=== PATIENT | male | born 1940 | race Caucasian/White ===

== ENCOUNTER 2023-10-13 12:25 | Emergency (ER) | payer MEDICARE, SELFPAY ==
[2023-10-13 12:32] VITALS: BP 128/66; PULSE 80; RESP 14; TEMP 36.6; O2SAT 97
[2023-10-13 12:39] VITALS: BP 128/66; PULSE 80; RESP 14; TEMP 36.6; O2SAT 97
--- OUTSIDE RECORDS SUMMARY | 2023-10-13 13:41 | XMS_ITS | Encounter Summary ---
[place] [address] Care Team Providers Care Manager Audio Name Role Phone Frankie Friedman DPChar Primary Care Provider [phone] Encounter Details Date Type Department Care Team (Latest Contact Info) Description 09/30/2016 12:30 PM EDT - 09/30/2016 2:23 PM EDT Hospital [place] [id number] Constanza Rondon, SHARATH Foot ulcer, left, with unspecified severity Discharge Disposition: Home Social History Tobacco Use Types Packs/Day Years Used Date Smoking Tobacco: Never Assessed Sex and Gender Information Value Date Recorded Sex Assigned at Not on file Gender Identity Not on file Sexual Orientation Not on file documented as of this encounter Medications at Time of Discharge Medication Sig Dispensed Refills Start Date End Date allopurinol (ZYLOPRIM) 100 mg Tablet Take 100 mg by mouth daily. lisinopril (PRINIVIL;ZESTRIL) 20 mg Tablet Take 20 mg by mouth daily. cephalexin (KEFLEX) 500 mg Capsule Take 500 mg by mouth 2 times daily. 09/24/2016 10/03/2016 documented as of this encounter Plan of Treatment Not on file documented as of this encounter Procedures Procedure Name Priority Date/Time Associated Diagnosis Comments MARLEE, LEGS, MULTIPLE LEVELS Routine 09/30/2016 1:04 PM EDT Foot ulcer, left, with unspecified severity documented in this encounter Results * MARLEE, legs, multiple levels (09/30/2016 1:04 PM EDT) VB Text Report Department: Vascular Surgery Lab Patient: [id number] (TIMMY JULES) CPT: 87178 ICD10: L97.529 Referring Physician: EDDIE HOPPER ?? Indications: ??Non-healing ulcer L foot, ? PAD Diabetes mellitus: No ICD10 Diagnosis Code: L97.529 Findings: Right ?Pressure (mm Hg) ?? MARLEE ??Waveform ?TBI ?? Brachial Artery ?137 ? Common Femoral Artery ?Triphasic ? Pop Fossa ?Triphasic ? Dorsalis Pedis (Ankle) Artery ?158 ? 1.15 ??Triphasic ? Posterior Tibial (Ankle) Artery ??149 ? 1.09 ??Triphasic ? Great Toe ?106 ?0.77 ?? Left ? Pressure (mm Hg) ?? MARLEE ??Waveform ?TBI ?? Brachial Artery ?134 ? Common Femoral Artery ?Triphasic ? Pop Fossa ?Triphasic ? Dorsalis Pedis (Ankle) Artery ?150 ? 1.09 ??Triphasic ? Posterior Tibial (Ankle) Artery ??156 ? 1.14 ??Triphasic ? Great Toe ?102 ?0.74 ?? Interpretation: RIGHT: No significant lower extremity arterial occlusive disease identified at rest. LEFT: No significant lower extremity arterial occlusive disease identified at rest. Comparison: ??No previous study in our vascular lab database for comparison. Electronically Signed by: JANE HALEY on 2016-10-01 03:04:55 PM [facility]ASCU[facility] VB Text Report End of Report [facility] 09/30/2016 1:04 PM EDT Eddie Hopper MD VASCULAR ORDERABLES [facility] documented in this encounter Visit Diagnoses Diagnosis Foot ulcer, left, with unspecified severity documented in this encounter Care Teams Manager Audio Relationship Specialty Start Date End Date Frankie Friedman DPM [address] [place] [id number] PCP - General Podiatry 09/30/16 documented as of this encounter
--- OUTSIDE RECORDS SUMMARY | 2023-10-13 13:41 | XMS_ITS | Encounter Summary ---
Author Organization [facility] Address [address] [place] [address] Phone Care Team Providers Care Sharepoint Manager Name Role Phone Unavailable Primary Care Provider Unavailabl e Encounter Details Date Type Department Care Team (Late st Contact Info) Description 06/12/2020 Orders Only [facility] [employer] [address], [place] [id number] Rolf Oleary MD [address] [place] [phone] Encounter for immunization Social History Tobacco Use Types Packs/Day Years Used Date Smoking Tobacco: Never Assessed Sex and Gender Information Value Date Recorded Sex Assigned at Not on file Gender Identity Not on file Sexual Orientation Not on file documented as of this encounter Plan of Treatment Not on file documented as of this encounter Visit Diagnoses Diagnosis Encounter for immunization documented in this encounter
--- OUTSIDE RECORDS SUMMARY | 2023-10-13 13:41 | XMS_ITS | Encounter Summary ---
[place] [address] Care Team Providers Care School Psychology Professor Name Role Phone Frankie Friedman DPChar Primary Care Provider [phone] Reason for Visit * Reason Comments Toe Pain right 4th toe Encounter Details Date Type Department Care Team (Late st Contact Info) Description 09/30/2016 2:24 PM EDT - 09/30/2016 5:38 PM EDT Emergency [place] [address] Cellulitis, unspecified cellulitis site (Primary Dx); Cellulitis of right toe Discharge Disposition: Home Social History Tobacco Use Types Packs/Day Years Used Date Smoking Tobacco: Never Assessed Sex and Gender Information Value Date Recorded Sex Assigned at Not on file Gender Identity Not on file Sexual Orientation Not on file documented as of this encounter Last Filed Vital Signs Vital Sign Reading Time Taken Comments Blood Pressure 154/67 09/30/2016 5:37 PM EDT Pulse 61 09/30/2016 5:37 PM EDT Temperature 36.9 ??C (98.4 ??F) 09/30/2016 5:37 PM ED T Respiratory Rate 16 09/30/2016 5:37 PM EDT Oxygen Saturation 95% 09/30/2016 5:37 PM EDT Inhaled Oxygen Concentration - - Weight - - Height - - Body Mass Index - - documented in this encounter Discharge Instructions * Discharge Instructions* Sol Doherty APRN - 09/30/2016 5:19 PM EDT Images from the original note were not included. [facility] Cellulitis: Care Instructions Your Care Instructions Cellulitis is a skin infection. It often occurs after a break in the skin from a scrape, cut, bite,or puncture, or after a rash. The doctor has checked you carefully, but problems can develop later. If you notice any problems ornew symptoms, get medical treatment right away. Follow-up care is a ching part of your treatment and safety. Be sure to make and go to all appointments, and call your doctor if you are having problems. It's also a good idea to know your test resultsand keep a list of the medicines you take. How can you care for yourself at home? ?? Take your antibiotics as directed. Do not stop taking them just because you feel better. You need to take the full course of antibiotics. ?? Prop up the infected area on pillows to reduce pain and swelling. Try to keep the area above thelevel of your heart as often as you can. ?? If your doctor told you how to care for your wound, follow your doctor's instructions. If you did not get instructions, follow this general advice: ?? Wash the wound with clean water 2 times a day. Don't use hydrogen peroxide or alcohol, which canslow healing. ?? You may cover the wound with a thin layer of petroleum jelly, such as Vaseline, and a nonstick bandage. ?? Apply more petroleum jelly and replace the bandage as needed. ?? Be safe with medicines. Take pain medicines exactly as directed. ?? If the doctor gave you a prescription medicine for pain, take it as prescribed. ?? If you are not taking a prescription pain medicine, ask your doctor if you can take an tnyl-ylb-jwafhjt medicine. To prevent cellulitis in the future ?? Try to prevent cuts, scrapes, or other injuries to your skin. Cellulitis most often occurs wherethere is a break in the skin. ?? If you get a scrape, cut, mild burn, or bite, wash the wound with clean water as soon as you josé help avoid infection. Don't use hydrogen peroxide or alcohol, which can slow healing. ?? If you have swelling in your legs (edema), support stockings and good skin care may help preventleg sores and cellulitis. ?? Take care of your feet, especially if you have diabetes or other conditions that increase the risk of infection. Wear shoes and socks. Do not go barefoot. If you have athlete's foot or other skin problems on your feet, talk to your doctor about how to treat them. When should you call for help? Call your doctor now or seek immediate medical care if: ?? You have signs that your infection is getting worse, such as: ?? Increased pain, swelling, warmth, or redness. ?? Red streaks leading from the area. ?? Pus draining from the area. ?? A fever. ?? You get a rash. Watch closely for changes in your health, and be sure to contact your doctor if: ?? You are not getting better after 1 day (24 hours). ?? You do not get better as expected. Where can you learn more? Visit our [employer] information library at [email or web address]. You can also view health information on [employer], your personal patient account. Log in or sign uptoday. Enter X309 in the search box to learn more about Cellulitis: Care Instructions. Current as of: December 12, 2015 Content Version: 11.3 ?? [id number] [employer]. Care instructions adapted under license by [facility]. If you have questions about a medical condition or this instruction, always ask your healthcare professional. [employer] disclaims any warranty or liability for your use of this information. documented in this encounter Medications at Time of Discharge Medication Sig Dispensed Refills Start Date End Date allopurinol (ZYLOPRIM) 100 mg Tablet Take 100 mg by mouth daily. lisinopril (PRINIVIL;ZESTRIL) 20 mg Tablet Take 20 mg by mouth daily. cephalexin (KEFLEX) 500 mg Capsule Take 500 mg by mouth 2 times daily. 09/24/2016 10/03/2016 documented as of this encounter ED Notes * Sol Doherty APRN - 09/30/2016 5:38 PM EDT Images from the original note were not included. Chief Complaint Patient presents with ??? Toe Pain right 4th toe HPI 76-year-old male presents the emergency department today with redness and ulceration the right fourth toe. Patient states that the redness has increased the last 48 hours and the ulceration has opened. 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 Patient denies any numbness or tingling, or fevers or chills. No Known Allergies Review of Systems Constitutional: Negative for chills, fatigue and fever. Musculoskeletal: Negative for arthralgias, gait problem and joint swelling. Skin: Positive for wound. Ulceration to the base of the fourth right toe Neurological: Negative for weakness and numbness. Hematological: Negative for adenopathy. Physical Exam Constitutional: He is oriented to person, place, and time. He appears well- developed and well-nourished. HENT: Head: Normocephalic and atraumatic. Neck: Normal range of motion. Neck supple. Cardiovascular: Normal rate, regular rhythm, normal heart sounds and intact distal pulses. Pulmonary/Chest: Effort normal and breath sounds normal. Musculoskeletal: Right foot: There is tenderness and swelling. There is normal range of motion. Feet: Neurological: He is alert and oriented to person, place, and time. no sensory changes to the right foot Skin: c MSK Psychiatric: He has a normal mood and affect. Vitals reviewed. Procedures Results for DHARA TIMMY Rivas ( ) as of 10/03/2016 13:20 Ref. Range 09/30/2016 16:03 WBC Latest Ref Range: 4.0 - 9.5 x10(3)/mcL 5.0 RBC Latest Ref Range: 4.58 - 5.54 x10(6)/mcL 5.26 Hemoglobin Latest Ref Range: 13.7 - 16.5 gm/dL 18.4 (H) Hematocrit Latest Ref Range: 40.5 - 48.5 % 51.5 (H) MCV Latest Ref Range: 82.9 - 93.1 fL 97.9 (H) MCH Latest Ref Range: 27.5 - 32.1 pg 35.0 (H) MCHC Latest Ref Range: 32.0 - 35.7 gm/dL 35.7 RDWSD Latest Ref Range: 36.0 - 45.0 fL 44.3 RDWCV Latest Ref Range: 11.4 - 13.8 % 12.3 Platelets Latest Ref Range: 145 - 357 x10(3)/mcL 182 MPV Latest Ref Range: 7.6 - 12.9 fL 8.7 nRBC % Auto Latest Units: % 0.0 nRBC Abs Auto Latest Ref Range: 0.000 - 0.000 x10(3)/mcL 0.000 Neutr Abs (ANC) Latest Ref Range: 1.70 - 6.10 x10(3)/mcL 3.41 Neutrophils % Latest Units: % 68.6 Immature Gran % Latest Units: % 0.20 Lymphocytes % Latest Units: % 13.7 Monocytes % Latest Units: % 16.3 Eosinophils % Latest Units: % 0.4 Basophils % Latest Units: % 0.8 Latosha Gran Abs Latest Ref Range: 0.00 - 0.04 x10(3)/mcL 0.01 Lymphocytes Abs Latest Ref Range: 0.9 - 3.2 x10(3)/mcL 0.7 (L) Monocyte Abs Latest Ref Range: 0.3 - 0.9 x10(3)/mcL 0.8 Eosinophils Abs Latest Ref Range: 0.0 - 0.4 x10(3)/mcL 0.0 Basophils Abs Latest Ref Range: 0.0 - 0.1 x10(3)/mcL 0.0 Sed Rate Latest Ref Range: 0 - 15 mm/hr 9 Sodium Latest Ref Range: 135 - 145 mmol/L 140 Potassium Latest Ref Range: 3.5 - 5.0 mmol/L 4.4 Chloride Latest Ref Range: 98 - 107 mmol/L 98 CO2 Latest Ref Range: 22 - 31 mmol/L 26 Anion Gap Latest Ref Range: 5 - 15 mmol/L 16 (H) BUN Latest Ref Range: 10 - 20 mg/dL 16 Creatinine Latest Ref Range: 0.80 - 1.50 mg/dL 1.07 Estimated GFR Latest Ref Range: >=60 >60 Glucose Lvl Latest Ref Range: 65 - 199 mg/dL 97 Calcium Latest Ref Range: 8.5 - 10.5 mg/dL 9.9 CRP Latest Ref Range: <=4.9 mg/L 29.3 (H) Toe xray IMPRESSION 1. 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 2. No fracture of the fourth digit or radiographic evidence of osteomyelitis MDM 76-year-old male presents the emergency department today with cellulitis of the fourth digit on theright foot. X-rays were obtained in the emergency department which showed no acute bony injury or signs of osteomyelitis. Osteomyelitis is considered secondary to patient's history and open ulceration to the toe on the right foot. Is felt unlikely as inflammatory markers are reassuring and other lab work is reassuring for systemic infection. Patient will be treated with oral antibiotics as Keflexwill be increased to 4 times a day for an additional 7 days. Patient will have follow-up with his flooring mechanic early next week. Patient will return to the emergency department if his condition worsens in any way patient is agreeable with the plan and discharged. ED Course: H & PE Lab work Xray Sol Doherty APRN 10/03/16 1325 * Vivek Medina NRP - 09/30/2016 5:37 PM EDT Pandaging provided tp Pts. Zeroform, gauze and coban applied. documented in this encounter Plan of Treatment Not on file documented as of this encounter Procedures Procedure Name Priority Date/Time Associated Diagnosis Comments CRP, ACUTE INFLAMMATION STAT 09/30/2016 4:03 PM EDT HEMOGRAM STAT 09/30/2016 4:03 PM EDT DIFFERENTIAL, AUTOMATED STAT 09/30/2016 4:03 PM EDT SEDIMENTATION RATE STAT 09/30/2016 4: 03 PM EDT CBC (WITH DIFF) STAT 09/30/2016 4:03 PM EDT BASIC METABOLIC PANEL STAT 09/30/2016 4:03 PM EDT XR TOE(S) MIN 2 VIEW RIGHT STAT 09/30/2016 3:57 PM EDT documented in this encounter Results * (ABNORMAL) Differential, Automated (09/30/2016 4:03 PM EDT) [facility] Neutrophil % 68.6 % [facility] Neutrophil Absolute 3.41 1.70 - 6.10 x10(3)/[facility] Lymph % 13.7 % [facility] Lymphocytes Abs 0.7(L) 0.9 - 3.2 x10(3)/[facility] Monocyte % 16.3 % [facility] Monocyte Abs 0.8 0.3 - 0.9 x10(3)/[facility] Eos % 0.4 % [facility] Eosinophils Abs 0.0 0.0 - 0.4 x10(3)/[facility] Basophil % 0.8 % [facility] Baso Absolute 0.0 0.0 - 0.1 x10(3)/[facility] Immature Gran % 0.20 % [facility] Comment: Immature granulocytes(IG's)percentage and absolute count will include metamyelocytes, myelocytes, and promyelocytes. Blood smears from CBCs yielding IG's will be scanned manually for concordance. If this scan disagrees with the automated IG or if promyelocytes are noted, a manual differential will be performed. Immature Gran Absolute 0.01 0.00 - 0.04 x10(3)/[facility] Blood specimen (specimen) 09/30/2016 4:03 PM EDT 09/30/2016 4:11 PM EDT Narrative Resulting Agency Comment Spec In Lab Sol Doherty IRRIGATION TEACHER HEMATOLOGY ORDERABLE S [facility] [place] [address] [place] [address] * (ABNORMAL) Hemogram (09/30/2016 4:03 PM EDT) [facility] White Blood Cell 5.0 4.0 - 9.5 x10(3)/[facility] Red Blood Cell 5.26 4.58 - 5.54 x10(6)/ L [facility] Hemoglobin 18.4(H) 13.7 - 16.5 gm/dL [facility] Hematocrit 51.5(H) 40.5 - 48.5 % [facility] Mean Cell Volume 97.9(H) 82.9 - 93.1 fL [facility] Mean Cell Hemoglobin 35.0(H) 27.5 - 32.1 pg [facility] Mean Cell Hemoglobin Concentration 35.7 32.0 - 35.7 gm/dL [facility] Platelet 182 145 - 357 x10(3)/mc L [facility] RDW Standard Deviation 44.3 36.0 - 45.0 [facility] RDW coefficient of variation 12.3 11.4 - 13.8 % [facility] Mean Platelet Volume 8.7 7.6 - 12.9 [facility] NRBC% auto 0.0 % [facility] NRBC Absolute 0.000 0.000 - 0.000 x10(3)/mc L [facility] Blood specimen (specimen) 09/30/2016 4:03 PM EDT 09/30/2016 4:11 PM EDT Narrative Resulting Agency Comment Spec In Lab Sol Doherty APRN HEMATOLOGY ORDERABLE S Performing Organization Address City/[facility]/ZIP Co de Phone Number [facility] [place] [address] * (ABNORMAL) CRP, acute inflammation (09/30/2016 4:03 PM EDT) C-Reactive Protein 29.3(H) <=4.9 mg/L [facility] Blood specimen (specimen) 09/30/2016 4:03 PM EDT 09/30/2016 4:11 PM EDT Narrative Resulting Agency Comment Spec In Lab Sol Doherty APRN CHEMISTRY ORDERABLES [facility] [place] [address] * Sedimentation rate (09/30/2016 4:03 PM EDT) [facility] Sedimentation Rate Automated 9 0 - 15 mm/hr [facility] Blood specimen (specimen) 09/30/2016 4:03 PM EDT 09/30/2016 4:11 PM EDT Narrative Resulting Agency Comment Spec In Lab Sol Doherty APRN HEMATOLOGY ORDERABLE S Performing Organization Address City/[facility]/ZIP Co de Phone Number [facility] [place] [address] * (ABNORMAL) Basic Metabolic Panel (non-fasting) (09/30/2016 4:03 PM EDT) [facility] Glucose 97 65 - 199 mg/dL [facility] Comment:Diabetes: >=200 mg/d L plus symptoms Blood Urea Nitrogen 16 10 - 20 mg/dL [facility] Creatinine 1.07 0.80 - 1.50 mg/dL [facility] Comment: Please note that the pediatric reference intervals supplied above were not validated at [facility]. Results from pediatric patients should be interpreted in conjunction to the patient's age, height and muscle mass. Sodium 140 135 - 145 mmol/L [facility] Potassium 4.4 3.5 - 5.0 mmol/L [facility] Comment: Please note: ??Patients with WBC >100,000 may have falsely elevated Potassium levels. ??For accurate Potassium quantification in these patients send serum separator tube (gold top) for subsequent determinations. ??Contact the Clinical Chemistry Laboratory if there are any questions. Chloride 98 98 - 107 mmol/L [facility] Carbon Dioxide 26 22 - 31 mmol/L [facility] Anion Gap 16(H) 5 - 15 mmol/L [facility] Calcium 9.9 8.5 - 10.5 mg/dL [facility] Est Glomerular Filtration Rate >60 >=60 [facility] Comment: This estimated GFR (eGFR) value was calculated using the MDRD equation which has been validated on patients between the ages of 18 and 70. The MDRD should not be used to assess kidney function in patients < 18 years of age or in patients with extremes of body mass, or in patients with acute kidney failure. This value should be multiplied by 1.2 for patients. For further information please copy and paste the following links into your internet browser. [email or web address]/DHnkdep [email or web address] Blood specimen (specimen) 09/30/2016 4:03 PM EDT 09/30/2016 4:11 PM EDT Narrative Resulting Agency Comment Spec In Lab Sol Doherty APRN CHEMISTRY ORDERABLES [facility] [place] [id number] * XR Toe(s) Min 2 view Right (Generic) (09/30/2016 3:57 PM EDT) Anatomical Region Laterality Modality Right Digital Radiogra phy Impressions 09/30/2016 4:25 PM EDT 1. ??Changes of right second PIP fusion and amputation of the third ray distal to the PIP joint. 2. ??No fracture of the fourth digit or radiographic evidence of osteomyelitis. Narrative 09/30/2016 4:25 PM EDT EXAMINATION: XR TOE(S) MIN 2 VIEW RIGHT (GENERIC) CLINICAL HISTORY: 4th digit ulcer, redness, question underlying fracture or deep space infection TECHNIQUE: AP of the right foot and 2 views of the right digits COMPARISON: None FINDINGS: There are changes of ORIF with fusion of the right second PIP joint. There is amputation of the right third digit distal to the PIP joint. Mild degenerative changes of the IP joints of the third and fourth rays are noted. No acute fracture, lucency or sclerosis. There is normal alignment of the digits of the right foot. A small osseous fragment at the base of the fifth metatarsal likely represents a subacute or chronic avulsion fracture. Procedure Note Lisset Simeon MD - 09/30/2016 EXAMINATION: XR TOE(S) MIN 2 VIEW RIGHT (GENERIC) CLINICAL HISTORY: 4th digit ulcer, redness, question underlying fractureor deep space infection TECHNIQUE: AP of the right foot and 2 views of the right digits COMPARISON: None FINDINGS: There are changes of ORIF with fusion of the right second PIP joint. Thereis amputation of the right third digit distal to the PIP joint. Milddegenerative changes of the IP joints of the third and fourth rays are noted. Noacute fracture, lucency or sclerosis. There is normal alignment of the digits ofthe right foot. A small osseous fragment at the base of the fifth metatarsallikely represents a subacute or chronic avulsion fracture. IMPRESSION 1. Changes of right second PIP fusion and amputation of the third raydistal to the PIP joint. 2. No fracture of the fourth digit or radiographic evidence ofosteomyelitis. Sol Doherty APRN IMG DX ORDERABLES documented in this encounter Visit Diagnoses Diagnosis Cellulitis, unspecified cellulitis site- Primary Cellulitis of right toe documented in this encounter Administered Medications Inactive Administered Medications - up to 3 most recent administrations Medication Order MAR Action Action Date Dose Rate Site cephalexin (KEFLEX) capsule 1,000 mg 1,000 mg, Oral, ONCE, 1 dose, On Wed09/30/16 at 1720, STAT, Indication for (Active or Suspected): Skin/Skin Structure Given 09/30/2016 5:20 PM EDT 1,000 mg documented in this encounter Active and Recently Administered Medications Times are shown in EDT. Scheduled Medication Order 09/28/2016 09/29/2016 09/30/2016 cephalexin (KEFLEX) capsule 1,000 mg (COMPLETED) 1,000 mg, Oral, ONCE, 1 dose, On Wed09/30/16 at 1720, STAT, Indication for (Active or Suspected): Skin/Skin Structure 1720 (Given - Provid er: Vivek Medina NRP) documented in this encounter Care Teams School Psychology Professor Relationship Specialty Start Date End Date Frankie Friedman DPM [address] [place] [id number] PCP - General Podiatry 09/30/16 documented as of this encounter
--- OUTSIDE RECORDS SUMMARY | 2023-10-13 13:41 | XMS_ITS ---
Author Organization [facility] Address [address] [place] [address] Care Team Providers Care Beach Attendant Name Role Phone Allyson Grijalva Primary Care Provider ALLERGIES No Known Allergies REASON FOR VISIT MCW MEDICATIONS Medication SIG (Take, Route, Frequency, Duration) Notes Start Date End Date Status Vitamin D 25 MCG (1000 UT) 1 tablet Oral ly Once a day for 30 day(s) Active Multivitamins as directed Orally Active Allopurinol 100 MG TAKE 1 TABLET DAILY for 90 Active Biotin 10 MG 1 tablet Orally Once a day for 30 day(s) Active Cranberry 405 MG as directed Orally Active Glucosamine 500 MG 1 capsule with a ambrocio l Orally Once a day for 30 day(s) Active D-Mannose 500 MG as directed Orally Active Carvedilol 25 MG as directed Orally t wice a day (bid) Active tumeric tablet Active Eliquis 5 MG 1 tablet Orally twic e a day Active SOCIAL HISTORY Tobacco Use: Social History Observation Description Date Details (start date - stop date) Never Smoker NA - NA Sex Assigned At : Social History Observation Description Sex Assigned At Unknown Alcohol history Question Answer Notes How many drinks do you have per month? 11-30 4 drinks a week Smoking history Question Answer Notes Are you a: nonsmoker Falls Risk Screening Question Answer Notes Fall Risk Assessment: No falls in the past year TB VITAL SIGNS BMI 28.98 kg/m2 03/22/2023 Blood pressure systolic 110 mm Hg 03/22/19 24 Blood pressure diastolic 60 mm Hg 024 Height 71.2 in 03/22/2023 Weight 209.0 lbs 03/22/2023 Encounters Encounter Location Date Provider Diagnosis [facility] [address] [place] [address] 03/22/2023 Allyson Grijalva Encounter for genera l adult medical examination with abnormal findings Z00.01 ; Other congestive heart failure I50.9 ; Chronic atrial fibrillation I48.20 ; Gout M10.9 ; Macular retinal puckering, left eye H35.372 ; Benign essential hypertension I10 ; History of prostate cancer Z85.46 ; Skin texture changes R23.4 ; Monocytosis (symptomatic) D72.821 ; Overweight E66.3 and Body mass index [BMI] 28.0-28.9, adult Z68.28 ASSESSMENTS Encounter Date Diagnosis Assessment Notes Treatment Notes Treatment Clinical Notes 03/22/2023 Encounter for general adult medical examination with abnormal findings (ICD-10 - Z00.01) Counseled on safety issues. Immunization record reviewed. living will and POA discussed and reviewed. 03/22/2023 Other congestive heart failure (ICD-10 - I50.9) status post pacemaker and defribillator and seeing the logistics and planning manager. 03/22/2023 Chronic atrial fibrillation (ICD-10 - I48.20) remain on Eliquis. 03/22/2023 Gout (ICD-10 - M10.9) check uric acid. continue allopurinol. 03/22/2023 Macular retinal puckering, left eye (ICD-10 - H35.372) continue to see the floor and wall applier liquid. 03/22/2023 Benign essential hypertension (ICD-10 - I10) Blood pressure remains well controlled on current medication. 03/22/2023 History of prostate cancer (ICD-10 - Z85.46) you're up to date with the urologist. psa creeping up. watch for any urinary symptoms. 03/22/2023 Skin texture changes (ICD-10 - R23.4) left foot chronic issue. status post workup with account supervisor. 03/22/2023 Monocytosis (symptomatic) (ICD-10 - D72.821) unchanged. 03/22/2023 Overweight (ICD-10 - E66.3) Counseled on weight. 03/22/2023 Body mass index [BMI] 28.0-28.9, adult (ICD-10 - Z68.28) Reviewed current BMI. PLAN OF TREATMENT Treatment Notes Assessment Notes Encounter for general adult medical examination with abnormal findings Counseled on safety issues. Immunization record reviewed. living will and POA discussed and reviewed. Other congestive heart failure status po st pacemaker and defribillator and seeing the logistics and planning manager. Chronic atrial fibrillation remain on El iquis. Gout check uric acid. con tinue allopurinol. Macular retinal puckering, left eye cont inue to see the floor and wall applier liquid. Benign essential hypertension Blood pres sure remains well controlled on current medication. History of prostate cancer you're up to date with the urologist. psa creeping up. watch for any urinary symptoms. Skin texture changes chronic issue. stat us post workup with account supervisor. Monocytosis (symptomatic) unchanged. Overweight Counseled on weight. Body mass index [BMI] 28.0-28.9, adult R eviewed current BMI. Future Test Test Name Order Date Uric Acid, Serum 03/22/2023 Next Appt Details Follow Up: 1 Year, Reason: M ed Wellness Visit Progress Notes * Examination Category Sub-Category Detail Notes General Examination HEENT: PERRL. EOMI. Sclerae white. Conjuctivae pink. NECK/THYROID: no lymphadenopathy, no mass, no thyromegaly, supple CARDIOVASCULAR: no murmurs, click or rubs, regular rate and rhythm, normal S1S2 RESPIRATORY: clear to auscultatio n bilaterally, no wheezes, rhonchi, rales GASTROINTESTINAL: normal, soft, non-te nder, no organomegaly, bowel sounds are normal. No CVAT EXTREMITIES: no clubbing, cyanosi s or edema GENERAL APPEARANCE: alert and pleasant. Not in acute distress SKIN: no rashes NEUROLOGIC EXAM: No motor/sensory def icit. PERIPHERAL PULSES: 2+ in the lower extr emities PSYCH appropriate mood and affect JOINTS: No erythema, swellin g or tenderness Wellness Exam Additional Cognitive Screening Orientati on to Place?: Yes Recall of 3 item in 5 mins: 1 Orientation to Person?: Yes Orientation to Time?: Yes Functiional Ability/ Safety Screening Wa s the Up and Go test time unsteady or more than 30 secs?: No Get Up and Get Go test time: 1 Cognition Assessment ASSESSMENT:: Assess ment and interpretation of higher cerebral function, cognitive testing 10 animals in 1minute History and Physical Notes * HPI (History of Present Illness) Category Sub-Category Detail Notes Depression Screening PHQ-2 (2015 Edition) Little interest or pleasure in doing things?: Not at all Feeling down, depressed, or hopeless?: N ot at all Total Score: 0 Medicare Wellness Exam Type of Visit :: Subsequest Yamilet ual Wellness Visit Language or Communication barrier addressed ?: N o Health Risk Assessment :: Complete Allergy Hx verified ?: Yes Medications including supplements verified ?: Ye s Problem List/Medical Hx verified ?: Yes Hospital/Surgical Hx verified ?: Yes Social Hx verified ?: Yes Family Hx verified ?: Yes Immunization list vefiried ?: Yes Other Care Providers :: Verified Depression Screen: Over the past 2 weeks Have you felt little interest or pleasure in doing things?: No Have you felt down, depressed or hopeles s?: No Vision/Hearing Screening (Optional) :: Not Indic ated Written Care Plan provided to Pt ?: Done Patient Care Team Cardiology Dr. Diego yi Dermatology [facility] of dermatology ENT Dr. Wells Gastroenterology Dr. Cunningham Ophthalmology Dr. Casper [facility]rology [facility] Podiatry Dr. Abrams Pre-Visit Planning Pre-Visit Planning Completed: 03/19 Depression Screening, fall risk screening
--- OUTSIDE RECORDS SUMMARY | 2023-10-13 13:41 | XMS_ITS | Clinical Summary ---
Author Organization [facility] [place] [address] Care Team Providers Care Wastewater Operator Name Role Phone Frankie Friedman DPChar Primary Care Provider [phone] Allergies No known active allergies Medications Medication Sig Dispensed Refills Start Date End Date Status allopurinol (ZYLOPRIM) 100 mg Tablet Take 100 mg by mouth daily. Active lisinopril (PRINIVIL;ZESTRIL) 20 mg Tablet Take 20 mg by mouth daily. Active Social History Tobacco Use Types Packs/Day Years Used Date Smoking Tobacco: Never Assessed Sex and Gender Information Value Date Recorded Sex Assigned at Not on file Gender Identity Not on file Sexual Orientation Not on file Last Filed Vital Signs Vital Sign Reading Time Taken Comments Blood Pressure 154/67 09/30/2016 5:37 PM EDT Pulse 61 09/30/2016 5:37 PM EDT Temperature 36.9 ??C (98.4 ??F) 09/30/2016 5:37 PM ED T Respiratory Rate 16 09/30/2016 5:37 PM EDT Oxygen Saturation 95% 09/30/2016 5:37 PM EDT Inhaled Oxygen Concentration - - Weight - - Height - - Body Mass Index - - Plan of Treatment Health Maintenance Due Date Last Done Comments Tdap adult 1960 Tetanus vaccine 1960 Zoster vaccine (1 of 2) 1991 Advance Directive 1996 Pneumoccocal Vaccine: 65+ (1 of 1 - PCV) 2006 Covid-19 Vaccine ( - 2022-24 season) 2022 Influenza (Flu) vaccine (1 o f 1 - Influenza standard series) 10/31/2023 Care Teams Wastewater Operator Relationship Specialty Start Date End Date Frankie Friedman DPM [address] [place] [id number] PCP - General Podiatry 09/30/16
--- OUTSIDE RECORDS SUMMARY | 2023-10-13 13:41 | XMS_ITS | Clinical Summary ---
Author Organization [facility] Address [address] [place] [address] Phone Care Team Providers Care Job Setter Honing Name Role Phone Unavailable Primary Care Provider Unavailabl e Social History Tobacco Use Types Packs/Day Years Used Date Smoking Tobacco: Never Assessed Sex and Gender Information Value Date Recorded Sex Assigned at Not on file Gender Identity Not on file Sexual Orientation Not on file Plan of Treatment Not on file
--- OUTSIDE RECORDS SUMMARY | 2023-10-13 13:42 | XMS_ITS ---
Author Organization [facility] Address [address] [place] [address] Care Team Providers Care Territory Sales Manager Medical Name Role Phone Allyson Grijalva Primary Care Provider [phone] REASON FOR VISIT 07 Prescription/Refill MEDICATIONS Medication SIG (Take, Route, Fr equency, Duration) Notes Start Date End Date Status Allopurinol 100 MG TAKE 1 TABLET DAILY for 90 Active Encounters Encounter Location Date Provider Diagnosis [facility] [address] [place] [address] 12/01/2022 Allyson Grijalva PLAN OF TREATMENT Medication Medication Name Sig Start Date Stop Date Notes Allopurinol 100 MG TAKE 1 TABLET DAILY for 90
--- OUTSIDE RECORDS SUMMARY | 2023-10-13 13:42 | XMS_ITS | Patient Health Record ---
Author Organization [facility] Address [address] [place] [address] Care Team Providers Care Intervention Analyst Name Role Phone Allyson Grijalva Primary Care Provider ALLERGIES No Known Allergies RESULTS Component Value Reference Range Notes CBC With Differential/Platel et Reviewed date:03/22/2023 02:23:44 AM Interpretation:rbc 4.00 low, mcv 104, mch 37.8 , mchc 36.5 - HIGH Performing Lab:[facility] [place], [address] [place] [address], Phone - [phone], Director - Josh Notes/Report: WBC 4.5 3.4-10.8 x10E3/uL RBC 4.00 4.14-5.80 x10E6/uL Macrocytes present. Anisocytosis present. Hemoglobin 15.1 13.0-17.7 g/dL Hematocrit 41.4 37.5-51.0 % MCV 104 79-97 fL MCH 37.8 26.6-33.0 pg MCHC 36.5 31.5-35.7 g/dL RDW 12.4 11.6-15.4 % Platelets 176 150-450 x10E3/uL Neutrophils 51 Not Estab. % Lymphs 30 Not Estab. % Monocytes 15 Not Estab. % Eos 3 Not Estab. % Basos 1 Not Estab. % Immature Cells Neutrophils (Absolute) 2.2 1.4-7.0 x10E3/uL Lymphs (Absolute) 1.3 0.7-3.1 x10E3/uL Monocytes(Absolute) 0.7 0.1-0.9 x10E3/uL Eos (Absolute) 0.2 0.0-0.4 x10E3/uL Baso (Absolute) 0.0 0.0-0.2 x10E3/uL Immature Granulocytes 0 Not Estab. % Immature Grans (Abs) 0.0 0.0-0.1 x10E3/uL NRBC Hematology Comments: Note: Verifie d by microscopic examination. Comp. Metabolic Panel (14) Reviewed date:03/22/2023 02:23:44 AM Interpretation:normal Performing Lab:[facility] [place], [address] [facility], Phone - [phone], Director - MDJodry Notes/Report: Glucose 81 70-99 mg/dL BUN 10 8-27 mg/dL Creatinine 1.01 0.76-1.27 mg/dL eGFR 75 >59 mL/min/1.73 BUN/Creatinine Ratio 10 10-24 Sodium 142 134-144 mmol/L Potassium 3.9 3.5-5.2 mmol/L Chloride 103 96-106 mmol/L Carbon Dioxide, Total 26 20-29 mmol/L Calcium 9.3 8.6-10.2 mg/dL Protein, Total 6.8 6.0-8.5 g/dL Albumin 4.1 3.7-4.7 g/dL Globulin, Total 2.7 1.5-4.5 g/dL A/G Ratio 1.5 1.2-2.2 Bilirubin, Total 0.7 0.0-1.2 mg/dL Alkaline Phosphatase 78 44-121 IU/L AST (SGOT) 35 0-40 IU/L ALT (SGPT) 17 0-44 IU/L Lipid Panel w/ Chol/HDL Rati o Reviewed date:03/22/2023 02:23:44 AM Interpretation:LDL 143 TG 171 HDL 45 Performing Lab:[facility] [place], [address] [facility], [place], Phone - [phone], Director - MDJodry Notes/Report: Cholesterol, Total 219 100-199 mg/dL Triglycerides 171 0-149 mg/dL HDL Cholesterol 45 >39 mg/dL VLDL Cholesterol Javier 31 5-40 mg/dL LDL Chol Calc (NIH) 143 0-99 mg/dL Comment: T. Chol/HDL Ratio 4.9 0.0-5.0 ratio T. Chol/HDL Ratio Men Women 1/2 Avg.Risk 3.4 3.3 Avg.Risk 5.0 4.4 2X Avg.Risk 9.6 7.1 3X Avg.Risk 23.4 11.0 Urinalysis, Complete Reviewed date:03/22/2023 02:23:44 AM Interpretation:many bacteria, rbc 11-30 , wbc >30 , turbid, wbc est 3+ , occult blood 2+ , + Nitrite, protein 1+ Performing Lab:[address], Phone - [phone], Director - Josh Notes/Report: Specific [place] 1.016 1.005-1.030 pH 5.5 5.0-7.5 Urine-Color Yellow Yellow Appearance Turbid Clear WBC Esterase 3+ Negative Protein 1+ Negative/Trace Glucose Negative Negative Ketones Negative Negative Occult Blood 2+ Negative Bilirubin Negative Negative Urobilinogen,Semi-Qn 0.2 0.2-1.0 mg/dL Nitrite, Urine Positive Negative Microscopic Examination See below: Micr oscopic was indicated and was performed. Microscopic Examination WBC >30 0 - 5 /hpf RBC 11-30 0 - 2 /hpf Epithelial Cells (non renal) 0-10 0 - 10 /hpf Epithelial Cells (renal) Casts None seen None seen /lpf Cast Type Crystals Crystal Type Mucus Threads Bacteria Many None seen/Few Yeast Trichomonas Comment Hemoglobin A1c Reviewed date:03/22/2023 02:23:45 AM Interpretation:5.6 normal Performing Lab:[address], Phone - [phone], Director - Josh Notes/Report: Hemoglobin A1c 5.6 4.8-5.6 % . Prediabetes: 5.7 - 6.4 Diabetes: >6.4 Glycemic control for adults with diabetes: <7.0 Cardiovascular Report Reviewed date:03/22/2023 02:23:45 AM Interpretation:na Performing Lab:[address], [place], Phone - [phone], Director - Josh Notes/Report: Interpretation Note Supplemental report is available. PDF . REASON FOR REFERRAL No Information MEDICATIONS Medication SIG (Take, Route, Frequency, Duration) Notes Start Date End Date Status Glucosamine 500 MG 1 capsule with a ambrocio l Orally Once a day for 30 day(s) Active D-Mannose 500 MG as directed Orally Active Vitamin D 25 MCG (1000 UT) 1 tablet Oral ly Once a day for 30 day(s) Active Multivitamins as directed Orally Active Allopurinol 100 MG TAKE 1 TABLET DAILY for 90 Active Biotin 10 MG 1 tablet Orally Once a day for 30 day(s) Active Cranberry 405 MG as directed Orally Active Carvedilol 25 MG as directed Orally t wice a day (bid) Active tumeric tablet Active Eliquis 5 MG 1 tablet Orally twic e a day Active IMMUNIZATIONS Vaccine Route Administration Date Status Comme nts I- Influenza Vaccine Declined Unknown 02/11/2010 Administered [id number] Unknown 03/19/2009 Administer ed PNEUMOCOCCAL-(PREVNAR-13) IM Intramuscular 04/30/2014 Admi nistered Shingrix Unknown 11/28/2018 Administered Shingrix Unknown 01/30/2019 Administered Influenza (not given in office) Unknown 12/11/2019 Administered Covid-19 Pfizer Dose#1 (Not Given in Office) Unknown 04/20/2020 Administered Covid-19 Pfizer Dose#2 (Not Given in Office) Unknown 05/12/2020 Administered Influenza (not given in office) Unknown 12/04/2020 Administered Covid-19 Pfizer booster (Not Given in Office) Unknown 11/28/2020 Administered Influenza (not given in office) IM Intramuscular 12/30/2022 Administered I - (REFUSED) Influenza Vaccine (DO NOT USE) Unknown 12/31/2016 Refused Influenza Vaccine (refused) Unknown 03/25/2018 Refused Influenza Vaccine (refused) Unknown 11/21/2018 Refused Influenza Vaccine (refused) Unknown 03/13/2019 Refused SOCIAL HISTORY Tobacco Use: Social History Observation [...] No falls in the past year TB PROBLEMS Problem Type ICD Code Onset Dates Problem Status W/U Status Risk SNOMED Code Notes Problem Hyperlipidemia (E78.5) Active confirmed 91479616 Problem Benign essential hypertension (I10) Active confirmed 2737116 Problem Gout (M10.9) Active confirmed 35132543 Problem BPH (benign prostatic hyperplasia) (N40.0) Active confirmed 281609644 Problem Epididymitis (N45.1) Active confirmed 56543024 Problem Actinic keratosis (L57.0) Active confirmed 766050547 Problem Monocytosis (symptomatic) (D72.821) Active confirmed 95376170 Problem Persistent atrial fibrillation (I48.1) Active confirmed 059201833 Problem History of prostate cancer (Z85.46) Active confirmed 947304670 Problem Peripheral polyneuropathy (G62.9) Active confirmed 29415156 Problem Hammertoe (M20.40) Active confirmed 122 703329 Problem Macular retinal puckering, 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) Active confirmed 277019369 Problem Diverticulosis of colon (K57.30) Active confirmed 492575874 Problem Other age-related cataract of right eye (H25.89) Active confirmed 59782744 Problem Other congestive heart failure (I50.9) Active confirmed 11095390 Problem Chronic atrial fibrillation (I48.20) Active confirmed Chronic atrial fibrillation (027049505) VITAL SIGNS Blood pressure diastolic 60 mm Hg 03/22/2023 Height 71.2 in 03/22/2023 Blood pressure systolic 110 mm Hg 03/22/2023 Weight 209.0 lbs 03/22/2023 BMI 28.98 kg/m2 03/22/2023 Encounters Encounter Location Date Provider Diagnosis [address] [address] 03/22/2023 Allyson Grijalva Encounter for genera l [...] Body mass index [BMI] 28.0-28.9, adult Z68.[address] [address] 11/17/2022 Allyson Grijalva Hyperlipidemia E78.5 ; BPH (benign prostatic hyperplasia) N40.0 ; Benign essential hypertension I10 and Hyperglycemia R73.9 [facility] [address] [address] 12/01/2022 Allyson Grijalva ASSESSMENTS Encounter Date Diagnosis Assessment Notes Treatment Notes Treatment Clinical Notes 03/22/2023 Encounter for general adult medical examination with abnormal findings (ICD-10 - Z00.01) Counseled on safety issues. Immunization record reviewed. living will and POA discussed and reviewed. 03/22/2023 Other congestive heart failure (ICD-10 - I50.9) status post pacemaker and defribillator and seeing the dental office manager. 03/22/2023 Chronic atrial fibrillation (ICD-10 - I48.20) remain on Eliquis. 11/17/2022 Hyperlipidemia (ICD-10 - E78.5) 03/22/2023 Gout (ICD-10 - M10.9) check uric acid. continue allopurinol. 11/17/2022 BPH (benign prostatic hyperplasia) (ICD-10 - N40.0) 03/22/2023 Macular retinal puckering, left eye (ICD-10 - H35.372) continue to see the nurses assistant. 11/17/2022 Benign essential hypertension (ICD-10 - I10) 03/22/2023 Benign essential hypertension (ICD-10 - I10) Blood pressure remains well controlled on current medication. 11/17/2022 Hyperglycemia (ICD-10 - R73.9) 03/22/2023 History of prostate cancer (ICD-10 - Z85.46) you're up to date with the urologist. psa creeping up. watch for any urinary symptoms. 03/22/2023 Skin texture changes (ICD-10 - R23.4) left foot chronic issue. status post workup with ballet company member. 03/22/2023 Monocytosis (symptomatic) (ICD-10 - D72.821) unchanged. 03/22/2023 Overweight (ICD-10 - E66.3) Counseled on weight. 03/22/2023 Body mass index [BMI] 28.0-28.9, adult (ICD-10 - Z68.28) Reviewed current BMI. PLAN OF TREATMENT Pending Test Test Name Order Date VENIPUNTURE ROUTINE 08/01/2013 AUTO BLD COUNT + DIFFERENTIAL 04/18/2011 COMP METABOLIC PANEL - FASTING 2 LIPID PROFILE 04/18/2011 PSA TOTAL 04/18/2011 TSH (SENSITIVE) 04/18/2011 URIC ACID 03/18/2018 URIC ACID 04/18/2011 URINALYSIS 04/18/2011 1 EKG WITH INTERP AND RPT 09/08/2016 CULTURE, STOOL, ZEESHAN/SHIG/CAMPY AND SHIGA TOXINS EIA W/RFL E.COLI O157 CULT 06/19/2011 COMPREHENSIVE METABOLIC PANEL W/eGFR 12/2012 CLOSTRIDIUM DIFFICILE TOXIN A AND B, EIA 06/19/2011 CBC (INCLUDES DIFF/PLT) 06/09/2012 LIPID PANEL 06/09/2012 URINALYSIS REFLEX 06/09/2012 URIC ACID 06/09/2012 PSA TOTAL (MONITORING) 03/18/2018 CBC WITH DIFF/PLATELETS 03/18/2018 COMP METABOLIC PANEL - FASTING 9 LIPID PROFILE WITH REFLEX TO DIRECT LDL 03/18/2018 Future Test Test Name Order Date US Scrotum & Contents 12/31/2016 COMP METABOLIC PANEL 05/01/2019 GLYCOSOLATED HEMOGLOBIN A1C 05/01/2019 LIPID PROFILE 05/01/2019 PROSTATE-SPECIFIC ANTIGEN (PSA) SCREENIN G 11/21/2020 COMPREHENSIVE METABOLIC PANEL (CMP) 10/31 COMPREHENSIVE METABOLIC PANEL (CMP) 11/29 Uric Acid, Serum 03/22/2023 Insurance Providers Payer Name Payer Address Payer Phone Subscriber Number Group Number Insured Name Patient Relationship to Insured Coverage Start Date Coverage End Date Medicare [address] [place] [phone] [id number] Timmy Whitman Self - patient is the insured MEDICAL (GENERAL) HISTORY Medical History History ICD Code htn,erectile dysfx s/p brachiotx prostat e ca 2002,gout, mixed hyperlipidemia Dr Antoine hackett, was infected 2016 actinic keraotis, up to date with derm, Effludex annually, Dr Regan a-fib- on elaquis cardiomyopathy Benign essential hypertension I10 Mixed hyperlipidemia E78.2 Gout M10.9 Peripheral polyneuropathy G62.9 Macular retinal puckering, left eye H35. 372 Diverticulosis of colon K57.30 Surgical History Surgery Date(Month/Year) AV node ablation, pacemaker/defribillato r 06/2019 right cataract removal 08/2018 Left cataract removal 11/2016 left hip replacement [address] Schultz 2016 brachiotherapy prostate [id number] josé luis o ca 2002 colonoscopy Jaylene, due 2012 2002 Hospitalization History Reason Date(Month/Year) a fib 03/2018 cataract surgery 12/2016 surgery
--- OUTSIDE RECORDS SUMMARY | 2023-10-13 13:42 | XMS_ITS ---
Author Organization [facility] Address [address] [place] [address] Care Team Providers Care Automotive Paint Technician Name Role Phone Allyson Grijalva Primary Care Provider [phone] REASON FOR VISIT labs for 03/22/2023 Encounters Encounter Location Date Provider Diagnosis [facility] [address] [place] [address] 11/17/2022 Allyson Grijalva Hyperlipidemia E78.5 ; BPH (benign prostatic hyperplasia) N40.0 ; Benign essential hypertension I10 and Hyperglycemia R73.9 ASSESSMENTS Encounter Date Diagnosis Assessment Notes Treatment Notes Treatment Clinical Notes 11/17/2022 Hyperlipidemia (ICD-10 - E78.5) 11/17/2022 BPH (benign prostati c hyperplasia) (ICD-10 - N40.0) 11/17/2022 Benign essential hypertension (ICD-10 - I10) 11/17/2022 Hyperglycemia (ICD-1 0 - R73.9) PLAN OF TREATMENT No Information
--- OUTSIDE RECORDS SUMMARY | 2023-10-13 13:43 | XMS_ITS ---
Author Organization [facility] Address [address] [place] [address] Care Team Providers Care Cable Maker Name Role Phone Rudi FERRARO, Allyson Primary Care Provider Unavaila Saw Moffett [phone] REASON FOR VISIT annual Problems No Known Problems Encounters Encounter Location Date Provider Diagnosis [facility] [place] [address] [place] [id number] 11/17/2022 Saw Gunn Plan Of Treatment Next Appt Details Provider Name:Saw Gunn, 11/15/2023 10:15:00 AM, [address], [address], [place], [place], [phone], Progress Notes * WAQAR JULES EDOB:1940 (83 yo M)Acc No.[id number]:11/17/2022 UNLOCKED PROGRESS NOTE Patient:?WAQAR JULES Provider:?Saw Gunn MD :1940???Age:82 Y???Sex:Male Rocky e:11/17/2022 Address:[address] [facility] Pcp:Allyson Grijalva MD Subjective: * Chief Complaints: * ???1. Annual. * Medical History:? Objective: * Vitals:? Assessment: Plan: * Treatment: * * Electronic signature of Davian Gunn MD on 10/13/2023 at 01:42 PM EDT Sign off status: Pending * Provider:?Saw Gunn MD Date:? 023 Generated for Walker caro/Brittany/Naboritting on:?10/13/2023 01:42 PM EDT
--- OUTSIDE RECORDS SUMMARY | 2023-10-13 13:43 | XMS_ITS ---
Author Organization [facility] Ambulatory Address [address] [facility] [address] [place] [address] Care Team Providers Care Learning Design Specialist Name Role Phone Allyson Grijalva MD Primary Care Provider Saw Mahajan Unavailable [phone] Allergies No Known Allergies REASON FOR VISIT annual Medications Medication SIG (Take, Route, Frequency, Duration) Notes Start Date End Date Status Eliquis 5 MG as directed Orally Active HYDROcodone-Acetaminophen 5-325 MG 1 tablet as needed Orally every 6 hrs for 5 days 03/25/2021 Not-Taking Allopurinol 100 MG as directed Orally O nce a day Active Coreg 25 MG 1 tablet with food Orally once a day Active Social History Tobacco Use: Social History Observation Description Date Details (start date - stop date) Never Smoker NA - NA Tobacco Use/Smoking Question Answer Notes Are you a nonsmoker Problems No Known Problems Vital Signs Height 71 in 11/16/2022 Weight 203 lbs 11/16/2022 BMI 28.31 kg/m2 11/16/2022 Encounters Encounter Location Date Provider Diagnosis [facility] [place] [address] [place] [phone] 11/16/2022 Saw Gunn Malignant neoplasm of prostate C61 and Other retention of urine R33.8 Assessments Encounter Date Diagnosis (ICD Code) Assessment Notes Treatment Notes Treatment Clinical Notes 11/16/2022 Malignant neoplasm of prostate (ICD-10 - C61) reviewed that psa elevation likley represents biochemical recurrence discussed options at this time- studies/early vs delayed hormonal therapy will observe for now- recheck 1 year 11/16/2022 Other retention of urine (ICD-10 - R33.8) no voiding complaints at this time will monitor 11/16/2022 Other given likely ca ncer recurrence/hx of seeds and eliquis- did ask pt to discuss wathcman procedure with his otr owner operator Plan Of Treatment Treatment Notes Assessment Notes Malignant neoplasm of prostate reviewed that psa elevation likgiovanni represents biochemical recurrence discussed options at this time- studies/early vs delayed hormonal therapy will observe for now- recheck 1 year Other retention of urine no voiding complaints at this time will monitor Other given likely cancer recurrence/hx of seeds and eliquis- did ask pt to discuss wathcman procedure with his otr owner operator Future Test Test Name Order Date PSA, Serum (Serial Monitor) - [id number] 04/2023 Next Appt Details Follow Up: 1 Year, Reason: Provider Name:Saw Gunn, 11/15/2023 10:15:00 AM, [address], [address], [place], [id number], Progress Notes * WAQAR JULES EDOB:1940 (82 yo M)Acc No.[id number]:11/16/2022 Patient:?WAQAR JULES Provider:?Saw Gunn MD :1940???Age:82 Y???Sex:Male Rocky e:11/16/2022 Address:[address] [place] [address] [id number] Pcp:Allyson Grijalva MD Subjective: * Chief Complaints: * ???Annual * HPI: ???Urology:? pt underwent brachytherapy with dr mcmillan in 2003 ?on eliquis ?hx of uti and retention at one point- did cic for a time ?no recent voiding trouble or hematuria ?slow psa climb last several checks- most recent 1.5- now 2.3. * ROS:?General/Constitutional:?Vomiting?denies.?Unexplained Weight Loss?denies.?HEENT:?Eye Pain?denies.?Integumentary:?Rash??denies.?Endocrine:?Polydipsia?denies.?Respiratory:?Cough?denies.?Cardiovascular:?Chest pain?denies.?Gastrointestinal:?Blood in stool?denies.?Hematology:?Easy Bleeding?denies.?Musculoskeletal:?Lower Back Pain?denies.?Peripheral Vascular:?Blood clots in legs?denies.?Neurologic:?Change in Mental Status?denies.? * Medical History:? 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 * Family History:?No Family Hi story documented..? * Social History:?Tobacco Use:?Tobacco Use/Smoking?Are you a?nonsmoker.? * Medications:?TakingAllopurin ol 100 MG Tablet as directed Orally Once a dayCoreg 25 MG Tablet 1 tablet with food Orally once a dayEliquis(Apixaban) 5 MG Tablet as directed Orally Taking Allopurinol 100 MG Tablet as directed Orally Once a dayTaking Coreg 25 MG Tablet 1 tablet with food Orally once a dayTaking Eliquis(Apixaban) 5 MG Tablet as directed Orally Not-Taking/PRNHYDROcodone-Acetaminophen 5-325 MG Tablet 1 tablet as needed Orally every 6 hrsMedication List reviewed and reconciled with the patientNot-Taking/PRN HYDROcodone-Acetaminophen 5-325 MG Tablet 1 tablet as needed Orally every 6 hrsMedication List reviewed and reconciled with the patient * Allergies:?N.K.D.A.yes[Aller gies Verified] Objective: * Vitals:?Ht: 71 in, Wt:203 lb s, BMI:28.31 Index, Ht-cm: 180.34 cm, Wt-k.08 kg. * Examination: ???General Examination: ?GENERAL APPEARANCE:?pleasant, well nourished, well developed, in no acute distress.? Assessment: * Assessment: 1.?Malignant neoplasm of pro state - C61 (Primary)?2.?Other retention of urine - R33.8? Plan: * Treatment: 2.?Other retention of urine? Notes: no voiding complaints at this time will monitor.?? 3.?Others? Notes: given likely cancer recurrence/hx of seeds and eliquis- did ask pt to discuss wathcman procedure with his otr owner operator.?? * Procedure Codes:? * Follow Up:?1 Year * * Sign off status: Completed true * Provider:?Saw Gunn MD Date:? 023 Generated for Walker caro/Brittany/Tigre on:?10/13/2023 01:42 PM EDT History and Physical Notes * Examination Category Sub-Category Detail Notes General Examination GENERAL APPEARANCE: pleasant , well nourished, well developed, in no acute distress
--- OUTSIDE RECORDS SUMMARY | 2023-10-13 13:43 | XMS_ITS | Patient Health Record ---
Author Organization [facility] Ambulatory Address [address] [facility] [place] [address] Care Team Providers Care Drain Layer Name Role Phone Allyson Grijalva MD Primary Care Provider Saw Mahajan Unavailable [phone] Allergies No Known Allergies Results Component Value Reference Range Notes Prostate-Specific Ag, Serum - [id number] Reviewed date:11/11/2022 08:33:35 AM Interpretation: Performing Lab:[facility], [address] [place] [address], [place], Phone - [phone], Director - Josh Notes/Report: Prostate Specific Ag 2.1 0.0-4.0 ng/mL Felicia ECLIA methodology. . According to the [place] [employer], Serum PSA should decrease and remain at undetectable levels after radical prostatectomy. The AUA defines biochemical recurrence as an initial PSA value 0.2 ng/mL or greater followed by a subsequent confirmatory PSA value 0.2 ng/mL or greater. Values obtained with different assay methods or kits cannot be used interchangeably. Results cannot be interpreted as absolute evidence of the presence or absence of malignant disease. Reason For Referral No Information Medications Medication SIG (Take, Route, Frequency, Duration) [...] 11/16/2022 Encounters Encounter Location Date Provider Diagnosis [facility] [place] [address] [place] [phone] 11/16/2022 Saw Gunn Malignant neoplasm of prostate [...] pt to discuss wathcman procedure with his dye lab technician Plan Of Treatment Pending Test Test Name Order Date [id number] URINE CAPACITY MEASURE 11/20/19 22 Hand Lt 3 vw 01/15/2021 Hand Lt 3 vw 03/17/2021 PT/OT 04/04/2021 Next Appt Details Provider Name:Saw Gunn, 11/15/2023 10:15:00 AM, [address], [address], [place], [id number], Insurance Providers Payer Name Payer Address Payer Phone Subscriber Number Group Number Insured Name Patient Relationship to Insured Coverage Start Date Coverage End Date Medicare [address] [place] [id number] [phone] [id number] WAQAR JUELS Self - patient is the insured 7 Medical (General) History Medical History History ICD Code GOUT a fib Surgical History Surgery Date(Month/Year) 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
--- NOTE | 2023-10-13 14:13 | ED.GENADUL_ITS ---
Discharge Plan Disposition Patient Disposition: Home Discharge Details Clinical Impression: Ulcer of right foot with fat layer exposed, Cellulitis Primary Care Provider: Cherelle,Local ED Provider: Ezequiel [place] Home Meds and New Rx's Prescriptions: New doxycycline hyclate 100 mg capsule 100 mg PO BID 14 Days Qty: 10 0RF amoxicillin-pot clavulanate 875-125 mg tablet 1 tab PO BID 14 Days Qty: 28 0RF Continued allopurinol 100 MG tablet 1 tab PO DAILY Eliquis 5 mg tablet 5 mg PO BID carvedilol 25 mg tablet 25 mg PO BID multivitamin Tablet 1 tab PO DAILY cyanocobalamin (vitamin B-12) 1,000 mcg capsule 1,000 mcg PO DAILY cholecalciferol (vitamin D3) [Vitamin D3] 25 mcg (1,000 unit) capsule 25 mcg PO DAILY biotin 1 mg capsule 1 mg PO DAILY turmeric 400 mg capsule 400 mg PO DAILY cranberry 500 mg capsule 500 mg PO DAILY Rx Instructions: administer with a meal Discharge Instructions Instructions: Cellulitis (Skin Infection), Adult ED Additional Instructions: You are seen in the emergency department for your foot pain. You are found to have a skin infection of your foot and an ulcer for which you are receiving antibiotics. There is a concern that there could possibly be a deeper infection. As we discussed if you develop worsening pain fevers chills or any foul-smelling drainage please return to the emergency department. Otherwise please call the podiatry team for follow-up. Referrals: [facility] [Provider Group] (Please call in the morning tomorrow for an appointment) Discharge Data Discharge Date/Time-TO BE ENTERED AT DEPARTURE: 10/13/23 19:12 HPI General Date/Time Provider Initiated Documentation: 10/13/23 12:40 . HPI Narrative: MDM This is an overall well-appearing normothermic and not tachycardic 83-year-old male with right foot ulceration pain swelling concerning for cellulitis with from podiatry the possibility of osteomyelitis given worsening symptoms over the past 24 hours. No pain out of proportion to suggest necrotizing soft tissue infection. No trauma however will obtain plain film to assess for any obvious gas. Will obtain hemoglobin A1c to see whether or not patient is a diabetic. Will also treat with piperacillin/tazobactam and vancomycin. Patient is not septic appearing however I did draw blood cultures to assess for hematogenous source. I did not check a lactate. 3 PM Patient unfortunately could not go for MRI secondary to his pacemaker. I spoke with Dr. Anderson who advised CT angiogram with runoffs to assess for distal perfusion and wound culture which was taken by tech with Dr. Anderson. Will touch base with podiatry following CT angiogram. I also ordered doxycycline for additional coverage. 3:45 PM Basic metabolic panel showing mild hyperglycemia but normal anion gap and normal bicarbonate/not consistent with DKA. Renal function within normal limits. CBC showing leukocytosis but no anemia nor thrombocytopenia. Elevated ESR at 30 mm an hour. 4:30 PM Elevated CRP. Hemoglobin A1c not consistent with diabetes. [address] angiogram did not show any critical areas of stenosis. It did not show an obvious abscess. I attempted to reconnect with podiatry however she was unfortunately not on-call. I discussed with patient whether or not to transfer him for an MRI capable of handling his pacemaker to definitively assess for an abscess versus discharge him on antibiotics. Patient's preference was to be discharged on antibiotics and I covered him with doxycycline and amoxicillin clavulanic acid. We discussed that if he developed worsening pain any fevers or any foul-smelling drainage that he should return to the emergency department. His wound was dressed with a Mepilex dressing and he was given a hard soled walking boot. He understood his return indications and was discharged with an empiric trial of expectant outpatient management. 10/14 Late charting due to patient care. I reconnected with podiatry, Dr. Anderson. She agreed with plan for empiric trial of expectant outpatient management. I called the patient at home this afternoon to inquire as to how he was feeling. He was not home but his answered. She reported that he continued to have redness swelling. No increased pain. No fevers. He had been adherent with a walking boot. He had outpatient follow-up with podiatry in 2 weeks. I advised that if he noticed any increased redness increased pain swelling fevers chills foul-smelling drainage that he should return immediately to the emergency department for reassessment. He reported that we would still not be able to obtain a CAT scan however we would be able to reassess clinically with the possibility of obtaining a CT scan to assess for any abscess. Patient's was appreciative of my call and understood the patient's return indications. Chronic conditions affecting the care of the patient: Hypertension hyperlipidemia History obtained from an outside historian: N/A External record review: N/A Medications: Broad-spectrum antibiotics Social determinants of health affecting disposition: N/A Management discussed with: Podiatry Treatment/interventions considered: MR but deferred based on institutional limitations Response to therapies provided: N/A HPI This is an 83-year-old male with a history of hypertension arrived to the emergency department via private vehicle in the setting of right foot pain. Patient notes that he initially developed a sore on his right foot approximately 3 months ago. He said that it was initially very small. He was seen by his local dry cleaning checker in [place] who treated him with a topical silver agent. Subsequently improved. He is staying at his second home in [place] and over the past 24 hours the wound expanded significantly became more tender and painful. He notes redness on the top of his right foot. He has had decreased energy but denies fevers nausea vomiting. He drinks several drinks per day but denies history of withdrawal from alcohol. He is not a tobacco smoker. He denies history of diabetes. He remotely has had right-sided amputations of the distal and middle phalanges of the third toe. Exam General: Well-appearing in no acute distress speaking in complete sentences. Head: Normocephalic, atraumatic. Eye: Extraocular eye movements intact. No conjunctival injection. No scleral icterus. Ear, nose, mouth, throat: Grossly normal inspection. Normal voice, handling secretions normally. Neck: Trachea midline. Cardiovascular: Well-perfused distal extremities. Respiratory: Nonlabored respiration. Gastrointestinal: Nondistended abdomen. Musculoskeletal: Right foot warm well-perfused. Third toe with distal phalange amputation. Palpable DP but not PT pulse. On the plantar surface of the right foot just proximal to the toes there is an approximately 3 cm ulcerated and open area with surrounding erythema. No purulence. No foul-smelling drainage. Please see photos that follow: Skin: Normal for age and race, grossly normal temperature and turgor. No acute rash. Neurologic: Alert and appropriate, no apparent acute deficits. Psychiatric: Mood and manner are appropriate. Grooming and personal hygiene are appropriate. Related Data Home Medications ?Medication ?Instructions ?Recorded ?Confirmed allopurinol 100 mg tablet 1 tab PO DAILY 09/27/15 10/13/23 amoxicillin 875 mg-potassium 1 tab PO BID 14 days #28 tabs 10/13/23 clavulanate 125 mg tablet apixaban 5 mg tablet (Eliquis) 5 mg PO BID 10/13/23 10/13/23 biotin 1 mg capsule 1 mg PO DAILY 10/13/23 10/13/23 carvedilol 25 mg tablet 25 mg PO BID 10/13/23 10/13/23 cholecalciferol (vitamin D3) 25 25 mcg PO DAILY 10/13/23 10/13/23 mcg (1,000 unit) capsule (Vitamin D3) cranberry 500 mg capsule 500 mg PO DAILY 10/13/23 10/13/23 cyanocobalamin (vitamin B-12) 1,000 mcg PO DAILY 10/13/23 10/13/23 1,000 mcg capsule doxycycline hyclate 100 mg capsule 100 mg PO BID 14 days #10 caps 10/13/23 multivitamin 1 tab PO DAILY 10/13/23 10/13/23 turmeric 400 mg capsule 400 mg PO DAILY 10/13/23 10/13/23 Previous Rx's ?Medication ?Instructions ?Recorded amoxicillin 875 mg-potassium 1 tab PO BID 14 days #28 tabs 10/13/23 clavulanate 125 mg tablet doxycycline hyclate 100 mg capsule 100 mg PO BID 14 days #10 caps 10/13/23 Allergies Allergy/AdvReac Type Severity Reaction Status Date / Time No Known Allergies Allergy Unverified 10/13/23 12:37 General Stated Complaint: Cellulitis EWA: 3 Course Vital Signs Vital signs: Vital Signs Temperature 36.6 C 10/13/23 12:32 Pulse 80 10/13/23 12:32 Respiratory Rate 14 10/13/23 12:32 Blood Pressure 128/66 10/13/23 12:32 Pulse Oximetry 97 10/13/23 12:32 Temperature 36.6 C 10/13/23 12:39 Temperature Source Oral 10/13/23 12:39 Pulse 80 10/13/23 12:39 Respiratory Rate 14 10/13/23 12:39 Blood Pressure 128/66 10/13/23 12:39 Blood Pressure Position Sitting 10/13/23 12:39 Pulse Oximetry 97 10/13/23 12:39 Oxygen Delivery Method Room Air 10/13/23 12:39 Oxygen Flow Rate 0 10/13/23 12:39 Pain Level 1 10/13/23 12:39 Medical Decision Making Quality:SDOH Health Related Social Needs: 2 No Data to Display PFSH All Active Problems (Updated 10/13/23 @ 19:09 by Ezequiel [place] MD) Atherosclerosis of artery of both lower extremities (Acute) Neuropathy (Acute) Amputation of toe of right foot (Acute) Cellulitis (Acute) Ulcer of right foot with fat layer exposed (Acute) Social History Smoking/Tobacco Use Status: Never Smoking risk assessment performed?: Yes Drug use: Never Substance use type: does not use Housing: house Do you feel safe at home: Yes Do you feel safe in your relationship?: Yes
--- NOTE | 2023-10-13 14:32 | DI.RAD_ITS ---
Exam(s) XR FOOT RT COMPLETE EXAM: XR FOOT RT COMPLETE CLINICAL HISTORY: Right foot pain. TECHNIQUE: 2D digital imaging was performed. COMPARISON: CR RIGHT THIRD TOE from 09/27/2015 FINDINGS: 3 views There is soft tissue swelling of the dorsal aspect of the foot. No evidence of acute fracture or thor stasis of the Lisfranc joint. Hallux valgus is noted. There has been interval amputation middle and distal phalanges of the 3rd toe subsequent to findings on 2016 images. The distal aspect and remainder of the proximal phalanx of 3rd toe appear unremarkable. There is again noted a metallic fusion device across the proximal interphalangeal joint of the 2nd to e which appears stable and without evidence of osteomyelitis at this level. There is, however, signi ficant narrowing and subluxation/almost dislocation of the metatarsophalangeal joint of the 2nd toe. On the lateral view the base of the proximal phalanx is subluxed dorsal relative to the 2nd metatars al head. There is some lucency in the 2nd metatarsal head but no obvious cortical loss. There are degenerative changes in the 2nd and 3rd tarsometatarsal which have also progressed from 201 6. Also degenerative changes at the articulation between the navicular and medial cuneiform. Hindfo ot articulations appear intact. IMPRESSION: Multilevel findings as above. However, most significant appearing finding is significant subluxation at the 2nd metatarsophalangeal joint, with dorsal subluxation of the proximal phalanx relative to th e head of the 2nd metatarsal. Also significant narrowing of this joint. These findings were not arcelia dent in 2016. Amputation of distal and middle phalanges of the 3rd toe. No osteomyelitis seen in the proximal phal anx. DATA REPOSITORY: RADIATION DOSE DELIVERED:
--- NOTE | 2023-10-13 15:00 | DI.CT_ITS ---
Exam(s) CT ABD AORTA CTA W RUNOFF EXAM: CT ABD AORTA CTA W RUNOFF CLINICAL HISTORY: Right foot ulcer vascular risk factors. TECHNIQUE: Imaging Protocol: Axial computed tomography images with coronal and sagittal reformatted images were created and reviewed CONTRAST MATERIAL: Intravenous: Omnipaque 350 Contrast volume:150 Oral: None COMPARISON: CR XR FOOT RT COMPLETE from 10/13/2023 FINDINGS: ABDOMINAL AORTA: There is no evidence of abdominal aortic aneurysm. There is mild atherosclerotic in volvement of the aorta. No significant stenosis in the aorta nor at the celiac, SMA, and renal arter ies. The inferior mesenteric artery is also patent.There is no evidence of aortic dissection. AORTOILIAC SEGMENTS: There no significant stenosis at the aortic bifurcation. no significant stenosi s nor dissection evident in the common iliac arteries nor stenosis at the junction of the common and external iliac arteries and there is no significant stenosis nor annual small dilatation of the exter nal iliac arteries. Both internal iliac arteries are patent and nonaneurysmal. Both common femoral arteries are patent and nonaneurysmal. Both SFA arteries are patent with no critical stenosis in these vessels within either thigh and both are continuous with patent popliteal arteries. The popliteal arteries do not exhibit significant darlene nosis nor aneurysms. CALF RUNOFF: On the left side the popliteal artery is continuous with a patent tibioperoneal trunk. The left ante rior tibial artery exhibits continuous mural calcification starting a few cm distal to its origin but does exhibit nonobstructive flow throughout its length and into the foot as the dorsalis pedis arter y. The left posterior tibial artery is occluded in the upper calf. The left peroneal artery is noncalcified and patent, reaching the distal calf. It gives off a distal collateral to supply the distal territory of the occluded left posterior tibial artery. On the right side the tibioperoneal trunk is calcified but not occluded. The anterior tibial artery is calcified throughout its length but patent without evidence of critical stenosis and the anterior tibial artery is continuous into the dorsal aspect of the foot as the dorsalis pedis artery. The right posterior tibial artery is calcified vessel which however appears to reach the medial ankle level. The right peroneal artery is demonstrated to be patent to the distal calf level. OSSEOUS FEET: There has been amputation of the middle and distal phalanges of the 3rd toe. No evidence of osteomye litis in the proximal phalanx of the 3rd toe. There is a fusion metallic device across the fused int erphalangeal joint of the 2nd toe. There is no evidence of osteomyelitis in either foot. GI: There is no ascites. There are no ischemic appearing bowel loops. No evidence of bowel obstruct ion, free air, nor abscess. LIVER: There are no focal hepatic lesions nor dilatation of intrahepatic ducts. GALLBLADDER/BILIARY: No obvious gallbladder pathology. Gallbladder is blurred from motion artifact. Gallbladder is not distended. CBD is not dilated. PANCREAS: No evidence of pancreatic mass nor dilatation of the pancreatic duct. SPLEEN: Spleen is not enlarged. There are no intrasplenic lesions. ADRENALS: There are no significant adrenal masses. KIDNEYS: No cysts evident. Some cortical thinning noted in both kidneys, slightly more so on the righ t. No solid renal masses.. LYMPH NODES: There is no retroperitoneal nor para-aortic adenopathy. No obvious mesenteric masses. ABDOMINAL WALL: No evidence of significant anterior abdominal wall hernia. GI: There is no evidence of bowel obstruction, free air, nor abscess. PELVIS: There is a left hip prosthesis which partially obscures the perineum. LYMPH NODES: There is no intrapelvic nor inguinal adenopathy. GI: No evidence of appendicitis.There are sigmoid diverticuli without evidence of obvious acute diver ticulitis. Diverticuli are also noted in the descending-left colon, also uncomplicated URINARY BLADDER: Not distended. Partially obscured by beam hardening artifact from left hip prosthes is. REPRODUCTIVE: Multiple seeds in the prostate. Prostate not enlarged. OSSEOUS: Left hip prosthesis. Moderate degenerative changes in the right hip. No blastic nor lytic osseous lesions evident. IMPRESSION: 1. No evidence of abdominal aortic aneurysm nor abdominal aortic dissection. 2. Aortoiliac segments are patent with no evidence of significant inflow stenosis. 3. Mild atherosclerotic disease throughout both SFA arteries both out evidence of hemodynamically sig nificant critical stenosis in these vessels and also no significant findings in the bilateral poplite al arteries. 4. 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 5. Left colon and sigmoid diverticulosis without evidence of acute diverticulitis. Left hip prosthesis.. 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 RADIATION DOSE DELIVERED: Total DLP DATA REPOSITORY: All CT scans at this facility are submitted to the National Radiology Data Registry (NRDR) Dose Index Registry (DIR) with the [employer] (ACR). RADIATION OPTIMIZATION: All CT scans at this facility use at least one of these dose optimization te chniques: automated exposure control; mA and/or kV adjustment per patient size (includes targeted exa ms where dose is matched to clinical indication); or iterative reconstruction.
--- NOTE | 2023-10-13 15:09 | W.PODCONSULT ---
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 X-rays were reviewed today and noted to be without any obvious changes concerning for osteomyelitis. There is lucency noted to the head of the second metatarsal without any cortical changes. This could be due to dislocation of the joint versus osteomyelitis. She does have a known source of the second metatarsal head. There is cellulitis noted no palpable abscess at this time however CT scan pending to rule out deeper abscess. Unfortunately, we are not able to get an MRI due to pacemaker. White count noted to be elevated. Will continue antibiotics. No surgical intervention is planned at this time however will review CT scan and then go from there. I recommend continued antibiotics. Daily dressing changes with Betadine dry dressing. Patient is to remain nonweightbearing to the right foot. Patient was to follow-up with me in office within 1 to 2 weeks of discharge. History of Present Illness Narrative: 83-year-old male patient with right foot ulceration and swelling concerning for infection presented to the ER as he could not secure an appointment with podiatry today. He states that he developed a wound to the right foot and noticed some redness and swelling to the right foot recently. He states that he was getting treatment for the right foot ulceration by a director of global sales in [place]. He has been here in [place] over the summer. Does report history of ulcers to the right foot with history of amputation to the right third toe by Dr. Friedman; denies history of diabetes however does report neuropathy Review of Systems Cardiovascular Comments: Nonpalpable posterior tibial pulse to the right foot Integumentary/Breasts Comments: Infected ulcer to the right foot Neurologic Comments: Light touch absent to the right foot PFSH All Active Problems (Updated 10/13/23 @ 16:54 by Nancy Anderson DPM) Atherosclerosis of artery of both lower extremities (Acute) Neuropathy (Acute) Amputation of toe of right foot (Acute) Cellulitis (Acute) Ulcer of right foot with fat layer exposed (Acute) Social History Smoking/Tobacco Use Status: Never Smoking risk assessment performed?: Yes Drug use: Never Substance use type: does not use Housing: house Do you feel safe at home: Yes Do you feel safe in your relationship?: Yes Exam Extrem Other: Right lower extremity physical exam: Derm: Full-thickness macerated ulceration noted to the right second metatarsal head with erythema extending dorsally to the level of the midfoot. No crepitus no fluctuance no bogginess no probe to bone or capsule noted at this time. Underlying abscess cannot be ruled out at this time. There is malodor noted. Edema noted to the right second toe concerning for underlying osteomyelitis Vascular: DP pulses are palpable to the right, PT pulse is nonpalpable and not dopplerable to the right. Neuro: Light touch sensation noted to be absent. MSK: Amputation noted to the right third toe Results Last Vital Signs Temp 98 F 10/13/23 12:39 Pulse 80 10/13/23 12:39 Resp 14 10/13/23 12:39 BP 128/66 10/13/23 12:39 Pulse Ox 97 10/13/23 12:39 Labs 10/13/23 15:11 10/13/23 15:11 Imaging Imaging Studies: Patient Name: Timmy Whitman Unit #: [id number] Loc: ER Ordering Provider: Ezequiel Duran M.D. Status: [facility] Primary Care Provider: Kings Villarreal Date of Exam: 10/13/23 Sex: M Admission Date: 10/13/23 : 1940 Age: 83 Exam(s) XR FOOT RT COMPLETE EXAM: XR FOOT RT COMPLETE CLINICAL HISTORY: Right foot pain. TECHNIQUE: 2D digital imaging was performed. COMPARISON: CR RIGHT THIRD TOE from 09/27/2015 FINDINGS: 3 views There is soft tissue swelling of the dorsal aspect of the foot. No evidence of acute fracture or diastasis of the Lisfranc joint. Hallux valgus is noted. There has been interval amputation middle and distal phalanges of the 3rd toe subsequent to findings on 2016 images. The distal aspect and remainder of the proximal phalanx of 3rd toe appear unremarkable. There is again noted a metallic fusion device across the proximal interphalangeal joint of the 2nd toe which appears stable and without evidence of osteomyelitis at this level. There is, however, significant narrowing and subluxation/almost dislocation of the metatarsophalangeal joint of the 2nd toe. On the lateral view the base of the proximal phalanx is subluxed dorsal relative to the 2nd metatarsal head. There is some lucency in the 2nd metatarsal head but no obvious cortical loss. There are degenerative changes in the 2nd and 3rd tarsometatarsal which have also progressed from 2016. Also degenerative changes at the articulation between the navicular and medial cuneiform. Hindfoot articulations appear intact. IMPRESSION: Multilevel findings as above. However, most significant appearing finding is significant subluxation at the 2nd metatarsophalangeal joint, with dorsal subluxation of the proximal phalanx relative to the head of the 2nd metatarsal. Also significant narrowing of this joint. These findings were not evident in 2016. Amputation of distal and middle phalanges of the 3rd toe. No osteomyelitis seen in the proximal phalanx.
[2023-10-13 15:26] LABS: Abs Immature Grans 0.11 10^3/uL (0.0-0.06); Absolute Eosinophil Count 0.01 10^3/uL (0.0-0.7); Absolute Lymphocyte Count 0.76 10^3/uL (1.2-3.4); Absolute Monocyte Count 1.45 10^3/uL (0.1-0.8); Absolute Neutrophil Count 10.11 10^3/uL (1.2-6.7); Basophils % 0.2 %; Eosinophils % 0.1 %; HCT 41.8 % (40.0-50.0); HGB 14.6 g/dL (13.5-17.5); Immature Grans % 0.9 %; Lymphocytes % 6.1 %; MCHC 34.9 % (32.0-36.0); MCV 103 fL (80-95); MPV 9.3 fL (8.0-11.0); Monocytes % 11.6 %; Neutrophils % 81.1 %; Platelet Count 191 10^3/uL (130-400); RBC 4.05 10^6/uL (4.36-5.78); RDW 12.3 % (11.8-14.1); RDW-SD 46.9 fL; WBC 12.47 10^3/uL (4.4-10.8)
[2023-10-13 15:28] LABS: ESR 30 mm/hr (0-20)
[2023-10-13] MEDS: Doxycycline Hyclate 100 MG CAP PO (15:31)
[2023-10-13] MEDS: MORPHine 4 MG/ML SYR IVP (15:31)
[2023-10-13 15:32] LABS: Absolute Basophil Count 0.02 10^3/uL (0.0-0.2)
[2023-10-13] MEDS: Normal Saline 500 ML IV (15:32)
[2023-10-13 15:33] LABS: Anion Gap 10.6 mmol/L (3-11); BUN 25 mg/dL (7-18); CO2 26.4 mmol/L (21.0-32.0); CREATININE 1.3 mg/dL (0.70-1.30); Calcium 9.3 mg/dL (8.5-10.1); Chloride 100 mmol/L (98-107); Estimated GFR 54.85 (mL/min/1.73m2); Glucose 111 mg/dL (74-106); Potassium 3.9 mmol/L (3.5-5.1); Sodium 137 mmol/L (136-145)
[2023-10-13] MEDS: PIPERACILLIN/TAZO 3.375 GM in Normal Saline 50 ML IVPB (15:33)
[2023-10-13 15:54] LABS: C-Reactive Protein 20.34 mg/dL (<or=0.5)
[2023-10-13] MEDS: Normal Saline - Diluent 50 ML VIAL IJ ×2 (16:04→16:05)
[2023-10-13] MEDS: Omnipaque 350 MG/ML 100 ML BTL IJ (16:05)
[2023-10-13] MEDS: Omnipaque 350 MG/ML 50 ML BTL IJ (16:07)
[2023-10-13] MEDS: VANCOMYCIN/WATER (PEG) 2 GM/400 ML BAG IVPB (16:42)
[2023-10-13 17:15] LABS: Hemoglobin A1C 5.2 % (<5.7)
[2023-10-13 18:47] VITALS: BP 101/70; PULSE 82; RESP 16; O2SAT 97
--- NOTE | 2023-10-14 11:42 | NUR.NOTE ---
Nursing Note: Patient stopped in with medication questions from his visit yesterday. The doxy was on the discharge papers but when he arrived to pick them up from the pharmacy, he also had an RX for augmentin. He just wanted to make sure that he was supposed to take both and not just one or the other. This was confirmed with Dr. Duran and relayed to the patient was he is to take both the doxy and the augmentin. Patient verbalized understanding, thanked me, and left.
== END 2023-10-13 19:12 | disposition home or self-care (01) ==
PROVIDERS: Emergency Provider Emergency Medicine
DX: L97.512 Non-pressure chronic ulcer of other part of right foot with fat layer exposed (principal); L03.90 Cellulitis, unspecified; S98.131A Complete traumatic amputation of one right lesser toe, initial encounter; G62.9 Polyneuropathy, unspecified; I70.203 Unspecified atherosclerosis of native arteries of extremities, bilateral legs
CPT/HCPCS: 00123; 75635; 80048; 85652; 87040; 87077; 96365; 96366; 96367; 96375; 99285; 73630; 83036; 85025; 86140; 87070; 87186; 87205; 99283; J2270; J2543; J3372; J3490; Q9967

== ENCOUNTER 2023-10-27 03:51 | Outpatient (CLI) | payer MEDICARE, SELFPAY ==
--- OUTSIDE RECORDS SUMMARY | 2023-10-27 03:57 | XMS_ITS | Encounter Summary ---
Author Organization [facility] Address [address] [place] [address] Care Team Providers Care Weapons Specialist Name Role Phone Unavailable Primary Care Provider Unavailabl e Encounter Details Date Type Department Care Team (Late st Contact Info) Description 11/11/2018 Conversion Results Only CONVERSION LOCATION Allyson Grijalva MD [address] [place] [address] Social History Tobacco Use Types Packs/Day Years Used Date Smoking Tobacco: Never Assessed Sex and Gender Information Value Date Recorded Sex Assigned at Not on file Gender Identity Not on file Sexual Orientation Not on file documented as of this encounter Plan of Treatment Not on file documented as of this encounter Procedures Procedure Name Priority Date/Time Associated Diagnosis Comments EAP CONVERSION PROSTATIC SPECIFIC AG SCRN. Routine 11/11/2018 8:50 AM EDT EAP CONVERSION URIC ACID Routine 11/11/2018 8:50 AM EDT EAP CONVERSION LIPID PROFILE Routine 11/11/2018 8:50 AM EDT EAP CONVERSION COMP METABOLIC PANEL Routine 11/11/2018 8:50 AM EDT documented in this encounter Results * URIC ACID (11/11/2018 8:50 AM EDT) URIC ACID 6.8 3.5 - 8.5 MG/DL [facility] 11/11/2018 8:50 AM EDT 11/11/2018 8:51 AM EDT Allyson Grijalva MD LAB BLOOD ORDERABL ES Performing Organization Address [facility] Co de Phone Number [facility] * PROSTATIC SPECIFIC AG SCRN. (11/11/2018 8:50 AM EDT) PROSTATIC SPECIFIC AG SCRN. 0.56 0.0 - 4.0 NG/ML [facility] 11/11/2018 8:50 AM EDT 11/11/2018 8:51 AM EDT Allyson Grijalva MD LAB BLOOD ORDERABL ES Performing Organization Address [facility] de Phone Number [facility] * (ABNORMAL) LIPID PROFILE (11/11/2018 8:50 AM EDT) CHOLESTEROL 207(H) <200 MG/DL [facility] TRIGLYCERIDE 294(H) 0 - 150 MG/DL [facility] HIGH DENS LIPOPROT 36(L) >40 MG/DL [facility] VERY LOW DENS LIPO 59 MG/DL [facility] LOW DENS LIPOPROT 112 <130 MG/DL [facility] CHOL/HDL RATIO 5.8 3.0 - 6.5 [facility] 11/11/2018 8:50 AM EDT 11/11/2018 8:51 AM EDT Allyson Grijalva MD LAB BLOOD ORDERABL ES Performing Organization Address [facility] Co de Phone Number [facility] * (ABNORMAL) COMP METABOLIC PANEL (11/11/2018 8:50 AM EDT) GLUCOSE, RANDOM 103(H) 70 - 100 MG/DL [facility] GLUCOSE, RANDOM Reference range for glucose is based on the ADA guidelines for fasting glucose.(H) 70 - 100 MG/DL [facility] BLOOD UREA NITROGEN 14 0 - 23 MG/DL [facility] CREATININE 1.09 0.00 - 1.25 MG/DL [facility] SODIUM 143 135 - 145 MEQ/L [facility] POTASSIUM 4.5 3.5 - 5.1 MEQ/L [facility] CHLORIDE 107 98 - 110 MEQ/L [facility] CO2 28 20 - 31 MEQ/L [facility] ANION GAP 13 9 - 18 [facility] AST 16 5 - 34 U/L [facility] ALT 12 0 - 55 U/L [facility] ALK PHOSPHATASE 102 40 - 150 U/L [facility] TOTAL BILIRUBIN 0.6 0.2 - 1.2 MG/DL [facility] CALCIUM 9.3 8.4 - 10.2 MG/DL [facility] ALBUMIN 4.0 3.4 - 4.8 GM/DL [facility] Protein 6.7 6.2 - 8.1 GM/DL [facility] CALC GFR-NON >60 >60 mL/min/1. 73m2 [facility] GFR >60 >60 mL/min/1. 73m2 [facility] GFR COMMENT The GFR estimate is not adjusted for extreme body surface area. Nor has it been validated for children less than 18 years, women or ethnic groups other than and . [facility] 11/11/2018 8:50 AM EDT 11/11/2018 8:51 AM EDT Allyson Grijalva MD LAB BLOOD ORDERABL ES [facility] documented in this encounter Visit Diagnoses Not on filedocumented in this encounter
--- OUTSIDE RECORDS SUMMARY | 2023-10-27 03:57 | XMS_ITS | Encounter Summary ---
Author Organization [facility] Address [address] [place] [address] Care Team Providers Care Consulting Practice Director Name Role Phone Allyson Grijalva MD Primary Care Provider [phone] Reason for Visit * Diagnostic Imaging (Routine) - Closed Specialty Diagnoses / Procedures Referred By Contac t Referred To Contact Radiology Diagnoses Left foot pain Foreign body (FB) in soft tissue Procedures Ultrasound extremity soft tissue limited (non-vascular) Ultrasound extremity soft tissue limited (non-vascular) Ultrasound extremity soft tissue limited (non-vascular) Ultrasound extremity soft tissue limited (non-vascular) Ultrasound extremity soft tissue limited (non-vascular) Ultrasound extremity soft tissue limited (non-vascular) Ultrasound extremity soft tissue limited (non-vascular) Ultrasound extremity soft tissue limited (non-vascular) Ultrasound extremity soft tissue limited (non-vascular) Ultrasound extremity soft tissue limited (non-vascular) Sebas Jackson DPM Direct Sitters [facility] [address] [place] [address] Referral ID Status Reason Start Date Expiration Date V isits Requested Visits Authorized [id number] Closed Specialty Services Required 09/11/2020 09/11/2021 1 1 Encounter Details Date Type Department Care Team (Latest Contact Info) Description 09/17/2020 2:32 PM EDT - 09/17/2020 11:59 PM EDT Hospital Encounter [facility] Ultrasound [address] [address] Sebas Jackson DPM [id number] [facility] [address] [place] [address] Left foot pain; Foreign body (FB) in soft tissue Discharge Disposition: Home/Residence Social History Tobacco Use Types Packs/Day Years Used Date Smoking Tobacco: Never Assessed Sex and Gender Information Value Date Recorded Sex Assigned at Not on file Gender Identity Not on file Sexual Orientation Not on file COVID-19 Exposure Response Date Recorded In the last month, have you been in contact with someone who was confirmed or suspected to have Coronavirus / COVID-19? No / Unsure 09/17/2020 2:28 PM EDT documented as of this encounter Plan of Treatment Not on file documented as of this encounter Procedures Procedure Name Priority Date/Time Associated Diagnosis Comments US EXTREMITY SOFT TISSUE LIMITED(NON-VASCULA R) Routine 09/17/2020 3:29 PM EDT Left foot pain Foreign body (FB) in soft tissue documented in this encounter Results * Ultrasound extremity soft tissue limited (non-vascular) (09/17/2020 3:29 PM EDT) Anatomical Region Laterality Modality Upper Extremities Ultrasound 09/17/2020 3:38 PM EDT Impressions 09/17/2020 3:40 PM EDT FINDINGS/IMPRESSION: No ultrasound appreciable foreign body is seen within the left foot plantar lateral aspect. There is a 1.6 x 0.4 x 0.9 cm ovoid fluid collection within the subcutaneous soft tissues which could reflect a hematoma, seroma, or abscess. Signed By: Timmy Baldwin MD Signed On: 09/17/2020 3:40 PM EDT Narrative 09/17/2020 3:40 PM EDT INDICATION:80 years old Male with concern for foreign body. TECHNIQUE: Ultrasound examination of the designated area of abnormality was performed including grayscale and color Doppler imaging. COMPARISON: None. Procedure Note Timmy Baldwin MD - 09/17/2020 INDICATION:80 years old Male with concern for foreign body. TECHNIQUE: Ultrasound examination of the designated area of abnormalitywas performed including grayscale and color Doppler imaging. COMPARISON: None. FINDINGS/IMPRESSION: No ultrasound appreciable foreign body is seen withinthe left foot plantar lateral aspect. There is a 1.6 x 0.4 x 0.9 cm ovoidfluid collection within the subcutaneous soft tissues which could reflecta hematoma, seroma, or abscess. Signed By: Timmy Baldwin MD Signed On: 09/17/2020 3:40 PM EDT Sebas Jackson DPM IMG US PROCEDURES documented in this encounter Visit Diagnoses Diagnosis Left foot pain Pain in soft tissues of limb Foreign body (FB) in soft tissue documented in this encounter Care Teams Consulting Practice Director Relationship Specialty Start Date End Date Allyson Grijalva MD [address] [place] [address] PCP - General Family Medicine 09/17/20 documented as of this encounter
--- OUTSIDE RECORDS SUMMARY | 2023-10-27 03:57 | XMS_ITS | Encounter Summary ---
Author Organization [facility] Address [address] [place] [address] Care Team Providers Care Lodging Facilities Attendant Name Role Phone Unavailable Primary Care Provider Unavailabl e Encounter Details Date Type Department Care Team (Late st Contact Info) Description 07/23/2019 Conversion Office Visit [facility] [place] [address] [place] [address] Gretchen Almanzar MD [address] [facility] [address] [place] [address] Social History Tobacco Use Types Packs/Day Years Used Date Smoking Tobacco: Never Assessed Sex and Gender Information Value Date Recorded Sex Assigned at Not on file Gender Identity Not on file Sexual Orientation Not on file documented as of this encounter Plan of Treatment Not on file documented as of this encounter Visit Diagnoses Not on filedocumented in this encounter
--- OUTSIDE RECORDS SUMMARY | 2023-10-27 03:57 | XMS_ITS | Encounter Summary ---
Author Organization [facility] Address [address] [place] [address] Care Team Providers Care Poultry Scientist Name Role Phone Allyson Grijalva MD Primary Care Provider + [phone] Sebas Jackson DPM Unavailable [phone] Reason for Referral * Diagnostic Testing (Routine) - Closed Specialty Diagnoses / Procedures Referred By Contac t Referred To Contact Radiology Diagnoses Other specified pre-operative examination Procedures X-ray chest 2 views, frontal and lateral Joshua Lizarraga MD [address] [place] [id number] Referral ID Status Reason Start Date Expiration Date V isits Requested Visits Authorized [id number] Closed Specialty Services Required 12/06/2020 12/06/2021 1 1 Reason for Visit * Diagnostic Testing (Routine) - Closed Specialty Diagnoses / Procedures Referred By Pat lee Referred To Contact Radiology Diagnoses Other specified pre-operative examination Procedures X-ray chest 2 views, frontal and lateral Joshua Lizarraga MD [address] [place] [address] Referral ID Status Reason Start Date Expiration Date V isits Requested Visits Authorized [id number] Closed Specialty Services Required 12/06/2020 12/06/2021 1 1 Encounter Details Date Type Department Care Team (Latest Contact Info) Description 12/06/2020 11:20 AM EDT - 12/06/2020 12:27 PM EDT Hospital Encounter [facility] Radiology [address] [facility] Ground Floor [place] [address] Joshua Lizarraga MD [address] [place] [place] [address] Other specified pre-operative examination Discharge Disposition: Home/Residence Social History Tobacco Use [...] have Coronavirus / COVID-19? No / Unsure 12/06/2020 12:25 PM EDT documented as of this encounter Plan of Treatment Not on file documented as of this encounter Procedures Procedure Name Priority Date/Time Associated Diagnosis Comments XR CHEST 2 VIEWS, FRONTAL AND LATERAL Routine 12/06/2020 1:07 PM EDT Other specified pre-operative examination documented in this encounter Results * X-ray chest 2 views, frontal and lateral (12/06/2020 1:07 PM EDT) Anatomical Region Laterality Modality Chest Digital Radiogra phy 12/06/2020 3:23 PM EDT Impressions 12/06/2020 3:24 PM EDT IMPRESSION: Pacemaker in place. No evidence for acute process Signed By: Geo Marcum MD Signed On: 12/06/2020 3:24 PM EDT Narrative 12/06/2020 3:24 PM EDT History: Pre-MRI screening. Frontal and lateral views of the chest are compared to prior examination from 08/07/2019. Lungs are clear. There is no evidence for infiltrate mass or effusion. Heart is normal in size. There is a pacemaker in place, unchanged. No abandoned leads are identified. Procedure Note Geo Marcum MD - 12/06/2020 History: Pre-MRI screening. Frontal and lateral views of the chest are compared to prior examinationfrom 08/07/2019. Lungs are clear. There is no evidence for infiltrate mass or effusion.Heart is normal in size. There is a pacemaker in place, unchanged. Noabandoned leads are identified. IMPRESSION: Pacemaker in place. No evidence for acute process Signed By: Geo Marcum MD Signed On: 12/06/2020 3:24 PM EDT Joshua Lizarraga MD IMG DIAGNOSTIC IMAGI NG PROCEDURES documented in this encounter Visit Diagnoses Diagnosis Other specified pre-operative examination documented in this encounter Care Teams Poultry Scientist Relationship Specialty Start Date End Date Allyson Grijalva MD [address] [place] [address] PCP - General Family Medicine 09/17/20 Sebas Jcakson DPM [address] [facility] [address] [place] [address] Attending Physician Podiatry 12/06/20 documented as of this encounter
--- OUTSIDE RECORDS SUMMARY | 2023-10-27 03:57 | XMS_ITS | Encounter Summary ---
Author Organization [facility] Address [address] [place] [address] Care Team Providers Care Newspaper Photographer Name Role Phone Unavailable Primary Care Provider Unavailabl e Encounter Details Date Type Department Care Team (Late st Contact Info) Description 11/03/2016 11:00 AM EDT - 03/25/2020 4:58 PM [facility] Hospital Encounter [facility] [address] [facility] [place] [address] Mckenna Abrams, DPChar [address] [place] [address] Social History Tobacco Use Types Packs/Day Years [...]
--- OUTSIDE RECORDS SUMMARY | 2023-10-27 03:57 | XMS_ITS | Encounter Summary ---
Author Organization [facility] Address [address] [place] [address] Care Team Providers Care Furnace Mechanic Name Role Phone Unavailable Primary Care Provider Unavailabl e Encounter Details Date Type Department Care Team (Late st Contact Info) Description 07/23/2019 Conversion Results Only CONVERSION LOCATION Diego Sheikh MD [address] [facility] [address] [place] [address] Social History Tobacco Use Types Packs/Day Years Used Date Smoking Tobacco: Never Assessed Sex and Gender Information Value Date Recorded Sex Assigned at Not on file Gender Identity Not on file Sexual Orientation Not on file documented as of this encounter Plan of Treatment Not on file documented as of this encounter Procedures Procedure Name Priority Date/Time Associated Diagnosis Comments EAP CONVERSION SARS COV-2 (COVID-19) (HOLOGIC) Routine 07/23/2019 11:20 AM EDT documented in this encounter Results * SARS COV-2 (COVID-19) (HOLOGIC) (07/23/2019 11:20 AM EDT) SARS COV-2 (COVID-19) (HOLOGIC NEG NEG [facility] LAB HISTORIC SARS COV-2 (COVID-19) (HOLOGIC [facility]G [facility] SARS COV-2 (COVID-19) (HOLOGIC A negative result does not rule out the presence of SARS-CoV-2 nucleic acid in concentrations below the level of detection by the assay. NEG [facility] SARS COV-2 (COVID-19) ([employer] SARS CoV-2 is for use only under FDA's Guidance Document (Policy for Diagnostics Testing in Laboratories Certified to Perform High Complexity Testing under CLIA prior to Emergency Use Authorization for Coronavirus Disease-2019). ??FDA independent EUA review of this validation is pending. NEG [facility] HISTORIC 07/23/2019 11:2 0 AM EDT 07/23/2019 4:08 PM EDT Diego Sheikh MD LAB BLOOD ORDERA BLES [facility] HISTORIC documented in this encounter Visit Diagnoses Not on filedocumented in this encounter
--- OUTSIDE RECORDS SUMMARY | 2023-10-27 03:57 | XMS_ITS | Encounter Summary ---
Author Organization [facility] Address [address] [place] [address] Care Team Providers Care Gluten Settling Tender Name Role Phone Allyson Grijalva MD Primary Care Provider + [phone] Sebas Jackson DPM Unavailable [phone] Diego Sheikh MD Unavailable [phone] Joshua Mathew MD Unavailable [phone] Encounter Details Date Type Department Care Team (Late st Contact Info) Description 07/25/2019 Conversion Scans Only CONVERSION LOCATION Social History Tobacco Use Types Packs/Day Years Used Date Smoking Tobacco: Never Assessed Sex and Gender Information Value Date Recorded Sex Assigned at Not on file Gender Identity Not on file Sexual Orientation Not on file COVID-19 Exposure Response Date Recorded In the last 10 days, have yo u been in contact with someone who was confirmed or suspected to have Coronavirus/COVID-19? No / Unsure 01/01/2022 10:14 AM EDT documented as of this encounter Plan of Treatment Not on file documented as of this encounter Visit Diagnoses Not on filedocumented in this encounter Care Teams Gluten Settling Tender Relationship Specialty Start Date End Date Allyson Grijalva MD [address] [place] [address] PCP - General Family Medicine 09/17/20 Sebas Jackson DPM [facility] [address] [place] [address] Attending Physician Podiatry 12/06/20 Diego Sheikh MD [address] [place] [address] Cardiology 12/24/20 Joshua Mathew MD [address] [facility] [place] [address] Urology 12/24/20 documented as of this encounter
--- OUTSIDE RECORDS SUMMARY | 2023-10-27 03:57 | XMS_ITS | Encounter Summary ---
Author Organization [facility] Address [address] [place] [address] Care Team Providers Care Commissioner Of Conciliation Name Role Phone Unavailable Primary Care Provider Unavailabl e Encounter Details Date Type Department Care Team (Late st Contact Info) Description 07/19/2018 Conversion Results Only CONVERSION LOCATION Aashish Moore MD [address] [place] [address] Social History Tobacco Use Types Packs/Day Years Used Date Smoking Tobacco: Never Assessed Sex and Gender Information Value Date Recorded Sex Assigned at Not on file Gender Identity Not on file Sexual Orientation Not on file documented as of this encounter Plan of Treatment Not on file documented as of this encounter Procedures Procedure Name Priority Date/Time Associated Diagnosis Comments ECG 12-LEAD Routine 07/19/2018 10:14 AM EDT documented in this encounter Results * ECG 12 lead (07/19/2018 10:14 AM EDT) 07/19/2018 10:1 4 AM EDT Narrative [facility] EKG HISTORIC - 07/19/2018 3:50 PM EDT MARKED SINUS BRADYCARDIA WITH MARKED SINUS ARRYTHMIA WITH 1ST DEGREE A-V BLOCK ST & T WAVE ABNORMALITY, CONSIDER LATERAL ISCHEMIA ABNORMAL EKG WHEN COMPARED WITH ECG OF 27-MAY-2018 07:42, VENT. RATE HAS DECREASED BY ??23 BPM Aashish Moore MD ECG ORDERABLES [facility] EKG HISTORIC documented in this encounter Visit Diagnoses Not on filedocumented in this encounter
--- OUTSIDE RECORDS SUMMARY | 2023-10-27 03:57 | XMS_ITS | Encounter Summary ---
Author Organization [facility] Address [address] [place] [address] Care Team Providers Care Armature Winder Repair Name Role Phone Unavailable Primary Care Provider Unavailabl e Encounter Details Date Type Department Care Team (Late st Contact Info) Description 04/18/2018 9:09 AM EST - 03/25/2020 4:58 PM EST Hospital Encounter [facility] [address] [facility] [address] [place] [address] Becky Arreaga PA-C [address] [facility] [address] [place] [address] Social History Tobacco Use Types Packs/Day Years Used Date Smoking Tobacco: Never Assessed Sex and Gender Information Value Date Recorded Sex Assigned at Not on file Gender Identity Not on file Sexual Orientation Not on file documented as of this encounter Plan of Treatment Not on file documented as of this encounter Procedures Procedure Name Priority Date/Time Associated Diagnosis Comments NM MYOCARDIAL INFARCT AVID SPECT/PLANAR Routine 04/18/2018 11:23 AM EST documented in this encounter Results * Nuclear medicine myocardial infarct avid SPECT / planar (04/18/2018 11:23 AM EST) Anatomical Region Laterality Modality Body Nuclear Medicine 04/18/2018 11:2 3 AM EST Narrative 04/18/2018 3:40 PM EST FINAL STRESS TEST PHARMACOLOGIC CARDIOLITE IV Lexiscan Cardiolite Study. Patient History: ?? Indication for study: Shortness of breath ?? Other pertinent cardiac history: Atrial fibrillation, family history Height: 70 inches ?Weight: 207 lbs. ?? Lexiscan study test results: Lexiscan dose: .4 mg ?? Resting HR: 87 ?Resting BP: 98/62 Lexiscan HR: 115 ?? Lexiscan BP: 92/56 ?? Symptoms experienced: SOB, LIGHTHEADED ?? Environment Artist EKG interpretation: Resting EKG: Atrial fibrillation, nonspecific ST segment and T wave abnormality Stress EKG findings: No ischemic changes Arrhythmias: None StressEKG Impression: Non-ischemic EKG interpreted by: ?? Thiago Alfredo M.D ?? Lexiscan Myocardial Perfusion Scan Interpretation: Tc 99m sestamibi (Cardiolite):Rest/gated Lexiscan one day protocol in supine position. Dose: ??Rest: 10 mCi ??Lexiscan: ??30 mCi [place] soft tissue attenuation program utilized Technical quality of images: Good Artifact: Diaphragmatic soft tissue attenuation , motion artifact SPECT myocardial perfusion imaging findings: No focal perfusion defects to suggest ischemia or scar Chamber size: ??Dilated left ventricular chamber Gated SPECT findings: Global hypokinesis Left ventricular ejection fraction: 31%, severely reduced Overall left ventricular function: Dilated left ventricular chamber with global hypokinesis and severely reduced ejection fraction of 31%. Myocardial perfusion scan impression: No perfusion defects characteristic of ischemia or scar Overall Impression: ?? 1. No findings characteristic of ischemia or scar.2. Dilated left ventricular chamber with global hypokinesis and severely reduced ejection fraction of 31%. Radiologist: ??Alyssa Guillermo M.D. ? Signed by: Elvira GUILLERMO, ALYSSA Signed on: 04/18/2018 15:40:04 Procedure Note Alyssa Guillermo MD - 04/10/2020 FINAL STRESS TEST PHARMACOLOGIC CARDIOLITE IV Lexiscan Cardiolite Study. Patient History: Indication for study: Shortness of breath Other pertinent cardiac history: Atrial fibrillation, family history Height: 70 inches Weight: 207 lbs. Lexiscan study test results: Lexiscan dose: .4 mg Resting HR: 87 Resting BP: 98/62 Lexiscan HR: 115 Lexiscan BP: 92/56 Symptoms experienced: SOB, LIGHTHEADED Environment Artist EKG interpretation: Resting EKG: Atrial fibrillation, nonspecific ST segment and T waveabnormality Stress EKG findings: No ischemic changes Arrhythmias: None StressEKG Impression: Non-ischemic EKG interpreted by: Thiago Alfredo M.D Lexiscan Myocardial Perfusion Scan Interpretation: Tc 99m sestamibi (Cardiolite):Rest/gated Lexiscan one day protocol insupine position. Dose: Rest: 10 mCi Lexiscan: 30 mCi [place] soft tissue attenuationprogram utilized Technical quality of images: Good Artifact: Diaphragmatic soft tissue attenuation , motion artifact SPECT myocardial perfusion imaging findings: No focal perfusion defects tosuggest ischemia or scar Chamber size: Dilated left ventricular chamber Gated SPECT findings: Global hypokinesis Left ventricular ejection fraction: 31%, severely reduced Overall left ventricular function: Dilated left ventricular chamber withglobal hypokinesis and severely reduced ejection fraction of 31%. Myocardial perfusion scan impression: No perfusion defects characteristicof ischemia or scar Overall Impression: 1. No findings characteristic of ischemia or scar.2.Dilated left ventricular chamber with global hypokinesis and severelyreduced ejection fraction of 31%. Radiologist: Alyssa Guillermo M.D. Signed by: Elvira GUILLERMO, ALYSSA Signed on: 04/18/2018 15:40:04 Becky JOHNSON NM PROCEDURES documented in this encounter Visit Diagnoses Not on filedocumented in this encounter
--- OUTSIDE RECORDS SUMMARY | 2023-10-27 03:57 | XMS_ITS | Encounter Summary ---
Author Organization [facility] Address [address] [place] [address] Care Team Providers Care Construction Trench Digger Name Role Phone Unavailable Primary Care Provider Unavailabl e Encounter Details Date Type Department Care Team (Late st Contact Info) Description 08/07/2019 12:02 PM EDT - 03/25/2020 4:58 PM [facility] Hospital [facility] [address] [facility] [place] [address] Social History Tobacco Use Types Packs/Day Years [...] CHEST 2 VIEWS, FRONTAL AND LATERAL Routine 08/07/2019 12:18 PM EDT documented in this encounter Results * X-ray chest 2 views, frontal and lateral (08/07/2019 12:18 PM EDT) Anatomical Region Laterality Modality Chest Other 08/07/2019 12:1 8 PM EDT Narrative 08/07/2019 12:23 PM EDT FINAL CHEST ROUTINE Indication: Unspecified atrial fibrillation. FINDINGS: 2 view examination - Chest frontal and lateral views were obtained. ??The study is compared to prior examination July 25, 2019 There is an automatic implanted cardiac defibrillator device in the upper chest with the distal electrode wires in the right ventricle and coronary sinus. ??The heart is normal in size. The trachea and mediastinal structures are within normal limits. ??The lung jones are clear. ??The osseous structures are normal. IMPRESSION: ??No acute pulmonary disease. ?? Signed By: Eder Whitaker MD Signed On: 08/07/2019 12:23 PM EDT Procedure Note Eder Whitaker, DO - 2020 FINAL CHEST ROUTINE Indication: Unspecified atrial fibrillation. FINDINGS: 2 view examination - Chest frontal and lateral views wereobtained. The study is compared to prior examination July 25, 2019 Thereis an automatic implanted cardiac defibrillator device in the upper chestwith the distal electrode wires in the right ventricle and coronary sinus.The heart is normal in size. The trachea and mediastinal structures arewithin normal limits. The lung jones are clear. The osseous structuresare normal. IMPRESSION: No acute pulmonary disease. Signed By: Eder Whitaker MD Signed On: 08/07/2019 12:23 PM EDT Conversion Provider IMG DIAGNOSTIC IMAGI NG PROCEDURES documented in this encounter Visit Diagnoses Not on filedocumented in this encounter
--- OUTSIDE RECORDS SUMMARY | 2023-10-27 03:57 | XMS_ITS | Encounter Summary ---
Author Organization [facility] Address [address] [place] [address] Care Team Providers Care Licensed Mass Real Estate Appraiser Name Role Phone Unavailable Primary Care Provider Unavailabl e Encounter Details Date Type Department Care Team (Late st Contact Info) Description 07/07/2018 Conversion Results Only CONVERSION LOCATION Diego Sheikh MD [address] [facility] [address] [place] [address] Social History Tobacco Use Types [...] Priority Date/Time Associated Diagnosis Comments EAP CONVERSION CBC (NO DIFFERENTIAL) Routine 07/07/2018 2:56 PM EDT EAP CONVERSION COMP METABOLIC PANEL Routine 07/07/2018 2:56 PM EDT documented in this encounter Results * (ABNORMAL) CBC (NO DIFFERENTIAL) (07/07/2018 2:56 PM EDT) WBC 4.8 4.0 - 12.0 K/UL [facility] HISTOR[facility] RBC 4.17(L) 4.60 - 6.20 M/UL [facility] HGB 14.0 14.0 - 18.0 G/DL [facility] HCT 39.3(L) 42 - 52 % [facility] MCV 94.2(H) 80 - 94 FL [facility] MCH 33.5 27.0 - 33.6 PG [facility] MCHC 35.6 32.0 - 36.0 % [facility] RDW 12.6 11.5 - 15.0 % [facility] PLT 211 140 - 400 K/UL [facility] MPV 6.7(L) 7.4 - 10.4 FL [facility] 07/07/2018 2:56 PM EDT 07/07/2018 2:57 PM EDT Diego Sheikh MD LAB BLOOD ORDERA BLES [facility]IST[facility] * COMP METABOLIC PANEL (07/07/2018 2:56 PM EDT) GLUCOSE, RANDOM 88 70 - 100 MG/DL [facility] GLUCOSE, RANDOM Reference range for glucose is based on the ADA guidelines for fasting glucose. 70 - 100 MG/DL [facility] BLOOD UREA NITROGEN 15 0 - 23 MG/DL [facility] CREATININE 1.03 0.00 - 1.25 MG/DL [facility] SODIUM 140 135 - 145 MEQ/L [facility] POTASSIUM 4.8 3.5 - 5.1 MEQ/L [facility] CHLORIDE 104 98 - 110 MEQ/L [facility] CO2 31 20 - 31 MEQ/L [facility] ANION GAP 10 9 - 18 [facility] AST 18 5 - 34 U/L [facility] ALT 13 0 - 55 U/L [facility] ALK PHOSPHATASE 93 40 - 150 U/L [facility] TOTAL BILIRUBIN 0.6 0.2 - 1.2 MG/DL [facility] CALCIUM 9.5 8.4 - 10.2 MG/DL [facility] ALBUMIN 4.1 3.4 - 4.8 GM/DL [facility] Protein 6.7 6.2 - 8.1 GM/DL [facility] CALC GFR-NON >60 >60 mL/min/1. 73m2 [facility] GFR >60 >60 mL/min/1. 73m2 [facility] GFR COMMENT The GFR estimate is not adjusted for extreme body surface area. Nor has it been validated for children less than 18 years, women or ethnic groups other than and . [facility] 07/07/2018 2:56 PM EDT 07/07/2018 2:57 PM EDT Diego Sheikh MD LAB BLOOD ORDERA BLES [facility] documented in this encounter Visit Diagnoses Not on filedocumented in this encounter
--- OUTSIDE RECORDS SUMMARY | 2023-10-27 03:57 | XMS_ITS | Encounter Summary ---
Author Organization [facility] Address [address] [place] [address] Care Team Providers Care Frame Stylist Name Role Phone Unavailable Primary Care Provider Unavailabl e Encounter Details Date Type Department Care Team (Late st Contact Info) Description 05/27/2018 Conversion Results Only CONVERSION LOCATION Diego Sheikh MD [address] [facility] [address] [facility] [id number] Social History Tobacco Use Types Packs/Day Years Used Date Smoking Tobacco: Never Assessed Sex and Gender Information Value Date Recorded Sex Assigned at Not on file Gender Identity Not on file Sexual Orientation Not on file documented as of this encounter Plan of Treatment Not on file documented as of this encounter Procedures Procedure Name Priority Date/Time Associated Diagnosis Comments TRANSESOPHAGEAL ECHO (CURTIS) Routine 06/09/2018 4:03 PM EDT ECG 12-LEAD Routine 05/27/2018 7:42 AM EDT documented in this encounter Results * Transesophageal Echo (CURTIS) (06/09/2018 4:03 PM EDT) 05/27/2018 8:21 AM EDT Narrative [facility] C[facility] - 06/09/2018 4:02 PM EDT [address] [facility] ? [place] [address] ?Transesophageal Echocardiography Report Name: TIMMY JULES ?Study Date: 05/27/2018 07:14 AM BP: 115/75 mmHg ? Patient Location: [facility] : 1940 ?Patient Class: Outpatient ? Height: 70 in Age: 78 yrs ? Weight: 206 lb Gender: Male ? BSA: 2.1 m2 Reason For Study: Atrial Fibrillation Ordering Physician: Diego Sheikh Performed By: Sherry Arredondo [facility] LEFT VENTRICLE The left ventricle is normal in size. There is normal left ventricular wall thickness. 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 The estimated EF is 15-20%. There is severe global hypokinesis of the left ventricle. RIGHT VENTRICLE The right ventricle is mildly dilated. The right ventricular systolic function is mildly reduced. ATRIA There is no Doppler evidence for a patent foramen ovale. The left atrium is mildly dilated. No thrombus is detected in the left atrial appendage. Spontaneous contrast in LA. The right atrium is mildly dilated. MITRAL VALVE Mitral valve leaflets appear normal. There is mild mitral regurgitation. TRICUSPID VALVE The tricuspid valve leaflets are thin and pliable. There is mild tricuspid regurgitation. AORTIC VALVE The aortic valve is trileaflet. There is no evidence of aortic stenosis. No aortic regurgitation is present. PULMONIC VALVE The pulmonic valve is not well seen, but is grossly normal. There is a trace of pulmonic regurgitation. VESSELS Aortic root size is normal. PERICARDIUM There is no evidence of a pericardial effusion. COMMENTS COLOR AND SPECTRAL DOPPLER WAS COMPLETED. CURTIS/CV performed by Dr. Diego Sheikh. Interpretation Summary Left ventricular systolic function is severely reduced. Spontaneous contrast in LA. No thrombus is detected in the left atrial appendage. Electronically Authenticated By:Diego Sheikh MD ?? 06/09/2018 04:02 PM Procedure Note Diego Sheikh MD - 04/24/2020 [address] [place] [address] Transesophageal Echocardiography Report Name: TIMMY JULES Study Date: 05/27/2018 07:14 AM BP: 115/75 mmHg Patient Location: [facility] : 1940 Patient Class: Outpatient Height: 70in Age: 78 yrs Weight: 206lb Gender: Male BSA: 2.1 m2 Reason For Study: Atrial Fibrillation Ordering Physician: Diego Sheikh Performed By: Sherry Arredondo RDCS LEFT VENTRICLE The left ventricle is normal in size. There is normal left ventricularwall thickness. 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 The estimated EF is 15-20%. There is severe global hypokinesis of the left ventricle. RIGHT VENTRICLE The right ventricle is mildly dilated. The right ventricular systolicfunction is mildly reduced. ATRIA There is no Doppler evidence for a patent foramen ovale. The left atriumis mildly dilated. No thrombus is detected in the left atrial appendage. Spontaneous contrast in LA. The right atrium is mildly dilated. MITRAL VALVE Mitral valve leaflets appear normal. There is mild mitral regurgitation. TRICUSPID VALVE The tricuspid valve leaflets are thin and pliable. There is mildtricuspid regurgitation. AORTIC VALVE The aortic valve is trileaflet. There is no evidence of aortic stenosis.No aortic regurgitation is present. PULMONIC VALVE The pulmonic valve is not well seen, but is grossly normal. There is atrace of pulmonic regurgitation. VESSELS Aortic root size is normal. PERICARDIUM There is no evidence of a pericardial effusion. COMMENTS COLOR AND SPECTRAL DOPPLER WAS COMPLETED. CURTIS/CV performed by Dr. Diego Sheikh. Interpretation Summary Left ventricular systolic function is severely reduced. Spontaneous contrast in LA. No thrombus is detected in the left atrial appendage. Electronically Authenticated By:Diego Sheikh MD 06/09/2018 04:02PM Diego Sheikh MD CV ECHO PROCEDUR ES Performing Organization Address [facility] Co de Phone Number [facility]OR[facility] * ECG 12 lead (05/27/2018 7:42 AM EDT) 05/27/2018 7:42 AM EDT Narrative [facility] E[facility]ISTORIC - 05/27/2018 11:57 AM EDT SINUS RHYTHM WITH MARKED SINUS ARRYTHMIA WITH 1ST DEGREE A-V BLOCK PAUSE NOTED AT END OF STRIP NONSPECIFIC ST AND T WAVE ABNORMALITY ABNORMAL EKG WHEN COMPARED WITH ECG OF 26-MAR-2018 09:18, SINUS RHYTHM HAS REPLACED ATRIAL FIBRILLATION VENT. RATE HAS DECREASED BY ??[address] NOW DEPRESSED IN ANTERIOR LEADS NONSPECIFIC T WAVE ABNORMALITY NOW EVIDENT IN ANTERIOR LEADS QT HAS SHORTENED Diego Sheikh MD ECG ORDERABLES Performing Organization Address [facility] Co de Phone Number [facility] documented in this encounter Visit Diagnoses Not on filedocumented in this encounter
--- OUTSIDE RECORDS SUMMARY | 2023-10-27 03:57 | XMS_ITS | Encounter Summary ---
Author Organization [facility] Address [address] [place] [address] Care Team Providers Care Import Coordination And Production Head Name Role Phone Unavailable Primary Care Provider Unavailabl e Encounter Details Date Type Department Care Team (Late st Contact Info) Description 07/25/2019 Conversion Results Only CONVERSION LOCATION Social History Tobacco Use [...] Date/Time Associated Diagnosis Comments ECG 12-LEAD Routine 07/25/2019 12:14 PM EDT XR CHEST 1 VIEW, FRONTAL, PORTABLE Routine 07/25/2019 12:05 PM EDT ECG 12-LEAD Routine 07/25/2019 8:06 AM EDT documented in this encounter Results * ECG 12 lead (07/25/2019 12:14 PM EDT) 07/25/2019 12:1 4 PM EDT Narrative [facility] EKG HISTORIC - 07/27/2019 3:30 PM EDT ELECTRONIC VENTRICULAR PACEMAKER WHEN COMPARED WITH ECG OF 25-JUL-2019 08:06, ELECTRONIC VENTRICULAR PACEMAKER HAS REPLACED ATRIAL FIBRILLATION Conversion Provider ECG ORDERABLES [facility] EKG HISTORIC * X-ray chest 1 view, frontal, portable (07/25/2019 12:05 PM EDT) Anatomical Region Laterality Modality Other 07/25/2019 12:0 5 PM EDT Narrative 07/25/2019 12:11 PM EDT FINAL CHEST 1 VIEW PORTABLE History: Pacemaker. ? 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 There is no evidence for pneumothorax. Leads are in satisfactory position in the right atrium and right ventricle. The lungs are unchanged in appearance since prior examination. Numerous wires and leads overlie the chest limiting the quality of the examination. The heart is normal in size. ? Impression: ?Pacemaker in satisfactory position. ?No evidence for pneumothorax ? Signed By: Geo Marcum MD Signed On: 07/25/2019 12:11 PM EDT Procedure Note Geo Marcum MA - 04/26/2020 FINAL CHEST 1 VIEW PORTABLE History: Pacemaker. Comparison: 03/28/2018 A left subclavian vein pacemaker has beenplaced. There is no evidence for pneumothorax. Leads are in satisfactoryposition in the right atrium and right ventricle. The lungs are unchangedin appearance since prior examination. Numerous wires and leads overliethe chest limiting the quality of the examination. The heart is normal insize. Impression: Pacemaker in satisfactory position. 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 RATE HAS INCREASED BY ??44 BPM T WAVE INVERSION NO LONGER EVIDENT IN ANTERIOR-LATERAL LEADS Conversion Provider ECG ORDERABLES [facility] E[facility]ISTORIC documented in this encounter Visit Diagnoses Not on filedocumented in this encounter
--- OUTSIDE RECORDS SUMMARY | 2023-10-27 03:57 | XMS_ITS | Encounter Summary ---
Author Organization [facility] Address [address] [place] [address] Care Team Providers Care Firer Powerhouse Name Role Phone Allyson Grijalva MD Primary Care Provider + [phone] Sebas Jackson DPM Unavailable [phone] Reason for Referral * MRI/CAT/PET Scan (Routine) - Closed Specialty Diagnoses / Procedures Referred By Pat lee Referred To Contact Radiology Diagnoses Laceration of left foot with foreign body, sequela Procedures MRI foot left without contrast Sebas Jackson DPM [address] [place] [address] Referral ID Status Reason Start Date Expiration Date V isits Requested Visits Authorized [id number] Closed Specialty Services Required 11/12/2020 11/12/2021 1 1 Reason for Visit * MRI/CAT/PET Scan (Routine) - Closed Specialty Diagnoses / Procedures Referred By Pat lee Referred To Contact Radiology Diagnoses Laceration of left foot with foreign body, sequela Procedures MRI foot left without contrast Sebas Jackson DPM [address] [place] [address] Referral ID Status Reason Start Date Expiration Date V isits Requested Visits Authorized [id number] Closed Specialty Services Required 11/12/2020 11/12/2021 1 1 Encounter Details Date Type Department Care Team (Latest Contact Info) Description 12/06/2020 12:28 PM EDT - 12/06/2020 11:59 PM EDT Hospital Encounter [facility] MRI [address] [facility] [address] [place] [address] Sebas Jackson, DPM [address] [place] [address] Laceration of left foot with foreign body, sequela Discharge Disposition: Home/Residence Social History Tobacco Use [...] Procedure Name Priority Date/Time Associated Diagnosis Comments MRI FOOT LEFT WO CONTRAST Routine 12/06/2020 2:11 PM EDT Laceration of left foot with foreign body, sequela documented in this encounter Results * MRI foot left without contrast (12/06/2020 2:11 PM EDT) Anatomical Region Laterality Modality Lower Extremities, Foot Left Magnetic Resonance 12/09/2020 3:49 PM EDT Impressions 12/09/2020 3:58 PM EDT IMPRESSION: No visible foreign body. Chronic/incidental findings above. Signed By: Ari Orr Jr, MD Signed On: 12/09/2020 3:58 PM EDT Narrative 12/09/2020 3:58 PM EDT MRI FOOT LEFT WO CONTRAST HISTORY: Laceration, evaluate for foreign body Comparison: Ultrasound on 09/17/2020 TECHNIQUE: MRI of the left foot was performed using multiple pulse sequences in 3 imaging planes without contrast at 1.5 Lety. FINDINGS: A marker was placed in the region of skin wound lateral to the fifth metatarsophalangeal joint. No discrete foreign body is appreciated in this region. There is subcutaneous edema and a probable skin wound noted along the plantar aspect. No discrete fluid collection is appreciated on noncontrast evaluation. 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 The lateral hallux sesamoid is bipartite. There is mild degenerative marrow signal within the base of the medial cuneiform. The Lisfranc joint and ligament are normal in appearance. Bone marrow signal subjacent to the marker and throughout the remainder of the left foot is preserved. There is no evidence of stress fracture. There is no evidence of Marcus's neuroma. Procedure Note Ari Orr Jr., MD - 12/09/2020 MRI FOOT LEFT WO CONTRAST HISTORY: Laceration, evaluate for foreign body Comparison: Ultrasound on 09/17/2020 TECHNIQUE: MRI of the left foot was performed using multiple pulse sequences in 3imaging planes without contrast at 1.5 Lety. FINDINGS: A marker was placed in the region of skin wound lateral to the fifthmetatarsophalangeal joint. No discrete foreign body is appreciated in thisregion. There is subcutaneous edema and a probable skin wound noted alongthe plantar aspect. No discrete fluid collection is appreciated on noncontrast evaluation. There is a small first metatarsophalangeal joint effusion and minimalosteoarthritis of the first MTP joint noted. The lateral hallux sesamoidis bipartite. There is mild degenerative marrow signal within the base of the medialcuneiform. The Lisfranc joint and ligament are normal in appearance. Bone marrowsignal subjacent to the marker and throughout the remainder of the leftfoot is preserved. There is no evidence of stress fracture. There is no evidence of Marcus's neuroma. IMPRESSION: No visible foreign body. Chronic/incidental findings above. Signed By: Ari Orr Jr, MD Signed On: 12/09/2020 3:58 PM EDT Sebas Jackson DPChar IMG MRI PROCEDURE S documented in this encounter Visit Diagnoses Diagnosis Laceration of left foot with foreign body, sequela documented in this encounter Care Teams Firer Powerhouse Relationship Specialty Start Date End Date Allyson Grijalva MD [address] [place] [address] PCP - General Family Medicine 09/17/20 Sebas Jackson DPM [facility] [address] [place] [address] Attending Physician Podiatry 12/06/20 documented as of this encounter
--- OUTSIDE RECORDS SUMMARY | 2023-10-27 03:57 | XMS_ITS | Encounter Summary ---
Author Organization [facility] Address [address] [place] [address] Care Team Providers Care Cone Worker Name Role Phone Unavailable Primary Care Provider Unavailabl e Encounter Details Date Type Department Care Team (Late st Contact Info) Description 07/28/2018 Conversion Medicatio n Management [facility] [address] [facility] [place] [address] Zev Hebert MD [address] [facility] [place] [address] Social History Tobacco Use Types Packs/Day Years [...]
--- OUTSIDE RECORDS SUMMARY | 2023-10-27 03:57 | XMS_ITS | Encounter Summary ---
Author Organization [facility] Address [address] [place] [address] Care Team Providers Care Special Effects Technician Name Role Phone Unavailable Primary Care Provider Unavailabl e Encounter Details Date Type Department Care Team (Late st Contact Info) Description 04/27/2018 Conversion Results Only CONVERSION LOCATION Nessa Jorge MD [address] [place] [address] Social History Tobacco Use Types Packs/Day Years [...] Associated Diagnosis Comments TRANSESOPHAGEAL ECHO (CURTIS) Routine 04/29/2018 8:29 AM EST documented in this encounter Results * Transesophageal Echo (CURTIS) (04/29/2018 8:29 AM EST) 04/27/2018 8:38 AM EST Narrative [facility]IOLOG[facility] HISTORIC - 04/29/2018 8:28 AM EST [address] ? [place] [address] ?Transesophageal Echocardiography Report Name: TIMMY JULES ? Study Date: 04/27/2018 07:38 AM ?Patient Location: [place] [address]- : 1940 ? Patient Class: Outpatient ? Height: 71 in Age: 78 yrs ? [facility] #: [id number] ? Weight: 201 lb Gender: Male ?BSA: 2.1 m2 Reason For Study: A-FIB, CURTIS/Pre CV Ordering Physician: Nessa Jorge Performed By: *Jose Luis Marin RCS LEFT VENTRICLE The left ventricle is normal in size. There is normal left ventricular wall thickness. 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 The estimated EF is 10-15%. There is severe global hypokinesis of the left ventricle. RIGHT VENTRICLE The right ventricle is normal size. The right ventricular systolic function is mild to moderately reduced. ATRIA There is no evidence of a patent foramen ovale. The left atrium is dilated. Spontaneous contrast in left atrial appendage. 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 Right atrial size is normal. MITRAL VALVE Mitral valve leaflets appear normal. There is a trace of mitral regurgitation, which may be physiologic. TRICUSPID VALVE The tricuspid valve leaflets are thin and pliable. There is mild tricuspid regurgitation. AORTIC VALVE The aortic valve is trileaflet. There is no evidence of aortic stenosis. No aortic regurgitation is present. PULMONIC VALVE The pulmonic valve leaflets are thin and pliable; valve motion is normal. 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 VESSELS Aortic root size is normal. Mild atherosclerotic plaque(s) in the descending aorta. COMMENTS CURTIS WAS PERFORMED BY DIEGO RICE. CURTIS METHODS / SEDATION After verbal and written consent was obtained, a CURTIS probe was placed into the mid-esophageal position. Standard 2D, color and conventional Doppler images were obtained per routine protocol. CURTIS was performed by the attending java android developer under sedation provided by the anesthesia department. CURTIS COMPLICATIONS There were no complications during the procedure. Interpretation Summary Left ventricular systolic function is severely reduced. The right ventricular systolic function is mild to moderately reduced. 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 Spontaneous contrast in left atrial appendage. Electronically Authenticated By:Diego Sheikh MD ?? 04/29/2018 08:28 AM Procedure Note Diego Sheikh MD - 04/24/2020 [address] [place] [address] Transesophageal Echocardiography Report Name: TIMMY JULES Study Date: 04/27/2018 07:38 AM Patient Location: [place] [address] : 1940 Patient Class: Outpatient Height: 71in Age: 78 yrs Weight:201 lb Gender: Male BSA: 2.1 m2 Reason For Study: A-FIB, CURTIS/Pre CV Ordering Physician: Nessa Jorge Performed By: *Jose Luis Marin RCS LEFT VENTRICLE The left ventricle is normal in size. There is normal left ventricularwall thickness. 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 The estimated EF is 10-15%. There is severe global hypokinesis of the left ventricle. RIGHT VENTRICLE The right ventricle is normal size. The right ventricular systolicfunction is mild to moderately reduced. ATRIA There is no evidence of a patent foramen ovale. The left atrium isdilated. Spontaneous contrast in left atrial appendage. A mass is seen in theleft atrial appendage that is suggestive of a left atrial thrombus. Rightatrial size is normal. MITRAL VALVE Mitral valve leaflets appear normal. There is a trace of mitralregurgitation, which may be physiologic. TRICUSPID VALVE The tricuspid valve leaflets are thin and pliable. There is mildtricuspid regurgitation. AORTIC VALVE The aortic valve is trileaflet. There is no evidence of aortic stenosis.No aortic regurgitation is present. PULMONIC VALVE The pulmonic valve leaflets are thin and pliable; valve motion isnormal. 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 VESSELS Aortic root size is normal. Mild atherosclerotic plaque(s) in thedescending aorta. COMMENTS CURTIS WAS PERFORMED BY DIEGO RICE. CURTIS METHODS / SEDATION After verbal and written consent was obtained, a CURTIS probe was placed intothe mid-esophageal position. Standard 2D, color and conventional Dopplerimages were obtained per routine protocol. CURTIS was performed by the attending java android developer under sedation provided by the anesthesia department. CURTIS COMPLICATIONS There were no complications during the procedure. Interpretation Summary Left ventricular systolic function is severely reduced. The right ventricular systolic function is mild to moderately reduced. 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 Spontaneous contrast in left atrial appendage. Electronically Authenticated By:Diego Sheikh MD 04/29/2018 08:28AM Nessa Jorge MD CV ECHO [place] OCEDURES [facility] CARDIOLOGY HISTORIC documented in this encounter Visit Diagnoses Not on filedocumented in this encounter
--- OUTSIDE RECORDS SUMMARY | 2023-10-27 03:57 | XMS_ITS | Encounter Summary ---
Author Organization [facility] Address [address] [place] [address] Care Team Providers Care Equipment Service Engineer Name Role Phone Unavailable Primary Care Provider Unavailabl e Encounter Details Date Type Department Care Team (Late st Contact Info) Description 03/12/2020 9:19 AM EST - 03/12/2020 11:59 PM EST Hospital Encounter CONVERSION LOCATION Allyson Grijalva MD [address] [place] [address] Discharge Disposition: Home/Residence Social History Tobacco Use [...] Priority Date/Time Associated Diagnosis Comments EAP CONVERSION URINALYSIS Routine 03/12/2020 9:30 AM EST EAP CONVERSION PROSTATIC SPECIFIC AG SCRN. Routine 03/12/2020 9:29 AM EST EAP CONVERSION GLYCOSOLATED HEMOGLOBIN A1C Routine 03/12/2020 9:29 AM EST EAP CONVERSION AUTOMATED BLOOD COUNT Routine 03/12/2020 9:29 AM EST EAP CONVERSION URIC ACID Routine 03/12/2020 9:29 AM EST EAP CONVERSION LIPID PROFILE Routine 03/12/2020 9:29 AM EST EAP CONVERSION COMP METABOLIC PANEL Routine 03/12/2020 9:29 AM EST documented in this encounter Results * URINALYSIS (03/12/2020 9:30 AM EST) URINE COLOR ANGELICA [facility] URINE APPEARANCE CLEAR [facility] URINE, GLUCOSE NEG NEG MG/DL [facility] BILIRUBIN NEG NEG [facility] URINE KETONES NEG NEG [facility] SPECIFIC GRAVITY 1.014 1.009 - 1.030 [facility] OCCULT BLOOD NEG NEG [facility] URINE, PH 6.0 5.0 - 7.5 [facility] PROTEIN NEG NEG MG/DL [facility] UROBILINOGEN <2.0 <2.0 MG/DL [facility] NITRITE NEG NEG [facility] LEUKOCYTE EST NEG NEG [facility] MICROSCOPIC SEDIMENT MICROSCOPIC NOT DONE ON URINES WITH NEG BIOCHEMICAL RESULTS [facility] 03/12/2020 9:30 AM EST 03/12/2020 9:32 AM EST Allyson Grijalva MD LAB BLOOD ORDERABL ES Performing Organization Address [facility] de Phone Number [facility] * URIC ACID (03/12/2020 9:29 AM EST) URIC ACID 6.2 3.5 - 8.5 MG/DL [facility] 03/12/2020 9:29 AM EST 03/12/2020 9:31 AM EST Allyson Grijalva MD LAB BLOOD ORDERABL ES Performing Organization Address [facility]/ZIP Co de Phone Number [facility] * PROSTATIC SPECIFIC AG SCRN. (03/12/2020 9:29 AM EST) PROSTATIC SPECIFIC AG SCRN. 1.13 0.0 - 4.0 NG/ML [facility] 03/12/2020 9:29 AM EST 03/12/2020 9:31 AM EST Allyson Grijalva MD LAB BLOOD ORDERABL ES Performing Organization Address City/[facility]/ZIP Co de Phone Number [facility] * (ABNORMAL) LIPID PROFILE (03/12/2020 9:29 AM EST) CHOLESTEROL 203(H) <200 MG/DL [facility] TRIGLYCERIDE 350(H) 0 - 150 MG/DL [facility] HIGH DENS LIPOPROT 38(L) >40 MG/DL [facility] VERY LOW DENS LIPO 70 MG/DL [facility] LOW DENS LIPOPROT 95 <130 MG/DL [facility] CHOL/HDL RATIO 5.3 3.0 - 6.[address] [facility] 03/12/2020 9:29 AM EST 03/12/2020 9:31 AM EST Allyson Grijalva MD LAB BLOOD ORDERABL ES Performing Organization Address [facility] de Phone Number [facility] * GLYCOSOLATED HEMOGLOBIN A1C (03/12/2020 9:29 AM EST) GLYCOSOLATED HEMOGLOBIN A1C 5.6 <5.7 % [facility] 03/12/2020 9:29 AM EST 03/12/2020 9:31 AM EST Allyson Grijalva MD LAB BLOOD ORDERABL ES Performing Organization Address City/[facility]/ZIP Co de Phone Number [facility] * (ABNORMAL) COMP METABOLIC PANEL (03/12/2020 9:29 AM EST) GLUCOSE, RANDOM 91 70 - 100 MG/DL [facility] Reference range for glucose is based on the ADA guidelines for fasting glucose. 70 - 100 MG/DL [facility] BLOOD UREA NITROGEN 12 0 - 23 MG/DL [facility] CREATININE 0.96 0.00 - 1.25 MG/DL [facility] SODIUM 142 135 - 145 MEQ/L [facility] POTASSIUM 4.1 3.5 - 5.1 MEQ/L [facility] CHLORIDE 104 98 - 110 MEQ/L [facility] CO2 27 20 - 31 MEQ/L [facility] ANION GAP 15 9 - 18 [facility] AST 53(H) 5 - 34 U/L [facility] ALT 27 0 - 55 U/L [facility] ALK PHOSPHATASE 76 40 - 150 U/L [facility] TOTAL BILIRUBIN 1.1 0.2 - 1.2 MG/DL [facility] CALCIUM 8.9 8.4 - 10.2 MG/DL [facility] ALBUMIN 4.0 3.4 - 4.8 GM/DL [facility] Protein 6.8 6.2 - 8.1 GM/DL [facility] CALC GFR-NON >60 >60 mL/min/1. 73m2 [facility] GFR >60 >60 mL/min/1. 73m2 [facility] GFR COMMENT The GFR estimate is not adjusted for extreme body surface area. Nor has it been validated for children less than 18 years, women or ethnic groups other than and . [facility] 03/12/2020 9:29 AM EST 03/12/2020 9:31 AM EST Allyson Grijalva MD LAB BLOOD ORDERABL ES [facility] * (ABNORMAL) AUTOMATED BLOOD COUNT (03/12/2020 9:29 AM EST) WBC 4.2 4.0 - 12.0 K/UL [facility] RBC 4.71 4.60 - 6.20 M/UL [facility] HGB 16.9 14.0 - 18.0 G/DL [facility] HCT 50.5 42 - 52 % [facility] MCV 107.0(H) 80 - [address] [facility] MCH 35.9(H) 27.0 - 33.[address] [facility] MCHC 33.5 32.0 - 36.0 % [facility] RDW 12.3 11.5 - 15.0 % [facility] PLT 188 140 - 400 K/UL [facility] MPV 10.1 7.4 - 10.[address] [facility] NUCLEATED RBC'S 0 0 /[address] NEUTROPHILS 50 % [facility] LYMPH 29 % [facility] MONO 17 % [facility] EOS 3 % [facility] BASO 1 % [facility] IMMATURE GRANS 0.2 % SUN[facility] ABS NEUTROPHILS 2.2 1.8 - 9.0 K/UL [facility] ABS LYMPH 1.2(L) 1.5 - 3.2 K/UL [facility] ABS MONO 0.7 0.0 - 0.9 K/UL [facility] ABS EOS 0.1 0.0 - 0.5 K/UL [facility] ABS BASO 0.0 0.0 - 0.2 K/UL [facility] ABS IMMATURE GRANS 0.01 K/UL [facility] DIFF TYPE AUTOMATED [facility] 03/12/2020 9:29 AM EST 03/12/2020 9:31 AM EST Allyson Grijalva MD LAB BLOOD ORDERABL ES [facility] documented in this encounter Visit Diagnoses Not on filedocumented in this encounter
--- OUTSIDE RECORDS SUMMARY | 2023-10-27 03:57 | XMS_ITS | Encounter Summary ---
Author Organization [facility] Address [address] [place] [address] Care Team Providers Care Palletiser Operator Name Role Phone Allyson Grijalva MD Primary Care Provider + [phone] Sebas Jackson DPM Unavailable [phone] Diego Sheikh MD Unavailable [phone] Joshua Mathew MD Unavailable [phone] Encounter Details Date Type Department Care Team (Late st Contact Info) Description 07/19/2018 Conversion Scans Only CONVERSION LOCATION Social History [...] on filedocumented in this encounter Care Teams Palletiser Operator Relationship Specialty Start Date End Date Allyson Grijalva MD [address] [place] [address] PCP - General Family Medicine 09/17/20 Sebas Jackson DPChar [facility] [address] [place] [address] Attending Physician Podiatry 12/06/20 Diego Sheikh MD [address] [place] [address] Cardiology 12/24/20 Joshua Mathew MD [address] [place] [address] Urology 12/24/20 documented as of this encounter
--- OUTSIDE RECORDS SUMMARY | 2023-10-27 03:57 | XMS_ITS | Clinical Summary ---
Author Organization [facility] Address [address] [place] [address] Care Team Providers Care Operations Director Name Role Phone Allyson Grijalva MD Primary Care Provider + [phone] Sebas Jackson DPM Unavailable [phone] Diego Sheikh MD Unavailable [phone] Joshua Mathew MD Unavailable [phone] Allergies No known active allergies Social History Tobacco Use Types Packs/Day Years Used Date Smoking Tobacco: Never Assessed Sex and Gender Information Value Date Recorded Sex Assigned at Not on file Gender Identity Not on file Sexual Orientation Not on file Last Filed Vital Signs Vital Sign Reading Time Taken Comments Blood Pressure - - Pulse - - Temperature - - Respiratory Rate - - Oxygen Saturation - - Inhaled Oxygen Concentration - - Weight 91.6 kg (202 lb) 12/06/2020 1:08 PM EDT Height - - Body Mass Index - - Plan of Treatment Health Maintenance Due Date Last Done Comments Zoster Vaccines (1 of 2) 1991 Medicare Annual Wellness Visit 01/13/2022 1 03/15/2020, 11/23/2019, 11/21/2018, Additional history exists Influenza Vaccine (#1) 2023 1, 12/11/2019, 02/11/2010 Pneumococcal immunization (65+) Completed 5, 03/19/2009 Care Teams Operations Director Relationship Specialty Start Date End Date Allyson Grijalva MD [address] [place] [address] PCP - General Family Medicine 09/17/20 Sebas Jackson DPM [address] [place] [address] Attending Physician Podiatry 12/06/20 Diego Sheikh MD [address] [place] [address] Cardiology 12/24/20 Joshua Mathew MD [address] [place] [address] Urology 12/24/20
--- OUTSIDE RECORDS SUMMARY | 2023-10-27 03:57 | XMS_ITS | Encounter Summary ---
Author Organization [facility] Address [address] [place] [address] Care Team Providers Care Napping Machine Operator Name Role Phone Unavailable Primary Care Provider Unavailabl e Encounter Details Date Type Department Care Team (Late st Contact Info) Description 05/10/2018 1:23 PM EDT - 03/25/2020 4:[address] [facility] Hospital Encounter [facility] [address] [place] [address] Diego Sheikh MD [address] [place] [id number] Social History Tobacco Use Types Packs/Day Years Used Date Smoking Tobacco: Never Assessed Sex and Gender Information Value Date Recorded Sex Assigned at Not on file Gender Identity Not on file Sexual Orientation Not on file documented as of this encounter Plan of Treatment Not on file documented as of this encounter Procedures Procedure Name Priority Date/Time Associated Diagnosis Comments EAP CONVERSION PROTIME Routine 05/10/2018 1:35 PM EDT EAP CONVERSION AUTOMATED BLOOD COUNT Routine 05/10/2018 1:35 PM EDT EAP CONVERSION COMP METABOLIC PANEL Routine 05/10/2018 1:35 PM EDT documented in this encounter Results * (ABNORMAL) PROTIME (05/10/2018 1:35 PM EDT) INTNAT'L NORM RATIO 1.3(H) 0.8 - 1.1 [facility] 05/10/2018 1:35 PM EDT 05/10/2018 1:36 PM EDT Diego Sheikh MD LAB BLOOD ORDERA BLES [facility] * COMP METABOLIC PANEL (05/10/2018 1:35 PM EDT) GLUCOSE, RANDOM 90 70 - 100 MG/DL [facility] GLUCOSE, RANDOM Reference range for glucose is based on the ADA guidelines for fasting glucose. 70 - 100 MG/DL [facility] BLOOD UREA NITROGEN 17 0 - 23 MG/DL [facility] CREATININE 0.94 0.00 - 1.25 MG/DL [facility] SODIUM 141 135 - 145 MEQ/L [facility] POTASSIUM 4.6 3.5 - 5.1 MEQ/L [facility] CHLORIDE 102 98 - 110 MEQ/L [facility] CO2 28 20 - 31 MEQ/L [facility] ANION GAP 16 9 - 18 [facility] AST 19 5 - 34 U/L [facility] ALT 11 0 - 55 U/L [facility] ALK PHOSPHATASE 78 40 - 150 U/L [facility] TOTAL BILIRUBIN 0.8 0.2 - 1.2 MG/DL [facility] CALCIUM 9.4 8.4 - 10.2 MG/DL [facility] ALBUMIN 3.8 3.4 - 4.8 GM/DL [facility] Protein 6.5 6.2 - 8.1 GM/DL [facility] CALC GFR-NON >60 >60 mL/min/1. 73m2 [facility] GFR >60 >60 mL/min/1. 73m2 [facility] GFR COMMENT The GFR estimate is not adjusted for extreme body surface area. Nor has it been validated for children less than 18 years, women or ethnic groups other than and . [facility] 05/10/2018 1:35 PM EDT 05/10/2018 1:36 PM EDT Diego Sheikh MD LAB BLOOD ORDERA BLES [facility] * (ABNORMAL) AUTOMATED BLOOD COUNT (05/10/2018 1:35 PM EDT) WBC 5.1 4.0 - 12.0 K/UL [facility] RBC 4.35(L) 4.60 - 6.20 M/UL [facility] HGB 14.7 14.0 - 18.0 G/DL [facility] HCT 41.6(L) 42 - 52 % [facility] MCV 95.6(H) 80 - 94 FL [facility] MCH 33.8(H) 27.0 - 33.6 PG [facility] MCHC 35.3 32.0 - 36.0 % [facility] RDW 12.1 11.5 - 15.0 % [facility] PLT 191 140 - 400 K/UL [facility] MPV 7.2(L) 7.4 - 10.4 FL [facility] NUCLEATED RBC'S 0 0 /100 WBC [facility] NEUTROPHILS 51 % [facility] LYMPH 28 % [facility] MONO 16 % [facility] EOS 4 % [facility] BASO 1 % [facility] ABS NEUTROPHILS 2.6 1.8 - 9.0 K/UL [facility] ABS LYMPH 1.4(L) 1.5 - 3.2 K/UL [facility] ABS MONO 0.8 0.0 - 0.9 K/UL [facility] ABS EOS 0.2 0.0 - 0.5 K/UL [facility] ABS BASO 0.0 0.0 - 0.2 K/UL [facility] DIFF TYPE AUTOMATED [facility] 05/10/2018 1:35 PM EDT 05/10/2018 1:36 PM EDT Diego Sheikh MD LAB BLOOD ORDERA BLES [facility] documented in this encounter Visit Diagnoses Not on filedocumented in this encounter
--- OUTSIDE RECORDS SUMMARY | 2023-10-27 03:57 | XMS_ITS | Encounter Summary ---
Author Organization [facility] Address [address] [place] [address] Care Team Providers Care Muck Hauler Name Role Phone Unavailable Primary Care Provider Unavailabl e Encounter Details Date Type Department Care Team (Late st Contact Info) Description 04/05/2018 Conversion Results Only CONVERSION LOCATION Verónica Alaniz CRNP [address] [place] [address] Social History Tobacco Use Types Packs/Day Years Used Date Smoking Tobacco: Never Assessed Sex and Gender Information Value Date Recorded Sex Assigned at Not on file Gender Identity Not on file Sexual Orientation Not on file documented as of this encounter Plan of Treatment Not on file documented as of this encounter Procedures Procedure Name Priority Date/Time Associated Diagnosis Comments EAP CONVERSION PROSTATIC SPECIFC.AG DIAGNOSTIC, TOTAL Routine 04/05/2018 11:42 AM EST EAP CONVERSION URIC ACID Routine 04/05/2018 11:42 AM EST EAP CONVERSION MAGNESIUM Routine 04/05/2018 11:42 AM EST EAP CONVERSION LIPID PROFILE WITH RFLX TO DLDL Routine 04/05/2018 11:42 AM EST EAP CONVERSION DIGOXIN Routine 04/05/2018 11:42 AM EST EAP CONVERSION COMP METABOLIC PANEL Routine 04/05/2018 11:42 AM EST documented in this encounter Results * URIC ACID (04/05/2018 11:42 AM EST) URIC ACID 7.2 3.5 - 8.5 MG/DL [facility] 04/05/2018 11:4 2 AM EST 04/05/2018 11:46 AM EST Verónicatremaine [place] LAB BLOOD ORDER KELSEY [facility] * PROSTATIC SPECIFC.AG DIAGNOSTIC, TOTAL (04/05/2018 11:42 AM EST) Pathologist [facility] PROSTATIC SPECIFC.AG DIAGNOSTIC, TOTAL 0.33 0.0 - 4.0 NG/ML [facility] 04/05/2018 11:4 2 AM EST 04/05/2018 11:46 AM EST Verónicakerwin [place] LAB BLOOD ORDER KELSEY [facility] * MAGNESIUM (04/05/2018 11:42 AM EST) Pathologist [facility] MAGNESIUM 2.4 1.6 - 2.6 MG/DL [facility] 04/05/2018 11:4 2 AM EST 04/05/2018 11:46 AM EST Verónica [place] LAB BLOOD ORDER KELSEY [facility] * (ABNORMAL) LIPID PROFILE WITH RFLX TO dLDL (04/05/2018 11:42 AM EST) Pathologist [facility] CHOLESTEROL 119 <200 MG/DL [facility] TRIGLYCERIDE 129 0 - 150 MG/DL [facility] HIGH DENS LIPOPROT 29(L) >40 MG/DL [facility] VERY LOW DENS LIPO 26 MG/DL [facility] LOW DENS LIPOPROT 64 <130 MG/DL [facility] CHOL/HDL RATIO 4.1 3.0 - 6.5 [facility] 04/05/2018 11:4 2 AM EST 04/05/2018 11:46 AM EST Verónica [place] LAB BLOOD ORDER KELSEY Performing Organization Address City/[facility] Co de Phone Number [facility] * (ABNORMAL) DIGOXIN (04/05/2018 11:42 AM EST) Pathologist [facility] DIGOXIN 0.3(L) 0.5 - 2.0 NG/ML [facility] 04/05/2018 11:4 2 AM EST 04/05/2018 11:46 AM EST Verónica [place] LAB BLOOD ORDER KELSEY Performing Organization Address [facility] de Phone Number [facility] * (ABNORMAL) COMP METABOLIC PANEL (04/05/2018 11:42 AM EST) GLUCOSE, RANDOM 93 70 - 100 MG/DL [facility] GLUCOSE, RANDOM Reference range for glucose is based on the ADA guidelines for fasting glucose. 70 - 100 MG/DL [facility] BLOOD UREA NITROGEN 15 0 - 23 MG/DL [facility] CREATININE 1.08 0.00 - 1.25 MG/DL [facility] SODIUM 137 135 - 145 MEQ/L [facility] POTASSIUM 4.2 3.5 - 5.1 MEQ/L [facility] CHLORIDE 101 98 - 110 MEQ/L [facility] CO2 27 20 - 31 MEQ/L [facility] ANION GAP 13 9 - 18 [facility] AST 25 5 - 34 U/L [facility] ALT 20 0 - 55 U/L [facility] ALK PHOSPHATASE 79 40 - 150 U/L [facility] TOTAL BILIRUBIN 0.6 0.2 - 1.2 MG/DL [facility] CALCIUM 9.2 8.4 - 10.2 MG/DL [facility] ALBUMIN 3.6 3.4 - 4.8 GM/DL [facility] Protein 5.8(L) 6.2 - 8.1 GM/DL [facility] CALC GFR-NON >60 >60 mL/min/1. 73m2 [facility] GFR >60 >60 mL/min/1. 73m2 [facility] GFR COMMENT The GFR estimate is not adjusted for extreme body surface area. Nor has it been validated for children less than 18 years, women or ethnic groups other than and . [facility] 04/05/2018 11:4 2 AM EST 04/05/2018 11:46 AM EST Verónica [place] LAB BLOOD ORDER KELSEY [facility] documented in this encounter Visit Diagnoses Not on filedocumented in this encounter
--- OUTSIDE RECORDS SUMMARY | 2023-10-27 03:57 | XMS_ITS | Encounter Summary ---
Author Organization [facility] Address [address] [place] [address] Care Team Providers Care First Aid Officer Name Role Phone Unavailable Primary Care Provider Unavailabl e Encounter Details Date Type Department Care Team (Late st Contact Info) Description 07/11/2019 Conversion Results Only CONVERSION LOCATION Diego Sheikh MD [address] [facility] [address] [place] [address] Social History Tobacco Use Types [...] Comments EAP CONVERSION CBC (NO DIFFERENTIAL) Routine 07/11/2019 12:14 PM EDT EAP CONVERSION COMP METABOLIC PANEL Routine 07/11/2019 12:14 PM EDT documented in this encounter Results * (ABNORMAL) CBC (NO DIFFERENTIAL) (07/11/2019 12:14 PM EDT) WBC 4.7 4.0 - 12.0 K/UL [facility] RBC 4.70 4.60 - 6.20 M/UL [facility] HGB 15.4 14.0 - 18.0 G/DL [facility] HCT 47.8 42 - 52 % [facility] MCV 102.0(H) 80 - 94 FL [facility] MCH 32.7 27.0 - 33.6 PG [facility] MCHC 32.2 32.0 - 36.0 % [facility] RDW 11.4(L) 11.5 - 15.0 % [facility] PLT 226 140 - 400 K/UL [facility] MPV 7.5 7.4 - 10.4 FL [facility] 07/11/2019 12:1 4 PM EDT 07/11/2019 12:15 PM EDT Diego Sheikh MD LAB BLOOD ORDERA BLES [facility] * (ABNORMAL) COMP METABOLIC PANEL (07/11/2019 12:14 PM EDT) GLUCOSE, RANDOM 90 70 - 100 MG/DL [facility] GLUCOSE, RANDOM Reference range for glucose is based on the ADA guidelines for fasting glucose. 70 - 100 MG/DL [facility] BLOOD UREA NITROGEN 13 0 - 23 MG/DL [facility] CREATININE 1.04 0.00 - 1.25 MG/DL [facility] SODIUM 140 135 - 145 MEQ/L [facility] POTASSIUM 4.7 3.5 - 5.1 MEQ/L [facility] CHLORIDE 104 98 - 110 MEQ/L [facility] CO2 25 20 - 31 MEQ/L [facility] ANION GAP 16 9 - 18 [facility] AST 46(H) 5 - 34 U/L [facility] ALT 43 0 - 55 U/L [facility] ALK PHOSPHATASE 80 40 - 150 U/L [facility] TOTAL BILIRUBIN 0.8 0.2 - 1.2 MG/DL [facility] CALCIUM 9.5 8.4 - 10.2 MG/DL [facility] ALBUMIN 4.1 3.4 - 4.8 GM/DL [facility] Protein 6.7 6.2 - 8.1 GM/DL [facility] CALC GFR-NON >60 >60 mL/min/1. 73m2 [facility] GFR >60 >60 mL/min/1. 73m2 [facility] GFR COMMENT The GFR estimate is not adjusted for extreme body surface area. Nor has it been validated for children less than 18 years, women or ethnic groups other than and . [facility] 07/11/2019 12:1 4 PM EDT 07/11/2019 12:15 PM EDT Diego Sheikh MD LAB BLOOD ORDERA BLES [facility] documented in this encounter Visit Diagnoses Not on filedocumented in this encounter
--- OUTSIDE RECORDS SUMMARY | 2023-10-27 03:58 | XMS_ITS | Encounter Summary ---
Author Organization [facility] Address [address] [place] [address] Care Team Providers Care Architectural Administrative Assistant Name Role Phone Unavailable Primary Care Provider Unavailabl e Encounter Details Date Type Department Care Team (Late st Contact Info) Description 03/09/2017 Conversion Results Only CONVERSION LOCATION Joshua Cruz MD [address] [place] [id number] Social History Tobacco Use Types Packs/Day Years Used Date Smoking Tobacco: Never Assessed Sex and Gender Information Value Date Recorded Sex Assigned at Not on file Gender Identity Not on file Sexual Orientation Not on file documented as of this encounter Plan of Treatment Not on file documented as of this encounter Procedures Procedure Name Priority Date/Time Associated Diagnosis Comments EAP CONVERSION AUTOMATED BLOOD COUNT Routine 03/09/2017 12:50 PM EST EAP CONVERSION COMP METABOLIC PANEL Routine 03/09/2017 12:50 PM EST documented in this encounter Results * (ABNORMAL) COMP METABOLIC PANEL (03/09/2017 12:50 PM EST) GLUCOSE, RANDOM 133(H) 70 - 100 MG/DL [facility] GLUCOSE, RANDOM Reference range for glucose is based on the ADA guidelines for fasting glucose.(H) 70 - 100 MG/DL [facility] BLOOD UREA NITROGEN 16 0 - 23 MG/DL [facility] CREATININE 0.84 0.00 - 1.25 MG/DL [facility] SODIUM 138 135 - 145 MEQ/L [facility] POTASSIUM 4.0 3.5 - 5.1 MEQ/L [facility] CHLORIDE 102 98 - 110 MEQ/L [facility] CO2 26 20 - 31 MEQ/L [facility] ANION GAP 14 9 - 18 [facility] AST 27 5 - 34 U/L [facility] ALT 15 0 - 55 U/L [facility] ALK PHOSPHATASE 76 40 - 150 U/L [facility] TOTAL BILIRUBIN 0.7 0.2 - 1.2 MG/DL [facility] CALCIUM 9.7 8.4 - 10.2 MG/DL [facility] ALBUMIN 3.9 3.4 - 4.8 GM/DL [facility] Protein 7.1 6.2 - 8.1 GM/DL [facility] CALC GFR-NON >60 >60 mL/min/1. 73m2 [facility] GFR >60 >60 mL/min/1. 73m2 [facility] GFR COMMENT The GFR estimate is not adjusted for extreme body surface area. Nor has it been validated for children less than 18 years, women or ethnic groups other than and . [facility] 03/09/2017 12:5 0 PM EST 03/09/2017 12:53 PM EST Joshua Cruz MD LAB BLOOD ORDERABLES [facility] * (ABNORMAL) AUTOMATED BLOOD COUNT (03/09/2017 12:50 PM EST) WBC 6.3 4.0 - 12.0 K/UL [facility] RBC 4.17(L) 4.60 - 6.20 M/UL [facility] HGB 14.2 14.0 - 18.0 G/DL [facility] HCT 40.5(L) 42 - 52 % [facility] MCV 97.3(H) 80 - 94 FL [facility] MCH 34.0(H) 27.0 - 33.6 PG [facility] MCHC 35.0 32.0 - 36.0 % [facility] RDW 11.9 11.5 - 15.0 % [facility] PLT 201 140 - 400 K/UL [facility] MPV 7.0(L) 7.4 - 10.4 FL [facility] NUCLEATED RBC'S 0 0 /100 WBC [facility]UTROPHILS 69 % [facility] LYMPH 17 % [facility] MONO 12 % [facility] EOS 1 % [facility] BASO 1 % [facility] ABS NEUTROPHILS 4.3 1.8 - 9.0 K/UL [facility] ABS LYMPH 1.1(L) 1.5 - 3.2 K/UL [facility] ABS MONO 0.8 0.0 - 0.9 K/UL [facility] ABS EOS 0.1 0.0 - 0.5 K/UL [facility] ABS BASO 0.0 0.0 - 0.2 K/UL [facility] DIFF TYPE AUTOMATED [facility] 03/09/2017 12:5 0 PM EST 03/09/2017 12:53 PM EST Joshua Cruz MD LAB BLOOD ORDERABLES [facility] documented in this encounter Visit Diagnoses Not on filedocumented in this encounter
--- OUTSIDE RECORDS SUMMARY | 2023-10-27 03:58 | XMS_ITS | Encounter Summary ---
Author Organization [facility] Address [address] [place] [address] Care Team Providers Care Marina Sales And Service Supervisor Name Role Phone Unavailable Primary Care Provider Unavailabl e Encounter Details Date Type Department Care Team (Late st Contact Info) Description 09/06/2017 Conversion Results Only CONVERSION LOCATION Social History [...] EAP CONVERSION PROSTATIC SPECIFC.AG DIAGNOSTIC, TOTAL Routine 09/06/2017 1:58 PM EDT EAP CONVERSION BASIC METABOLIC PANEL Routine 09/06/2017 1:58 PM EDT documented in this encounter Results * PROSTATIC SPECIFC.AG DIAGNOSTIC, TOTAL (09/06/2017 1:58 PM EDT) Pathologist [facility] PROSTATIC SPECIFC.AG DIAGNOSTIC, TOTAL 0.57 0.0 - 4.0 NG/ML [facility] 09/06/2017 1:58 PM EDT 09/06/2017 1:59 PM EDT Conversion Provider LAB BLOOD ORDERABLES [facility] * BASIC METABOLIC PANEL (09/06/2017 1:58 PM EDT) GLUCOSE, RANDOM 89 70 - 100 MG/DL [facility] GLUCOSE, RANDOM Reference range for glucose is based on the ADA guidelines for fasting glucose. 70 - 100 MG/DL [facility] BLOOD UREA NITROGEN 12 0 - 23 MG/DL [facility] CREATININE 0.93 0.00 - 1.25 MG/DL [facility] SODIUM 139 135 - 145 MEQ/L [facility] POTASSIUM 4.2 3.5 - 5.1 MEQ/L [facility] CHLORIDE 106 98 - 110 MEQ/L [facility] CO2 23 20 - 31 MEQ/L [facility] ANION GAP 14 9 - 18 [facility] CALCIUM 9.5 8.4 - 10.2 MG/DL [facility] CALC GFR-NON >60 >60 mL/min/1. 73m2 [facility] GFR >60 >60 mL/min/1. 73m2 [facility] GFR COMMENT The GFR estimate is not adjusted for extreme body surface area. Nor has it been validated for children less than 18 years, women or ethnic groups other than and . [facility] 09/06/2017 1:58 PM EDT 09/06/2017 1:59 PM EDT Conversion Provider LAB BLOOD ORDERABLES [facility] documented in this encounter Visit Diagnoses Not on filedocumented in this encounter
--- OUTSIDE RECORDS SUMMARY | 2023-10-27 03:58 | XMS_ITS | Encounter Summary ---
Author Organization [facility] Address [address] [place] [address] Care Team Providers Care Stroke Program Coordinator Name Role Phone Unavailable Primary Care Provider Unavailabl e Encounter Details Date Type Department Care Team (Latest Contact Info) Description 03/25/2018 8:43 PM EST - 03/31/2018 7:01 PM EST Hospital Encounter [address] [facility] [place] [address] Christina Blackman MD [address] [facility] [place] [id number] Personal history of malignant neoplasm of prostate; Hypo-osmolality and hyponatremia; Acute kidney failure, unspecified (CMS/HCC); Acute on chronic systolic (congestive) heart failure (CMS/HCC); Unspecified atrial fibrillation (CMS/HCC) Social History Tobacco Use Types Packs/Day Years [...] Comments EAP CONVERSION AUTOMATED BLOOD COUNT Routine 03/31/2018 6:59 AM EST EAP CONVERSION FOLATE Routine 03/31/2018 6:59 AM EST EAP CONVERSION VITAMIN B12 Routine 03/31/2018 6:59 AM EST EAP CONVERSION BASIC METABOLIC PANEL Routine 03/31/2018 6:59 AM EST EAP CONVERSION AUTOMATED BLOOD COUNT Routine 03/30/2018 6:10 AM EST EAP CONVERSION MAGNESIUM Routine 03/30/2018 6:10 AM EST EAP CONVERSION COMP METABOLIC PANEL Routine 03/30/2018 6:10 AM EST TRANSESOPHAGEAL ECHO (CURTIS) Routine 03/29/2018 3:13 PM EST EAP CONVERSION AUTOMATED BLOOD COUNT Routine 03/29/2018 6:00 AM EST EAP CONVERSION COMP METABOLIC PANEL Routine 03/29/2018 6:00 AM EST TRANSTHORACIC ECHO (TTE) COMPLETE Routine 03/28/2018 12:49 PM EST XR CHEST 1 VIEW, FRONTAL, PORTABLE Routine 03/28/2018 8:36 AM EST EAP CONVERSION AUTOMATED BLOOD COUNT Routine 03/28/2018 6:05 AM EST EAP CONVERSION PHOSPHORUS Routine 03/28/2018 6:05 AM EST EAP CONVERSION MAGNESIUM Routine 03/28/2018 6:05 AM EST EAP CONVERSION COMP METABOLIC PANEL Routine 03/28/2018 6:05 AM EST EAP CONVERSION AUTOMATED BLOOD COUNT Routine 03/27/2018 5:30 AM EST EAP CONVERSION MAGNESIUM Routine 03/27/2018 5:30 AM EST EAP CONVERSION COMP METABOLIC PANEL Routine 03/27/2018 5:30 AM EST EAP CONVERSION MAGNESIUM Routine 03/26/2018 3:07 PM EST EAP CONVERSION BASIC METABOLIC PANEL Routine 03/26/2018 3:07 PM EST EAP CONVERSION PTT Routine 03/26/2018 11 :53 AM EST ECG 12-LEAD Routine 03/26/2018 9:18 AM EST EAP CONVERSION AUTOMATED BLOOD COUNT Routine 03/26/2018 5:45 AM EST EAP CONVERSION PTT Routine 03/26/2018 3: 10 AM EST EAP CONVERSION PROTIME Routine 9 3:10 AM EST EAP CONVERSION PHOSPHORUS Routine 03/26/2018 3:10 AM EST EAP CONVERSION MAGNESIUM Routine 03/26/2018 3:10 AM EST EAP CONVERSION COMP METABOLIC PANEL Routine 03/26/2018 3:10 AM EST US LEG VENOUS BILATERAL Routine 03/25/19 19 11:56 PM EST EAP CONVERSION CARDIAC TROPONIN I Routine 03/25/2018 8:45 PM EST XR CHEST 2 VIEWS, FRONTAL AND LATERAL Routine 03/25/2018 8:39 PM EST EAP CONVERSION PTT Routine 03/25/2018 5: 48 PM EST EAP CONVERSION PROTIME Routine 9 5:48 PM EST EAP CONVERSION PLASMA D-DIMER Routine 03/25/2018 5:48 PM EST EAP CONVERSION AUTOMATED BLOOD COUNT Routine 03/25/2018 5:48 PM EST EAP CONVERSION TSH WITH REFLEX TO FREE T4 Routine 03/25/2018 5:48 PM EST EAP CONVERSION MAGNESIUM Routine 03/25/2018 5:48 PM EST EAP CONVERSION EMERG.DRUG SRCN.SERUM Routine 03/25/2018 5:48 PM EST EAP CONVERSION CARDIAC TROPONIN I Routine 03/25/2018 5:48 PM EST EAP CONVERSION CARDIAC BNP Routine 03/25/2018 5:48 PM EST EAP CONVERSION COMP METABOLIC PANEL Routine 03/25/2018 5:48 PM EST EAP CONVERSION CK-MB Routine 03/25/2018 5:48 PM EST EAP CONVERSION CK Routine 03/25/2018 5:4 8 PM EST ECG 12-LEAD Routine 03/25/2018 5:28 PM EST documented in this encounter Results * (ABNORMAL) AUTOMATED BLOOD COUNT (03/31/2018 6:59 AM EST) WBC 8.3 4.0 - 12.0 K/UL [facility] RBC 4.12(L) 4.60 - 6.20 M/UL [facility] HGB 14.4 14.0 - 18.0 G/DL [facility] HCT 42.7 42 - 52 % [facility] MCV 103.0(H) 80 - 94 FL [facility] MCH 34.9(H) 27.0 - 33.6 PG [facility] MCHC 33.8 32.0 - 36.0 % [facility] RDW 12.4 11.5 - 15.0 % [facility] PLT 193 140 - 400 K/UL [facility] MPV 7.9 7.4 - 10.4 FL [facility] NUCLEATED RBC'S 0 0 /100 WBC [facility]UTROPHILS 73 % [facility] LYMPH 12 % [facility] MONO 14 % [facility] EOS 1 % [facility] BASO 0 % [facility] ABS NEUTROPHILS 6.0 1.8 - 9.0 K/UL [facility] ABS LYMPH 1.0(L) 1.5 - 3.2 K/UL [facility] ABS MONO 1.2(H) 0.0 - 0.9 K/UL [facility] ABS EOS 0.1 0.0 - 0.5 K/UL [facility] ABS BASO 0.0 0.0 - 0.2 K/UL [facility] DIFF TYPE AUTOMATED [facility] 03/31/2018 6:59 AM EST 03/31/2018 7:18 AM EST Conversion Provider LAB BLOOD ORDERABLES Performing Organization Address City/[facility]/ZIP Co de Phone Number [facility] * FOLATE (03/31/2018 6:59 AM EST) FOLATE 13.9 >6.9 NG/ML [facility] 03/31/2018 6:59 AM EST 03/31/2018 7:18 AM EST Conversion Provider LAB BLOOD ORDERABLES Performing Organization Address City/[facility]/ZIP Co de Phone Number [facility] * (ABNORMAL) VITAMIN B12 (03/31/2018 6:59 AM EST) VITAMIN B12 >2000(H) 213 - 816 PG/ML [facility] 03/31/2018 6:59 AM EST 03/31/2018 7:18 AM EST Conversion Provider LAB BLOOD ORDERABLES [facility] * (ABNORMAL) BASIC METABOLIC PANEL (03/31/2018 6:59 AM EST) Pathologist [facility] GLUCOSE, RANDOM 89 70 - 100 MG/DL [facility] GLUCOSE, RANDOM Reference range for glucose is based on the ADA guidelines for fasting glucose. 70 - 100 MG/DL [facility] BLOOD UREA NITROGEN 36(H) 0 - 23 MG/DL [facility] CREATININE 1.01 0.00 - 1.25 MG/DL [facility] SODIUM 137 135 - 145 MEQ/L [facility] POTASSIUM 4.2 3.5 - 5.1 MEQ/L [facility] CHLORIDE 102 98 - 110 MEQ/L [facility] CO2 24 20 - 31 MEQ/L [facility] ANION GAP 15 9 - 18 [facility] CALCIUM 8.9 8.4 - 10.2 MG/DL [facility] CALC GFR-NON >60 >60 mL/min/1. 73m2 [facility] GFR >60 >60 mL/min/1. 73m2 [facility] GFR COMMENT The GFR estimate is not adjusted for extreme body surface area. Nor has it been validated for children less than 18 years, women or ethnic groups other than and . [facility] 03/31/2018 6:59 AM EST 03/31/2018 7:18 AM EST Conversion Provider LAB BLOOD ORDERABLES [facility] * (ABNORMAL) AUTOMATED BLOOD COUNT (03/30/2018 6:10 AM EST) Pathologist [facility] WBC 8.6 4.0 - 12.0 K/UL [facility] RBC 4.15(L) 4.60 - 6.20 M/UL [facility] HGB 14.5 14.0 - 18.0 G/DL [facility] HCT 43.1 42 - 52 % [facility] MCV 104.0(H) 80 - 94 FL [facility] MCH 34.9(H) 27.0 - 33.6 PG [facility] MCHC 33.7 32.0 - 36.0 % [facility] RDW 12.5 11.5 - 15.0 % [facility] PLT 196 140 - 400 K/UL [facility] MPV 7.8 7.4 - 10.4 FL [facility] NUCLEATED RBC'S 0 0 /100 WBC [facility] NEUTROPHILS 74 % [facility] LYMPH 11 % [facility] MONO 14 % [facility] EOS 1 % [facility] BASO 0 % [facility] ABS NEUTROPHILS 6.5 1.8 - 9.0 K/UL [facility] ABS LYMPH 0.9(L) 1.5 - 3.2 K/UL [facility] ABS MONO 1.2(H) 0.0 - 0.9 K/UL [facility] ABS EOS 0.1 0.0 - 0.5 K/UL [facility] ABS BASO 0.0 0.0 - 0.2 K/UL [facility] DIFF TYPE AUTOMATED [facility] 03/30/2018 6:10 AM EST 03/30/2018 7:01 AM EST Conversion Provider LAB BLOOD ORDERABLES [facility] * MAGNESIUM (03/30/2018 6:10 AM EST) MAGNESIUM 2.3 1.6 - 2.6 MG/DL [facility] 03/30/2018 6:10 AM EST 03/30/2018 7:01 AM EST Conversion Provider LAB BLOOD ORDERABLES [facility] * (ABNORMAL) COMP METABOLIC PANEL (03/30/2018 6:10 AM EST) GLUCOSE, RANDOM 99 70 - 100 MG/DL [facility] GLUCOSE, RANDOM Reference range for glucose is based on the ADA guidelines for fasting glucose. 70 - 100 MG/DL [facility] BLOOD UREA NITROGEN 42(H) 0 - 23 MG/DL [facility] CREATININE 1.05 0.00 - 1.25 MG/DL [facility] SODIUM 135 135 - 145 MEQ/L [facility] POTASSIUM 3.9 3.5 - 5.1 MEQ/L [facility] CHLORIDE 100 98 - 110 MEQ/L [facility] CO2 25 20 - 31 MEQ/L [facility] ANION GAP 14 9 - 18 [facility] AST 20 5 - 34 U/L [facility] ALT 19 0 - 55 U/L [facility] ALK PHOSPHATASE 75 40 - 150 U/L [facility] TOTAL BILIRUBIN 1.3(H) 0.2 - 1.2 MG/DL [facility] CALCIUM 9.0 8.4 - 10.2 MG/DL [facility] ALBUMIN 3.6 3.4 - 4.8 GM/DL [facility] Protein 6.0(L) 6.2 - 8.1 GM/DL [facility] CALC GFR-NON >60 >60 mL/min/1. 73m2 [facility] GFR >60 >60 mL/min/1. 73m2 [facility] GFR COMMENT The GFR estimate is not adjusted for extreme body surface area. Nor has it been validated for children less than 18 years, women or ethnic groups other than and . [facility] 03/30/2018 6:10 AM EST 03/30/2018 7:01 AM EST Conversion Provider LAB BLOOD ORDERABLES [facility] * Transesophageal Echo (CURTIS) (03/29/2018 3:13 PM EST) 03/29/2018 10:3 7 AM EST Narrative [facility] - 03/29/2018 3:12 PM EST [address] ? [place] [address] ?Transesophageal Echocardiography Report Name: J CARLOSTIMMY ? Study Date: 03/29/2018 09:56 AM ??BP: 86/59 mmHg ?Patient Location: [address] [place] [address] : 1940 ? Patient Class: Inpatient ?Height: 72 in Age: 77 yrs ? Weight: 221 lb Gender: Male ? BSA: 2.2 m2 Reason For Study: CURTIS/CV, A-FIB Ordering Physician: Sergo Bragg Referring Physician: Diego Sheikh MD Performed By: *Jose Luis Marin RCS MMode/2D Measurements & Calculations Ao root diam: 3.8 cm LEFT VENTRICLE The left ventricle is mildly dilated. There is normal left ventricular wall thickness. 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 The estimated EF is 10-15%. There is severe global hypokinesis of the left ventricle. RIGHT VENTRICLE The right ventricle is normal size. The right ventricular systolic function is mildly reduced. ATRIA There is no Doppler evidence for a patent foramen ovale. The left atrium is dilated. There is a 1.4 cm x 1.1 cm fixed, echodensity in the left atrial appendage, with spontaneous echocontrast. Findings consistent with thrombus. The left atrial appendage emptying velocities are severely reduced and < 20 cm/sec. The Left Atrial Appendage velocityis less than 20 cm/s. The right atrium is dilated. MITRAL VALVE The mitral valve leaflets are thin. The posterior leaflet has restricted excursion. There is trace mitral regurgitation. TRICUSPID VALVE The tricuspid valve leaflets are thin and pliable. There is mild to moderate tricuspid regurgitation. AORTIC VALVE The aortic valve is trileaflet. The aortic valve opens well. There is no evidence of aortic stenosis. No aortic regurgitation is present. PULMONIC VALVE The pulmonic valve is not well seen, but is grossly normal. Mild pulmonic valvular regurgitation. VESSELS Aortic root size is normal. The ascending aorta is normal in size. No significant plaque in the ascending aorta. No significant plaque in the aortic arch. Mild atherosclerotic plaque(s) in the descending aorta. PERICARDIUM There is no evidence of a pericardial effusion. COMMENTS There are no prior CURTIS's available for comparison. COLOR AND SPECTRAL DOPPLER WAS COMPLETED. CURTIS WAS PERFORMED BY AASHISH YOUNG AND SERGO Cramer. CURTIS METHODS / SEDATION After verbal and written consent was obtained, a CURTIS probe was placed into the mid-esophageal position. Standard 2D, color and conventional Doppler images were obtained per routine protocol. Theattending Subassembler was present for the entire procedure. CURTIS was performed by the attending security technician under sedation provided by the anesthesia department. CURTIS COMPLICATIONS There were no complications during the procedure. Interpretation Summary Left ventricular systolic function is severely reduced. There is a 1.4 cm x 1.1 cm fixed, echodensity in the left atrial appendage, with spontaneous echocontrast. Findings consistent with thrombus. The left atrial appendage emptying velocities are severely reduced and < 20 cm/sec. There is mild to moderate tricuspid regurgitation. Electronically Authenticated By:Aashish Moore MD ?? 03/29/2018 03:12 PM Procedure Note Aashish Moore MD - 04/04/2020 [address] [place] [address] Transesophageal Echocardiography Report Name: TIMMY WHITMAN Study Date: 03/29/2018 09:56 AM BP: 86/59mmHg Patient Location: [address] [place] [address] : 1940 Patient Class: Inpatient Height: 72in Age: 77 yrs Weight:221 lb Gender: Male BSA: 2.2 m2 Reason For Study: CURTIS/CV, A-FIB Ordering Physician: Sergo Bragg Referring Physician: Diego Sheikh MD Performed By: *Jose Luis Marin RCS MMode/2D Measurements & Calculations Ao root diam: 3.8 cm LEFT VENTRICLE The left ventricle is mildly dilated. There is normal left ventricularwall thickness. 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 The estimated EF is 10-15%. There is severe global hypokinesis of the left ventricle. RIGHT VENTRICLE The right ventricle is normal size. The right ventricular systolicfunction is mildly reduced. ATRIA There is no Doppler evidence for a patent foramen ovale. The left atriumis dilated. There is a 1.4 cm x 1.1 cm fixed, echodensity in the leftatrial appendage, with spontaneous echocontrast. Findings consistent withthrombus. The left atrial appendage emptying velocities are severely reduced and <20 cm/sec. The Left Atrial Appendage velocityis less than 20 cm/s. Theright atrium is dilated. MITRAL VALVE The mitral valve leaflets are thin. The posterior leaflet has restricted excursion. There is trace mitral regurgitation. TRICUSPID VALVE The tricuspid valve leaflets are thin and pliable. There is mild tomoderate tricuspid regurgitation. AORTIC VALVE The aortic valve is trileaflet. The aortic valve opens well. There is no evidence of aortic stenosis. No aortic regurgitation is present. PULMONIC VALVE The pulmonic valve is not well seen, but is grossly normal. Mildpulmonic valvular regurgitation. VESSELS Aortic root size is normal. The ascending aorta is normal in size. No significant plaque in the ascending aorta. No significant plaque in theaortic arch. Mild atherosclerotic plaque(s) in the descending aorta. PERICARDIUM There is no evidence of a pericardial effusion. COMMENTS There are no prior CURTIS's available for comparison. COLOR AND SPECTRALDOPPLER WAS COMPLETED. CURTIS WAS PERFORMED BY AASHISH YOUNG AND SERGO Cramer. CURTIS METHODS / SEDATION After verbal and written consent was obtained, a CURTIS probe was placed intothe mid-esophageal position. Standard 2D, color and conventional Dopplerimages were obtained per routine protocol. Theattending Subassembler was presentfor the entire procedure. CURTIS was performed by the attending cardiologistunder sedation provided by the anesthesia department. CURTIS COMPLICATIONS There were no complications during the procedure. Interpretation Summary Left ventricular systolic function is severely reduced. There is a 1.4 cm x 1.1 cm fixed, echodensity in the left atrialappendage, with spontaneous echocontrast. Findings consistent with thrombus. Theleft atrial appendage emptying velocities are severely reduced and < 20cm/sec. There is mild to moderate tricuspid regurgitation. Electronically Authenticated By:Aashish Moore MD 03/29/2018 03:12 PM Sergo Bragg MD CV ECHO PROCEDUR ES [facility] * (ABNORMAL) AUTOMATED BLOOD COUNT (03/29/2018 6:00 AM EST) WBC 8.9 4.0 - 12.0 K/UL [facility] RBC 3.79(L) 4.60 - 6.20 M/UL [facility] HGB 14.0 14.0 - 18.0 G/DL [facility] HCT 39.2(L) 42 - 52 % [facility] MCV 103.0(H) 80 - 94 FL [facility] MCH 36.9(H) 27.0 - 33.6 PG [facility] MCHC 35.7 32.0 - 36.0 % [facility] RDW 12.4 11.5 - 15.0 % [facility] PLT 179 140 - 400 K/UL [facility] MPV 8.4 7.4 - 10.4 FL [facility] NUCLEATED RBC'S 0 0 /100 WBC [facility] NEUTROPHILS 79 % [facility] LYMPH 8 % [facility] MONO 13 % [facility] EOS 0 % [facility] BASO 0 % [facility] ABS NEUTROPHILS 6.9 1.8 - 9.0 K/UL [facility] ABS LYMPH 0.7(L) 1.5 - 3.2 K/UL [facility] ABS MONO 1.2(H) 0.0 - 0.9 K/UL [facility] ABS EOS 0.0 0.0 - 0.5 K/UL [facility] ABS BASO 0.0 0.0 - 0.2 K/UL [facility] DIFF TYPE AUTOMATED [facility] 03/29/2018 6:00 AM EST 03/29/2018 6:39 AM EST Conversion Provider LAB BLOOD ORDERABLES [facility] * (ABNORMAL) COMP METABOLIC PANEL (03/29/2018 6:00 AM EST) GLUCOSE, RANDOM 117(H) 70 - 100 MG/DL [facility] GLUCOSE, RANDOM Reference range for glucose is based on the ADA guidelines for fasting glucose.(H) 70 - 100 MG/DL [facility] BLOOD UREA NITROGEN 47(H) 0 - 23 MG/DL [facility] CREATININE 1.48(H) 0.00 - 1.25 MG/DL [facility] SODIUM 135 135 - 145 MEQ/L [facility] POTASSIUM 4.0 3.5 - 5.1 MEQ/L [facility] CHLORIDE 99 98 - 110 MEQ/L [facility] CO2 25 20 - 31 MEQ/L [facility] ANION GAP 15 9 - 18 [facility] AST 24 5 - 34 U/L [facility] ALT 19 0 - 55 U/L [facility] ALK PHOSPHATASE 75 40 - 150 U/L [facility] TOTAL BILIRUBIN 1.2 0.2 - 1.2 MG/DL [facility] CALCIUM 8.8 8.4 - 10.2 MG/DL [facility] ALBUMIN 3.5 3.4 - 4.8 GM/DL [facility] Protein 5.8(L) 6.2 - 8.1 GM/DL [facility] CALC GFR-NON 46(L) >60 mL/min/1. 73m2 [facility] GFR 56(L) >60 mL/min/1. 73m2 [facility] GFR COMMENT The GFR estimate is not adjusted for extreme body surface area. Nor has it been validated for children less than 18 years, women or ethnic groups other than and . [facility] 03/29/2018 6:00 AM EST 03/29/2018 6:39 AM EST Conversion Provider LAB BLOOD ORDERABLES [facility] * Transthoracic Echo (TTE) Complete (03/28/2018 12:49 PM EST) 03/25/2018 10:2 8 PM EST Narrative [facility] - 03/28/2018 12:48 PM EST [address] ? [place] [address] ?Echocardiography Report Name: TIMMY WHITMAN ?Study Date: 03/28/2018 11:39 AM ?BP: 94/74 mmHg ? Patient Location: [address] [place] [address] : 1940 ?Patient Class: Inpatient ? Height: 72 in Age: 77 yrs ?Weight: 220 lb Gender: Male ?BSA: 2.2 m2 Reason For Study: Fibb and elevated BNP History: HTN, Obesity, JASON, Alcohol us, Diverticulosis, Gout, HLD, Prostate Malignancy, Cerebral Hemorrhage Ordering Physician: Suly Shankar Referring Physician: Diego Sheikh MD Performed By: Aliya Solis MMode/2D Measurements & Calculations IVSd: 0.95 cm ? Ao root diam: 4.2 cm LVIDd: 6.2 cm ? ACS: 1.9 cm LVIDs: 5.3 cm ? LA dimension: 3.9 cm LVPWd: 0.98 cm LEFT VENTRICLE The left ventricle is moderately dilated. There is normal left ventricular wall thickness. 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 The estimated EF is 10-15%. There is severe global hypokinesis of the left ventricle. RIGHT VENTRICLE The right ventricle is mildly dilated. The right ventricular systolic function is mildly reduced. LEFT ATRIUM AND RIGHT ATRIUM The left atrium is mildly dilated. The right atrium is mild to moderately dilated. A dilated inferior vena cava suggests increased right atrial pressure. The lack of respiratory variation in the inferior vena cava diameter is noted. There is no Doppler evidence for a patent foramen ovale. MITRAL VALVE There is mild thickening of the mitral valve leaflets. There is mild to moderate mitral regurgitation. TRICUSPID VALVE The tricuspid valve leaflets are thin and pliable. There is mild to moderate tricuspid regurgitation. Right systolic ventricular pressure is estimated at 40-45 mmHg. AORTIC VALVE The aortic valve is trileaflet. The aortic valve opens well. There is thickening of the aortic valve. There is no evidence of aortic stenosis. Trace aortic regurgitation. PULMONIC VALVE The pulmonic valve is notwell visualized. GREAT VESSELS The aortic root is measured at 4.2 cm. There is aortic root sclerosis/calcification. 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 PERICARDIUM/PLEURAL There is no evidence of a pericardial effusion. COMMENTS COLOR AND SPECTRAL DOPPLER WAS COMPLETED. EDUCATION ON THE PROCEDURE WAS DISCUSSED WITH PATIENT/FAMILY MEMBER, COMPREHENSION EXHIBITED. THE ABOVE CRITICAL VALUE WAS REPORTED TO Dr Espinoza at 12:47 pm on 03/28/18. READ BACK AND CONFIRMED. Interpretation Summary The estimated EF is 10-15%. There is mild to moderate mitral regurgitation. There is mild to moderate tricuspid regurgitation. Right systolic ventricular pressure is estimated at 40-45 mmHg. Trace aortic regurgitation. 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 THE ABOVE CRITICAL VALUE WAS REPORTED TO Dr Espinoza at 12:47 pm on 03/28/18. READ BACK AND CONFIRMED. Electronically Authenticated By:Aashish Moore MD 03/28/2018 12:48 PM Procedure Note Aashish Moore MD - 04/[birth year]/2020 [address] [place] [address] Echocardiography Report Name: TIMMY WHITMAN Study Date: 03/28/2018 11:39 AM BP: 94/74mmHg [id number] 1940 Patient Class: Inpatient Height: 72in Age: 77 yrs Weight:220 lb Gender: Male BSA: 2.2 m2 Reason For Study: Fibb and elevated BNP History: HTN, Obesity, JASON, Alcohol us, Diverticulosis, Gout, HLD, Prostate Malignancy, Cerebral Hemorrhage Ordering Physician: Suly Shankar Referring Physician: Diego Sheikh MD Performed By: Aliya Solis MMode/2D Measurements & Calculations IVSd: 0.95 cm Ao root diam: 4.2 cm LVIDd: 6.2 cm ACS: 1.9 cm LVIDs: 5.3 cm LA dimension: 3.9 cm LVPWd: 0.98 cm LEFT VENTRICLE The left ventricle is moderately dilated. There is normal leftventricular wall thickness. Left ventricular systolic function is severely reduced.The estimated EF is 10-15%. There is severe global hypokinesis of the left ventricle. RIGHT VENTRICLE The right ventricle is mildly dilated. The right ventricular systolicfunction is mildly reduced. LEFT ATRIUM AND RIGHT ATRIUM The left atrium is mildly dilated. The right atrium is mild tomoderately dilated. A dilated inferior vena cava suggests increased right atrial pressure. The lack of respiratory variation in the inferior vena cavadiameter is noted. There is no Doppler evidence for a patent foramen ovale. MITRAL VALVE There is mild thickening of the mitral valve leaflets. There is mild to moderate mitral regurgitation. TRICUSPID VALVE The tricuspid valve leaflets are thin and pliable. There is mild tomoderate tricuspid regurgitation. Right systolic ventricular pressure is estimatedat 40-45 mmHg. AORTIC VALVE The aortic valve is trileaflet. The aortic valve opens well. There is thickening of the aortic valve. There is no evidence of aortic stenosis.Trace aortic regurgitation. PULMONIC VALVE The pulmonic valve is notwell visualized. GREAT VESSELS The aortic root is measured at 4.2 cm. There is aortic root sclerosis/calcification. The tubular ascending aorta is dilated andmeasures 4.0 cm. PERICARDIUM/PLEURAL There is no evidence of a pericardial effusion. COMMENTS COLOR AND SPECTRAL DOPPLER WAS COMPLETED. EDUCATION ON THE PROCEDURE WAS DISCUSSED WITH PATIENT/FAMILY MEMBER, COMPREHENSION EXHIBITED. THE ABOVE CRITICAL VALUE WAS REPORTED TO Dr Espinoza at 12:47 pm on 03/28/18. READBACK AND CONFIRMED. Interpretation Summary The estimated EF is 10-15%. There is mild to moderate mitral regurgitation. There is mild to moderate tricuspid regurgitation. Right systolic ventricular pressure is estimated at 40-45 mmHg. Trace aortic regurgitation. 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 THE ABOVE CRITICAL VALUE WAS REPORTED TO Dr Espinoza at 12:47 pm on03/28/18. READ BACK AND CONFIRMED. Electronically Authenticated By:Aashish Moore MD 03/28/2018 12:48 PM Suly Shankar MD CV ECHO PROCEDURES [facility] * X-ray chest 1 view, frontal, portable (03/28/2018 8:36 AM EST) Anatomical Region Laterality Modality Other 03/28/2018 8:36 AM EST Narrative 03/28/2018 10:10 AM EST FINAL CHEST 1 VIEW PORTABLE History: Rapid atrial fibrillation ?? Comparison: ??March ? Portable AP view of the chest demonstrates right enlargement without CHF. Lungs are clear. ?? IMPRESSION: Cardiomegaly with no CHF ?? Signed by: Elvira WILLIS SHARON N Signed on: 03/28/2018 10:10:06 Procedure Note Lorena Willis MD - 04/10/2020 FINAL CHEST 1 VIEW PORTABLE History: Rapid atrial fibrillation Comparison: March 25 Portable AP view of the chest demonstrates rightenlargement without CHF. Lungs are clear. IMPRESSION: Cardiomegaly with no CHF Signed by: Elvira WILLIS SHARON N Signed on: 03/28/2018 10:10:06 Ed Montalvo MD IMG DIAGNOSTIC IMAGI NG PROCEDURES * (ABNORMAL) AUTOMATED BLOOD COUNT (03/28/2018 6:05 AM EST) WBC 7.6 4.0 - 12.0 K/UL [facility] RBC 3.92(L) 4.60 - 6.20 M/UL [facility] HGB 14.4 14.0 - 18.0 G/DL [facility] HCT 40.4(L) 42 - 52 % [facility] MCV 103.0(H) 80 - 94 FL [facility] MCH 36.8(H) 27.0 - 33.6 PG [facility] MCHC 35.7 32.0 - 36.0 % [facility] RDW 12.4 11.5 - 15.0 % [facility] PLT 172 140 - 400 K/UL [facility] MPV 8.0 7.4 - 10.[address]'S 0 0 /100 WBC [facility] NEUTROPHILS 71 % [facility] LYMPH 11 % [facility] MONO 17 % [facility] EOS 1 % [facility] BASO 0 % [facility] ABS NEUTROPHILS 5.4 1.8 - 9.0 K/UL [facility] ABS LYMPH 0.9(L) 1.5 - 3.2 K/UL [facility] ABS MONO 1.3(H) 0.0 - 0.9 K/UL [facility] ABS EOS 0.1 0.0 - 0.5 K/UL [facility] ABS BASO 0.0 0.0 - 0.2 K/UL [facility] DIFF TYPE AUTOMATED [facility] 03/28/2018 6:05 AM EST 03/28/2018 6:51 AM EST Ed Montalvo MD LAB BLOOD ORDERABLES [facility] * PHOSPHORUS (03/28/2018 6:05 AM EST) PHOSPHORUS 3.3 2.3 - 4.7 MG/DL [facility] 03/28/2018 6:05 AM EST 03/28/2018 6:51 AM EST Ed Montalvo MD LAB BLOOD ORDERABLES Performing Organization Address City/[facility] Co de Phone Number [facility] * MAGNESIUM (03/28/2018 6:05 AM EST) MAGNESIUM 2.3 1.6 - 2.6 MG/DL [facility] 03/28/2018 6:05 AM EST 03/28/2018 6:51 AM EST Ed Montalvo MD LAB BLOOD ORDERABLES Performing Organization Address [facility] Co de Phone Number [facility] * (ABNORMAL) COMP METABOLIC PANEL (03/28/2018 6:05 AM EST) Pathologist [facility] GLUCOSE, RANDOM 100 70 - 100 MG/DL [facility] GLUCOSE, RANDOM Reference range for glucose is based on the ADA guidelines for fasting glucose. 70 - 100 MG/DL [facility] BLOOD UREA NITROGEN 39(H) 0 - 23 MG/DL [facility] CREATININE 1.06 0.00 - 1.25 MG/DL [facility] SODIUM 136 135 - 145 MEQ/L [facility] POTASSIUM 3.9 3.5 - 5.1 MEQ/L [facility] CHLORIDE 100 98 - 110 MEQ/L [facility] CO2 24 20 - 31 MEQ/L [facility] ANION GAP 16 9 - 18 [facility] AST 25 5 - 34 U/L [facility] ALT 18 0 - 55 U/L [facility] ALK PHOSPHATASE 71 40 - 150 U/L [facility] TOTAL BILIRUBIN 1.2 0.2 - 1.2 MG/DL [facility] CALCIUM 9.0 8.4 - 10.2 MG/DL [facility] ALBUMIN 3.7 3.4 - 4.8 GM/DL [facility] Protein 6.2 6.2 - 8.1 GM/DL [facility] CALC GFR-NON >60 >60 mL/min/1. 73m2 [facility] GFR >60 >60 mL/min/1. 73m2 [facility] GFR COMMENT The GFR estimate is not adjusted for extreme body surface area. Nor has it been validated for children less than 18 years, women or ethnic groups other than and . [facility] 03/28/2018 6:05 AM EST 03/28/2018 6:51 AM EST dE Montalvo MD LAB BLOOD ORDERABLES [facility] * (ABNORMAL) AUTOMATED BLOOD COUNT (03/27/2018 5:30 AM EST) WBC 7.4 4.0 - 12.0 K/UL [facility] RBC 3.73(L) 4.60 - 6.20 M/UL [facility] HGB 13.8(L) 14.0 - 18.0 G/DL [facility] HCT 38.3(L) 42 - 52 % [facility] MCV 103.0(H) 80 - 94 FL [facility] MCH 37.1(H) 27.0 - 33.6 PG [facility] MCHC 36.0 32.0 - 36.0 % [facility] RDW 12.7 11.5 - 15.0 % [facility] PLT 157 140 - 400 K/UL [facility] MPV 7.9 7.4 - 10.4 FL [facility] NUCLEATED RBC'S 0 0 /100 WBC [facility] NEUTROPHILS 73 % [facility] LYMPH 10 % [facility] MONO 16 % [facility] EOS 1 % [facility] BASO 0 % [facility] ABS NEUTROPHILS 5.4 1.8 - 9.0 K/UL [facility] ABS LYMPH 0.8(L) 1.5 - 3.2 K/UL [facility] ABS MONO 1.2(H) 0.0 - 0.9 K/UL [facility] ABS EOS 0.1 0.0 - 0.5 K/UL [facility] ABS BASO 0.0 0.0 - 0.2 K/UL [facility] DIFF TYPE AUTOMATED [facility] 03/27/2018 5:30 AM EST 03/27/2018 6:08 AM EST Conversion Provider LAB BLOOD ORDERABLES [facility] * MAGNESIUM (03/27/2018 5:30 AM EST) MAGNESIUM 2.2 1.6 - 2.6 MG/DL [facility] 03/27/2018 5:30 AM EST 03/27/2018 6:08 AM EST Conversion Provider LAB BLOOD ORDERABLES [facility] * (ABNORMAL) COMP METABOLIC PANEL (03/27/2018 5:30 AM EST) GLUCOSE, RANDOM 111(H) 70 - 100 MG/DL [facility] GLUCOSE, RANDOM Reference range for glucose is based on the ADA guidelines for fasting glucose.(H) 70 - 100 MG/DL [facility] BLOOD UREA NITROGEN 46(H) 0 - 23 MG/DL [facility] CREATININE 1.25 0.00 - 1.25 MG/DL [facility] SODIUM 134(L) 135 - 145 MEQ/L [facility] POTASSIUM 3.8 3.5 - 5.1 MEQ/L [facility] CHLORIDE 101 98 - 110 MEQ/L [facility] CO2 22 20 - 31 MEQ/L [facility] ANION GAP 15 9 - 18 [facility] AST 23 5 - 34 U/L [facility] ALT 19 0 - 55 U/L [facility] ALK PHOSPHATASE 66 40 - 150 U/L [facility] TOTAL BILIRUBIN 0.9 0.2 - 1.2 MG/DL [facility] CALCIUM 8.8 8.4 - 10.2 MG/DL [facility] ALBUMIN 3.6 3.4 - 4.8 GM/DL [facility] Protein 5.7(L) 6.2 - 8.1 GM/DL [facility] CALC GFR-NON 56(L) >60 mL/min/1. 73m2 [facility] GFR >60 >60 mL/min/1. 73m2 [facility] GFR COMMENT The GFR estimate is not adjusted for extreme body surface area. Nor has it been validated for children less than 18 years, women or ethnic groups other than and . [facility] 03/27/2018 5:30 AM EST 03/27/2018 6:08 AM EST Conversion Provider LAB BLOOD ORDERABLES [facility] * MAGNESIUM (03/26/2018 3:07 PM EST) MAGNESIUM 2.3 1.6 - 2.6 MG/DL [facility] 03/26/2018 3:07 PM EST 03/26/2018 3:58 PM EST Conversion Provider LAB BLOOD ORDERABLES [facility] * (ABNORMAL) BASIC METABOLIC PANEL (03/26/2018 3:07 PM EST) GLUCOSE, RANDOM 184(H) 70 - 100 MG/DL [facility] GLUCOSE, RANDOM Reference range for glucose is based on the ADA guidelines for fasting glucose.(H) 70 - 100 MG/DL [facility] BLOOD UREA NITROGEN 48(H) 0 - 23 MG/DL [facility] CREATININE 1.57(H) 0.00 - 1.25 MG/DL [facility] SODIUM 132(L) 135 - 145 MEQ/L [facility] POTASSIUM 4.4 3.5 - 5.1 MEQ/L [facility] CHLORIDE 100 98 - 110 MEQ/L [facility] CO2 18(L) 20 - 31 MEQ/L [facility] ANION GAP 18 9 - 18 [facility] CALCIUM 9.1 8.4 - 10.2 MG/DL [facility] CALC GFR-NON 43(L) >60 mL/min/1. 73m2 [facility] GFR 52(L) >60 mL/min/1. 73m2 [facility] GFR COMMENT The GFR estimate is not adjusted for extreme body surface area. Nor has it been validated for children less than 18 years, women or ethnic groups other than and . [facility] 03/26/2018 3:07 PM EST 03/26/2018 3:58 PM EST Conversion Provider LAB BLOOD ORDERABLES Performing Organization Address [facility] Co de Phone Number [facility] * (ABNORMAL) PTT (03/26/2018 11:53 AM EST) APTT 59(H) 22 - 35 SEC [facility] HEPARIN THERPTC RNG 57-90 SEC* [facility] FOOTNOTE *EQUIVALENT TO 0.3-0.7 UNITS OF HEPARIN PER ML BY FACTOR Xa ASSAY TECHNIQUE. [facility] 03/26/2018 11:5 3 AM EST 03/26/2018 12:06 PM EST Conversion Provider LAB BLOOD ORDERABLES Performing Organization Address [facility] Phone Number [facility] * ECG 12 lead (03/26/2018 9:18 AM EST) 03/26/2018 9:18 AM EST Narrative [facility] - 03/26/2018 4:25 PM EST ATRIAL FIBRILLATION CANNOT RULE OUT INFERIOR INFARCT , AGE UNDETERMINED PROLONGED QT INTERVAL OR TU FUSION, CONSIDER MYOCARDIAL DISEASE, ELECTROLYTE IMBALANCE, OR DRUG EFFECTS ABNORMAL EKG WHEN COMPARED WITH ECG OF 25-MAR-2018 17:28, NO SIGNIFICANT CHANGE WAS FOUND Suly Shankar MD ECG ORDERABLES Performing Organization Address [facility] Co de Phone Number [facility] * (ABNORMAL) AUTOMATED BLOOD COUNT (03/26/2018 5:45 AM EST) WBC 10.7 4.0 - 12.0 K/UL [facility] RBC 4.09(L) 4.60 - 6.20 M/UL [facility] HGB 14.8 14.0 - 18.0 G/DL [facility] HCT 42.0 42 - 52 % [facility] MCV 102.0(H) 80 - 94 FL [facility] MCH 36.2(H) 27.0 - 33.6 PG [facility] MCHC 35.3 32.0 - 36.0 % [facility] RDW 12.7 11.5 - 15.0 % [facility] PLT 181 140 - 400 K/UL [facility] MPV 8.5 7.4 - 10.[address] [facility] NUCLEATED RBC'S 0 0 /100 WBC [facility] NEUTROPHILS 75 % [facility] LYMPH 8 % [facility] MONO 16 % [facility] EOS 1 % [facility] BASO 0 % [facility] ABS NEUTROPHILS 8.0 1.8 - 9.0 K/UL [facility] ABS LYMPH 0.9(L) 1.5 - 3.2 K/UL [facility] ABS MONO 1.7(H) 0.0 - 0.9 K/UL [facility] ABS EOS 0.1 0.0 - 0.5 K/UL [facility] ABS BASO 0.0 0.0 - 0.2 K/UL [facility] DIFF TYPE AUTOMATED [facility] 03/26/2018 5:45 AM EST 03/26/2018 7:09 AM EST Conversion Provider LAB BLOOD ORDERABLES Performing Organization Address City/State/[facility] de Phone Number [facility] * (ABNORMAL) PTT (03/26/2018 3:10 AM EST) APTT 56(H) 22 - 35 SEC [facility] HEPARIN THERPTC RNG 57-90 SEC* [facility] FOOTNOTE *EQUIVALENT TO 0.3-0.7 UNITS OF HEPARIN PER ML BY FACTOR Xa ASSAY TECHNIQUE. [facility] 03/26/2018 3:10 AM EST 03/26/2018 3:21 AM EST Conversion Provider LAB BLOOD ORDERABLES Performing Organization Address [facility] de Phone Number [facility] * (ABNORMAL) PROTIME (03/26/2018 3:10 AM EST) Pathologist [facility] INTNAT'L NORM RATIO 1.4(H) 0.8 - 1.1 [facility] 03/26/2018 3:10 AM EST 03/26/2018 3:21 AM EST Conversion Provider LAB BLOOD ORDERABLES Performing Organization Address [facility] Phone Number [facility] * (ABNORMAL) PHOSPHORUS (03/26/2018 3:10 AM EST) PHOSPHORUS 5.1(H) 2.3 - 4.7 MG/DL [facility] 03/26/2018 3:10 AM EST 03/26/2018 3:21 AM EST Conversion Provider LAB BLOOD ORDERABLES Performing Organization Address [facility] de Phone Number [facility] * MAGNESIUM (03/26/2018 3:10 AM EST) MAGNESIUM 2.1 1.6 - 2.6 MG/DL [facility] 03/26/2018 3:10 AM EST 03/26/2018 3:21 AM EST Conversion Provider LAB BLOOD ORDERABLES [facility] * (ABNORMAL) COMP METABOLIC PANEL (03/26/2018 3:10 AM EST) GLUCOSE, RANDOM 125(H) 70 - 100 MG/DL [facility] GLUCOSE, RANDOM Reference range for glucose is based on the ADA guidelines for fasting glucose.(H) 70 - 100 MG/DL [facility] BLOOD UREA NITROGEN 45(H) 0 - 23 MG/DL [facility] CREATININE 1.62(H) 0.00 - 1.25 MG/DL [facility] SODIUM 130(L) 135 - 145 MEQ/L [facility] POTASSIUM 4.3 3.5 - 5.1 MEQ/L [facility] CHLORIDE 99 98 - 110 MEQ/L [facility] CO2 18(L) 20 - 31 MEQ/L [facility] ANION GAP 17 9 - 18 [facility] AST 26 5 - 34 U/L [facility] ALT 21 0 - 55 U/L [facility] ALK PHOSPHATASE 68 40 - 150 U/L [facility] TOTAL BILIRUBIN 1.3(H) 0.2 - 1.2 MG/DL [facility] CALCIUM 9.3 8.4 - 10.2 MG/DL [facility] ALBUMIN 3.8 3.4 - 4.8 GM/DL [facility] Protein 6.5 6.2 - 8.1 GM/DL [facility] CALC GFR-NON 42(L) >60 mL/min/1. 73m2 [facility] GFR 50(L) >60 mL/min/1. 73m2 [facility] GFR COMMENT The GFR estimate is not adjusted for extreme body surface area. Nor has it been validated for children less than 18 years, women or ethnic groups other than and . [facility] 03/26/2018 3:10 AM EST 03/26/2018 3:21 AM EST Conversion Provider LAB BLOOD ORDERABLES [facility] * Ultrasound leg venous bilateral (03/25/2018 11:56 PM EST) Anatomical Region Laterality Modality Lower Extremities Bilateral Ultrasound 03/25/2018 11:5 6 PM EST Narrative 03/26/2018 12:05 AM EST FINAL US VENOUS DUP ANTOLIN LOWER EXTR NORMAL VENOUS DUPLEX EXAM BILATERAL LOWER EXTREMITIES. History: Edema. The study was performed using ogod-scale, color-flow, and spectral analysis. The vessels examined included the common and superficial femoral, popliteal, and distal greater saphenous veins. as well as the calf veins ??There is normal compressibility at all levels examined. ??There is normal flow. IMPRESSION: ??No evidence of DVT of both lower extremities. ? Signed by: Elvira WILLIS ALAN R Signed on: 03/26/2018 00:05:14 Procedure Note Seven Willis MD - 04/10/2020 FINAL US VENOUS DUP ANTOLIN LOWER EXTR NORMAL VENOUS DUPLEX EXAM BILATERAL LOWER EXTREMITIES. History: Edema. The study was performed using good-scale, color-flow, andspectral analysis. The vessels examined included the common andsuperficial femoral, popliteal, and distal greater saphenous veins. aswell as the calf veins There is normal compressibility at all levelsexamined. There is normal flow. IMPRESSION: No evidence of DVT of both lower extremities. Signed by: Elvira WILLIS ALAN R Signed on: 03/26/2018 00:05:14 Suly Shankar MD IMG US PROCEDURES * CARDIAC TROPONIN I (03/25/2018 8:45 PM EST) CARDIAC TROPONIN I <0.10 <0.10 ng/ml [facility] 03/25/2018 8:45 PM EST 03/25/2018 8:47 PM EST Jean Carlos Lambert MD LAB BLOOD ORDERA BLES [facility] * X-ray chest 2 views, frontal and lateral (03/25/2018 8:39 PM EST) Anatomical Region Laterality Modality Chest Other 03/25/2018 8:39 PM EST Narrative 03/25/2018 8:44 PM EST FINAL CHEST ROUTINE History: Dyspnea. Comparison 12/25/2005 AP and lateral films of the chest reveal involvement of abnormal density at the lung bases with a generally pleural appearance. The heart is normal in size and contour. There is noevidence of pulmonary vascular congestion. ??The trachea is not displaced. The mediastinal structures are unremarkable. There is no significant bony abnormality ?? IMPRESSION: Patient has developed pleural-parenchymal change at the lung bases. Possible small infiltrates and small effusions ? Signed by: Elvira WILLIS ALAN R Signed on: 03/25/2018 20:44:59 Procedure Note Seven Willis MD - 04/10/2020 FINAL CHEST ROUTINE History: Dyspnea. Comparison 12/25/2005 AP and lateral films of the chestreveal involvement of abnormal density at the lung bases with a generallypleural appearance. The heart is normal in size and contour. There isnoevidence of pulmonary vascular congestion. The trachea is notdisplaced. The mediastinal structures are unremarkable. There is nosignificant bony abnormality IMPRESSION: Patient has developed pleural-parenchymal change at the lungbases. Possible small infiltrates and small effusions Signed by: Elvira WILLIS ALAN R Signed on: 03/25/2018 20:44:59 Jean Carlos Lambert MD IMG DIAGNOSTIC I MAGING PROCEDURES * (ABNORMAL) PLASMA D-DIMER (03/25/2018 5:48 PM EST) Pathologist [facility] PLASMA D-DIMER 465(H) 0 - 230 NG/ML DDU [facility] 03/25/2018 5:48 PM EST 03/25/2018 8:39 PM EST Jean Carlos Lambetr MD LAB BLOOD ORDERA BLES Performing Organization Address [facility] de Phone Number [facility] * (ABNORMAL) CARDIAC BNP (03/25/2018 5:48 PM EST) Pathologist [facility] CARDIAC BNP 2,380(H) 0 - 99 PG/ML [facility] 03/25/2018 5:48 PM EST 03/25/2018 5:52 PM EST Jean Carlos Lambert MD LAB BLOOD ORDERA BLES Performing Organization Address [facility] de Phone Number [facility] * (ABNORMAL) AUTOMATED BLOOD COUNT (03/25/2018 5:48 PM EST) Pathologist [facility] WBC 12.7(H) 4.0 - 12.0 K/UL [facility] RBC 4.45(L) 4.60 - 6.20 M/UL [facility] HGB 15.9 14.0 - 18.0 G/DL [facility] HCT 45.9 42 - 52 % [facility] MCV 103.0(H) 80 - 94 FL [facility] MCH 35.8(H) 27.0 - 33.6 PG [facility] MCHC 34.7 32.0 - 36.0 % [facility] RDW 12.6 11.5 - 15.0 % [facility] PLT 217 140 - 400 K/UL [facility] MPV 8.1 7.4 - 10.4 FL [facility] NUCLEATED RBC'S 0 0 /100 WBC [facility] NEUTROPHILS 80 % [facility] LYMPH 7 % [facility] MONO 13 % [facility] EOS 0 % [facility] BASO 0 % [facility] ABS NEUTROPHILS 10.0(H) 1.8 - 9.0 K/UL [facility] ABS LYMPH 0.9(L) 1.5 - 3.2 K/UL [facility] ABS MONO 1.7(H) 0.0 - 0.9 K/UL [facility] ABS EOS 0.0 0.0 - 0.5 K/UL [facility] ABS BASO 0.0 0.0 - 0.2 K/UL [facility] DIFF TYPE AUTOMATED [facility] 03/25/2018 5:48 PM EST 03/25/2018 5:52 PM EST Jean Carlos Lambert MD LAB BLOOD ORDERA BLES [facility] * TSH WITH REFLEX TO FREE T4 (03/25/2018 5:48 PM EST) TSH WITH REFLEX TO FREE T4 2.802 0.350 - 5.500 MIU/ML [facility] 03/25/2018 5:48 PM EST 03/25/2018 5:52 PM EST Jean Carlos Lambert MD LAB BLOOD ORDERA BLES [facility] * PTT (03/25/2018 5:48 PM EST) APTT 31 22 - 35 SEC [facility] HEPARIN THERPTC RNG 57-90 SEC* [facility] FOOTNOTE *EQUIVALENT TO 0.3-0.7 UNITS OF HEPARIN PER ML BY FACTOR Xa ASSAY TECHNIQUE. [facility] 03/25/2018 5:48 PM EST 03/25/2018 5:52 PM EST Jean Carlos Lambert MD LAB BLOOD ORDERA BLES Performing Organization Address [facility] Co de Phone Number [facility] * (ABNORMAL) PROTIME (03/25/2018 5:48 PM EST) INTNAT'L NORM RATIO 1.4(H) 0.8 - 1.1 [facility] 03/25/2018 5:48 PM EST 03/25/2018 5:52 PM EST Jean Carlos Lambert MD LAB BLOOD ORDERA BLES Performing Organization Address [facility] de Phone Number [facility] * MAGNESIUM (03/25/2018 5:48 PM EST) MAGNESIUM 2.6 1.6 - 2.6 MG/DL [facility] 03/25/2018 5:48 PM EST 03/25/2018 5:52 PM EST Jean Carlos Lambert MD LAB BLOOD ORDERA BLES Performing Organization Address [facility] Co de Phone Number [facility] * EMERG.DRUG SRCN.SERUM (03/25/2018 5:48 PM EST) ACETAMINOPHEN <3 0 - 30 UG/ML [facility] ALCOHOL (SERUM) <10 0 - 10 MG/DL [facility] SALICYLATE <5.0 0 - 30 MG/DL [facility] 03/25/2018 5:48 PM EST 03/25/2018 5:52 PM EST Jean Carlos Lambert MD LAB BLOOD ORDERA BLES [facility] * CARDIAC TROPONIN I (03/25/2018 5:48 PM EST) CARDIAC TROPONIN I <0.10 <0.10 ng/ml [facility] 03/25/2018 5:48 PM EST 03/25/2018 5:52 PM EST Jean Carlos Lambert MD LAB BLOOD ORDERA BLES [facility] * (ABNORMAL) COMP METABOLIC PANEL (03/25/2018 5:48 PM EST) GLUCOSE, RANDOM 122(H) 70 - 100 MG/DL [facility] GLUCOSE, RANDOM Reference range for glucose is based on the ADA guidelines for fasting glucose.(H) 70 - 100 MG/DL [facility] BLOOD UREA NITROGEN 39(H) 0 - 23 MG/DL [facility] CREATININE 1.70(H) 0.00 - 1.25 MG/DL [facility] SODIUM 129(L) 135 - 145 MEQ/L [facility] POTASSIUM 4.9 3.5 - 5.1 MEQ/L [facility] CHLORIDE 96(L) 98 - 110 MEQ/L [facility] CO2 18(L) 20 - 31 MEQ/L [facility] ANION GAP 20(H) 9 - 18 [facility] AST 37(H) 5 - 34 U/L [facility] ALT 25 0 - 55 U/L [facility] ALK PHOSPHATASE 81 40 - 150 U/L [facility] TOTAL BILIRUBIN 1.6(H) 0.2 - 1.2 MG/DL [facility] CALCIUM 10.1 8.4 - 10.2 MG/DL [facility] ALBUMIN 4.4 3.4 - 4.8 GM/DL [facility] Protein 7.8 6.2 - 8.1 GM/DL [facility] CALC GFR-NON 39(L) >60 mL/min/1. 73m2 [facility] GFR 48(L) >60 mL/min/1. 73m2 [facility] GFR COMMENT The GFR estimate is not adjusted for extreme body surface area. Nor has it been validated for children less than 18 years, women or ethnic groups other than and . [facility] 03/25/2018 5:48 PM EST 03/25/2018 5:52 PM EST Jean Carlos Lambert MD LAB BLOOD ORDERA BLES [facility] * (ABNORMAL) CK-MB (03/25/2018 5:48 PM EST) CK-MB 10.6 NG/ML [facility] RELATIVE INDEX 3.9(H) 0 - 2.9 % [facility] INTERPRETATION RELATIVE INDEX EXCEEDED [facility] 03/25/2018 5:48 PM EST 03/25/2018 5:52 PM EST Jean Carlos Lambert MD LAB BLOOD ORDERA BLES [facility] * (ABNORMAL) CK (03/25/2018 5:48 PM EST) CK 275(H) 30 - 200 U/L [facility] 03/25/2018 5:48 PM EST 03/25/2018 5:52 PM EST Jean Carlos Lambert MD LAB BLOOD ORDERA BLES Performing Organization Address City/[facility] Co de Phone Number [facility] * ECG 12 lead (03/25/2018 5:28 PM EST) 03/25/2018 5:28 PM EST Narrative [facility] - 03/26/2018 4:55 PM EST ATRIAL FIBRILLATION WITH RAPID VENTRICULAR RESPONSE ABNORMAL EKG WHEN COMPARED WITH ECG OF 25-DEC-2005 09:20, ATRIAL FIBRILLATION HAS REPLACED SINUS RHYTHM VENT. RATE HAS INCREASED BY ??76 BPM Jean Carlos Lambert MD ECG ORDERABLES Performing Organization Address [facility] de Phone Number [facility] documented in this encounter Visit Diagnoses Diagnosis Personal history of malignant neoplasm of prostate Hypo-osmolality and hyponatremia Acute kidney failure, unspecified (CMS/HCC) Acute kidney failure, unspecified Acute on chronic systolic (congestive) heart failure (CMS/HCC) Unspecified atrial fibrillation (CMS/HCC) documented in this encounter
--- OUTSIDE RECORDS SUMMARY | 2023-10-27 04:02 | XMS_ITS | Clinical Summary ---
[place] [address] Care Team Providers Care Tool And Machine Maintainer Name Role Phone Allyson Grijalva MD Primary Care Provider [phone] Allergies No known active allergies Medications Medication Sig Dispensed Refills Start Date End Date Status allopurinol (ZYLOPRIM) 100 mg Tablet Take 100 mg by mouth daily. Active lisinopril (PRINIVIL;ZESTRIL) 20 mg Tablet Take 20 mg by mouth daily. Active carvediloL (Coreg) 25 mg tablet Take 25 mg by mouth 2 times daily (with meals). Active apixaban (Eliquis) 5 mg tablet Take by mouth. Active levoFLOXacin (Levaquin) 750 mg tablet Take 1 tablet by mouth daily for 38 days. 30 tablet 10/20/2023 11/27/2023 Active sulfamethoxazole-tri methoprim DS (Bactrim DS) 800-160 mg tablet Take 1 tablet by mouth 2 times daily for 38 days. 60 tablet 10/20/2023 11/27/2023 Active Active Problems Problem Noted Date Diagnosed Date Cellulitis and abscess of foot 10/16/2023 Encounters Date Type Department Care Team Description 10/26/2023 Telephone [place] [id number] Belle Gaines, RN 10/20/2023 Notes [place] [phone] Vilma Teixeira RN 10/20/2023 Orders [place] [address] Nataly Solomon MD Osteomyelitis of second toe of right foot 10/16/2023 1:11 PM EDT - 10/20/2023 1:36 PM EDT Hospital Encounter Neurosciences and ENT Unit Level [address] [place] [address] Vanessa Patten MD Amell, Gio Bains MD Cellulitis of foot, right; Cellulitis, unspecified cellulitis site; QT prolongation Discharge Disposition: Home 10/16/2023 Travel from Last 3 Months Social History Tobacco Use Types Packs/Day Years Used Date Smoking Tobacco: Never Smokeless Tobacco: Never Tobacco Cessation:Counseling Given: Not Answered Alcohol Use Standard Drinks/Week Comments Yes 6 (1 standard drink = 0.6 oz pur e alcohol) 2 daily [facility] Utilities Answer Date Recorded In the past 12 months has th e electric, gas, oil, or water company threatened to shut off services in your home? No 10/18/2023 Hunger Vital Sign Answer Date Recorded Within the past 12 months, y ou worried that your food would run out before you got the money to buy more. Never true 10/18/19 24 Within the past 12 months, t he food you bought just didn't last and you didn't have money to get more. Never true 10/18/2023 PRAPARE - Transportation Answer Date Re corded In the past 12 months, has l ack of transportation kept you from medical appointments or from getting medications? No 09/29 In the past 12 months, has l ack of transportation kept you from meetings, work, or from getting things needed for daily living? No 10/18/2023 Housing Stability Vital Sign Answer Rocky e Recorded In the last 12 months, was t here a time when you were not able to pay the mortgage or rent on time? No 10/18/2023 In the past 12 months, how m any times have you moved where you were living? 1 10/18/2023 At any time in the past 12 m onths, were you homeless or living in a fdc (including now)? No 10/18/2023 IPV Inpatient Questions Answer Date Recorded Does Anyone Try to Keep You From Having Contact with Others or Doing Things Outside Your Home? no 10/16/2023 Feels Threatened by Someone no 09/29 Feels Unsafe at Home or Work/School no 10/16/2023 Physical Signs of Abuse Present no 10/16/2023 Sex and Gender Information Value Date Recorded Sex Assigned at Not on file Gender Identity Not on file Sexual Orientation Not on file Last Filed Vital Signs Vital Sign Reading Time Taken Comments Blood Pressure 136/77 10/20/2023 8:08 AM EDT Pulse 83 10/18/2023 4:53 PM EDT Temperature 36.3 ??C (97.3 ??F) 10/20/2023 8:08 AM ED T Respiratory Rate 16 10/19/2023 8:21 PM EDT Oxygen Saturation 98% 10/20/2023 8:08 AM EDT Inhaled Oxygen Concentration - - Weight 93 kg (205 lb 0.4 oz) 10/16/2023 11:01 PM EDT Height 180.3 cm (5' 11) 10/16/2023 11:01 PM EDT Body Mass Index 28.6 10/16/2023 11:01 PM EDT Plan of Treatment Upcoming Encounters Date Type Department Care Team (Late st Contact Info) Description 10/28/2023 2:30 PM EDT TH Visit (TeleHealth) [place] [address] [place] Murphy APRN [facility] [place] [address] Health Maintenance Due Date Last Done Comments Tdap adult 1960 Tetanus vaccine 1960 Zoster vaccine (1 of 2) 1991 Advance Directive 1996 Pneumoccocal Vaccine: 65+ (1 of 1 - PCV) 2006 Covid-19 Vaccine ( - 2022- season) 2022 Influenza (Flu) vaccine (1 o f 1 - Influenza standard series) 10/31/2023 Medical Devices Implanted Type 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 Shelf Expiration Date Model / Serial / Lot Biotronik Lead-07/25/2019 Implanted:07/25/2019 (Quantity not on file) Lead Chest [employer] - BIOTRONIK SENTUS PROMRI OTW QP L-85/49 / [id number] / Description:See pulse genera tor for MRI conditions Biotronik Lead-07/25/2019 Implanted:Qty: 1 on 07/25/2019 Lead Chest [employer] - [employer] PLEXA PROMRI S DX 65/17 / [id number] / Description:See pulse genera tor for MRI conditions Biotronik Defibrillator- 020 Implanted:Qty: 1 on 07/25/2019 Pacemaker Chest [employer] - BIOTRONIK ACTICOR 7 HF-T OP DF4 IS4 PROMRI / [id number] / Description:At [facility] [place], [place], this system is conditional up to 3T. This patient will need a 2 view chest xray within 1 year of the MRI. Electrophysiology or cardiology will need to program device to MRI mode prior to the scan and return it to therapy after scan is completed. An ACLS RN will need to be present to monitor pulse oximetrey, cardiac rythm, and blood pressure during the length of the scan. ZOLL will be on standby in case of emergencies. 1.5 TFull body equal to or less than 200 T/m/s equal to or less than 2.0 W/kg 3 TFull body equal to or less than 200 T/m/s equal to or less than 2.0 W/kg Joe Dolan(R)(CT)(MR)(ARRT) 10/16/2023 Procedures Procedure Name Priority Date/Time Associated Diagnosis Comments EKG 12-LEAD Routine 10/19/2023 4:55 PM EDT QT prolongation MRSA PCR SCREEN Routine 10/19/2023 9:00 AM EDT BASIC METABOLIC PANEL Routine 10/19/2023 4:52 AM EDT CBC (WITH DIFF) Routine 10/19/2023 4:52 AM EDT MARLEE/TCPO2 (TRANSCUTANEOUS OXYGEN PRESSURE TEST) Routine 10/18/2023 1:03 PM EDT Cellulitis, unspecified cellulitis site CRP, ACUTE INFLAMMATION Routine 10/18/2023 6:04 AM EDT BASIC METABOLIC PANEL Routine 10/18/2023 6:04 AM EDT CBC (WITH DIFF) Routine 10/18/2023 6:04 AM EDT MRI FOOT WWO CONTRAST RIGHT STAT 10/17/2023 11:25 AM EDT CRP, ACUTE INFLAMMATION Routine 10/17/2023 5:38 AM EDT BASIC METABOLIC PANEL Routine 10/17/2023 5:38 AM EDT CBC (WITH DIFF) Routine 10/17/2023 5:38 AM EDT VANCOMYCIN LEVEL, RANDOM Routine 10/17/2023 5:38 AM EDT XR CHEST PA AND LATERAL STAT 10/16/2023 7:02 PM EDT XR FOOT MIN 3 VIEWS RIGHT STAT 10/16/2023 2:08 PM EDT CRP, ACUTE INFLAMMATION Routine 10/16/2023 1:28 PM EDT SEDIMENTATION RATE Routine 10/16/2023 1: 28 PM EDT BASIC METABOLIC PANEL STAT 10/16/2023 1:28 PM EDT CBC (WITH DIFF) STAT 10/16/2023 1:28 PM EDT from Last 3 Months Results * EKG 12 Lead (10/19/2023 4:55 PM EDT) Ventricular rate 80 BPM MUSE SYSTEM Atrial Rate 90 BPM MUSE SYSTEM QRS Duration 212 ms MUSE SYSTEM Q-T Interval 458 ms MUSE SYSTEM QTC Calculated (Bezet) 528 ms MUSE SYSTEM Calculated R [place] -69 degrees MUSE SYSTEM Calculated T [place] 108 degrees MUSE SYSTEM INTERPRETATION Ventricular- paced rhythm Abnormal ECG No previous ECGs available Confirmed by MD Evans, Yves ([id number]) on 10/24/2023 10:13:21 PM MUSE SYSTEM 10/19/2023 4:55 PM EDT 10/24/2023 10:13 PM EDT Elijah Arshad SHANI ECG ORDERABLES Performing Organization Address City/[facility]/ZIP Co de Phone Number MUSE SYSTEM * MRSA PCR Screen (10/19/2023 9:00 AM EDT) Pathologist [facility] MRSA PCR Not Detected 10/19/2023 7:01 PM EDT [facility] Swab BOTH ANTERIOR NARES / Unknown Non Blood Collection / Unknown 10/19/2023 9:00 AM EDT 10/19/2023 9:04 AM EDT Narrative [facility] - 10/19/2023 7:01 PM EDT This test was performed using the Xpert MRSA NxG test kit and is run on the [employer] GeneXpert Dx System. This test is cleared by the U.S. Food and Drug Administration for clinical use and its performance characteristics have been verified by the [facility] at [facility]. This test was performed using the Xpert MRSA NxG test kit and is run on the [employer] GeneXpert Dx System. This test is cleared by the U.S. Food and Drug Administration for clinical use and its performance characteristics have been verified by the [facility] at [facility]. Elijah Arshad SAFETY GROOVING MACHINE OPERATOR MOLECULAR ORDERAB LES Performing Organization Address City/[facility]/ZIP Co de Phone Number [facility] [place] [address] * (ABNORMAL) CBC (with Diff) (10/19/2023 4:52 AM EDT) Only the most recent of4 resultswithin the time period is included. White Blood Cell 4.64 4.00 - 9.50 x10(3)/mc L 10/19/2023 5:40 AM [facility] Red Blood Cell 3.74(L) 4.58 - 5.54 x10(6)/mc L 10/19/2023 5:40 AM [facility] Hemoglobin 13.2(L) 13.7 - 16.5 g/dL 10/19/2023 5:40 AM [facility] Hematocrit 38.4(L) 40.5 - 48.5 % 10/19/2023 5:40 AM [facility] Mean Cell Volume 102.7(H) 82.9 - 93.1 fL 10/19/2023 5:40 AM [facility] Mean Cell Hemoglobin 35.3(H) 27.5 - 32.1 pg 10/19/2023 5:40 AM [facility] Mean Cell Hemoglobin Concentration 34.4 32.0 - 35.7 g/dL 10/19/2023 5:40 AM [facility] Platelet 257 145 - 357 x10(3)/mc L 10/19/2023 5:40 AM [facility] Mean Platelet Volume 9.1 7.6 - 12.9 fL 10/19/2023 5:40 AM [facility] RDW Standard Deviation 46.3(H) 36.0 - 45.0 fL 10/19/2023 5:40 AM [facility] RDW coefficient of variation 12.1 11.4 - 13.8 % 10/19/2023 5:40 AM [facility] NRBC% auto 0.0 % 10/19/2023 5:40 AM [facility] NRBC Absolute 0.00 0.00 - 0.00 x10(3)/mc L 10/19/2023 5:40 AM [facility] Neutrophil % 58.7 % 10/19/2023 5:40 AM [facility] Neutrophil Absolute 2.72 1.70 - 6.10 x10(3)/mc L 10/19/2023 5:40 AM EDT [facility] Lymph % 19.4 % 10/19/2023 5:40 AM EDT [facility] Lymph Absolute 0.90 0.90 - 3.20 x10(3)/mc L 10/19/2023 5:40 AM EDT [facility] Monocyte % 17.7 % 10/19/2023 5:40 AM EDT [facility] Monocyte Absolute 0.82 0.30 - 0.90 x10(3)/mc L 10/19/2023 5:40 AM EDT [facility] Eos % 3.2 % 10/19/2023 5:40 AM EDT [facility] Eos Absolute 0.15 0.00 - 0.40 x10(3)/mc L 10/19/2023 5:40 AM EDT [facility] Basophil % 0.6 % 10/19/2023 5:40 AM EDT [facility] Baso Absolute 0.03 0.00 - 0.10 x10(3)/mc L 10/19/2023 5:40 AM EDT [facility] Immature Gran % 0.4 % 5:40 AM EDT [facility] Immature Gran Absolute 0.02 0.00 - 0.04 x10(3)/mc L 10/19/2023 5:40 AM EDT [facility] Blood VENOUS BLOOD SPECIMEN / Unknown IP Care Team Draw / Unknown 10/19/2023 4:52 AM EDT 10/19/2023 5:29 AM EDT Vanessa Patten MD HEMATOLOGY ORDERABLE S [facility] [place] [address] * (ABNORMAL) Basic Metabolic Panel (10/19/2023 4:52 AM EDT) Only the most recent of4 resultswithin the time period is included. Glucose 95 65 - 199 mg/dL 10/19/2023 6:03 AM [facility] Comment:Glucose Concentratio n >=200 mg/dL plus symptoms is consistent with Diabetes Mellitus. Blood Urea Nitrogen 8(L) 10 - 20 mg/dL 10/19/2023 6:03 AM [facility] Creatinine 1.10 0.80 - 1.50 mg/dL 10/19/2023 6:03 AM [facility] Sodium 144 135 - 145 mMol/L 10/19/2023 6:03 AM [facility] Potassium 3.3(L) 3.5 - 5.0 mMol/L 10/19/2023 6:03 AM [facility] Chloride 109(H) 98 - 107 mMol/L 10/19/2023 6:03 AM [facility] Carbon Dioxide 22 22 - 31 mMol/L 10/19/2023 6:03 AM [facility] Anion Gap 13 5 - 15 mMol/L 10/19/2023 6:03 AM [facility] Calcium 9.1 8.5 - 10.5 mg/dL 10/19/2023 6:03 AM [facility] Est Glomerular Filtration Rate - Male 67 mL/min/1. 73 m?? 10/19/2023 6:03 AM [facility] Comment: This patient's estimated GFR was calculated using the 2020 CKD-EPI equation. The estimated GFR can vary from the measured GFR by up to 30% in the absence of rapidly changing kidney function. Assessment of the estimated GFR is not appropriate when creatinine concentrations are rapidly changing. For clinical situations in which a more precise estimate of GFR is necessary, consider alternative methods of GFR estimation such as a 24-hour urine creatinine clearance. Assignment of CKD stage 1 - 5 for patients with an eGFR near the transition point between stages may be based on clinical assessment of muscle mass and symptoms in addition to eGFR. Link: eGFR Calculator [employer] Blood VENOUS BLOOD SPECIMEN / Unknown IP Care Team Draw / Unknown 10/19/2023 4:52 AM EDT 10/19/2023 5:29 AM EDT Vanessa Patten MD CHEMISTRY ORDERABLES [facility] [place] [address] * MARLEE/TCPO2 (Transcutaneous Oxygen Pressure Test) (10/18/2023 1:03 PM EDT) VB Text Report Department: Vascular Surgery Lab Patient: [id number] (TIMMY JULES) CPT: 15349 Referring Physician: ELIJAH ARSHAD ?? Phone: Indications: Patient with right plantar ulceration concerning for osteomyelitis, ? blood flow/healing potential Diabetes mellitus: No Findings: Right ?Pressure (mmHg) ?? MARLEE ??Waveform ?TBI ??TCPO2 ?? Brachial Artery ?149 ? Dorsalis Pedis (Ankle) Artery ?187 ?1.26 ??Triphasic ? Posterior Tibial (Ankle) Artery ??192 ?1.29 ??Triphasic ? Great Toe ?118 ? 0.79 ? 10 cm Above Knee ?66 ?? 15 cm Below Knee ?55 ?? ForeFoot ?31 ?? Left ? Pressure (mmHg) ??Waveform ?TBI ??TCPO2 ?? Dorsalis Pedis (Ankle) Artery ?>240 ? Triphasic ? Posterior Tibial (Ankle) Artery ??>240 ? Triphasic ? Great Toe ?105 ? 0.70 ? Chest ? 72 ?? Interpretation: RIGHT: No evidence of lower extremity arterial occlusive disease. No identifiable change when compared to the previous exam performed on 09/30/2016. LEFT: No evidence of lower extremity arterial occlusive disease. No identifiable change when compared to the previous exam performed on 09/30/2016. Comment: The ankle pressures are falsely elevated compared to the Doppler waveforms, most likely due to calcified tibial arteries. Thus, disease severity is based on Doppler waveforms and toe pressures. Published reports suggest a TCPO2 of 30 mm Hg or greater predictive of adequate tissue oxygenation to promote healing of skin ulcers and amputation sites. Note: The left brachial pressure was not obtained due to active arm IV. Previous ABIs with change from previous value: Date ?RIGHT DP ?? RIGHT PT ?? RT GR TOE ??RT Sec TOE ??1.15 ? 1.09 ? 0.77 ? ---- Current ? 1.26(+.11) 1.29(+.20) 0.79(+.02) ---- Date ?LEFT DP ?LEFT PT ?LT GR TOE LT Sec TOE ??1.09 ? 1.14 ? 0.74 ? ---- Current ? ---- ? ---- ? 0.70(-.04) ---- Electronically Signed by: MAAN SERRANO on 2023-10-18 06:14:22 PM [facility] VB Text Report End of Report [facility] 10/18/2023 1:03 PM EDT Elijah Arshad APRN VASCULAR ORDERABL ES Performing Organization Address City/State/[facility] Co de Phone Number [facility] * (ABNORMAL) CRP, acute inflammation (10/18/2023 6:04 AM EDT) Only the most recent of3 resultswithin the time period is included. C-Reactive Protein 30.0(H) <=4.9 mg/L 10/18/2023 7:42 AM EDT [facility] Blood VENOUS BLOOD SPECIMEN / Unknown IP Care Team Draw / Unknown 10/18/2023 6:04 AM EDT 10/18/2023 6:50 AM EDT Elijah Arshad APRN CHEMISTRY ORDERAB LES [facility] [place] [address] * MRI Foot wwo Contrast Right (10/17/2023 11:25 AM EDT) WORKSTATION ID [id number] RAD Anatomical Region Laterality Modality Foot Right Magnetic Resonan ce Impressions 10/17/2023 12:40 PM EDT 1. ??Within the dorsal subcutaneous soft tissues overlying the 2nd toe proximal phalanx is a microabscess measuring 1.0 x 1.3 x 0.7 cm. ??This microabscess abuts the extensor tendon sheath of the 2nd toe, but there is no extension of fluid distention along the course of the 2nd toe extensor tendon sheath. 2. ??There is a plantar wound underlying the 2nd metatarsal head with a fluid-filled sinus tract leading to and likely communicating with the 2nd metatarsophalangeal joint. ??There is enhancement around the sinus tract, consistent with inflammation/infection. ??There is no fluid distention of the 2nd metatarsophalangeal joint, but there is thickened enhancing synovium, consistent with synovitis. ??Findings are suspicious for septic arthritis of the 2nd metatarsophalangeal joint. 3. ??Associated mild marrow edema-like signal and enhancement of the 2nd metatarsal head and the 2nd toe proximal phalanx, without associated T1 hypointense signal alteration, is consistent with reactive osteitis or early/mild osteomyelitis. ??Given the presence of the sinus tract that likely communicates with the 2nd metatarsophalangeal joint, some degree of infectious contamination is suspected. 4. ??Dorsal dislocation at the 2nd metatarsophalangeal joint. 5. ??No MR evidence of flexor or extensor tenosynovitis. 6. ??Chronic denervation changes of the muscles of the forefoot with superimposed subacute denervation change versus myositis. 7. ??1st, 2nd, and 3rd intermetatarsal bursitis. 8. ??Advanced mid foot arthropathy which may be a combination of neuropathic and/or degenerative arthropathy. 9. ??Focus of susceptibility artifact in the subcutaneous soft tissues along the medial aspect of the 1st toe distal phalanx likely corresponds to the tiny radiodense foreign body projecting adjacent to the 1st toe nail bed on the AP view of the foot on the right foot radiographs October 16, 2023. Thank you for letting us participate in the care of this patient. ??If you are a health care provider and have any questions regarding this report, please contact the number below. ??For patients who have questions please contact the health intensive care ambulance paramedic that requested your imaging first. ? Narrative 10/17/2023 12:40 PM EDT EXAMINATION: MRI FOOT WWO CONTRAST RIGHT CLINICAL HISTORY: Concern for osteomyelitis of right second digit (as entered by ordering provider in the order requisition) TECHNIQUE: MR of the right forefoot was performed with and without contrast. ??Postcontrast images were obtained after intravenous administration of 18 mL of Dotarem. Sequences include short axis TI, short axis STIR, short axis TI postcontrast, sagittal T1, sagittal STIR, sagittal T1 postcontrast, long axis TI, long axis TI postcontrast. COMPARISON: Right foot radiographs October 16, 2023 FINDINGS: There is a skin marker along the dorsal aspect of the 2nd toe proximal interphalangeal joint, indicating the site of a dorsal sided. ??There is skin irregularity adjacent to the skin marker. Underlying the skin marker, there is a rim-enhancing fluid collection measuring 1.0 x 1.3 x 0.7 cm, centered in the subcutaneous soft tissues overlying the 2nd toe proximal phalanx and proximal interphalangeal joint, consistent with a subcutaneous soft tissue microabscess.. There is an additional skin marker along the plantar aspect of the 2nd toe metatarsophalangeal joint. ??There is a small skin defect and a fluid-filled sinus tract leading from the skin defect to the 2nd metatarsophalangeal joint with enhancing soft tissue around the sinus tract (series 12, image 15). ??There is no fluid distention of the 2nd metatarsophalangeal joint which is dorsally dislocated, but there is thickened enhancing synovium along the dorsal aspect of the 2nd metatarsal head (series 6, image 21 and series 1012, image 21).. ??There is mild STIR hyperintense signal and marrow enhancement of the 1st metatarsal head and the base of the 2nd toe proximal phalanx, without T1 hypointense signal alteration. There are postoperative changes status post arthrodesis of the 2nd toe proximal phalanx. ??Metal artifact limits evaluation of the underlying bone marrow of the 2nd toe middle and proximal phalanges. ??No signal alteration of the 2nd toe distal phalanx. There is high-grade cartilage loss and marginal osteophyte formation with subchondral cystic change at nearly all of the visualized joints of the midfoot, consistent with midfoot arthropathy. Hallux valgus and lateral deviation at the 2nd and 3rd metatarsophalangeal joints. ??There is a focus of susceptibility artifact along the medial soft tissues of the 1st toe distal phalanx. No appreciable disruption of the visualized flexor or extensor tendons. ??No fluid distention of the visualized flexor and extensor tendons, but the microabscess on the dorsal aspect of the 2nd proximal phalanx of left the extensor tendon sheath. Fatty atrophy of all the muscles of the forefoot with associated intramuscular edema. Fluid in the 1st, 2nd, and 3rd intermetatarsal spaces is consistent with metatarsal bursitis. No soft tissue nodule in the intermetatarsal spaces. Procedure Note Daphne Mason MD - 10/17/2023 EXAMINATION: MRI FOOT WWO CONTRAST RIGHT CLINICAL HISTORY: Concern for osteomyelitis of right second digit (asentered by ordering provider in the order requisition) TECHNIQUE: MR of the right forefoot was performed with and without contrast.Postcontrast images were obtained after intravenous administration of 18 mL of Dotarem. Sequences include short axis TI, short axis STIR, short axis TIpostcontrast, sagittal T1, sagittal STIR, sagittal T1 postcontrast, long axis TI, longaxis TI postcontrast. COMPARISON: Right foot radiographs October 16, 2023 FINDINGS: There is a skin marker along the dorsal aspect of the 2nd toe proximal interphalangeal joint, indicating the site of a dorsal sided. There isskin irregularity adjacent to the skin marker. Underlying the skin marker, there is a rim-enhancing fluid collectionmeasuring 1.0 x 1.3 x 0.7 cm, centered in the subcutaneous soft tissues overlyingthe 2nd toe proximal phalanx and proximal interphalangeal joint, consistent witha subcutaneous soft tissue microabscess.. There is an additional skin marker along the plantar aspect of the 2ndtoe metatarsophalangeal joint. There is a small skin defect and afluid-filled sinus tract leading from the skin defect to the 2nd metatarsophalangealjoint with enhancing soft tissue around the sinus tract (series 12, image 15).There is no fluid distention of the 2nd metatarsophalangeal joint which isdorsally dislocated, but there is thickened enhancing synovium along the dorsalaspect of the 2nd metatarsal head (series 6, image 21 and series 1012, image 21)..There is mild STIR hyperintense signal and marrow enhancement of the 1stmetatarsal head and the base of the 2nd toe proximal phalanx, without T1 hypointensesignal alteration. There are postoperative changes status post arthrodesis of the 2nd toeproximal phalanx. Metal artifact limits evaluation of the underlying bone marrowof the 2nd toe middle and proximal phalanges. No signal alteration of the 2ndtoe distal phalanx. There is high-grade cartilage loss and marginal osteophyte formationwith subchondral cystic change at nearly all of the visualized joints of themidfoot, consistent with midfoot arthropathy. Hallux valgus and lateral deviation at the 2nd and 3rdmetatarsophalangeal joints. There is a focus of susceptibility artifact along the medialsoft tissues of the 1st toe distal phalanx. No appreciable disruption of the visualized flexor or extensor tendons.No fluid distention of the visualized flexor and extensor tendons, but the microabscess on the dorsal aspect of the 2nd proximal phalanx of leftthe extensor tendon sheath. Fatty atrophy of all the muscles of the forefoot with associatedintramuscular edema. Fluid in the 1st, 2nd, and 3rd intermetatarsal spaces is consistent with metatarsal bursitis. No soft tissue nodule in the intermetatarsal spaces. IMPRESSION 1. Within the dorsal subcutaneous soft tissues overlying the 2nd toeproximal phalanx is a microabscess measuring 1.0 x 1.3 x 0.7 cm. This microabscessabuts the extensor tendon sheath of the 2nd toe, but there is no extension offluid distention along the course of the 2nd toe extensor tendon sheath. 2. There is a plantar wound underlying the 2nd metatarsal head with a fluid-filled sinus tract leading to and likely communicating with the2nd metatarsophalangeal joint. There is enhancement around the sinus tract, consistent with inflammation/infection. There is no fluid distention ofthe 2nd metatarsophalangeal joint, but there is thickened enhancing synovium,consistent with synovitis. Findings are suspicious for septic arthritis of the 2nd metatarsophalangeal joint. 3. Associated mild marrow edema-like signal and enhancement of the 2nd metatarsal head and the 2nd toe proximal phalanx, without associated T1 hypointense signal alteration, is consistent with reactive osteitis or early/mild osteomyelitis. Given the presence of the sinus tract thatlikely communicates with the 2nd metatarsophalangeal joint, some degree ofinfectious contamination is suspected. 4. Dorsal dislocation at the 2nd metatarsophalangeal joint. 5. No MR evidence of flexor or extensor tenosynovitis. 6. Chronic denervation changes of the muscles of the forefoot withsuperimposed subacute denervation change versus myositis. 7. 1st, 2nd, and 3rd intermetatarsal bursitis. 8. Advanced mid foot arthropathy which may be a combination ofneuropathic and/or degenerative arthropathy. 9. Focus of susceptibility artifact in the subcutaneous soft tissuesalong the medial aspect of the 1st toe distal phalanx likely corresponds to thetiny radiodense foreign body projecting adjacent to the 1st toe nail bed on theAP view of the foot on the right foot radiographs October 16, 2023. Thank you for letting us participate in the care of this patient. If youare a health care provider and have any questions regarding this report,please contact the number below. For patients who have questions please contactthe health intensive care ambulance paramedic that requested your imaging first. Vanessa Patten MD IMG MRI ORDERABLES * Vancomycin Level, Random (10/17/2023 5:38 AM EDT) Vancomycin, Random 11.1 mg/L 2023 6:26 AM EDT [facility] Comment:This level is for de termination of the patient's vancomycin uxln-rjlwz-sfn-curve (AUC) value. Contact the inpatient pharmacy for interpretation. Blood VENOUS BLOOD SPECIMEN / Unknown IP Care Team Draw / Unknown 10/17/2023 5:38 AM EDT 10/17/2023 5:52 AM EDT Vanessa Patten MD CHEMISTRY ORDERABLES [facility] [place] [address] * XR Chest PA & Lateral (Generic) (10/16/2023 7:02 PM EDT) WORKSTATION ID [id number] DH RAD Anatomical Region Laterality Modality Chest N/A Digital Radiogra phy Impressions 10/16/2023 7:22 PM EDT 1. ??No acute cardiopulmonary process. 2. ??Indeterminant MR compatibility of cardioverter defibrillator present with intact leads. Preliminary report signed by: Eder Laird MD at 10/16/2023 7:13 PM I have personally reviewed the image(s) and the resident's interpretation and agree with the findings, Jean Carlos Condon MD at 10/16/2023 7:22 PM Thank you for letting us participate in the care of this patient. ??If you are a health care provider and have any questions regarding this report, please contact the number below. ??For patients who have questions please contact the health intensive care ambulance paramedic that requested your imaging first. ? Electronically signed by: Jean Carlos Condon MD, [facility] ??([phone]), at 10/16/2023 7:22 PM Narrative 10/16/2023 7:22 PM EDT EXAMINATION: XR CHEST PA AND LATERAL (GENERIC) CLINICAL HISTORY: Requested by MRI TECHNIQUE: PA and lateral views of the chest COMPARISON: None FINDINGS: Left chest will generator with intact leads with leads tips projecting over the right ventricle and tributary of the coronary sinus. Mildly enlarged cardiomediastinal silhouette. Hilar contours and pulmonary vasculature are within normal limits. No focal consolidation, pneumothorax, or pleural effusion. No acute osseous finding. Procedure Note Jean Carlos Condon MD - 10/16/2023 EXAMINATION: XR CHEST PA AND LATERAL (GENERIC) CLINICAL HISTORY: Requested by MRI TECHNIQUE: PA and lateral views of the chest COMPARISON: None FINDINGS: Left chest will generator with intact leads with leads tips projectingover the right ventricle and tributary of the coronary sinus. Mildly enlarged cardiomediastinal silhouette. Hilar contours andpulmonary vasculature are within normal limits. No focal consolidation,pneumothorax, or pleural effusion. No acute osseous finding. IMPRESSION 1. No acute cardiopulmonary process. 2. Indeterminant MR compatibility of cardioverter defibrillator presentwith intact leads. Preliminary report signed by: Eder Laird MD at 47:13 PM I have personally reviewed the image(s) and the resident's interpretationand agree with the findings, Jean Carlos Condon MD at 10/16/2023 7:22 PM Thank you for letting us participate in the care of this patient. If youare a health care provider and have any questions regarding this report,please contact the number below. For patients who have questions please contactthe health intensive care ambulance paramedic that requested your imaging first. Electronically signed by: Jean Carlos Condon MD, [facility]([phone]), at 10/16/2023 7:22 PM Chester Chatman SAFETY GROOVING MACHINE OPERATOR IMG DX ORDERABLES * XR Foot Min 3 views Right (Generic) (10/16/2023 2:08 PM EDT) [employer] Signature WORKSTATION ID [id number] RAD Anatomical Region Laterality Modality Foot Right Digital Radiogra phy Impressions 10/16/2023 2:19 PM EDT 1. ??No acute osseous abnormality or radiographic evidence of advanced acute osteomyelitis. 2. ??Forefoot soft tissue swelling. No tracking soft tissue gas. 3. ??Osteoarthritic changes as described. 4. ??Chronic dorsal dislocation of the second toe at the MTP joint. Thank you for letting us participate in the care of this patient. ??If you are a health care provider and have any questions regarding this report, please contact the number below. ??For patients who have questions please contact the health intensive care ambulance paramedic that requested your imaging first. ? Electronically signed by: Jean Carlos Condon MD, [facility] ??([phone]), at 10/16/2023 2:19 PM Narrative 10/16/2023 2:19 PM EDT EXAMINATION: XR FOOT MIN 3 VIEWS RIGHT (GENERIC) CLINICAL HISTORY: Concern for osteomyelitis of right second digit although there is significant erythema and swelling to dorsal aspect of foot involving multiple digits TECHNIQUE: 3 views RIGHT foot COMPARISON: Right toe radiographs 09/30/2016 FINDINGS: Prior partial amputation of the third toe to the distal portion of the proximal phalanx. Amputation margins are well-defined. No fracture or dislocation. No osseous erosive or destructive change. No periostitis. Status post second PIP arthrodesis with intact fixation. Valgus deformities of the first through third toes at the MTP joints. Pronounced dorsal subluxation/dislocation of the second toe at the MTP joint, present previously. Mild osteoarthritic changes at the first MTP joint and great toe IP joint. Additional joint space narrowing with sclerosis and osteophytes at the tarsometatarsal joints. Mild soft tissue swelling in the forefoot. No soft tissue gas. No radiodense foreign body. Mild vascular calcifications. Procedure Note Jean Carlos Condon MD - 10/16/2023 EXAMINATION: XR FOOT MIN 3 VIEWS RIGHT (GENERIC) CLINICAL HISTORY: Concern for osteomyelitis of right second digit althoughthere is significant erythema and swelling to dorsal aspect of foot involvingmultiple digits TECHNIQUE: 3 views RIGHT foot COMPARISON: Right toe radiographs 09/30/2016 FINDINGS: Prior partial amputation of the third toe to the distal portion of theproximal phalanx. Amputation margins are well-defined. No fracture or dislocation.No osseous erosive or destructive change. No periostitis. Status post secondPIP arthrodesis with intact fixation. Valgus deformities of the first throughthird toes at the MTP joints. Pronounced dorsal subluxation/dislocation of thesecond toe at the MTP joint, present previously. Mild osteoarthritic changes atthe first MTP joint and great toe IP joint. Additional joint space narrowingwith sclerosis and osteophytes at the tarsometatarsal joints. Mild softtissue swelling in the forefoot. No soft tissue gas. No radiodense foreign body.Mild vascular calcifications. IMPRESSION 1. No acute osseous abnormality or radiographic evidence of advancedacute osteomyelitis. 2. Forefoot soft tissue swelling. No tracking soft tissue gas. 3. Osteoarthritic changes as described. 4. 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 Thank you for letting us participate in the care of this patient. If youare a health care provider and have any questions regarding this report,please contact the number below. For patients who have questions please contactthe health intensive care ambulance paramedic that requested your imaging first. Chester Chatman APRN IMG DX ORDERABLES * (ABNORMAL) Sedimentation rate (10/16/2023 1:28 PM EDT) Sedimentation Rate Automated 82(H) 3 - 46 mm/hr 10/16/2023 2:33 PM EDT [facility] Blood VENOUS BLOOD SPECIMEN / Unknown Venipuncture / Unknown 10/16/2023 1:28 PM EDT 10/16/2023 1:51 PM EDT Chester Chatman SAFETY GROOVING MACHINE OPERATOR HEMATOLOGY ORDERABLE S [facility] [address] [place] [address] from Last 3 Months Advance Directives * Full Code (Latest Code Status on File) Date Activated Date Inactivated Comments 10/20/2023 10:49 AM Question Answer Comments Does patient have capacity to make decision: Yes Content of discussion: Full code * Attempt Cardiopulmonary Resuscitation - Inpatient Date Activated Date Inactivated Comments 10/16/2023 6:29 PM 10/20/2023 10:49 AM Question Answer Comments Code Status decision made by: Patient Content of discussion: full code Care Teams Tool And Machine Maintainer Relationship Specialty Start Date End Date Allyson Grijalva MD [address] [place] [address] PCP - General 10/16/23
--- OUTSIDE RECORDS SUMMARY | 2023-10-27 04:02 | XMS_ITS | Continuity of Care Document ---
Author Organization [facility] Address [address] [address] [place] [address] Phone [phone] Care Team Providers Care Joy Operator Name Role Phone Tod Moss M.D. Care Team Information Special Education Teacher Unavailable Juan Abarca D.O. Care Team Information Receiv er [phone] Allyson Grijalva M.D. 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 Onset: 07/17/2010 Slowing of urinary stream Joshua Mathew MD O nset: 07/28/2011 Retention of urine Joshua Mathew MD Onset: 0 03/11/2015 History of malignant neoplasm of prostate Joshua Mathew MD Onset: 03/11/2015 History of chronic urinary tract infection Robbin Mathew MD Onset: 09/13/2018 Male urinary stress incontinence Joshua ortiz MD Onset: 09/19/2019 Social History Type Date Description Comments Tobacco Use Start: Unknown Never Smoked Cigarettes ETOH Use Moderate Alcohol Tobacco Use Start: Unknown Patient has never smoked Allergies and adverse reactions Description No Known Drug Allergies Medications Active Medications SIG Qnty Indications Ordering Provider Date Coreg12.5mg Tablets 1 by mouth bid. Unkn own 11/30/2017 [id number] Tablets 1 PO qd 90tabs Unknown [id number] Tablets 1 by mouth twice a day Unknown Vital Signs Date Vital Result Comment 04/05/2020 3:24pm BP Systolic 128 mmHg BP Diastolic 74 mmHg Heart Rate 76 /min Respiratory Rate 16 /min Height 72 inches 6'0 Weight 205.00 lb BMI (Body Mass Index) 27.8 kg/m2 Body Temperature 97.3 F Assessments Date Code Description Provider 04/05/2020 C61 Malignant neoplasm of prosta te Joshua Mathew MD 04/05/2020 R33.9 Retention of urine, unspecif ied Joshua Mathew MD 04/05/2020 N39.3 Stress incontinence (female) (male) Joshua Mathew MD 04/05/2020 Z87.440 Personal history of urinary (tract) infections Joshua Mathew MD Plan of Treatment 04/05/2020 - Joshua Mathew MD* C61 Malignant neoplasm of prostate* Comments: * I reviewed my findings with Timmy and we discussed the fact that there has been a slight bump" in his PSA 17 years status post prostatic brachytherapy for Doc sum 6 prostate carcinoma. I've recommended he undergo repeat PSA in 6 months and I will call him with the results. He will remain on tamsulosin therapy unless his voiding symptoms worsen. He will continue to perform Kegelexercises on a regular basis to address his stress incontinence symptoms. Assuming no problems, he will return in one year for additional followup with repeat blood work at that time as well. He is ag reeable to proceed in this fashion. He will contact our office if he notes any interval problems prior to his next visit. * R33.9 Retention of urine, unspecified* Comments:* I reviewed my findings with Timmy and we discussed the fact that there has been a slight bump" in his PSA 17 years status post prostatic brachytherapy for [place] sum 6 prostate carcinoma. I've recommended he undergo repeat PSA in 6 months and I will call him with the results. He will remain on tamsulosin therapy unless his voiding symptoms worsen. He will continue to perform Kegelexercises on a regular basis to address his stress incontinence symptoms. Assuming no problems, he will return in one year for additional followup with repeat blood work at that time as well. He is agreeable to proceed in this fashion. He will contact our office if he notes any interval problems prior to his next visit. * N39.3 Stress incontinence (female) (male)* Comments:* I reviewed my findings with Timmy and we discussed the fact that there has been a slight bump" in his PSA 17 years status post prostatic brachytherapy for Doc sum 6 prostate carcinoma. I've recommended he undergo repeat PSA in 6 months and I will call him with the results. He will remain on tamsulosin therapy unless his voiding symptoms worsen. He will continue to perform Kegelexercises on a regular basis to address his stress incontinence symptoms. Assuming no problems, he will return in one year for additional followup with repeat blood work at that time as well. He is agreeable to proceed in this fashion. He will contact our office if he notes any interval problems prior to his next visit. * Z87.440 Personal history of urinary (tract) infections* Comments:* I reviewed my findings with Timmy and we discussed the fact that there has been a slight bump" in his PSA 17 years status post prostatic brachytherapy for Doc sum 6 prostate carcinoma. I've recommended he undergo repeat PSA in 6 months and I will call him with the results. He will remain on tamsulosin therapy unless his voiding symptoms worsen. He will continue to perform Kegel exercises on a regular basis to address his stress incontinence symptoms. Assuming no problems, he will return in one year for additional followup with repeat blood work at that time as well. He is agreeable to proceed in this fashion. He will contact our office if he notes any interval problems prior to his next visit.
--- OUTSIDE RECORDS SUMMARY | 2023-10-27 04:02 | XMS_ITS | Encounter Summary ---
Author Organization [facility] [address] Care Team Providers Care Mechanical Maintenance Worker Name Role Phone Allyson Grijalva MD Primary Care Provider [phone] Encounter Details Date Type Department Care Team (Late st Contact Info) Description 10/26/2023 Telephone [place] [id number] Belle Gaines, RN Social History Tobacco Use Types Packs/Day Years Used Date Smoking Tobacco: Never Smokeless Tobacco: Never Alcohol Use Standard Drinks/Week Comments Yes 6 (1 standard drink = 0.6 oz pur e alcohol) 2 daily [facility] Utilities Answer Date Recorded In the [...] any time in the past 12 m [facility], were you homeless or living in a [facility] (including now)? No 10/18/2023 IPV Inpatient Questions [...] as of this encounter Plan of Treatment Upcoming Encounters Date Type Department Care Team (Late st Contact Info) Description 10/28/2023 2:30 PM EDT TH Visit (TeleHealth) [place] [address] Florida Murphy APRN [facility] [place] [address] documented as of this encounter Visit Diagnoses Not on filedocumented in this encounter Care Teams Mechanical Maintenance Worker Relationship Specialty Start Date End Date Allyson Grijalva MD [address] [address] PCP - General 10/16/23 documented as of this encounter
--- OUTSIDE RECORDS SUMMARY | 2023-10-27 04:02 | XMS_ITS | Clinical Summary ---
Author Organization [facility] Address [address] [place] [address] Phone Care Team Providers Care Hardwood Finisher Name Role Phone Unavailable Primary Care Provider Unavailabl e Social History Tobacco Use Types Packs/Day Years Used Date Smoking Tobacco: Never Assessed Sex and Gender Information Value Date Recorded Sex Assigned at Not on file Gender Identity Not on file Sexual Orientation Not on file Plan of Treatment Not on file
--- OUTSIDE RECORDS SUMMARY | 2023-10-27 04:02 | XMS_ITS | Encounter Summary ---
Author Organization [facility] [place] [address] Care Team Providers Care Cafeteria Helper Name Role Phone Allyson Grijalva MD Primary Care Provider [phone] Encounter Details Date Type Department Care Team (Late st Contact Info) Description 10/20/2023 Notes Only Infectious Disease at [facility] [place] [phone] Vilma Teixeira RN Social History Tobacco Use Types Packs/Day Years Used Date Smoking Tobacco: Never Smokeless Tobacco: Never Alcohol Use Standard Drinks/Week Comments Yes 6 (1 standard drink = 0.6 oz pur e alcohol) 2 daily [facility] Utilities Answer Date Recorded In the past [...] any time in the past 12 m [facility], were you homeless or living in a [...] on file documented as of this encounter Progress Notes * Vilma Teixeira RN - 10/20/2023 12:03 PM EDTSummary: OPAT Education Infectious Disease/OPAT Program Teaching Visit Met with patient at bedside to discuss discharge on PO ABX. Patient given and reviewed standing weekly labs for OPAT with PO ABX. Contact information for ID team/clinic, given to pt. Discussed f/u appointments in ID 5C clinic, telephone and tele health. Plan for tele health appointment with ID SHANI Murphy prior to patient's departure to [place] . Pt verbalized understanding. All questions answered. IV & PO ABX Medications: OPAT INTAKE: Diagnosis: Osteomyelitis Organism(s): Unknown Antibiotic(s) being taken: Levofloxacin (750mg qD) and Trimethoprim- sulfamethoxazole (1 DS BID) With a start date of 10/16/2023, and anticipated end date of 11/27/2023. Desired labs: CBC w/diff, CMP and CRP. Lab frequency: Weekly Plan: discharge on OPAT program when medically ready. Faxed to [facility] on 10/20/23 at 1144 Fax confirmation on 10/20/23 at 1147 Documents faxed: Standing weekly lab orders: CBC/diff, CMP, CRP Ordering provider: Dr. Nataly Solomon F/u: Weekly labs ID f/u to be scheduled Vilma Teixeira, TOVA, RN, ACM-RN OPAT Program documented in this encounter Plan of Treatment Upcoming Encounters Date Type Department Care Team (Late st Contact Info) Description 10/28/2023 2:30 PM EDT TH Visit (TeleHealth) [place] [address] Florida Murphy APRN [facility] [place] [address] documented as of this encounter Visit Diagnoses Not on filedocumented in this encounter Care Teams Cafeteria Helper Relationship Specialty Start Date End Date Allyson Grijalva MD [address] [address] PCP - General 10/16/23 documented as of this encounter
--- OUTSIDE RECORDS SUMMARY | 2023-10-27 04:02 | XMS_ITS | Encounter Summary ---
Author Organization [facility] Address [facility] [place] [address] Care Team Providers Care It Service Continuity Supervisor Name Role Phone Allyson Grijalva MD Primary Care Provider [phone] Encounter Details Date Type Department Care Team (Late st Contact Info) Description 10/20/2023 Orders Only [place] [address] Nataly Solomon MD [facility] [address] [place] [address] Osteomyelitis of second toe of right foot Social History Tobacco Use Types Packs/Day Years Used Date Smoking Tobacco: Never Smokeless Tobacco: Never Alcohol Use Standard Drinks/Week Comments Yes 6 (1 standard drink = 0.6 oz pur e alcohol) 2 daily [facility] Utilities Answer Date Recorded In the past 12 months has e [employer], gas, oil, or water [employer] threatened to shut off services in your [...] any time in the past 12 m [facility], were you homeless or living in a f[facility] (including now)? No 10/18/2023 IPV Inpatient Questions [...] EDT TH Visit (TeleHealth) [place] [address] Florida Murphy APRN [facility] [place] [address] Scheduled Orders Name Type Priority Associated Diagnoses Orde r Schedule CBC (with Diff) Lab Routine Osteomyelitis of second toe of right foot Once a week for 6 Occurrences starting 10/20/2023 until 12/04/2023 Comprehensive metabolic panel Lab Routine Osteomyelitis of second toe of right foot Once a week for 6 Occurrences starting 10/20/2023 until 12/04/2023 CRP, acute inflammation Lab Routine Osteomyelitis of second toe of right foot Once a week for 6 Occurrences starting 10/20/2023 until 12/04/2023 documented as of this encounter Visit Diagnoses Diagnosis Osteomyelitis of second toe of right foot documented in this encounter Care Teams It Service Continuity Supervisor Relationship Specialty Start Date End Date Allyson Grijalva MD [address] [address] PCP - General 10/16/23 documented as of this encounter
--- OUTSIDE RECORDS SUMMARY | 2023-10-27 04:02 | XMS_ITS | Encounter Summary ---
Author Organization [facility] Address [address] [place] [address] Phone Care Team Providers Care Body Shop Mechanic Name Role Phone Unavailable Primary Care Provider Unavailabl e Encounter Details Date Type Department Care Team (Late st Contact Info) Description 06/12/2020 Orders Only [facility] [employer] [address] [place], [place] [id number] Rolf Oleary MD [address] [place] [id number] Encounter for immunization Social History Tobacco Use [...]
--- OUTSIDE RECORDS SUMMARY | 2023-10-27 04:03 | XMS_ITS ---
Author Organization [facility] Address [address] [facility] [address] [place] [address] Care Team Providers Care Adjunct Lecturer Name Role Phone Allyson Grijalva Primary Care Provider [phone] REASON FOR VISIT 07 Prescription/Refill MEDICATIONS Medication SIG (Take, Route, Fr equency, Duration) Notes Start Date End Date Status Allopurinol 100 MG TAKE 1 TABLET DAILY for 90 Active Encounters Encounter Location Date Provider Diagnosis [facility] [address] [facility] [facility] [address] [place] [address] 12/01/2022 Allyson Grijalva PLAN OF TREATMENT Medication Medication Name Sig Start Date Stop Date Notes Allopurinol 100 MG TAKE 1 TABLET DAILY for 90
--- OUTSIDE RECORDS SUMMARY | 2023-10-27 04:03 | XMS_ITS | Patient Health Record ---
Author Organization [facility] Address [address] [place] [address] Care Team Providers Care Heel Seat Pounder Name Role Phone Allyson Grijalva Primary Care Provider [phone] ALLERGIES No Known Allergies RESULTS Component Value Reference Range Notes CBC With Differential/Platel et Reviewed date:03/22/2023 02:23:44 AM Interpretation:rbc 4.00 low, mcv 104, mch 37.8 , mchc 36.5 - HIGH Performing Lab:[facility] [place], [address] [place] [address], Phone - [phone], Director - Josh Notes/Report: WBC 4.5 3.4-10.8 [...] (14) Reviewed date:03/22/2023 02:23:44 AM Interpretation:normal Performing Lab:[facility] [place], [address] [facility], Phone - [phone], Director - MDJodry Notes/Report: Glucose 81 70-99 [...] Interpretation:LDL 143 TG 171 HDL 45 Performing Lab:[facility] [place], [address] [facility], [place], Phone - [phone], Director - MDJodry Notes/Report: Cholesterol, Total 219 [...] 2+ , + Nitrite, protein 1+ Performing Lab:[address], Phone - [phone], Director - Josh Notes/Report: Specific [place] 1.016 1.005-1.030 pH 5.5 5.0-7.5 Urine-Color Yellow [...] Reviewed date:03/22/2023 02:23:45 AM Interpretation:5.6 normal Performing Lab:[address], Phone - [phone], Director - Josh Notes/Report: Hemoglobin A1c 5.6 4.8-5.6 % . Prediabetes: 5.7 - 6.4 Diabetes: >6.4 Glycemic control for adults with diabetes: <7.0 Cardiovascular Report Reviewed date:03/22/2023 02:23:45 AM Interpretation:na Performing Lab:[address], [place], Phone - [phone], Director - Josh Notes/Report: Interpretation Note Supplemental [...] I- Influenza Vaccine Declined Unknown 02/11/2010 Administered [id number] Unknown 03/19/2009 Administer ed PNEUMOCOCCAL-(PREVNAR-13) IM Intramuscular [...] Code Notes Problem Hyperlipidemia (E78.5) Active confirmed 11295434 Problem Benign essential hypertension (I10) Active confirmed 1912631 Problem Gout (M10.9) Active confirmed 95147476 Problem BPH (benign prostatic hyperplasia) (N40.0) Active confirmed 765979381 Problem Epididymitis (N45.1) Active confirmed 31154868 Problem Actinic keratosis (L57.0) Active confirmed 709755290 Problem Monocytosis (symptomatic) (D72.821) Active confirmed 58183968 Problem Persistent atrial fibrillation (I48.1) Active confirmed 236292433 Problem History of prostate cancer (Z85.46) Active confirmed 735053460 Problem Peripheral polyneuropathy (G62.9) Active confirmed 27921667 Problem Hammertoe (M20.40) Active confirmed 122 663869 Problem Macular retinal puckering, 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) Active confirmed 803374407 Problem Diverticulosis of colon (K57.30) Active confirmed 558902006 Problem Other age-related cataract of right eye (H25.89) Active confirmed 00995720 Problem Other congestive heart failure (I50.9) Active confirmed 68578486 Problem Chronic atrial fibrillation (I48.20) Active confirmed Chronic atrial fibrillation (244566788) VITAL SIGNS Blood pressure diastolic 60 mm Hg 03/22/2023 Height 71.2 in 03/22/2023 Blood pressure systolic 110 mm Hg 03/22/2023 Weight 209.0 lbs 03/22/2023 BMI 28.98 kg/m2 03/22/2023 Encounters Encounter Location Date Provider Diagnosis [address] [address] 03/22/2023 Allyson Grijalva Encounter for genera l [...] Body mass index [BMI] 28.0-28.9, adult Z68.[address] [address] 11/17/2022 Allyson Grijalva Hyperlipidemia E78.5 ; BPH (benign prostatic hyperplasia) N40.0 ; Benign essential hypertension I10 and Hyperglycemia R73.9 [facility] [address] [address] 12/01/2022 Allyson Grijalva [facility] [address] [place] [address] 10/19/2023 Allyson Grijalva ASSESSMENTS Encounter Date Diagnosis Assessment Notes Treatment Notes Treatment Clinical Notes 03/22/2023 Encounter for general adult medical examination with abnormal findings (ICD-10 - Z00.01) Counseled on safety issues. Immunization record reviewed. living will and POA discussed and reviewed. 03/22/2023 Other congestive heart failure (ICD-10 - I50.9) status post pacemaker and defribillator and seeing the scientific programmer. 03/22/2023 Chronic atrial fibrillation (ICD-10 - I48.20) remain on Eliquis. 11/17/2022 Hyperlipidemia (ICD-10 - E78.5) 03/22/2023 Gout (ICD-10 - M10.9) check uric acid. continue allopurinol. 11/17/2022 BPH (benign prostatic hyperplasia) (ICD-10 - N40.0) 03/22/2023 Macular retinal puckering, left eye (ICD-10 - H35.372) continue to see the rock loader. 11/17/2022 Benign essential hypertension (ICD-10 - I10) [...] foot chronic issue. status post workup with second grade teacher. 03/22/2023 Monocytosis (symptomatic) (ICD-10 - D72.821) unchanged. [...] Date Coverage End Date Medicare [address] [place] [id number] Timmy Whitman Self - patient is the insured MEDICAL (GENERAL) HISTORY Medical History History ICD Code htn,erectile dysfx s/p brachiotx prostat e ca 2002,gout, mixed hyperlipidemia roxann, Dr Schultz, was infected 2016 actinic keraotis, up to date with derm, Effludex annually, Dr Regan a-fib- on elaquis cardiomyopathy Benign essential hypertension I10 Mixed hyperlipidemia E78.2 Gout M10.9 Peripheral polyneuropathy G62.9 Macular retinal puckering, left eye H35. 372 Diverticulosis of colon K57.30 Surgical History Surgery Date(Month/Year) AV node ablation, pacemaker/defribillato r 06/2019 right cataract removal 08/2018 Left cataract removal 11/2016 left hip replacement [address] Schultz 2016 brachiotherapy prostate CAGleasson6 josé luis o ca 2002 colonoscopy [place], due 2012 2002 Hospitalization History Reason Date(Month/Year) a fib 03/2018 cataract surgery 12/2016 surgery
--- OUTSIDE RECORDS SUMMARY | 2023-10-27 04:03 | XMS_ITS ---
Author Organization [facility] Address [address] [place] [address] Care Team Providers Care Quarantine Inspector Name Role Phone Allyson Grijalva Primary Care [...] Location Date Provider Diagnosis [facility] [address] [place] [address] 03/22/2023 Allyson Grijalva Encounter for genera l [...] post pacemaker and defribillator and seeing the milk tester. 03/22/2023 Chronic atrial fibrillation (ICD-10 - I48.20) remain on Eliquis. 03/22/2023 Gout (ICD-10 - M10.9) check uric acid. continue allopurinol. 03/22/2023 Macular retinal puckering, left eye (ICD-10 - H35.372) continue to see the programming internship. 03/22/2023 Benign essential hypertension (ICD-10 - I10) Blood pressure remains well controlled on current medication. 03/22/2023 History of prostate cancer (ICD-10 - Z85.46) you're up to date with the urologist. psa creeping up. watch for any urinary symptoms. 03/22/2023 Skin texture changes (ICD-10 - R23.4) left foot chronic issue. status post workup with longwall shearer operator. 03/22/2023 Monocytosis (symptomatic) (ICD-10 - D72.821) unchanged. [...] st pacemaker and defribillator and seeing the milk tester. Chronic atrial fibrillation remain on El iquis. Gout check uric acid. con tinue allopurinol. Macular retinal puckering, left eye cont inue to see the programming internship. Benign essential hypertension Blood pres sure remains well controlled on current medication. History of prostate cancer you're up to date with the urologist. psa creeping up. watch for any urinary symptoms. Skin texture changes chronic issue. stat us post workup with longwall shearer operator. Monocytosis (symptomatic) unchanged. Overweight Counseled on weight. [...] to Person?: Yes Orientation to Time?: Yes Functional Ability/ Safety Screening Was the Up and Go test time unsteady [...] Family Hx verified ?: Yes Immunization list verified ?: Yes Other Care Providers :: Verified Depression Screen: Over the past 2 weeks Have you felt little interest or pleasure in doing things?: No Have you felt down, depressed or hopeles s?: No Vision/Hearing Screening (Optional) :: Not Indic ated Written Care Plan provided to Pt ?: Done Patient Care Team Cardiology Dr. Diego yi Dermatology [facility] of dermatology ENT Dr. Wells Gastroenterology Dr. Cunningham Ophthalmology Dr. Casper Urology [facility] at [facility] Podiatry Dr. Abrams Pre-Visit Planning Pre-Visit Planning Completed: 03/19 Depression Screening, fall risk screening
--- OUTSIDE RECORDS SUMMARY | 2023-10-27 04:03 | XMS_ITS | Patient Health Record ---
Author Organization [facility] Address [address] [facility] [address] [place] [address] Care Team Providers Care Rehab Therapist Name Role Phone Allyson Grijalva MD Primary Care Provider Saw Mahajan Unavailable [phone] Allergies No Known Allergies Results Component Value Reference Range Notes Prostate-Specific Ag, Serum - [id number] Reviewed date:11/11/2022 08:33:35 AM Interpretation: Performing Lab:[facility], [address] [place] [address], [place], Phone - [phone], Director - Josh Notes/Report: Prostate Specific Ag 2.1 0.0-4.0 ng/mL Felicia ECLIA methodology. . According to the [place] [employer], Serum PSA should decrease and [...] 11/16/2022 Encounters Encounter Location Date Provider Diagnosis [facility] [place] [address] [place] [id number] 11/16/2022 Saw Gunn Malignant neoplasm of prostate [...] pt to discuss wathcman procedure with his neon sign mechanic Plan Of Treatment Pending Test Test Name Order Date [id number] URINE CAPACITY MEASURE 11/20/19 22 Hand Lt 3 vw 01/15/2021 Hand Lt 3 vw 03/17/2021 PT/OT 04/04/2021 Next Appt Details Provider Name:Saw Gunn, 11/15/2023 10:15:00 AM, [address], [address], [place], [phone], Insurance Providers Payer Name Payer Address Payer Phone Subscriber Number Group Number Insured Name Patient Relationship to Insured Coverage Start Date Coverage End Date Medicare [address] [place] becerril [id number] WAQAR JULES Self - patient is the insured 7 Medical (General) History Medical History History ICD Code GOUT a fib Surgical History Surgery Date(Month/Year) 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
--- OUTSIDE RECORDS SUMMARY | 2023-10-27 04:03 | XMS_ITS ---
Author Organization [facility] Address [address] [facility] [place] [address] Care Team Providers Care Database Engineer Name Role Phone Rudi FERRARO, Allyson Primary Care Provider Unavaila Saw Moffett [phone] REASON FOR VISIT annual Problems No Known Problems Encounters Encounter Location Date Provider Diagnosis [facility] [place] [address] [place] [id number] 11/17/2022 Saw Gunn Plan Of Treatment Next Appt Details Provider Name:Saw Gunn, 11/15/2023 10:15:00 AM, [address], [address], [place], [place], [phone], Progress Notes * WAQAR JULES EDOB:1940 (83 yo M)Acc No.[id number]:11/17/2022 UNLOCKED PROGRESS NOTE Patient:?WAQAR JULES Provider:?Saw Gunn MD :1940???Age:82 Y???Sex:Male Rocky e:11/17/2022 Address:[address] [facility] Pcp:Allyson Grijalva MD Subjective: * Chief Complaints: * ???1. Annual. * Medical History:? Objective: * Vitals:? Assessment: Plan: * Treatment: * * Electronic signature of Davian Gunn MD on 10/27/2023 at 04:03 AM EDT Sign off status: Pending * Provider:?Saw Gunn MD Date:? 023 Generated for Walker caro/Brittany/Naboritting on:?10/27/2023 04:03 AM EDT
--- OUTSIDE RECORDS SUMMARY | 2023-10-27 04:03 | XMS_ITS | Encounter Summary ---
[place] [address] Care Team Providers Care Marsh Buggy Operator Name Role Phone Frankie Friedman DPM Primary Care Provider [phone] Reason for Visit * Reason Comments Toe Pain right 4th toe Encounter Details Date Type Department Care Team (Late st Contact Info) Description 09/30/2016 2:24 PM EDT - 09/30/2016 5:38 PM EDT [place] [address] Cellulitis, unspecified cellulitis site (Primary Dx); Cellulitis [...] from the original note were not included. [facility] Cellulitis: Care Instructions Your Care Instructions [...] your doctor if you can take an szen-zkv-czxmvtk medicine. To prevent cellulitis in the future [...] Where can you learn more? Visit our [employer] information library at [email or web address]. You can also view health information on bepretty, your personal patient account. Log in or sign uptoday. Enter X309 in the search box to learn more about Cellulitis: Care Instructions. Current as of: December 12, 2015 Content Version: 11.3 ?? 9988-8513 [employer]. Care instructions adapted under license by [facility]. If you have questions about a medical condition or this instruction, always ask your healthcare professional. [employer] disclaims any warranty or liability for your [...] days. Patient will have follow-up with his coagulating bath operator early next week. Patient will return to [...] TH Visit (TeleHealth) [place] [address] [place] Murphy APRN [facility] [place] [address] documented as of this encounter Procedures Procedure [...] (ABNORMAL) Differential, Automated (09/30/2016 4:03 PM EDT) Neutrophil % 68.6 % [facility] Neutrophil Absolute 3.41 1.70 - 6.10 x10(3)/mc L [facility] Lymph % 13.7 % [facility] Lymphocytes Abs 0.7(L) 0.9 - 3.2 x10(3)/ L [facility] Monocyte % 16.3 % [facility] Monocyte Abs 0.8 0.3 - 0.9 x10(3)/ L [facility] Eos % 0.4 % [facility] Eosinophils Abs 0.0 0.0 - 0.4 x10(3)/ L [facility] Basophil % 0.8 % [facility] Baso Absolute 0.0 0.0 - 0.1 x10(3)/mc L [facility] Immature Gran % 0.20 % [facility] Comment: Immature granulocytes(IG's)percentage and absolute count will include metamyelocytes, myelocytes, and promyelocytes. Blood smears from CBCs yielding IG's will be scanned manually for concordance. If this scan disagrees with the automated IG or if promyelocytes are noted, a manual differential will be performed. Immature Gran Absolute 0.01 0.00 - 0.04 x10(3)/ L [facility] Blood specimen (specimen) 09/30/2016 4:03 PM EDT 09/30/2016 4:11 PM EDT Narrative Resulting Agency Comment Spec In Lab Sol Doherty SYSTEMS MANAGER HEMATOLOGY ORDERABLE S [facility] [place] [address] * (ABNORMAL) Hemogram (09/30/2016 4:03 PM EDT) White Blood Cell 5.0 4.0 - 9.5 x10(3)/mc L [facility] Red Blood Cell 5.26 4.58 - 5.54 x10(6)/mc L [facility] Hemoglobin 18.4(H) 13.7 - 16.5 gm/dL [facility] Hematocrit 51.5(H) 40.5 - 48.5 % [facility] Mean Cell Volume 97.9(H) 82.9 - 93.1 fL [facility] Mean Cell Hemoglobin 35.0(H) 27.5 - 32.1 pg [facility] Mean Cell Hemoglobin Concentration 35.7 32.0 - 35.7 gm/dL [facility] Platelet 182 145 - 357 x10(3)/mc L [facility] RDW Standard Deviation 44.3 36.0 - 45.0 [facility] RDW coefficient of variation 12.3 11.4 - 13.8 % [facility] Mean Platelet Volume 8.7 7.6 - 12.9 [facility] NRBC% auto 0.0 % [facility] NRBC Absolute 0.000 0.000 - 0.000 x10(3)/ L [facility] Blood specimen (specimen) 09/30/2016 4:03 PM EDT 09/30/2016 4:11 PM EDT Narrative Resulting Agency Comment Spec In Lab Sol Doherty APRN HEMATOLOGY ORDERABLE S [facility] [place] [address] * (ABNORMAL) CRP, acute inflammation (09/30/2016 4:03 PM EDT) Pathologist [facility] C-Reactive Protein 29.3(H) <=4.9 mg/L [facility] Blood specimen (specimen) 09/30/2016 4:03 PM EDT 09/30/2016 4:11 PM EDT Narrative Resulting Agency Comment Spec In Lab Sol Doherty APRN CHEMISTRY ORDERABLES Performing Organization Address [facility] Co de Phone Number [facility] [place] [address] * Sedimentation rate (09/30/2016 4:03 PM EDT) [facility] Sedimentation Rate Automated 9 0 - 15 mm/hr [facility] Blood specimen (specimen) 09/30/2016 4:03 PM EDT 09/30/2016 4:11 PM EDT Narrative Resulting Agency Comment Spec In Lab Sol Doherty APRN HEMATOLOGY ORDERABLE S Performing Organization Address [facility] Co de Phone Number [facility] [place] [address] * (ABNORMAL) Basic Metabolic Panel (non-fasting) (09/30/2016 4:03 PM EDT) [facility] Glucose 97 65 - 199 mg/dL [facility] Comment:Diabetes: >=200 mg/d L plus symptoms Blood Urea Nitrogen 16 10 - 20 mg/dL [facility] Creatinine 1.07 0.80 - 1.50 mg/dL [facility] Comment: Please note that the pediatric reference intervals supplied above were not validated at [facility]. Results from pediatric patients should be interpreted in conjunction to the patient's age, height and muscle mass. Sodium 140 135 - 145 mmol/L [facility] Potassium 4.4 3.5 - 5.0 mmol/L [facility] Comment: Please note: ??Patients with WBC >100,000 may have falsely elevated Potassium levels. ??For accurate Potassium quantification in these patients send serum separator tube (gold top) for subsequent determinations. ??Contact the Clinical Chemistry Laboratory if there are any questions. Chloride 98 98 - 107 mmol/L [facility] Carbon Dioxide 26 22 - 31 mmol/L [facility] Anion Gap 16(H) 5 - 15 mmol/L [facility] Calcium 9.9 8.5 - 10.5 mg/dL [facility] Est Glomerular Filtration Rate >60 >=60 [facility] Comment: This estimated GFR [...] the following links into your internet browser. [email or web address] Blood specimen (specimen) 09/30/2016 4:03 PM EDT 09/30/2016 4:11 PM EDT Narrative Resulting Agency Comment Spec In Lab Sol Doherty APRN CHEMISTRY ORDERABLES [facility] [place] [address] * XR Toe(s) Min 2 view Right [...] or radiographic evidence ofosteomyelitis. Sol Doherty APRN [facility] DX ORDERABLES documented in this encounter Visit [...] Structure 1720 (Given - Provid er: Vivek Medina, LUISAP) documented in this encounter Care Teams Marsh Buggy Operator Relationship Specialty Start Date End Date Frankie Friedman DPM [address] [place] [id number] PCP - General Podiatry 09/30/16 10/15/23 documented as of this encounter
--- OUTSIDE RECORDS SUMMARY | 2023-10-27 04:03 | XMS_ITS ---
Author Organization [facility] Address [address] [place] [address] Care Team Providers Care Ekg Monitor Tech Name Role Phone Allyson Grijalva MD Primary Care Provider Saw Mahajan Unavailable [phone] Allergies No Known Allergies REASON FOR VISIT [...] 11/16/2022 Encounters Encounter Location Date Provider Diagnosis [facility] [place] [address] [place] [phone] 11/16/2022 Saw Gunn Malignant neoplasm of prostate [...] pt to discuss wathcman procedure with his boiler installer Plan Of Treatment Treatment Notes Assessment Notes [...] pt to discuss wathcman procedure with his boiler installer Future Test Test Name Order Date PSA, Serum (Serial Monitor) - [id number] 04/2023 Next Appt Details Follow Up: 1 Year, Reason: Provider Name:Saw Gunn, 11/15/2023 10:15:00 AM, [address], [address], [place], [id number], Progress Notes * WAQAR JULES EDOB:1940 (82 yo M)Acc No.[id number]:11/16/2022 Patient:?WAQAR JULES Provider:?Saw Gunn MD :1940???Age:82 Y???Sex:Male Rocky e:11/16/2022 Address:[address] [place] [address] [id number] Pcp:Allyson Grijalva MD Subjective: * Chief Complaints: [...] pt to discuss wathcman procedure with his boiler installer.?? * Procedure Codes:? * Follow Up:?1 Year * * Sign off status: Completed true * Provider:?Saw Gunn MD Date:? 023 Generated for Walker caro/Brittany/Tigre on:?10/27/2023 04:03 AM EDT History and Physical Notes * Examination Category Sub-Category Detail Notes General Examination GENERAL APPEARANCE: pleasant , well nourished, well developed, in no acute distress
--- OUTSIDE RECORDS SUMMARY | 2023-10-27 04:03 | XMS_ITS | Encounter Summary ---
Author Organization [place] [id number] Care Team Providers Care Powder Room Attendant Name Role Phone Allyson Grijalva MD Primary Care Provider [phone] Reason for Visit * Reason Comments Wound Check Right second toe * Auth/Cert (Routine) Specialty Diagnoses / Procedures Referred By Contac t Referred To Contact Diagnoses Cellulitis and abscess of foot Cellulitis of foot, [place] [address] [facility] Referral ID Status Reason Start Date Expiration Date Visits Re quested Visits Authorized [id number] 1 1 Encounter Details Date Type Department Care Team (Latest Contact Info) Description 10/16/2023 1:11 PM EDT - 10/20/2023 1:36 PM EDT Hospital Encounter Neurosciences and ENT Unit Level [address] [place] [id number] [place] [address] [place] [address] Cellulitis of foot, right; Cellulitis, unspecified cellulitis site; QT prolongation Discharge Disposition: Home Social History Tobacco Use Types Packs/Day Years Used Date Smoking Tobacco: Never Smokeless Tobacco: Never Tobacco Cessation:Counseling Given: Not Answered Alcohol Use Standard Drinks/Week Comments Yes 6 (1 standard drink = 0.6 oz pur e alcohol) 2 daily [facility] Utilities Answer Date Recorded In the [...] time in the past 12 m [facility], were you homeless or living in a group home (including now)? No 10/18/2023 [facility] IPV Inpatient Questions Answer Date Recorded Does [...] Mass Index 28.6 10/16/2023 11:01 PM EDT documented in this encounter Discharge Summaries * Saroj Alexander PA - 10/20/2023 10:55 AM EDT Discharge Summary Patient Name: Timmy Whitman Patient Age: 83 y.o. Language: Tajik Race: White Ethnicity: Choose not to Disclose Admit date: 10/16/2023 Discharge date and time: 10/20/23 Attending Physician: Gio Jackson MD Discharge Provider: DURGA Strong Follow-up Recommendations for Providers: - Treatment for Osteomyelitis of the 2nd metatarsal head and 2nd toe proximal phalanx (right foot):Bactrim DS twice per day and Levofloxacin 750mg daily for 6 weeks through November 26. TeleHealth with [facility] will be following. Inpatient Provider Contact Information: For questions regarding this document or issues relating to this hospitalization on the Medical Service, please contact your inpatient physician through the [facility] . Issues afterhours and on weekends will be handled by the Hospitalist staff on-call. Discharge Diagnoses (Hospital Problems) and Secondary Diagnoses (Chronic Problems): Active Hospital Problems Diagnosis Cellulitis and abscess of foot Resolved Hospital Problems No resolved problems to display. There are no active non-hospital problems to display for this patient. Operations/Major Procedures: Operations: Other Major Procedures: None History of Presentation: Per H&P... Timmy Whitman is a 83 y.o. male presenting with swelling and redness of a right foot plantar ulcer. Medical history is most notable for atrial fibrillation s/p multiple ablations and on apixaban, history of pacemaker placement, reportedly HFrEF, neuropathy (per patient unspecified underlying cause),as well as pre- diabetes. He is accompanied today by his . Patient reports his primary residence is in [place] and his doctors including his Cardiologistare also located in [place]. He reports ulceration on the plantar aspect of his right foot started approximately 4 months ago. He noted increased redness, swelling, pain at the plantar wound three days prior to presentation and was seen at [facility] three days ago. Per patient, he received IV antibiotics, imaging, and was discharged with Augmentin and doxycycline. Patient has been taking the prescribed oral antibiotics over the last three days. He reports that redness, swelling, pain are similar to three days ago. He denies worsening pain and swelling, and states that redness has not moved more proximally. He endorses tingling of his feet and reports long-standing neuropathy at baseline of unknown cause per patient. He denies history of T2DM, but does note history of pre-diabetes. He denies fevers, rigors, chest pain, dyspnea, abdominal pain, nausea, vomiting, weakness, gait instability. Home medications per patient and his : - Coreg 25 mg BID - Apixaban 5 mg BID - Allopurinol 50 mg daily In ED, the patient was afebrile and hemodynamically stable. On labs, the patient was without leukocytosis. His CRP was 86.1 and the sed rate was 82. BMP was unremarkable. Plain films of the right foot did not show acute osseous abnormality or radiographic evidence of advanced acute osteomyelitis, and did not show tracking soft tissue gas. MRI was ordered and is pending. Patient has a history of pacemaker placement in [place] and itis unclear if this is MRI-compatible. However, per outside records that are available, he has undergone MRI at an outside hospital in the past. MRI staff is reviewing whether based on the informationavailable, MRI can be completed here to evaluate for osteomyelitis. While in ED, the patient received vancomycin and piperacillin-tazobactam. He was evaluated by the orthopedic surgery service with recommendation for MRI, IV antibiotics, MARLEE. Admission to Hospitalist service was requested for further monitoring and management. Hospital Course: # Right foot cellulitis # Osteomyelitis of 2nd metatarsal head and 2nd toe proximal phalanx Started on IV antibiotics: Zosyn and vancomycin. MRI with early/mild osteo of 2nd toe, as well as possible microabscesses, possible septic arthritis. See chart for full read. Orthopedics consulted for question of surgical management. New MARLEE/TCPO2s obtained to assess vascular flow and healing of the right lower extremity which showed no evidence of lower extremity arterial occlusive disease. Initially discussed with Orthopedics and seemingly planned for OR for surgical management, though after team review, the osteo is not definitive per their read and Orthopedics recommended non-surgical management. Consult with ID. Unfortunately we do not have culture data so will need to treat broadly. In fectious disease recommended Bactrim and Levofloxacin for six weeks. He should continue to wear hisoff-loading boot on the right foot. # Right lower extremity swelling Regarding his swelling of his right lower extremity, he denies pain or calf tenderness, he is on apixaban at home suspect swelling is in setting of his plantar infection which did improve over the course of his hospitalization. # Atrial fibrillation s/p ablation # S/p pacemaker Continue home Coreg. Held his home Apixaban until it was determined he was not going for procedure.This was resumed during the remainder of her hospital course and continued upon discharge. # History of gout Patient would prefer to hold on allopurinol for now during hospital course. Resumed upon discharge. Vital Signs at Discharge: BP: 136/77, Heart Rate: 83, Temp: 36.3 ??C (97.3 ??F), Resp: 16, BMI (Calculated): 28.59 Height: 180.3 cm (5' 11) (10/16/232300) Weight: 93 kg (205 lb 0.4 oz) (10/16/232300) Functional and Cognitive Status: At baseline Important Studies and Lab Data: Labs: Last wbc, hgb, hct plt Recent Labs 10/19/23 0452 WBC 4.64 HGB 13.2* HCT 38.4* Last 3 wbc, hgb, hct plt Recent Labs 10/19/23 0452 10/18/23 0604 10/17/23 0538 WBC 4.64 4.81 4.64 HGB 13.2* 12.9* 13.4* HCT 38.4* 37.4* 38.3* PLATELET 257 269 240 Last 3 Lytes Recent Labs 10/19/23 0452 10/18/23 0604 10/17/23 0538 NA 144 143 142 K 3.3* 3.6 3.9 CL 109* 107 107 CO2 22 24 23 BUN 8* 9* 12 CREATININE 1.10 1.16 1.03 Last 3 LFTs No results for input(s): AST, ALT, ALKPHOS, BILITOT, BILIDIR in the last 7068hours. Last Ca, Mg, Phos Recent Labs 10/19/23 0452 CALCIUM 9.1 Last 3 Coags No results for input(s): PT, INR, PTT in the last 168 hours. Last 3 ProBNP, Trop, CK No results for input(s): CK, TROPONINT, PROBNP in the last 168 hours. Last 3 TFT No results for input(s): TSH in the last 7068 hours. Invalid input(s): T4, FT4 Last 3 Lipids No results for input(s): CHLPL, HDL, LDLCHOL, LDLDIRECT, TRIG in the last 7068 hours. Last 3 HgbA1C No results for input(s): HA1C in the last 7068 hours. Last CRP, SEDRATE Recent Labs 10/18/23 0604 10/17/23 0538 10/16/23 1328 CRP 30.0* < > 86.1* SEDRATE -- -- 82* < > = values in this interval not displayed. Last 3 CBC Recent Labs 10/19/23 0452 10/18/23 0604 10/17/23 0538 WBC 4.64 4.81 4.64 Studies: Results for orders placed or performed during the hospital encounter of 10/16/23 XR Foot Min 3 views Right (Generic) (Exam End: 10/16/2023 2:08 PM) Result Value WORKSTATION ID [id number] Impression 1. No acute osseous abnormality or radiographic evidence of advanced acute osteomyelitis. 2. Forefoot soft tissue swelling. No tracking soft tissue gas. 3. Osteoarthritic changes as described. 4. 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 Thank you for letting us participate in the care of this patient. If you are a health care provider and have any questions regarding this report, please contact the number below. For patients who have questions please contact the health personal carer that requested your imaging first. Electronically signed by: Jean Carlos Condon MD, [facility] ([phone]), at 10/16/2023 2:19 PM MRI Foot wwo Contrast Right (Exam End: 10/17/2023 11:25 AM) Result Value WORKSTATION ID [id number] Impression 1. Within the dorsal subcutaneous soft tissues overlying the 2nd toe proximal phalanx is a microabscess measuring 1.0 x 1.3 x 0.7 cm. This microabscess abuts the extensor tendon sheath of the 2nd toe, but there is no extension of fluid distention along the course of the 2nd toe extensor tendon sheath. 2. There is a plantar wound underlying the 2nd metatarsal head with a fluid-filled sinus tract leading to and likely communicating with the 2nd metatarsophalangeal joint. There is enhancement around the sinus tract, consistent with inflammation/infection. There is no fluid distention of the 2nd metatarsophalangeal joint, but there is thickened enhancing synovium, consistent with synovitis. Findings are suspicious for septic arthritis of the 2nd metatarsophalangeal joint. 3. Associated mild marrow edema-like signal and enhancement of the 2nd metatarsal head and the 2nd toe proximal phalanx, without associated T1 hypointense signal alteration, is consistent with reactive osteitis or early/mild osteomyelitis. Given the presence of the sinus tract that likely communicates with the 2nd metatarsophalangeal joint, some degree of infectious contamination is suspected. 4. Dorsal dislocation at the 2nd metatarsophalangeal joint. 5. No MR evidence of flexor or extensor tenosynovitis. 6. Chronic denervation changes of the muscles of the forefoot with superimposed subacute denervation change versus myositis. 7. 1st, 2nd, and 3rd intermetatarsal bursitis. 8. Advanced mid foot arthropathy which may be a combination of neuropathic and/or degenerative arthropathy. 9. Focus of susceptibility [...] in the care of this patient. If you are a health care provider and have any questions regarding this report, please contact the number below. For patients who have questions please contact the health personal carer that requested your imaging first. Electronically signed by: Daphne Mason MD, [facility] ([phone]), at 10/17/2023 12:40 PM XR Chest PA & Lateral (Generic) (Exam End: 10/16/2023 7:02 PM) Result Value WORKSTATION ID [id number] Impression 1. No acute cardiopulmonary process. 2. Indeterminant MR compatibility of cardioverter defibrillator present with intact leads. Preliminary report signed by: Eder Laird MD at 10/16/2023 7:13 PM I have personally reviewed the image(s) and the resident's interpretation and agree with the findings, Jean Carlos Condon MD at 10/16/2023 7:22 PM Thank you for letting us participate in the care of this patient. If you are a health care provider and have any questions regarding this report, please contact the number below. For patients who have questions please contact the health personal carer that requested your imaging first. Electronically signed by: Jean Carlos Condon MD, [facility] ([phone]), at 10/16/2023 7:22 PM Pending Studies and Lab Data: None Discharge Conditions/Prognosis: Stable/ Fair Discharge to: Home with no services Updated Allergies/ADRs: No Known Allergies Immunizations Given this Hospitalization: There is no immunization history on file for this patient. Discharge Medications: Your Medications New Medications Dose Details levoFLOXacin 750 mg tablet Commonly known as: Levaquin Take 1 tablet by mouth daily for 38 days. 750 mg Quantity: 30 tablet Refills: 0 sulfamethoxazole-trimethoprim DS 800-160 mg tablet Commonly known as: Bactrim DS Take 1 tablet by mouth 2 times daily for 38 days. 1 tablet Quantity: 60 tablet Refills: 0 Continued medications, unchanged Dose Details allopurinoL 100 mg tablet Commonly known as: Zyloprim Take 100 mg by mouth daily. 100 mg Refills: 0 apixaban 5 mg tablet Commonly known as: Eliquis Take by mouth. Refills: 0 carvediloL 25 mg tablet Commonly known as: Coreg Take 25 mg by mouth 2 times daily (with meals). 25 mg Refills: 0 lisinopriL 20 mg tablet Commonly known as: Zestril Take 20 mg by mouth daily. 20 mg Refills: 0 Smoking Status at Discharge: Social History Tobacco Use Smoking Status Never Smokeless Tobacco Never Instructions Given to Patient at Discharge: Patient Instructions Instructions on Discharge to Home Why you were hospitalized: Osteomyelitis of your 2nd toe (right foot) Specific instructions related to your condition: You were discharged home with two antibiotics: - Bactrim DS twice per day - Levofloxacin 750mg daily You will take both of these antibiotics for 6 weeks total - through November 26. You will need to follow up with infectious disease which will be scheduled by their team /coordinated with your healthcare providers in [place]. TeleHealth with [facility] will be following you up this. Please makesure you wear off-loading boot on R foot as directed. Call your doctor or seek medical attention if you develop the following - chest pain, shortness of breath, fever, cough, weakness in an arm or leg Activity level: no restrictions Diet: no change in previous diet Driving: as before hospitalization. Please do not drive while on narcotics. Shower/Bath: permitted Wound Care: Keep the area clean and dry, prevent clothing items from sticking to the wound by covering with bandage/gauze Your Medications (see discharge med list for full instructions): Follow-up: No future appointments. Your Inpatient Doctor: VANESSA PATTEN FREDRIK B Your Primary Care Provider: Allyson Grijalva MD For questions regarding this document or issues relating to this hospitalization on the Medical Service, please contact your inpatient physician through the [facility] . Issues afterhours and on weekends will be handled by the Hospitalist staff on-call. General Instructions Orthopaedic Discharge Instructions Below are general guidelines. You will need to be aware that these guidelines are only general, each person???s recovery may vary. If you have any questions after reading this sheet, please call us. 1. Problem: R Second Toe Plantar Ulcer with Osteitis 2. Recommendations: You are Weight bearing as tolerated in the right lower extremity. Remember to wear our forefoot offloader shoe to help redistribute pressure from the site of your ulcer Please continue to work to optimize your nutritional status 3. Precautions: Please contact your physician if you have continued worsening right foot pain or worsening wounds Please contact your physician or present to the emergency department if you have any of the following: Fevers, redness, drainage, excessive pain, numbness, tingling, weakness 4. Follow-up: You will not require a follow-up appointment with orthopaedics unless symptoms fail to improve. 5. Contact Info: If you have any questions or concerns, please call the following: Orthopaedic Clinic Wednesday thru Wednesday 8am - 5pm: [phone] Orthopaedic Physician databases computer consultant - After 5pm and Weekends: [phone] Future Appointments and Orders Future Orders Complete By Expires Full code [COD2 Custom] As directed Process Instructions: 1. Completing this order indicates that the recording provider had a discussion with the patient and/or their agent regarding their wishes for resuscitation. 2. If the patient does not have decision making capacity, the provider must document within the order and in the contemporaneous progress note which of the patient's agents the discussion was held with. 3. If this Full Code Order is a revocation or cancellation of a previous DNR order and the providerrecording this order in the system is not the Attending of Record, then the recording provider willhave discussed this order with the Attending of Record and is documenting the decision of the Attending of Record obtained through explicit verbal review. Scheduling Instructions: Questions: Does patient have capacity to make decision: Yes Content of discussion: Full code Discharge References/Attachments None documented in this encounter Discharge Instructions * Discharge Instructions* Elijah Arshad, SHANI - 10/17/2023 8:35 PM EDT Orthopaedic Discharge Instructions Below are general guidelines. You will need to be aware that these guidelines are only general, each person???s recovery may vary. If you have any questions after reading this sheet, please call us. 1. Problem: R Second Toe Plantar Ulcer with Osteitis 2. Recommendations: You are Weight bearing as tolerated in the right lower extremity. Remember to wear our forefoot offloader shoe to help redistribute pressure from the site of your ulcer Please continue to work to optimize your nutritional status 3. Precautions: Please contact your physician if you have continued worsening right foot pain or worsening wounds Please contact your physician or present to the emergency department if you have any of the following: Fevers, redness, drainage, excessive pain, numbness, tingling, weakness 4. Follow-up: You will not require a follow-up appointment with orthopaedics unless symptoms fail to improve. 5. Contact Info: If you have any questions or concerns, please call the following: Orthopaedic Clinic Wednesday thru Wednesday 8am - 5pm: [phone] Orthopaedic Physician databases computer consultant - After 5pm and Weekends: [phone] * Patient Instructions* Saroj Alexander PA - 10/19/2023 5:27 AM EDT Instructions on Discharge to Home Why you were hospitalized: Osteomyelitis of your 2nd toe (right foot) Specific instructions related to your condition: You were discharged home with two antibiotics: - Bactrim DS twice per day - Levofloxacin 750mg daily You will take both of these antibiotics for 6 weeks total - through November 26. You will need to follow up with infectious disease which will be scheduled by their team /coordinated with your healthcare providers in [place]. TeleHealth with [facility] will be following you up this. Please makesure you wear off-loading boot on R foot as directed. Call your doctor or seek medical attention if you develop the following - chest pain, shortness of breath, fever, cough, weakness in an arm or leg Activity level: no restrictions Diet: no change in previous diet Driving: as before hospitalization. Please do not drive while on narcotics. Shower/Bath: permitted Wound Care: Keep the area clean and dry, prevent clothing items from sticking to the wound by covering with bandage/gauze Your Medications (see discharge med list for full instructions): Follow-up: No future appointments. Your Inpatient Doctor: VANESSA PATTEN FREDRIK B Your Primary Care Provider: Allyson Grijalva MD For questions regarding this document or issues relating to this hospitalization on the Medical Service, please contact your inpatient physician through the [facility] . Issues afterhours and on weekends will be handled by the Hospitalist staff on-call. documented in this encounter Medications at Time of Discharge Medication Sig Dispensed Refills Start Date End Date levoFLOXacin (Levaquin) 750 mg tablet Take 1 tablet by mouth daily for 38 days. 30 tablet 10/20/2023 11/27/2023 sulfamethoxazole-trimeth oprim DS (Bactrim DS) 800-160 mg tablet Take 1 tablet by mouth 2 times daily for 38 days. 60 tablet 10/20/2023 11/27/2023 carvediloL (Coreg) 25 mg tablet Take 25 mg by mouth 2 times daily (with meals). apixaban (Eliquis) 5 mg tablet Take by mouth. allopurinol (ZYLOPRIM) 100 mg Tablet Take 100 mg by mouth daily. lisinopril (PRINIVIL;ZESTRIL) 20 mg Tablet Take 20 mg by mouth daily. documented as of this encounter Progress Notes * Saroj Alexander PA - 10/20/2023 10:15 AM EDT Hospital Medicine - Day of Discharge Documentation Discharge diagnosis Active Hospital Problems Cellulitis and abscess of foot Resolved Hospital Problems No resolved problems to display. Secondary Issues There are no active non-hospital problems to display for this patient. Vital Signs Patient Vitals for the past 24 hrs: Temp Heart Rate From SP02 Resp BP SpO2 O2 Device 10/19/23 1203 36.8 ??C (98.2 ??F) 80 bpm 16 134/85 99 % RA 10/19/23 1526 36.7 ??C (98.1 ??F) 80 bpm 17 132/83 98 % RA 10/19/232020 36.7 ??C (98.1 ??F) 81 bpm 16 136/84 99 % RA 10/20/23 0808 36.3 ??C (97.3 ??F) 80 bpm -- 136/77 98 % -- Physical Exam: I have personally seen and examined the patient and they are ready for discharge. I spent > 30 minutes involved in the final examination of the patient, discussion of the hospital stay, instructions for continuing care to all relevant caregivers, and preparation of discharge records, prescriptions and referral forms. Plans Please see the Discharge Summary for complete details of any medication changes and additional plans. * Abby Gray MD - 10/19/2023 5:59 PM EDT OPAT INTAKE: Diagnosis: Osteomyelitis, Organism(s): Unknown, Antibiotic(s) being taken: Levofloxacin (750mg qD) and Trimethoprim- sulfamethoxazole (1 DS BID) With a start date of 10/16/2023, and anticipated end date of 11/27/2023. Desired labs: CBC w/diff, CMP and CRP. Lab frequency: Weekly Other: Desired timing of end of therapy appointment: Week of: 11/22/2023. Preferred provider for end of therapy visit: TeleHealth with [facility] * Leatha Anand RN - 10/19/2023 4:43 PM EDT Page Sent Successfully Page Confirmation To Pager number: [phone] From Submitter: Leatha Anand Urgency Level: FYI Callback Number: [phone] The following Message was sent: [] - Callback:[id number] RM [id number] Timmy Whitman EKG order in - Leatha Anand The following status was returned from the wrapper and preserver: Page for [phone] successfully sent to [phone] having status of Available. OK * Elijah Arshad APRN - 10/19/2023 8:20 AM EDT MEDICINE PAGER [phone] - [facility] Medicine Daily Progress Note Page [phone] to reach a provider 21/09 Admit Date: 10/16/2023 Encounter Date October 19, 2023 Anticipated Discharge Date: 10/22/2023 Hospital Day: 3 24 Hour Events/Subjective: -No acute events overnight, site continues to heal, he has no complaints. -Discussed biopsy option with IR/IR [facility], and podiatry, neither are able to biopsy location -Engaged ID who preferred biopsy / culture data understandably, but unable to obtain given distal location, appreciate their recommendations for antibiotic therapy. Objective: Last value Range last 24 hrs Temp: 36.7 ??C (98.1 ??F) Temp: [36.3 ??C (97.3 ??F)-36.8 ??C (98.2 ??F)] Heart Rate: 83 Heart Rate from SpO2: 84 bpm Heart Rate: [82-83] BP: 136/84 BP: (127-141)/(81-84) Resp: 16 Resp: [16] SpO2: 97 % SpO2: [96 %-99 %] Height: 180.3 cm (5' 11) Weight: 93 kg (205 lb 0.4 oz) BMI (Calculated): 28.59 BMI Classification: Over Weight Intake/Output Summary (Last 24 hours) at 10/19/2023 0820 Last data filed at 10/18/2023 1200 Gross per 24 hour Intake 400 ml Output -- Net 400 ml Patient Vitals for the past 72 hrs: Weight 10/16/23 2301 93 kg (205 lb 0.4 oz) 10/16/23 1245 93 kg (205 lb) Physical Exam Vitals and nursing note reviewed. Constitutional: General: Not in acute distress. Appearance: Not toxic-appearing. HENT: Head: Normocephalic. Mouth/Throat: Mouth: Mucous membranes are moist. Eyes: Extraocular Movements: Extraocular movements intact. Pupils: Pupils are equal, round, and reactive to light. Cardiovascular: Rate and Rhythm: Normal rate and regular rhythm. Heart sounds: Normal heart sounds. Pulmonary: Effort: Pulmonary effort is normal. No respiratory distress. Breath sounds: Normal breath sounds. Abdominal: General: Bowel sounds are normal. There is no distension. Palpations: Abdomen is soft. Tenderness: There is no abdominal tenderness. Musculoskeletal: Right lower le+ pitting edema in foot/ankle, with ulceration on right plantar surface at base of 2nd toe, sensation is intact - see media chart for photo Left lower leg: Trace Skin: General: Skin is warm and dry. Right foot warm erythematous Neurological: General: No focal deficit present. Mental Status: is alert. Psychiatric: Mood and Affect: Mood normal. Assessment: Timmy Whitman is a 83 y.o. male admitted for right foot cellulitis with concern for osteomyelitis. Patient is hemodynamically stable. Will continue broad spectrum IV antibiotics. MRI completed and concerning for early osteomyelitis of of the 2nd metatarsal head and the 2nd toe proximal phalanx. Appreciate Orthopedics involvement who discussed medical vs surgical management. Imaging is not definitive for osteomyelitis, therefore Orthopedics felt antibiotic route would be more appropriate, ID has been consulted for further recommendations. Plan: # Right foot cellulitis # Mild, not definitive osteomyelitis of 2nd metatarsal head and 2nd toe proximal phalanx (right foot) - IV antibiotics: Zosyn and vancomycin - MRI with early/mild osteo of 2nd toe, as well as possible microabscesses - Appreciate Orthopedics consult - MARLEE/TCPO2s without evidence of right lower extremity arterial occlusive disease - Appreciate Orthopedics input, will discuss with ID for antibiotic plan, no surgical intervention require at this time. # Right lower extremity swelling - Regarding his swelling of his right lower extremity, he denies pain or calf tenderness, he is on apixaban at home (though stated he has forgotten to take it before), suspect swelling is in setting of his plantar infection, but would have low threshold to also obtain duplex study to rule out clot # Atrial fibrillation s/p ablation # S/p pacemaker - Continue home Coreg - Holding apixaban in consideration of possible procedures # History of gout - Patient would prefer to hold on allopurinol for now PERTINENT LABS: Last wbc, hgb, hct plt Recent Labs 10/19/23 0452 WBC 4.64 HGB 13.2* HCT 38.4* Last 3 wbc, hgb, hct plt Recent Labs 10/19/23 0452 10/18/23 0604 10/17/23 0538 WBC 4.64 4.81 4.64 HGB 13.2* 12.9* 13.4* HCT 38.4* 37.4* 38.3* PLATELET 257 269 240 Last 3 Lytes Recent Labs 10/19/23 0452 10/18/23 0604 10/17/23 0538 NA 144 143 142 K 3.3* 3.6 3.9 CL 109* 107 107 CO2 22 24 23 BUN 8* 9* 12 CREATININE 1.10 1.16 1.03 CONSULTANTS: IP ADMISSION REQUEST IP CONSULT TO PHARMACY IP CONSULT TO INFECTIOUS DISEASES Diet: Daily Healthy Menu Choices/Cardiac diet ([facility]-Diet) Last BM documented: DVT Prophylaxis: LMWH DOAC Daily Checklist: Last Family Communication: By patient Discharge Location: AM-PAC Basic Mobility Raw Score: 23 PT: OT: Disposition Code status Attempt Cardiopulmonary Resuscitation - Inpatient PCP Frankie Friedman DPM [phone] Active Hospital Problems Diagnosis Cellulitis and abscess of foot Resolved Hospital Problems No resolved problems to display. Elijah Arshad APRN 10/19/2023 * Elijah Arshad APRN - 10/18/2023 8:51 AM EDT MEDICINE PAGER [phone] - [facility] Medicine Daily Progress Note Page [phone] to reach a provider 21/09 Admit Date: 10/16/2023 Encounter Date October 18, 2023 Anticipated Discharge Date: 10/22/2023 Hospital Day: 2 24 Hour Events/Subjective: -Admitted for worsening cellulitis of plantar ulcer on right foot after failing PO antibiotics outpatient -MRI completed see chart for full read: not definitive osteo - initially discussed with Orthopedicsand seemingly planned for OR for surgical management, though after team review, will discuss with ID and try to optimize his healing with antibiotic plan likely through OPAT Objective: Last value Range last 24 hrs Temp: 36.7 ??C (98.1 ??F) Temp: [36.4 ??C (97.5 ??F)-36.8 ??C (98.2 ??F)] Heart Rate: 90 Heart Rate from SpO2: 80 bpm Heart Rate: -- BP: 126/78 BP: (124-127)/(74-78) Resp: 15 Resp: [15-16] SpO2: 95 % SpO2: [95 %-99 %] Height: 180.3 cm (5' 11) Weight: 93 kg (205 lb 0.4 oz) BMI (Calculated): 28.59 BMI Classification: Over Weight Intake/Output Summary (Last 24 hours) at 10/18/2023 0851 Last data filed at 10/18/2023 0600 Gross per 24 hour Intake 150 ml Output -- Net 150 ml Patient Vitals for the past 72 hrs: Weight 10/16/23 2301 93 kg (205 lb 0.4 oz) 10/16/23 1245 93 kg (205 lb) Physical Exam Vitals and nursing note reviewed. Constitutional: General: Not in acute distress. Appearance: Not toxic-appearing. HENT: Head: Normocephalic. Mouth/Throat: Mouth: Mucous membranes are moist. Eyes: Extraocular Movements: Extraocular movements intact. Pupils: Pupils are equal, round, and reactive to light. Cardiovascular: Rate and Rhythm: Normal rate and regular rhythm. Heart sounds: Normal heart sounds. Pulmonary: Effort: Pulmonary effort is normal. No respiratory distress. Breath sounds: Normal breath sounds. Abdominal: General: Bowel sounds are normal. There is no distension. Palpations: Abdomen is soft. Tenderness: There is no abdominal tenderness. Musculoskeletal: Right lower le+ pitting edema in foot/ankle, with ulceration on right plantar surface at base of 2nd toe, sensation is intact - see media chart for photo Left lower leg: Trace Skin: General: Skin is warm and dry. Right foot warm erythematous Neurological: General: No focal deficit present. Mental Status: is alert. Psychiatric: Mood and Affect: Mood normal. Assessment: Timmy Whitman is a 83 y.o. male admitted for right foot cellulitis with concern for osteomyelitis. Patient is hemodynamically stable. Will continue broad spectrum IV antibiotics. MRI completed and concerning for early osteomyelitis of of the 2nd metatarsal head and the 2nd toe proximal phalanx. Appreciate Orthopedics involvement who discussed medical vs surgical management. Imaging is not definitive for osteomyelitis, therefore Orthopedics felt antibiotic route would be more appropriate, ID has been consulted for further recommendations. Plan: # Right foot cellulitis # Mild, not definitive osteomyelitis of 2nd metatarsal head and 2nd toe proximal phalanx (right foot) - IV antibiotics: Zosyn and vancomycin - MRI with early/mild osteo of 2nd toe, as well as possible microabscesses - Appreciate Orthopedics consult - Follow up MARLEE/TCPO2s to assess vascular flow and healing potential - Appreciate Orthopedics input, will discuss with ID for antibiotic plan, no surgical intervention require at this time. # Right lower extremity swelling - Regarding his swelling of his right lower extremity, he denies pain or calf tenderness, he is on apixaban at home (though stated he has forgotten to take it before), suspect swelling is in setting of his plantar infection, but would have low threshold to also obtain duplex study to rule out clot # Atrial fibrillation s/p ablation # S/p pacemaker - Continue home Coreg - Holding apixaban in consideration of possible procedures # History of gout - Patient would prefer to hold on allopurinol for now PERTINENT LABS: Last wbc, hgb, hct plt Recent Labs 08/19/24 0604 WBC 4.81 HGB 12.9* HCT 37.4* Last 3 wbc, hgb, hct plt Recent Labs 10/18/23 0604 10/17/23 0538 10/16/23 1328 WBC 4.81 4.64 6.58 HGB 12.9* 13.4* 13.6* HCT 37.4* 38.3* 39.1* PLATELET 269 240 256 Last 3 Lytes Recent Labs 10/18/23 0604 10/17/23 0538 10/16/23 1328 NA 143 142 139 K 3.6 3.9 3.6 CL 107 107 102 CO2 BUN 9* 12 14 CREATININE 1.16 1.03 0.87 CONSULTANTS: IP ADMISSION REQUEST IP CONSULT TO PHARMACY Diet: NPO diet (Give Meds) Last BM documented: DVT Prophylaxis: LMWH DOAC Daily Checklist: Last Family Communication: By patient Discharge Location: AM-PAC Basic Mobility Raw Score: 23 PT: OT: Disposition Code status Attempt Cardiopulmonary Resuscitation - Inpatient PCP Frankie Friedman DPM [phone] Active Hospital Problems Diagnosis Cellulitis and abscess of foot Resolved Hospital Problems No resolved problems to display. Elijah Arshad APRN 10/18/2023 * MastersRafael MD - 10/18/2023 7:39 AM EDT ORTHOPAEDIC SURGERY INPATIENT BRIEF PROGRESS NOTE: Timmy Whitman was discussed in morning conference. MRI does not show signs of definitive osteomyelitis. Based on discussion with the patient and his , he has not had a prolonged course of IV antibiotics with formal OPAT and wound care. At this time, we recommend medical management with an ID consult for IV antibiotic therapy and wound care consult for patient education on how to manage his wounds. Lastly, please provide the patient with a forefooot offloader shoe. While he remains in house, recommend trending a daily WBC and CRP to ensure adequate response to antibiotic therapy. Discussed with patient and his bedside, who express understanding. Orthopedics will re-engage in the caseof failure of non-operative management. Orthopedics will sign off at this point, if there are any questions or concerns please page [phone]. Rafael Roberts MD Orthopaedic Surgery [phone] * Marcelino Yanes MD - 10/18/2023 4:19 AM EDT ORTHOPAEDIC SURGERY INPATIENT PROGRESS NOTE Patient Name: Timmy Whitman Age: 83 y.o. Surgery/Issue: R 2nd toe plantar ulcer Attending: Dr. Agarwal Date of surgery: N/A SUBJECTIVE / INTERVAL HISTORY: NAEO, AFVSS MRI obtained showing osteitis at 2nd MTP, as well as synovitis at 2nd MTP c/f SA ABIs pending AM labs not back No issues overnight. Patient offers no complaints. Pain well controlled, denies N/V. FOCUSED REVIEW OF SYSTEMS: as above. Active Hospital Problems Diagnosis Cellulitis and abscess of foot Resolved Hospital Problems No resolved problems to display. There are no active non-hospital problems to display for this patient. MEDICATIONS: vancomycin (Vancocin) 1.75 gram in sodium chloride 0.9% 500 mL infusion vancomycin (Vancocin) - dosing by AUC carvediloL (Coreg) tablet 25 mg melatonin tablet 3 mg enoxaparin (Lovenox) (40 mg/0.4 mL) subcutaneous injection 40 mg acetaminophen (Tylenol) tablet 650 mg piperacillin-tazobactam (Zosyn) 4.5 g vial attach to sodium chloride 0.9% 100 mL Mini-Bag Plus OBJECTIVE: Temp: [36.4 ??C (97.5 ??F)-36.8 ??C (98.2 ??F)] Resp: [16-17] BP: (124-128)/(74-77) Intake/Output Summary (Last 24 hours) at 10/18/2023 0620 Last data filed at 10/18/2023 0600 Gross per 24 hour Intake 250 ml Output -- Net 250 ml BMI: Weight: 93 kg (205 lb 0.4 oz) (10/16/23 2301) BMI (Calculated): 28.59 BMI Classification: OverWeight Body mass index is 28.6 kg/m??. PE: General: awake/alert, responds to questions CV: RRR assessed peripherally Resp: Breathing comfortably on RA RLE: Wound not inspected this morning Erythema over dorsum of foot. Sensation decreased per baseline but intact (1+/2) in lat fem cut/fem/sural/saph/SP/DP/T distributions Motor intact to FHL/EHL/TA, knee extension/flexion, hip extension/flexion Brisk capillary refill distally, foot warm/well-perfused Lab Results Component Value Date NA 142 10/17/2023 NA 140 09/30/2016 K 3.9 10/17/2023 K 4.4 09/30/2016 CL 107 10/17/2023 CL 98 09/30/2016 CO2 23 10/17/2023 CO2 26 09/30/2016 BUN 12 10/17/2023 BUN 16 09/30/2016 CREATININE 1.03 10/17/2023 CREATININE 1.07 09/30/2016 GLUCOSE 94 10/17/2023 GLUCOSE 97 09/30/2016 CALCIUM 9.2 10/17/2023 CALCIUM 9.9 09/30/2016 Lab Results Component Value Date WBC 4.64 10/17/2023 HGB 13.4 (L) 10/17/2023 HCT 38.3 (L) 10/17/2023 MCV 101.3 (H) 10/17/2023 PLATELET 240 10/17/2023 IMAGING: XR Right foot (10/16/2023): Independent review of right foot x-rays shows no evidence of osseous destruction. 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 ASSESSMENT / PLAN: Timmy Whitman is a 83 y.o. male with a right plantar 2nd toe ulcer. MRI shows osteitis of the 2nd right MTP as well as synovial enhancement and thickening c/f R 2nd MTP SA. ABIs pending. Please keep him NPO such that should his vascular studies return normal, operative intervention today will remain an option. Please let us know if he is not appropriate for the OR today. Of note, he does mention that he has not had any prolonged abx for this wound specifically. Given this and overall limited degree of infection on MRI, as well as the location of the wound and difficulties it poses for amputation locally, wound care with a trial of prolonged antibiotics may be a reasonable consideration for him. We will discuss this at morning conference. Activity: WBAT RLE in forefoot offloader shoe - DVT prophylaxis: per primary - Antibiotics: per ID/primary - Diet: NPO pending discussion - Medications: per primary - Imaging / studies needed: ABIs - Follow-up: pending course Marcelino Yanes MD 10/18/2023 No future appointments. * Skyla Degroot RN - 10/17/2023 6:29 PM EDT Patient anxiously awaiting steps for possible OR trip early this week for transmetatarsal amp. MRI completed, MARLEE pending. Pt and pt's were made aware the Ortho team would talk to them about procedure prior to surgery, would like to be present for discussion; it was mentioned that Ortho is expected to round on pt tomorrow morning. Pt aware he is NPO at midnight, and should not expect ledy whisked to the OR at 7am. at bedside throughout shift, pt walked in hallway, steady gait with good stamina. * Kavon Hubbard PA - 10/17/2023 9:41 AM EDT Cardiac Device Interrogation - MRI Timmy Whitman [id number] 10/17/2023 History: 83 y.o. male hx of non-ischemic cardiomyopathy, HFrEF, LVEF 25-30% despite 3 months of GDMT, chronic systolic heart failure NYHA Class III, s/p [employer]CT-D implantation on 07/05/2019, s/p AV aakash ablation, also chronic AFib, presents for MRI scan. 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 VVI 30 Atrial Episodes: ---- Ventricular Episodes: None Atrial Pacing: --- Ventricular Pacin% Bi-V Thoracic Impedance: N/A HR Histogram: Appropriate Battery and Leads (PRE-scan) Voltage: 2.92V Status: 18% battery remains Magnet Rate: -bpm Charge Time: N/A Impedances (ohms) Sensing (mV) Thresholds HV RA RV LV RA RV LV RA RV LV 78 -- 481 [id number] --- Paced Paced --- 0.70V @ 0.40ms 3.60V @ 1.50 ms Battery and Leads (POST-scan) Voltage: 2.92V Status: 18% remain Magnet Rate: -bpm Charge Time: N/A Impedances (ohms) Sensing (mV) Thresholds HV RA RV LV RA RV LV RA RV LV 78 -- 481 461 ---- Paced Paced --- 0.70V @ 0.40ms 3.80V @ 1.50 ms Comments: - Pocket incision is well healed without signs or symptoms of infection - Programming changes Prior to MRI, SureScan mode programming ON, pacing mode VOO 80. Therapies are OFF and patient was monitored with external defibrillator available. Post MRI, SureScan mode programming OFF, returning to baseline programming LV programmed output increased to 4.0V @ 1.50 ms to allow for safety margin based on evaluation today. - Device is functioning appropriately. Noted to have elevated LV pacing threshold that was above programmed output resulting in loss of LV capture (no data available for comparison as not followed here). LV output increased to accommodate for LV pacing. Recommend follow-up with his primary EP/cardiology in [place] where he follows to discuss elevated threshold DURGA Trinidad 10/17/2023 Pager: [phone] Cc: Dr. Diego Sheikh * Elijah Arshad, MINE ADMINISTRATOR SUPERVISOR - 10/17/2023 7:48 AM EDT MEDICINE PAGER [phone] - [facility] Medicine Daily Progress Note Page [phone] to reach a provider 21/09 Admit Date: 10/16/2023 Encounter Date October 17, 2023 Anticipated Discharge Date: Hospital Day: 1 24 Hour Events/Subjective: -Admitted for worsening cellulitis of plantar ulcer on right foot after failing PO antibiotics outpatient -Ortho consulted, appreciate their recs, awaiting possibility of MRI to rule out deeper tissue infection vs osteomyelitis (patient has pacemaker so need clearance) -MRI completed see chart for full read: findings consistent with possible septic arthritis, and mild osteo, of right second toe -Discussed with Orthopedics to see patient at bedside. He will benefit from updated ABIs and likelyneed operative management, will make NPO at [place] Objective: Last value Range last 24 hrs Temp: 36.8 ??C (98.2 ??F) Temp: [36.1 ??C (97 ??F)-36.8 ??C (98.2 ??F)] Heart Rate: 90 Heart Rate from SpO2: 82 bpm Heart Rate: [83-90] BP: 128/75 BP: (99-133)/(55-88) Resp: 17 Resp: [16-17] SpO2: 98 % SpO2: [97 %-99 %] Height: 180.3 cm (5' 11) Weight: 93 kg (205 lb 0.4 oz) BMI (Calculated): 28.59 BMI Classification: Over Weight Intake/Output Summary (Last 24 hours) at 10/17/2023 0748 Last data filed at 10/17/2023 0600 Gross per 24 hour Intake 340 ml Output -- Net 340 ml Patient Vitals for the past 72 hrs: Weight 10/16/23 2301 93 kg (205 lb 0.4 oz) 10/16/23 1245 93 kg (205 lb) Physical Exam Vitals and nursing note reviewed. Constitutional: General: Not in acute distress. Appearance: Not toxic-appearing. HENT: Head: Normocephalic. Mouth/Throat: Mouth: Mucous membranes are moist. Eyes: Extraocular Movements: Extraocular movements intact. Pupils: Pupils are equal, round, and reactive to light. Cardiovascular: Rate and Rhythm: Normal rate and regular rhythm. Heart sounds: Normal heart sounds. Pulmonary: Effort: Pulmonary effort is normal. No respiratory distress. Breath sounds: Normal breath sounds. Abdominal: General: Bowel sounds are normal. There is no distension. Palpations: Abdomen is soft. Tenderness: There is no abdominal tenderness. Musculoskeletal: Right lower le+ pitting edema in foot/ankle, with ulceration on right plantar surface at base of 2nd toe, sensation is intact - see media chart for photo Left lower leg: Trace Skin: General: Skin is warm and dry. Right foot warm erythematous Neurological: General: No focal deficit present. Mental Status: is alert. Psychiatric: Mood and Affect: Mood normal. Assessment: Timmy Whitman is a 83 y.o. male admitted for right foot cellulitis with concern for osteomyelitis. Patient is hemodynamically stable. Will continue broad spectrum IV antibiotics. MRI completed and concerning for early osteomyelitis of of the 2nd metatarsal head and the 2nd toe proximal phalanx. Appreciate Orthopedics involvement who will discuss medical vs surgical management. Anticipate NPO at [place] possible OR, Tuesday 10/17 for surgical management. Plan: # Right foot cellulitis # Osteomyelitis of 2nd metatarsal head and 2nd toe proximal phalanx (right foot) - IV antibiotics: Zosyn and vancomycin - MRI with early/mild osteo of 2nd toe, as well as possible microabscesses - Appreciate Orthopedics consult - Follow up MARLEE/TCPO2s to assess vascular flow and healing potential - NPO at [place] with possible OR 10/17 pending final plan and availability # Right lower extremity swelling - Regarding his swelling of his right lower extremity, he denies pain or calf tenderness, he is on apixaban at home (though stated he has forgotten to take it before), suspect swelling is in setting of his plantar infection, but would have low threshold to also obtain duplex study to rule out clot # Atrial fibrillation s/p ablation # S/p pacemaker - Continue home Coreg - Holding apixaban in consideration of possible procedures # History of gout - Patient would prefer to hold on allopurinol for now PERTINENT LABS: Last wbc, hgb, hct plt Recent Labs 10/17/23 0538 WBC 4.64 HGB 13.4* HCT 38.3* Last 3 wbc, hgb, hct plt Recent Labs 10/17/23 0538 10/16/23 1328 WBC 4.64 6.58 HGB 13.4* 13.6* HCT 38.3* 39.1* PLATELET 240 256 Last 3 Lytes Recent Labs 10/17/23 0538 10/16/23 1328 NA 142 139 K 3.9 3.6 CL 107 102 CO2 23 24 BUN 12 14 CREATININE 1.03 0.87 CONSULTANTS: IP ADMISSION REQUEST IP CONSULT TO PHARMACY Diet: Daily Healthy Menu Choices/Cardiac diet ([facility]-Diet) Last BM documented: DVT Prophylaxis: LMWH DOAC Daily Checklist: Last Family Communication: By patient Discharge Location: AM-PAC Basic Mobility Raw Score: 23 PT: OT: Disposition Code status Attempt Cardiopulmonary Resuscitation - Inpatient PCP Frankie Friedman DPM [phone] Active Hospital Problems Diagnosis Cellulitis and abscess of foot Resolved Hospital Problems No resolved problems to display. Elijah Arshad APRN 10/17/2023 * Jean Carlos Riddle MD - 10/17/2023 6:25 AM EDT ORTHOPAEDIC SURGERY INPATIENT PROGRESS NOTE Patient Name: Timmy Whitman Age: 83 y.o. Surgery/Issue: R 2nd toe plantar ulcer Attending: Dr. Agarwal Date of surgery: N/A SUBJECTIVE / INTERVAL HISTORY: JOHN FELIX Has yet to go for MRI and MARLEE's. WBC 4.64 this AM. CRP: 52.2 No issues overnight. Patient offers no complaints. Pain well controlled, denies N/V. FOCUSED REVIEW OF SYSTEMS: as above. Active Hospital Problems Diagnosis Cellulitis and abscess of foot Resolved Hospital Problems No resolved problems to display. There are no active non-hospital problems to display for this patient. MEDICATIONS: vancomycin (Vancocin) 1.75 gram in sodium chloride 0.9% 500 mL infusion vancomycin (Vancocin) - dosing by AUC carvediloL (Coreg) tablet 25 mg melatonin tablet 3 mg enoxaparin (Lovenox) (40 mg/0.4 mL) subcutaneous injection 40 mg acetaminophen (Tylenol) tablet 650 mg piperacillin-tazobactam (Zosyn) 4.5 g vial attach to sodium chloride 0.9% 100 mL Mini-Bag Plus OBJECTIVE: Temp: [36.1 ??C (97 ??F)-36.6 ??C (97.9 ??F)] Heart Rate: [83-90] Resp: [16] BP: (99-133)/(55-88) Intake/Output Summary (Last 24 hours) at 10/17/2023 0625 Last data filed at 10/17/2023 0600 Gross per 24 hour Intake 340 ml Output -- Net 340 ml BMI: Weight: 93 kg (205 lb 0.4 oz) (10/16/23 2301) BMI (Calculated): 28.59 BMI Classification: OverWeight Body mass index is 28.6 kg/m??. PE: General: awake/alert, responds to questions CV: RRR assessed peripherally Resp: Breathing comfortably on RA RLE: Ulcer of plantar aspect of 2nd ray w/ surrounding skin sloughing Erythema over dorsum of foot. Sensation decreased per baseline but intact (1+/2) in lat fem cut/fem/sural/saph/SP/DP/T distributions Motor intact to FHL/EHL/TA, knee extension/flexion, hip extension/flexion Brisk capillary refill distally, foot warm/well-perfused Lab Results Component Value Date NA 139 10/16/2023 NA 140 09/30/2016 K 3.6 10/16/2023 K 4.4 09/30/2016 CL 102 10/16/2023 CL 98 09/30/2016 CO2 24 10/16/2023 CO2 26 09/30/2016 BUN 14 10/16/2023 BUN 16 09/30/2016 CREATININE 0.87 10/16/2023 CREATININE 1.07 09/30/2016 GLUCOSE 84 10/16/2023 GLUCOSE 97 09/30/2016 CALCIUM 9.5 10/16/2023 CALCIUM 9.9 09/30/2016 Lab Results Component Value Date WBC 4.64 10/17/2023 HGB 13.4 (L) 10/17/2023 HCT 38.3 (L) 10/17/2023 MCV 101.3 (H) 10/17/2023 PLATELET 240 10/17/2023 IMAGING: XR Right foot (10/16/2023): Independent review of right foot x-rays shows no evidence of osseous destruction. 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 ASSESSMENT / PLAN: Timmy Whitman is a 83 y.o. male with a right plantar 2nd toe ulcer. MRI of the R foot pending to evaluate for OM. Additionally recommend obtaining MARLEE's to assess for vascular pathology of the extremity. Nutritional labs pending. Orthopaedic surgery will continue to follow, additional recommendations to follow completion of aforementioned studies. Activity: WBAT RLE in forefoot offloader shoe - DVT prophylaxis: per primary - Antibiotics: per ID/primary - Diet: NPO pending results of MRI - Medications: per primary - Imaging / studies needed: MRI R Foot w/ and w/out contrast, ABIs - Follow-up: pending course Jean Carlos Riddle MD 10/17/2023 No future appointments. * Mandy Day RN - 10/16/2023 9:05 PM EDT Page Sent Successfully Page Confirmation To Pager number: [phone] From Submitter: Mandy Day Urgency Level: FYI Callback Number: [id number] The following Message was sent: [FYI] - Callback:[phone] j carlos: arrived from ed. need admit orders please. thx - Mandy Day The following status was returned from the wrapper and preserver: Page for [phone] successfully sent to [phone] having status of Available. documented in this encounter H&P Notes * Vanessa Patten MD - 10/16/2023 6:32 PM EDT Images from the original note were not included. Hospital Medicine Admission History & Physical Patient Name: Timmy Whitman Primary Care Provider: Frankie Friedman DPM Admission Date: 10/16/2023 CHIEF COMPLAINT R foot redness and swelling HISTORY OF PRESENT ILLNESS Timmy Whitman is a 83 y.o. male presenting with swelling and redness of a right foot plantar ulcer. Medical history is most notable for atrial fibrillation s/p multiple ablations and on apixaban, history of pacemaker placement, reportedly HFrEF, neuropathy (per patient unspecified underlying cause),as well as pre- diabetes. He is accompanied today by his . Patient reports his primary residence is in [place] and his doctors including his Cardiologistare also located in [place]. He reports ulceration on the plantar aspect of his right foot started approximately 4 months ago. He noted increased redness, swelling, pain at the plantar wound three days prior to presentation and was seen at [facility] three days ago. Per patient, he received IV antibiotics, imaging, and was discharged with Augmentin and doxycycline. Patient has been taking the prescribed oral antibiotics over the last three days. He reports that redness, swelling, pain are similar to three days ago. He denies worsening pain and swelling, and states that redness has not moved more proximally. He endorses tingling of his feet and reports long-standing neuropathy at baseline of unknown cause per patient. He denies history of T2DM, but does note history of pre-diabetes. He denies fevers, rigors, chest pain, dyspnea, abdominal pain, nausea, vomiting, weakness, gait instability. Home medications per patient and his : - Coreg 25 mg BID - Apixaban 5 mg BID - Allopurinol 50 mg daily In ED, the patient was afebrile and hemodynamically stable. On labs, the patient was without leukocytosis. His CRP was 86.1 and the sed rate was 82. BMP was unremarkable. Plain films of the right foot did not show acute osseous abnormality or radiographic evidence of advanced acute osteomyelitis, and did not show tracking soft tissue gas. MRI was ordered and is pending. Patient has a history of pacemaker placement in [place] and itis unclear if this is MRI-compatible. However, per outside records that are available, he has undergone MRI at an outside hospital in the past. MRI staff is reviewing whether based on the informationavailable, MRI can be completed here to evaluate for osteomyelitis. While in ED, the patient received vancomycin and piperacillin-tazobactam. He was evaluated by the orthopedic surgery service with recommendation for MRI, IV antibiotics, MARLEE. Admission to Hospitalist service was requested for further monitoring and management. REVIEW OF SYSTEMS Pertinent positive as described above. All other systems reviewed and are either negative or at patient's chronic baseline. ALLERGIES: No Known Allergies MEDICAL/SURGICAL HISTORY: Patient Active Problem List Diagnosis Date Noted Cellulitis and abscess of foot 10/16/2023 No past surgical history on file. Family History: No family history on file. family history is not on file. Social History: Social History Social History Narrative Not on file OME MEDICATIONS (Not in a hospital admission) CURRENT INPATIENT MEDICATIONS vancomycin 2 g Intravenous Once [START ON 10/17/2023] vancomycin 1,750 mg Intravenous Q18H piperacillin-tazobactam 4.5 g Intravenous Q8H PHYSICAL EXAMINATION: Vitals: Temp: 36.1 ??C (97 ??F) BP: 118/78 Heart Rate: 83 Resp: 16 SpO2: 98 % General: The patient is in no distress, able to speak in full sentences, appropriately engaging conversation HEENT: Atraumatic, symmetric face, no scleral icterus or inflammation Cardiovascular: rate controlled Pulm: Breathing is unlabored, breath sounds are clear to auscultation Abd: Soft, benign, non-tender, non-distended, no guarding or rebound Extremities: ulceration plantar surface R foot at base of second toe, sensation intact in both feet, R foot feels warm, erythema, able to move all extremities, trace pedal edema LLE, 2+ pitting edemaup to knee RLE Neuro: Conversant, alert and oriented x4, no facial asymmetry, grossly no focal deficits Psych: Normal mood and affect LABS: Recent Labs 10/16/23 1328 WBC 6.58 HGB 13.6* HCT 39.1* PLATELET 256 Recent Labs 10/16/23 1328 NA 139 K 3.6 CL 102 CO2 24 BUN 14 CREATININE 0.87 No results for input(s): AST, ALT, ALKPHOS, BILITOT, BILIDIR in the last 168 hours. Recent Labs 10/16/23 1328 CALCIUM 9.5 No results for input(s): INR, PT, PTT in the last 168 hours. No results for input(s): CK, TROPONINT in the last 168 hours. No results for input(s): POCGLU in the last 168 hours. IMAGING Results for orders placed or performed during the hospital encounter of 10/16/23 XR Foot Min 3 views Right (Generic) (Exam End: 10/16/2023 2:08 PM) Result Value WORKSTATION ID [id number] Impression 1. No acute osseous abnormality or radiographic evidence of advanced acute osteomyelitis. 2. Forefoot soft tissue swelling. No tracking soft tissue gas. 3. Osteoarthritic changes as described. 4. 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 Thank you for letting us participate in the care of this patient. If you are a health care provider and have any questions regarding this report, please contact the number below. For patients who have questions please contact the health personal carer that requested your imaging first. Electronically signed by: Jean Carlos Condon MD, [facility] ([phone]), at 10/16/2023 2:19 PM ASSESSMENT/PLAN: Timmy Whitman is a 83 y.o. male admitted for right foot cellulitis with concern for osteomyelitis. Patient is hemodynamically stable. Will continue broad spectrum IV antibiotics, awaiting MRI. Holdingapixaban given possible procedures. # Right foot cellulitis # Concern for osteomyelitis - IV antibiotics: Zosyn and vancomycin - MRI ordered, pending - Consider obtaining outside medical records - Consider MARLEE/TCPO2s - Orthopedic surgery consulted # Atrial fibrillation s/p ablation # S/p pacemaker - Continue home Coreg - Holding apixaban in consideration of possible procedures # History of gout - Patient would prefer to hold on allopurinol for now Diet: No diet orders on file Current DVT: holding DOAC, on Lovenox Code status: Attempt Cardiopulmonary Resuscitation - Inpatient Disposition: TBD Extended Emergency Contact Information Primary Emergency Contact: Madai Whitman [address]: [address] [place] [address] Mobile Relation: Spouse IPI Certification I certify that I am a [facility]-H credentialed attending provider with admitting privileges and that the patient meets or has met medical necessity to require an inpatient IPI level of care meeting a minimumof two midnights or is on the [facility] inpatient only procedure list (status C) due to: right foot cellulitis, concern for underlying osteomyelitis, need for IV antibiotics Vanessa Patten MD, Hospital Medicine 10/16/2023 documented in this encounter ED Notes * Brooks Flores NRP - 10/16/2023 3:45 PM EDT Pt taking doxycycline hyclate 100mg BID and augmentin 875/125 bid * Chester Chatman, SHANI - 10/16/2023 1:24 PM EDT Images from the original note were not included. ED Provider Note HPI: Timmy Whitman is a 83 y.o. male with past medical history of gout on allopurinol, hypertension on lisinopril, and others presents to ED AOx4 and ambulatory complaining of a worsening infection of his right second digit. Patient states starting 3 months ago, he noticed an atraumatic wound to the plantar aspect of his right foot. Patient was seen by podiatry at that time and was given oral antibiotics and topical antibiotics with interval improvement. Patient states over the last 2 weeks or so, hehas had significantly increased erythema, swelling, and pain to his right second digit. Patient wasseen at outside facility last week and received imaging which she states did not show evidence of osteomyelitis, and was admitted for IV antibiotics. Patient has been discharged home on 2 oral antibiotics (unknown name), but has been having worsening symptoms despite. Patient denies any systemic symptoms including fevers, chills, body aches, etc. Patient does not have history of diabetes or peripheral vascular disease. History obtained from patient ROS as per HPI Vitals: ED Triage Vitals BP: 118/78 [10/16/23 1246] Heart Rate: 83 [10/16/23 1245] Resp: 16 [10/16/23 1245] Temp: 36.1 ??C (97 ??F) [10/16/23 1245] Temp src: Temporal [10/16/23 1245] SpO2: 98 % [10/16/23 1245] O2 Device: RA [10/16/23 1245] O2 Flow Rate (L/min): n/a Physical Exam Vitals and nursing note reviewed. Constitutional: General: He is not in acute distress. Appearance: Normal appearance. He is normal weight. He is not ill-appearing, toxic-appearing or diaphoretic. HENT: Head: Normocephalic and atraumatic. Right Ear: External ear normal. Left Ear: External ear normal. Nose: Nose normal. No congestion or rhinorrhea. Mouth/Throat: Mouth: Mucous membranes are moist. Eyes: Extraocular Movements: Extraocular movements intact. Conjunctiva/sclera: Conjunctivae normal. Pupils: Pupils are equal, round, and reactive to light. Cardiovascular: Rate and Rhythm: Normal rate and regular rhythm. Pulses: Normal pulses. Dorsalis pedis pulses are 2+ on the right side. Posterior tibial pulses are 2+ on the right side. Pulmonary: Effort: Pulmonary effort is normal. No respiratory distress. Musculoskeletal: General: Normal range of motion. Cervical back: Normal range of motion. Right foot: Normal capillary refill. Swelling, tenderness and bony tenderness present. No crepitus.Normal pulse. Left foot: Normal. Comments: There is significant swelling and erythema noted to patient's right second digit with maceration noted proximally. Erythema and swelling extends throughout entire dorsal aspect of foot extending proximally to midfoot. Patient does have decreased sensation at baseline due to neuropathy. Patient denies any loss of strength or sensation. Chronic appearing ulceration noted to plantar aspectof foot. +2 tibial and pedal pulses, cap refill less than 3. All compartments soft. Skin: General: Skin is warm and dry. Capillary Refill: Capillary refill takes less than 2 seconds. Neurological: General: No focal deficit present. Mental Status: He is alert and oriented to person, place, and time. GCS: GCS eye subscore is 4. GCS verbal subscore is 5. GCS motor subscore is 6. Psychiatric: Mood and Affect: Mood normal. Behavior: Behavior normal. Thought Content: Thought content normal. Judgment: Judgment normal. XR Toe(s) Min 2 view Right (Generic) (Results Pending) XR Foot Min 3 views Right (Generic) (Results Pending) ED Course as of 10/16/23 1500 Sat Oct 16, 2023 1441 CBC shows no signs leukocytosis. Hemoglobin 13.6, platelets 256 Sed rate 82 CRP 86.1 BMP unremarkable 1441 X-ray imaging shows 1. No acute osseous abnormality or radiographic evidence of advanced acute osteomyelitis. 2. Forefoot soft tissue swelling. No tracking soft tissue gas. 3. Osteoarthritic changes as described. 4. 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 Procedures Assessment and Plan: 83 y.o. male with past medical history of gout on allopurinol, hypertension on lisinopril, and others presents to ED AOx4 and ambulatory complaining of a worsening infection of his right second digit. Patient states starting 3 months ago, he noticed an atraumatic wound to the plantar aspect of his right foot. Patient was seen by podiatry at that time and was given oral antibiotics and topical antibiotics with interval improvement. Patient states over the last 2 weeks or so, he has had significantly increased erythema, swelling, and pain to his right second digit. Patient was seen at outside facility last week and received imaging which she states did not show evidence of osteomyelitis, and w as admitted for IV antibiotics. Patient has been discharged home on 2 oral antibiotics (unknown name), but has been having worsening symptoms despite. Patient denies any systemic symptoms including fevers, chills, body aches, etc. Patient does not have history of diabetes or peripheral vascular disease. On exam, the patient is nontoxic and well-appearing. Vital signs normal. There is significant swelling and erythema noted to patient's right second digit with maceration noted proximally. Erythema and swelling extends throughout entire dorsal aspect of foot extending proximally to midfoot. Patient does have decreased sensation at baseline due to neuropathy. Patient denies any loss of strength or sensation. Chronic appearing ulceration noted to plantar aspect of foot. +2 tibial and pedal pulses,cap refill less than 3. All compartments soft. Blood work significant for sed rate of 82 and CRP of 86.1 X-ray imaging shows 1. No acute osseous abnormality or radiographic evidence of advanced acute osteomyelitis. 2. Forefoot soft tissue swelling. No tracking soft tissue gas. 3. Osteoarthritic changes as described. 4. 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 Discussed case with orthopedic team who evaluated patient. Ortho recommends admission to medicine for IV vancomycin, IV Zosyn, and MRI imaging. Patient does have pacemaker and will require coordination with MRI/cardiology team Did this case involve critical care? No The visit findings, diagnosis, and care plan were discussed with the patient. Disclaimer: Parts of this note has been produced using voice recognition software and may inherently contain errors in customer quality specialist. Some sounds may be transcribed incorrectly by the voice recognition software and therefore the reader is urged to use caution when interpreting this document. Chester Chatman APRN 10/16/23 1500 documented in this encounter Miscellaneous Notes * Plan of Care - Roverto Cisse RN - 10/20/2023 1:34 PM EDT Timmy Whitman discharged to Home by private car with Spouse. All belongings sent with patient. JOSUHA removed, skin free from pressure ulcers. Discharge instructions, medications, and follow-up appointments reviewed, education provided on medications, prescriptions given to patient, all questions answered. Patient instructed to call with concerns. Problem: Adult Inpatient Plan of Care Goal: Plan of Care Review Outcome: Ongoing (Interventions Implemented as Appropriate) Goal: Patient-Specific Goal (Individualized) Outcome: Ongoing (Interventions Implemented as Appropriate) Goal: Absence of Hospital-Acquired Illness or Injury Outcome: Ongoing (Interventions Implemented as Appropriate) Goal: Optimal Comfort and Wellbeing Outcome: Ongoing (Interventions Implemented as Appropriate) Goal: Readiness for Transition of Care Outcome: Ongoing (Interventions Implemented as Appropriate) Problem: Pain Acute Goal: Acceptable Pain Control and Functional Ability Outcome: Ongoing (Interventions Implemented as Appropriate) Problem: Infection Goal: Absence of Infection Signs and Symptoms Outcome: Ongoing (Interventions Implemented as Appropriate) * Care Management Discharge - Gretchen Joseph RN - 10/20/2023 10:43 AM EDT CARE MANAGEMENT FINAL DISCHARGE NOTE Chart reviewed, care reviewed with primary team and at interdisciplinary rounds. Patient is medically ready for discharge to home. Needs for Transition of Care: Plan for discharge is: Home w/o Services Outpatient Agency/Support Group Needs: None Agency Referrals & Follow-up Care:N/A Transportation: family or friend will provide Wheelchair van/Ambulance? No Functional status prior to admission: Independent Home Environment: Others in the home: spouse. Current Living Arrangements: home/apartment/condo. Current Functional Ability: Independent DME used at home: none DME Needed at Discharge: N/A Patient is insured through: Primary Insurance: MEDICARE Payor: MEDICARE / Plan: MEDICARE PART A & B / Product Type: *No Product type* / Secondary Insurance: N/A Prescription Coverage: Yes This plan was formulated with input from patient and team. All are in agreement with plan. Gretchen Joseph RN, BSN, CHRIS Shipwright Pager [phone] * Plan of Care - Mandy Day RN - 10/20/2023 6:41 AM EDT OUTCOME EVALUATION NOTE: OUTCOME SUMMARY: Reports mild numbness in feet bilaterally d/t neuropathy. VSS. NAEON. Slept well. Pain managed withprn. PLAN MOVING FORWARD: VS 6hr [place] Atb PO Pain mgmt Discharge planning INDIVIDUALIZED FALL PREVENTION INTERVENTIONS: Patient-specific fall risk factors per assessment: right foot cellulitis Assistance: Independent Supervision: Independent Surveillance: Bed locked in low position, call agarwal within reach, purposeful hourly rounding, clutter free environment Patient-specific fall prevention interventions for sensory deficits provided: N/A CPG GOAL OUTCOME EVALUATION: Continue care plan as documented. Problem: Adult Inpatient Plan of Care Goal: Plan of Care Review Outcome: Ongoing (Interventions Implemented as Appropriate) Goal: Patient-Specific Goal (Individualized) Outcome: Ongoing (Interventions Implemented as Appropriate) Goal: Absence of Hospital-Acquired Illness or Injury Outcome: Ongoing (Interventions Implemented as Appropriate) Goal: Optimal Comfort and Wellbeing Outcome: Ongoing (Interventions Implemented as Appropriate) Goal: Readiness for Transition of Care Outcome: Ongoing (Interventions Implemented as Appropriate) Problem: Pain Acute Goal: Acceptable Pain Control and Functional Ability Outcome: Ongoing (Interventions Implemented as Appropriate) Problem: Infection Goal: Absence of Infection Signs and Symptoms Outcome: Ongoing (Interventions Implemented as Appropriate) * Plan of Care - Roverto Cisse RN - 10/19/2023 7:32 PM EDT Problem: Adult Inpatient Plan of Care Goal: Plan of Care Review Outcome: Ongoing (Interventions Implemented as Appropriate) Goal: Patient-Specific Goal (Individualized) Outcome: Ongoing (Interventions Implemented as Appropriate) Goal: Absence of Hospital-Acquired Illness or Injury Outcome: Ongoing (Interventions Implemented as Appropriate) Goal: Optimal Comfort and Wellbeing Outcome: Ongoing (Interventions Implemented as Appropriate) Goal: Readiness for Transition of Care Outcome: Ongoing (Interventions Implemented as Appropriate) Problem: Pain Acute Goal: Acceptable Pain Control and Functional Ability Outcome: Ongoing (Interventions Implemented as Appropriate) Problem: Infection Goal: Absence of Infection Signs and Symptoms Outcome: Ongoing (Interventions Implemented as Appropriate) * Consult Note - Constanza Nicole RPH - 10/19/2023 5:19 PM EDT The pharmacist-managed vancomycin consult service will sign-off and vancomycin therapy, if it is ledy continued, must be ordered by the responsible prescriber. Pharmacists??? therapeutic drug monitoring will continue for patients receiving vancomycin. Should specific assistance be needed regarding re-initation or continuation of vancomycin therapy, please page the care area pharmacist with any questions you may have. Alternately, during off-hours you may call [phone] to contact a pharmacist. * Consult Note - Abby Gray MD - 10/19/2023 4:26 PM EDT INFECTIOUS DISEASE CONSULTATION NOTE Reason for Consult: Right 2nd toe mild osteo, non-surgical per Ortho, medical management with [facility] Consulting Service: Medicine Consulting Attending: Gio Jackson MD Admission Date: 10/16/2023 History of Present Illness: Pt is a 83 y.o. male with a history of atrial fibrillation s/p multiple ablations on apixaban, HFrEF s/p biventricular ICD, neuropathy (per patient unspecified underlying cause), and pre-diabetes whopresented due to R foot redness and swelling. He reports that he initially developed an ulceration on the plantar aspect of his foot about 3-4 months ago; he states that he noticed it as it was leaving blood on his shower mat. He had previously seen a manager installation who recommended wound care, silvadene cream, and PO abx (Keflex). 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 He reports taking these medications with no improvement in his symptoms, so he presented to [facility]. He reports that he has been very active and has been playing golf, walking, and riding his bike without issue. In [facility] ED, he was afebrile, HDS. WBC 6.5k, ESR 82, CRP 86.1. Xray of the foot showed: Prior partial amputation of the third toe [...] No radiodense foreign body. Mild vascular calcifications. He had an MRI done which showed a microabscess measuring 1.0 x 1.3 x 0.7 cm, septic arthritis and early osteomyelitis, as well as a sinus tract.ABIs showed no occlusive disease. Orthopedics consulted, recommend abx management based on review of imaging. IR consulted, but did not pursue biopsy given location of osteomyelitis. On evaluation, patient reports doing better. He understands that if surgery were to be pursed, TMA would be an option, and he is okay with that if need be. 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 Review of Systems: Pertinent positives and negatives noted in HPI. 14 point ROS otherwise negative except noted in HPI. Past Medical History: No past medical history on file. Past Surgical History: No past surgical history on file. Medications: Scheduled Meds: vancomycin 1,750 mg Intravenous Q24H carvediloL 25 mg Oral BID WC enoxaparin 40 mg Subcutaneous Nightly piperacillin-tazobactam 4.5 g Intravenous Q8H Continuous Infusions: PRN Meds:.vancomycin, melatonin, acetaminophen Allergies/Adverse drug reactions: No Known Allergies Family History: Family History No data available Social History: Social History Tobacco Use Smoking status: Never Smokeless tobacco: Never Vaping Use Vaping status: Never Used Substance Use Topics Alcohol use: Yes Alcohol/week: 6.0 standard drinks of alcohol Types: 6 Cans of beer per week Comment: 2 daily Drug use: Never Social History Social History Narrative Not on file Physical Exam: Last value Range last 24 hrs Temperature Temp: 36.8 ??C (98.2 ??F) Temp: [36.3 ??C (97.3 ??F)-36.8 ??C (98.2 ??F)] Heart Rate Heart Rate: 83 Heart Rate: [82-83] Blood Pressure BP: 134/85 BP: (127-141)/(81-85) Respiratory Rate Resp: 16 Resp: [16] SpO2 SpO2: 99 % SpO2: [96 %-99 %] General: no acute distress Head: normocephalic, atraumatic EENT: No conjunctival petechiae Cardiovascular: RRR, no murmur, rubs, or gallops Pulmonary: Lungs clear to auscultation bilaterally; no wheezing, rhonchi, or rales Abdomen: non-distended Ext: ulceration on plantar aspect of R 2nd toe base, erythema of foot improved from prior imaging Skin: faint rash noted on abdomen Neuro: A&O, moves all 4 extremities spontaneously Psych: Euthymic, pleasant I have reviewed the pertinent laboratory, microbiology, and diagnostic/radiology/procedure results: Recent Labs 10/19/23 0452 10/18/23 0604 10/17/23 0538 WBC 4.64 4.81 4.64 HGB 13.2* 12.9* 13.4* HCT 38.4* 37.4* 38.3* PLATELET 257 269 240 Recent Labs 10/19/23 0452 10/18/23 0604 10/17/23 0538 NA 144 143 142 K 3.3* 3.6 3.9 CL 109* 107 107 CO2 22 24 23 BUN 8* 9* 12 CREATININE 1.10 1.16 1.03 No results for input(s): AST, ALT, ALKPHOS, BILITOT, BILIDIR in the last 168 hours. Recent Labs 10/16/23 1328 SEDRATE 82* Recent Labs 10/18/23 0604 CRP 30.0* Microbiology: N/a Antimicrobials: Vancomycin, zosyn Imaging/diagnostics: MRI IMPRESSION 1. Within the dorsal subcutaneous soft tissues overlying the 2nd toe proximal phalanx is a microabscess measuring 1.0 x 1.3 x 0.7 cm. This microabscess abuts the extensor tendon sheath of the 2nd toe, but there is no extension of fluid distention along the course of the 2nd toe extensor tendon sheath. 2. There is a plantar wound underlying the 2nd metatarsal head with a fluid-filled sinus tract leading to and likely communicating with the 2nd metatarsophalangeal joint. There is enhancement around the sinus tract, consistent with inflammation/infection. There is no fluid distention of the 2nd metatarsophalangeal joint, but there is thickened enhancing synovium, consistent with synovitis. Findings are suspicious for septic arthritis of the 2nd metatarsophalangeal joint. 3. Associated mild marrow edema-like signal and enhancement of the 2nd metatarsal head and the 2nd toe proximal phalanx, without associated T1 hypointense signal alteration, is consistent with reactive osteitis or early/mild osteomyelitis. Given the presence of the sinus tract that likely communicates with the 2nd metatarsophalangeal joint, some degree of infectious contamination is suspected. 4. Dorsal dislocation at the 2nd metatarsophalangeal joint. 5. No MR evidence of flexor or extensor tenosynovitis. 6. Chronic denervation changes of the muscles of the forefoot with superimposed subacute denervation change versus myositis. 7. 1st, 2nd, and 3rd intermetatarsal bursitis. 8. Advanced mid foot arthropathy which may be a combination of neuropathic and/or degenerative arthropathy. 9. Focus of susceptibility artifact in the subcutaneous soft tissues along the medial aspect of the 1st toe distal phalanx likely corresponds to the tiny radiodense foreign body projecting adjacent to the 1st toe nail bed on the AP view of the foot on the right foot radiographs October 16, 2023. ABIs No occlusive disease Impression: Timmy Whitman is a 83 y.o. male with a history of atrial fibrillation s/p multiple ablations on apixaban, HFrEF s/p biventricular ICD, neuropathy (per patient unspecified underlying cause), and pre-diabetes admitted due to septic arthritis of the R 2nd toe with early osteomyelitis. ABIs showed no occlusive disease. No cultures obtained, MRSA nares pending. MRI shows microabscess and septic arthritis with early osteomyelitis. We can formulate an empiric regimen for the osteomyelitis, however there is a chance that this therapy would fail and he would ultimately need surgical intervention. Doxycyline and levofloxacin would would cover gram positives and some gram negatives. He would also need to off-load the foot as much as possible to avoid further worsening of the wound. RECOMMENDATIONS: -Can discontinue vancomycin and pip-tazo -Recommend doxycyline 100mg BID and levofloxacin 750mg qD (needs baseline EKG), duration of therapy6 weeks from start of IV abx -Will have outpatient ID follow-up -Recommend off-loading boot on right -At least weekly CBCD, CMP, CRP while on antimicrobial therapy -Rest of care per primary team Patient discussed with ID attending Dr. Solomon. Thank you for the consult. ID consult service will sign off. Please do not hesitate to page with any questions or concerns. Please page ID Green team (pager [phone]) with questions or concerns. Abby Gray MD, MPH Fellow, Infectious Disease Pager: [phone] Epic Chat 10/19/2023 Associated attestation - Nataly Solomon MD - 10/19/2023 6:43 PM EDT ID Attending Attestation I have seen and examined the patient, reviewed the chart as well as the documentation as written byDr. Gray. The assessment and plan were formulated in discussion with me and I agree with them as documented, with the following additions/modifications: 83-year-old man with atrial fibrillation, heart failure reduced ejection fraction, prediabetes who was found to have a microabscess overlying the second toe proximal phalanx septic arthritis and early osteomyelitis of the right foot second toe metatarsal head and proximal phalanx. We discussed how well we can prescribe high orally bioavailable antimicrobials such as bactrim and levofloxacin giventhe extent of his infection we are concerned this may not heal with antimicrobials alone. Recommenda 6-week course of Bactrim 1 DS tab twice daily levofloxacin 750 mg daily with an end date of November 11. He will be seen via telehealth by either me or our MINE ADMINISTRATOR SUPERVISOR midway through treatment to assess his condition. He should have weekly CBC, CRP, CMP * Plan of Care - Mandy Day RN - 10/19/2023 5:36 AM EDT OUTCOME EVALUATION NOTE: OUTCOME SUMMARY: Reports mild numbness in feet bilaterally d/t neuropathy. VSS. NAEON. Slept well. Pain managed withprn. PLAN MOVING FORWARD: VS q4hr Atb Pain mgmt Discharge planning INDIVIDUALIZED FALL PREVENTION INTERVENTIONS: Patient-specific fall risk factors per assessment: right foot cellulitis Assistance: Independent Supervision: Independent Surveillance: Bed locked in low position, call agarwal within reach, purposeful hourly rounding, clutter free environment Patient-specific fall prevention interventions for sensory deficits provided: N/A CPG GOAL OUTCOME EVALUATION: Continue care plan as documented. Problem: Adult Inpatient Plan of Care Goal: Plan of Care Review Outcome: Ongoing (Interventions Implemented as Appropriate) Goal: Patient-Specific Goal (Individualized) Outcome: Ongoing (Interventions Implemented as Appropriate) Goal: Absence of Hospital-Acquired Illness or Injury Outcome: Ongoing (Interventions Implemented as Appropriate) Goal: Optimal Comfort and Wellbeing Outcome: Ongoing (Interventions Implemented as Appropriate) Goal: Readiness for Transition of Care Outcome: Ongoing (Interventions Implemented as Appropriate) Problem: Pain Acute Goal: Acceptable Pain Control and Functional Ability Outcome: Ongoing (Interventions Implemented as Appropriate) Problem: Infection Goal: Absence of Infection Signs and Symptoms Outcome: Ongoing (Interventions Implemented as Appropriate) * Initial Assessments - Gretchen Joseph RN - 10/18/2023 4:23 PM EDT Office of Care Management Initial Assessment Gretchen Joseph RN reviewed record and discussed patient with Care Team. Source of Information: Team, bedside nurse, medical record, and Spouse Introduced self/reviewed role; services accepted. Admitted From: Home Reason for Hospitalization: severely infected right foot Past medical History: No past medical history on file. Hospitalizations Within the Past 30 Days: no previous admission in last 30 days Current Decision-Making Capacity: Self If AD's have not been completed the following surrogate would be surrogate decision maker per [place] surrogate decision making law. (Only good for 180 days) Any patient receiving care in [place] must abide by [place] law. The hierarchy for surrogate decision making is: (a) Patient???s spouse or civil union partner unless there is a divorce proceeding, separation agreement, or restraining order limiting that person???s relationship with the patient. (b) Any adult son or daughter of the patient. (c) Either parent of the patient. (d) Any adult brother or sister of the patient. (e) Any adult grandchild of the patient. (f) Any grandparent of the patient. (g) Any adult aunt, uncle, niece, or nephew of the patient. (h) A close friend of the patient. (i) The agent with financial power of analysis manager or a conservator appointed in accordance with RSA 464-A. (j) The guardian of the patient???s estate. Advance Care Planning: Attempt Cardiopulmonary Resuscitation - Inpatient <no information> -Advanced Directive: No, need to discuss Current Coping/Education/Information Needs: able to make needs known Current Functional Ability: Independent Functional Status Prior to Admission: Independent Prior ADLs & IADLs: Independent with all ADLs & IADLs Home Environment: Others in the home: spouse. Current Living Arrangements: home/apartment/condo. Accessibility Concerns: . In the last 12 months, was there a time when you were not able to pay the mortgage or rent on time?: No In the past 12 months, how many times have you moved where you were living?: 1 At any time in the past 12 months, were you homeless or living in a group home (including now)?: No In the past 12 months has the [employer], gas, oil, or water [employer] threatened to shut off services in your home?: No Within the past 12 months, you worried that your food would run out before you got the money to buymore.: Never true Within the past 12 months, the food you bought just didn't last and you didn't have money to get more.: Never true Resource / Environmental Concerns: Resource/Environmental Concerns: none In the past 12 months, has lack of transportation kept you from medical appointments or from getting medications?: No In the past 12 months, has lack of transportation kept you from meetings, work, or from getting things needed for daily living?: No Current DME: none Home Address confirmed as: [address] [place], [place] [id number] Social & Family Supports: All names listed below confirmed with patient as current and correct Extended Emergency Contact Information Primary Emergency Contact: Madai Whitman Address: [address] [place] [address] of [employer] Relation: Spouse Current Care Provided by: self Provides Primary Care For: no one Caregiver if needed: spouse Quality of Family relationships: involved, helpful, supportive Community Resources being provided currently: none Behavioral Health History: none noted Substance Use/Abuse confirmed: Social History Tobacco Use Smoking Status Never Smokeless Tobacco Never In the past year have you used an illegal drug or used a prescription medication for non-medical reasons?: No 0 No problems reported 1-2 Low level 3-5 Moderate level 6-8 Substantial level 9- 10 Severe level In the past year have you had 5 or more drinks a day containing alcohol?: No 0 to 7 points: Low risk 8 to 15 points: Medium risk 16 to 19 points: High risk 20 to 40 points: Addiction likely Other Pertinent/Service Specific Information: n/a Health/Prescription Coverage: Primary Insurance: MEDICARE Payor: MEDICARE / Plan: MEDICARE PART A & B / Product Type: *No Product type* / Secondary Insurance: N/A ONLY if patient has Medicare A&B - Does this patient have secondary insurance?: No ; Prescription Coverage: Yes Preferred Pharmacy: [facility] [place] Primary Care Provider Allyson Grijalva Patient/Caregiver Goals of Treatment: return home Potential Needs for Transition of Care: IV infusion, home health care Agency Referrals: [facility] [address] [place] [address] PHONE: [phone] FAX: [phone] or Transportation: no concerns Transportation Anticipated: family or friend will provide Concerns to be Addressed: no discharge needs identified Assessment: Patient is admitted to medicine service for swelling and redness of a right foot plantar ulcer. Plan going forward: Referral for VNA and OPAT Call placed to [place] in [place] to discuss needs should [place] return to [place]CP [place] is Allyson Grijalva [phone] [address] Care Management team will continue to follow and assist with discharge planing and coordination of care as indicated. Gretchen Joseph RN, BSN, CHRIS Shipwright Pager [phone] * Plan of Care - Mandy Day RN - 10/18/2023 6:16 AM EDT OUTCOME EVALUATION NOTE: OUTCOME SUMMARY: NPO since [place]. Reports mild numbness in feet bilaterally d/t neuropathy. VSS. NAEON. Slept well. PLAN MOVING FORWARD: VS q4hr Atb OBEY needed Discharge planning INDIVIDUALIZED FALL PREVENTION INTERVENTIONS: Patient-specific fall risk factors per assessment: right foot cellulitis Assistance: Independent Supervision: Independent Surveillance: Bed locked in low position, call agarwal within reach, purposeful hourly rounding, clutter free environment Patient-specific fall prevention interventions for sensory deficits provided: N/A CPG GOAL OUTCOME EVALUATION: Continue care plan as documented. Problem: Adult Inpatient Plan of Care Goal: Plan of Care Review Outcome: Ongoing (Interventions Implemented as Appropriate) Goal: Patient-Specific Goal (Individualized) Outcome: Ongoing (Interventions Implemented as Appropriate) Goal: Absence of Hospital-Acquired Illness or Injury Outcome: Ongoing (Interventions Implemented as Appropriate) Goal: Optimal Comfort and Wellbeing Outcome: Ongoing (Interventions Implemented as Appropriate) Goal: Readiness for Transition of Care Outcome: Ongoing (Interventions Implemented as Appropriate) Problem: Pain Acute Goal: Acceptable Pain Control and Functional Ability Outcome: Ongoing (Interventions Implemented as Appropriate) Problem: Infection Goal: Absence of Infection Signs and Symptoms Outcome: Ongoing (Interventions Implemented as Appropriate) * Consult Note - Elijah Yu, [facility] - 10/17/2023 7:56 AM EDT [facility] Pharmacokinetics Note Drug: Vancomycin Pharmacokinetic target: AUC24 (range) 400-600 mg/L.hr Current regimen: 2000 mg IV every 12 hours Timmy Whitman is a(n) 83 years old male receiving Vancomycin 2000 mg IV every 12 hours for osteomyelitis Recent measured serum creatinine values: 10/17/2023 05:38 1.03 mg/dL 10/16/2023 13:28 0.87 mg/dL Assessment: Analysis of the most recent level(s) using ApoCell gives the following patient-specific pharmacokinetic parameters: CL: 3.24 L/hr V: 64.1 L T1/2: 14.1 hours Using these values, the current regimen of Vancomycin 1750 mg IV every 18 hours is predicted to result in a steady-state trough of 16.8 mg/L and AUC24 of 617 mg/L.hr. At this time we recommend a regimen of 1750 mg IV every 24 hours, which is predicted to result in a steady-state trough of 11.4 mg/Land AUC24 of 470 mg/L.hr. Recommendations: - Vancomycin 1750 mg IV every 24 hours - Obtain Vancomycin level 10/21/23 with AM labs or earlier if changes in renal function - Continue to monitor serum creatinine Elijah Yu RPh * Plan of Care - Mandy Day RN - 10/17/2023 6:16 AM EDT OUTCOME EVALUATION NOTE: OUTCOME SUMMARY: Admitted from ED lobby during this shift. C/o mild pain in right foot, declined prn. Reports mild numbness in feet bilaterally d/t neuropathy. VSS. NAEON. Slept well. PLAN MOVING FORWARD: VS q4hr Atb MRI Discharge planning INDIVIDUALIZED FALL PREVENTION INTERVENTIONS: Patient-specific fall risk factors per assessment: right foot cellulitis Assistance: Independent Supervision: Independent Surveillance: Bed locked in low position, call agarwal within reach, purposeful hourly rounding, clutter free environment Patient-specific fall prevention interventions for sensory deficits provided: N/A CPG GOAL OUTCOME EVALUATION: Continue care plan as documented. Problem: Adult Inpatient Plan of Care Goal: Plan of Care Review Outcome: Ongoing (Interventions Implemented as Appropriate) Goal: Patient-Specific Goal (Individualized) Outcome: Ongoing (Interventions Implemented as Appropriate) Goal: Absence of Hospital-Acquired Illness or Injury Outcome: Ongoing (Interventions Implemented as Appropriate) Goal: Optimal Comfort and Wellbeing Outcome: Ongoing (Interventions Implemented as Appropriate) Goal: Readiness for Transition of Care Outcome: Ongoing (Interventions Implemented as Appropriate) Problem: Pain Acute Goal: Acceptable Pain Control and Functional Ability Outcome: Ongoing (Interventions Implemented as Appropriate) Problem: Infection Goal: Absence of Infection Signs and Symptoms Outcome: Ongoing (Interventions Implemented as Appropriate) * Consult Note - Jordan Lovell IV, - 10/16/2023 2:43 PM EDT Orthopaedic Surgery Consult Note Attending: Dr. Any Hathaway J Carlos is a 83 y.o. male who presents to see us in consultation today at the request of No att. providers found. Chief Complaint: Right second toe plantar ulcer, diffuse erythema History of Present Illness: Timmy Whitman is a 83 y.o. male with a history of AFIB on Eliquis, HFrEF(no echo proof but with pacemaker), HTN, HLD, right third toe distal phalanx amputation and peripheral neuropathy of unclear etiology who we have been consulted for regarding a worsening right secondtoe ulceration. I had a long discussion with the patient and his . Per their report, Timmy initially developed an ulceration on the plantar surface of his foot in the region of his second toe roughly 4 months ago. The patient states that he has previously seen a manager installation, who recommended local wound care and prescribed a course of antibiotics, which she believes was Keflex. He has also tried conservative management with the use of Silvadene cream, which prevented any worsening of his plantar ulceration but did not lead to complete resolution. 4- days ago, he was seen at [facility] where he was prescribed Augmentin and Doxycycline with minimal improvement. More recently over the last week, the patient has been spending more time on his feet, playing multiple rounds of golf with his . In the same time interval, he has noted increased drainage and erythema surrounding the plantar foot ulceration. He has also noticed erythema that has spread to involve the dorsum of his foot to the level of the ankle. He presented to [facility] a few days ago, where he was given IV antibiotics and sent home with a prescription for clindamycin and Augmentin. Per report, x-ray and CT scan were performed at their facility but an MRI was unable to be obtained due to hispacemaker, which she states is MRI compatible. At the time of my evaluation, the patient is comfortable and in no acute distress. He is hemodynamically stable. He has a white blood cell count of 6.58 with an ESR of 82 and CRP of 86.1. Of note, his previous CRP was measured at 29.3 on 09/30/2016. Past Medical History: There is no problem list on file for this patient. Past Surgical History: No past surgical history on file. No Known Allergies No current facility-administered medications on file prior to encounter. Current Outpatient Medications on File Prior to Encounter Medication Sig Dispense Refill allopurinol (ZYLOPRIM) 100 mg Tablet Take 100 mg by mouth daily. lisinopril (PRINIVIL;ZESTRIL) 20 mg Tablet Take 20 mg by mouth daily. Family History: Negative for bleeding/clotting disorders or anesthetic complications. Review of Systems: As per HPI, otherwise negative Objective: Temp: [36.1 ??C (97 ??F)] Heart Rate: [83] Resp: [16] BP: (118)/(78) SpO2: [98 %] Heart Rate from SpO2: -- Gen: Resting comfortably in NAD, AOx3, answering questions appropriately. HEENT: NC, AT. CV: Regular rate. No murmurs, rubs, or gallops. Pulm: Normal respiratory effort on room air. Skin: Intact Psych: Normal mood and pleasant affect. Left Lower Extremity Exam: 1 X1 centimeter ulceration overlying plantar surface of 2nd ray with surrounding sloughing of the skin. Diffuse erythema overlying the dorsum of the foot. Sensation decreased per baseline but intact (1+/2) in saphenous/sural/tibial/DPN/SPN distributions. Area of ulceration is foul-smelling but not grossly purulent. Motor intact hip flexion/extension, knee flexion/extension, ankle flexion/extension, EHL/FHL/TA. Brisk capillary refill distally 2+ DP/PT pulses Labs: Last 3 wbc, hgb, hct plt Recent Labs 10/16/23 1328 WBC 6.58 HGB 13.6* HCT 39.1* PLATELET 256 Imaging: Xray (10/16/23): Right foot: Independent review of right foot x-rays shows no evidence of osseous destruction. Prioramputation site at the level of the distal portion of the proximal phalanx of the third toe. MRI (10/16/23): Pending Assessment/Plan: 83 y.o. male who presents with right plantar second toe ulcer. At this time, givenhis imaging findings, inflammatory markers, and clinical exam, his presentation is most consistent with a cellulitis in the setting of a chronic nonhealing ulceration on the plantar aspect of his foot. I had a long discussion with the patient and his and outlined that in order to provide him with the most accurate treatment recommendations, our recommendation would be to rule out osteomyelitis involving the underlying bony structures. Further, I emphasized the need to reevaluate his blood flow to the foot and subsequent capacity to heal. At this time, recommend admission to hospital medicine for IV antibiotic therapy and medical management of his cellulitis. Also recommend obtaining baseline nutrition labs in the form of vitamin D, prealbumin, and albumin. To evaluate for osteomyelitis, recommend MRI of the right foot with and without contrast. Lastly, recommend repeat MARLEE studies (last done in 2017). Orthopedics will continue to follow. - Activity: WBAT RLE in forefoot offloader shoe - DVT prophylaxis: per primary - Antibiotics: per ID/primary - Diet: NPO @ [place] pending results of MRI - Medications: per primary - Imaging / studies needed: MRI R Foot w/ and w/out contrast, ABIs, TCPO2s - Follow-up: pending course Jordan Lovell IV, DO Orthopaedic Surgery, [id number] documented in this encounter Plan of Treatment Upcoming Encounters Date Type Department Care Team (Late st Contact Info) Description 10/28/2023 2:30 PM EDT TH Visit (TeleHealth) [place] [address] [place] Murphy APRN [facility] [place] [address] documented as of this encounter Procedures Procedure Name Priority Date/Time Associated Diagnosis Comments EKG 12-LEAD Routine 10/19/2023 4:55 PM EDT QT prolongation MRSA PCR SCREEN Routine 10/19/2023 9:00 AM EDT CBC (WITH DIFF) Routine 10/19/2023 4:52 AM EDT BASIC METABOLIC PANEL Routine 10/19/2023 4:52 AM EDT MARLEE/TCPO2 (TRANSCUTANEOUS OXYGEN PRESSURE TEST) Routine 10/18/2023 1:03 PM EDT Cellulitis, unspecified cellulitis site CRP, ACUTE INFLAMMATION Routine 10/18/2023 6:04 AM EDT CBC (WITH DIFF) Routine 10/18/2023 6:04 AM EDT BASIC METABOLIC PANEL Routine 10/18/2023 6:04 AM EDT MRI FOOT WWO CONTRAST RIGHT STAT 10/17/2023 11:25 AM EDT VANCOMYCIN LEVEL, RANDOM Routine 10/17/2023 5:38 AM EDT CRP, ACUTE INFLAMMATION Routine 10/17/2023 5:38 AM EDT CBC (WITH DIFF) Routine 10/17/2023 5:38 AM EDT BASIC METABOLIC PANEL Routine 10/17/2023 5:38 AM EDT XR CHEST PA AND LATERAL STAT 10/16/2023 7:02 PM EDT XR FOOT MIN 3 VIEWS RIGHT STAT 10/16/2023 2:08 PM EDT CRP, ACUTE INFLAMMATION Routine 10/16/2023 1:28 PM EDT SEDIMENTATION RATE Routine 10/16/2023 1: 28 PM EDT CBC (WITH DIFF) STAT 10/16/2023 1:28 PM EDT BASIC METABOLIC PANEL STAT 10/16/2023 1:28 PM EDT documented in this encounter Results * EKG 12 Lead (10/19/2023 4:55 PM EDT) Ventricular rate 80 BPM MUSE SYSTEM Atrial Rate 90 BPM MUSE SYSTEM QRS Duration 212 ms MUSE SYSTEM Q-T Interval 458 ms MUSE SYSTEM QTC Calculated (Bezet) 528 ms MUSE SYSTEM Calculated R Easley -69 degrees MUSE SYSTEM Calculated T Easley 108 degrees MUSE SYSTEM INTERPRETATION Ventricular- paced rhythm Abnormal ECG No previous ECGs available Confirmed by Min, MD, Yves ([id number]) on 10/24/2023 10:13:21 PM MUSE SYSTEM 10/19/2023 4:55 PM EDT 10/24/2023 10:13 PM EDT Elijah Arshad SHANI ECG ORDERABLES Performing Organization Address City/[facility]/ZIP Co de Phone Number MUSE SYSTEM * MRSA PCR Screen (10/19/2023 9:00 AM EDT) Pathologist [facility] MRSA PCR Not Detected 10/19/2023 7:01 PM EDT [facility] Swab BOTH ANTERIOR NARES / Unknown Non Blood Collection / Unknown 10/19/2023 9:00 AM EDT 10/19/2023 9:04 AM EDT Narrative [facility] - 10/19/2023 7:01 PM EDT This test was performed using the Xpert MRSA NxG test kit and is run on the Mobile AutomationXpert Dx System. This test is cleared by the U.S. Food and Drug Administration for clinical use and its performance characteristics have been verified by the [facility] at [facility]. This test was performed using the Xpert MRSA NxG test kit and is run on the [employer] GeneXpert Dx System. This test is cleared by the U.S. Food and Drug Administration for clinical use and its performance characteristics have been verified by the [facility] at [facility]. Elijah Pardo McKenzie SHANI MOLECULAR ORDERAB LES Performing Organization Address City/[facility]/ZIP Co de Phone Number [facility] [place] [address] * (ABNORMAL) Basic Metabolic Panel (10/19/2023 4:52 AM EDT) Glucose 95 65 - 199 mg/dL 10/19/2023 6:03 AM EDT [facility] Comment:Glucose Concentratio n >=200 mg/dL plus symptoms is consistent with Diabetes Mellitus. Blood Urea Nitrogen 8(L) 10 - 20 mg/dL 10/19/2023 6:03 AM [facility] Creatinine 1.10 0.80 - 1.50 mg/dL 10/19/2023 6:03 AM [facility] Sodium 144 135 - 145 mMol/L 10/19/2023 6:03 AM [facility] Potassium 3.3(L) 3.5 - 5.0 mMol/L 10/19/2023 6:03 AM [facility] Chloride 109(H) 98 - 107 mMol/L 10/19/2023 6:03 AM [facility] Carbon Dioxide 22 22 - 31 mMol/L 10/19/2023 6:03 AM [facility] Anion Gap 13 5 - 15 mMol/L 10/19/2023 6:03 AM [facility] Calcium 9.1 8.5 - 10.5 mg/dL 10/19/2023 6:03 AM [facility] Est Glomerular Filtration Rate - Male 67 mL/min/1. 73 m?? 10/19/2023 6:03 AM [facility] Comment: This patient's estimated GFR was [...] AM EDT Vanessa Patten MD CHEMISTRY ORDERABLES [facility] [place] [address] * (ABNORMAL) CBC (with Diff) (10/19/2023 4:52 AM EDT) White Blood Cell 4.64 4.00 - 9.50 x10(3)/mc L 10/19/2023 5:40 AM T [facility] Red Blood Cell 3.74(L) 4.58 - 5.54 x10(6)/mc L 10/19/2023 5:40 AM [facility] Hemoglobin 13.2(L) 13.7 - 16.5 g/dL 10/19/2023 5:40 AM [facility] Hematocrit 38.4(L) 40.5 - 48.5 % 10/19/2023 5:40 AM [facility] Mean Cell Volume 102.7(H) 82.9 - 93.1 fL 10/19/2023 5:40 AM [facility] Mean Cell Hemoglobin 35.3(H) 27.5 - 32.1 pg 10/19/2023 5:40 AM [facility] Mean Cell Hemoglobin Concentration 34.4 32.0 - 35.7 g/dL 10/19/2023 5:40 AM [facility] Platelet 257 145 - 357 x10(3)/mc L 10/19/2023 5:40 AM [facility] Mean Platelet Volume 9.1 7.6 - 12.9 fL 10/19/2023 5:40 AM [facility] RDW Standard Deviation 46.3(H) 36.0 - 45.0 fL 10/19/2023 5:40 AM [facility] RDW coefficient of variation 12.1 11.4 - 13.8 % 10/19/2023 5:40 AM [facility] NRBC% auto 0.0 % 10/19/2023 5:40 AM [facility] NRBC Absolute 0.00 0.00 - 0.00 x10(3)/mc L 10/19/2023 5:40 AM EDT [facility] Neutrophil % 58.7 % 10/19/2023 5:40 AM EDT [facility] Neutrophil Absolute 2.72 1.70 - 6.10 x10(3)/mc L 10/19/2023 5:40 AM EDT [facility] Lymph % 19.4 % 10/19/2023 5:40 AM EDT [facility] Lymph Absolute 0.90 0.90 - 3.20 x10(3)/mc L 10/19/2023 5:40 AM EDT [facility] Monocyte % 17.7 % 10/19/2023 5:40 AM EDT [facility] Monocyte Absolute 0.82 0.30 - 0.90 x10(3)/mc L 10/19/2023 5:40 AM EDT [facility] Eos % 3.2 % 10/19/2023 5:40 AM EDT [facility] Eos Absolute 0.15 0.00 - 0.40 x10(3)/mc L 10/19/2023 5:40 AM EDT [facility] Basophil % 0.6 % 10/19/2023 5:40 AM EDT [facility] Baso Absolute 0.03 0.00 - 0.10 x10(3)/mc L 10/19/2023 5:40 AM EDT [facility] Immature Gran % 0.4 % 5:40 AM EDT [facility] Immature Gran Absolute 0.02 0.00 - 0.04 x10(3)/mc L 10/19/2023 5:40 AM EDT [facility] Blood VENOUS BLOOD SPECIMEN / Unknown IP Care Team Draw / Unknown 10/19/2023 4:52 AM EDT 10/19/2023 5:29 AM EDT Vanessa Patten MD HEMATOLOGY ORDERABLE S [facility] [place] [address] * MARLEE/TCPO2 (Transcutaneous Oxygen Pressure Test) (10/18/2023 1:03 PM EDT) VB Text Report Department: Vascular Surgery Lab Patient: [id number] (TIMMY WHITMAN) CPT: 35070 Referring Physician: ELIJAH ARSHAD ?? Phone: Indications: [...] ---- ? 0.70(-.04) ---- Electronically Signed by: AMAN SERRANO on 2023-10-18 06:14:22 PM VASCUBASE VB Text Report End of Report VASCUBASE 10/18/2023 1:03 PM EDT Elijah Arshad APRN VASCULAR ORDERABL ES VASCUBASE * (ABNORMAL) CRP, acute inflammation (10/18/2023 6:04 AM EDT) C-Reactive Protein 30.0(H) <=4.9 mg/L 10/18/2023 7:42 AM EDT [facility] Blood VENOUS BLOOD SPECIMEN / Unknown IP Care Team Draw / Unknown 10/18/2023 6:04 AM EDT 10/18/2023 6:50 AM EDT Elijah Arshad APRN CHEMISTRY ORDERAB LES [facility] [place] [address] * (ABNORMAL) Basic Metabolic Panel (10/18/2023 6:04 AM EDT) Glucose 95 65 - 199 mg/dL 10/18/2023 7:25 AM [facility] Comment:Glucose Concentratio n >=200 mg/dL plus symptoms is consistent with Diabetes Mellitus. Blood Urea Nitrogen 9(L) 10 - 20 mg/dL 10/18/2023 7:25 AM [facility] Creatinine 1.16 0.80 - 1.50 mg/dL 10/18/2023 7:25 AM [facility] Sodium 143 135 - 145 mMol/L 10/18/2023 7:25 AM [facility] Potassium 3.6 3.5 - 5.0 mMol/L 10/18/2023 7:25 AM [facility] Chloride 107 98 - 107 mMol/L 10/18/2023 7:25 AM [facility] Carbon Dioxide 24 22 - 31 mMol/L 10/18/2023 7:25 AM [facility] Anion Gap 12 5 - 15 mMol/L 10/18/2023 7:25 AM [facility] Calcium 9.1 8.5 - 10.5 mg/dL 10/18/2023 7:25 AM [facility] Est Glomerular Filtration Rate - Male 63 mL/min/1. 73 m?? 10/18/2023 7:25 AM [facility] Comment: This patient's estimated GFR was [...] 6:04 AM EDT 10/18/2023 6:50 AM EDT Vanessa Patten MD CHEMISTRY ORDERABLES [facility] [place] [address] * (ABNORMAL) CBC (with Diff) (10/18/2023 6:04 AM EDT) White Blood Cell 4.81 4.00 - 9.50 x10(3)/mc L 10/18/2023 6:55 AM EDT [facility] Red Blood Cell 3.63(L) 4.58 - 5.54 x10(6)/mc L 10/18/2023 6:55 AM EDT [facility] Hemoglobin 12.9(L) 13.7 - 16.5 g/dL 10/18/2023 6:55 AM EDT [facility] Hematocrit 37.4(L) 40.5 - 48.5 % 10/18/2023 6:55 AM EDT [facility] Mean Cell Volume 103.0(H) 82.9 - 93.1 fL 10/18/2023 6:55 AM EDT [facility] Mean Cell Hemoglobin 35.5(H) 27.5 - 32.1 pg 10/18/2023 6:55 AM EDT [facility] Mean Cell Hemoglobin Concentration 34.5 32.0 - 35.7 g/dL 10/18/2023 6:55 AM EDT [facility] Platelet 269 145 - 357 x10(3)/mc L 10/18/2023 6:55 AM EDT [facility] Mean Platelet Volume 9.2 7.6 - 12.9 fL 10/18/2023 6:55 AM EDT [facility] RDW Standard Deviation 46.2(H) 36.0 - 45.0 fL 10/18/2023 6:55 AM EDT [facility] RDW coefficient of variation 12.2 11.4 - 13.8 % 10/18/2023 6:55 AM [facility] NRBC% auto 0.0 % 10/18/2023 6:55 AM [facility] NRBC Absolute 0.00 0.00 - 0.00 x10(3)/mc L 10/18/2023 6:55 AM [facility] Neutrophil % 56.0 % 10/18/2023 6:55 AM [facility] Neutrophil Absolute 2.69 1.70 - 6.10 x10(3)/mc L 10/18/2023 6:55 AM [facility] Lymph % 22.0 % 10/18/2023 6:55 AM [facility] Lymph Absolute 1.06 0.90 - 3.20 x10(3)/mc L 10/18/2023 6:55 AM [facility] Monocyte % 17.3 % 10/18/2023 6:55 AM [facility] Monocyte Absolute 0.83 0.30 - 0.90 x10(3)/mc L 10/18/2023 6:55 AM [facility] Eos % 3.3 % 10/18/2023 6:55 AM [facility] Eos Absolute 0.16 0.00 - 0.40 x10(3)/mc L 10/18/2023 6:55 AM [facility] Basophil % 0.6 % 10/18/2023 6:55 AM [facility] Baso Absolute 0.03 0.00 - 0.10 x10(3)/mc L 10/18/2023 6:55 AM [facility] Immature Gran % 0.8 % 6:55 AM [facility] Immature Gran Absolute 0.04 0.00 - 0.04 x10(3)/mc L 10/18/2023 6:55 AM [facility] Blood VENOUS BLOOD SPECIMEN / Unknown IP Care Team Draw / Unknown 10/18/2023 6:04 AM EDT 10/18/2023 6:50 AM EDT Vanessa Patten MD HEMATOLOGY ORDERABLE S [facility] [place] [address] * MRI Foot wwo Contrast Right (10/17/2023 11:25 AM EDT) [email or web address] WORKSTATION ID [id number] RAD Anatomical Region Laterality Modality Foot Right [...] who have questions please contact the health personal carer that requested your imaging first. ? Electronically signed by: Daphne Mason MD, [facility] ([phone]), at 10/17/2023 12:40 PM Narrative 10/17/2023 12:40 PM EDT EXAMINATION: MRI [...] patients who have questions please contactthe health personal carer that requested your imaging first. Vanessa Patten MD IMG MRI ORDERABLES * (ABNORMAL) CRP, acute inflammation (10/17/2023 5:38 AM EDT) C-Reactive Protein 52.2(H) <=4.9 mg/L 10/17/2023 6:43 AM EDT [facility] Blood VENOUS BLOOD SPECIMEN / Unknown IP Care Team Draw / Unknown 10/17/2023 5:38 AM EDT 10/17/2023 5:52 AM EDT Vanessa Patten MD CHEMISTRY ORDERABLES [facility] [place] [address] * Basic Metabolic Panel (10/17/2023 5:38 AM EDT) Glucose 94 65 - 199 mg/dL 10/17/2023 6:26 AM EDT [facility] Comment:Glucose Concentratio n >=200 mg/dL plus symptoms is consistent with Diabetes Mellitus. Blood Urea Nitrogen 12 10 - 20 mg/dL 10/17/2023 6:26 AM EDT [facility] Creatinine 1.03 0.80 - 1.50 mg/dL 10/17/2023 6:26 AM EDT [facility] Sodium 142 135 - 145 mMol/L 10/17/2023 6:26 AM EDT [facility] Potassium 3.9 3.5 - 5.0 mMol/L 10/17/2023 6:26 AM EDT [facility] Chloride 107 98 - 107 mMol/L 10/17/2023 6:26 AM EDT [facility] Carbon Dioxide 23 22 - 31 mMol/L 10/17/2023 6:26 AM EDT [facility] Anion Gap 12 5 - 15 mMol/L 10/17/2023 6:26 AM EDT [facility] Calcium 9.2 8.5 - 10.5 mg/dL 10/17/2023 6:26 AM EDT [facility] Est Glomerular Filtration Rate - Male 73 mL/min/1. 73 m?? 10/17/2023 6:26 AM EDT [facility] Comment: This patient's estimated [...] AM EDT Vanessa Patten MD CHEMISTRY ORDERABLES [facility] [place] [address] * (ABNORMAL) CBC (with Diff) (10/17/2023 5:38 AM EDT) White Blood Cell 4.64 4.00 - 9.50 x10(3)/mc L 10/17/2023 6:03 AM EDT [facility] Red Blood Cell 3.78(L) 4.58 - 5.54 x10(6)/mc L 10/17/2023 6:03 AM EDT [facility] Hemoglobin 13.4(L) 13.7 - 16.5 g/dL 10/17/2023 6:03 AM EDT [facility] Hematocrit 38.3(L) 40.5 - 48.5 % 10/17/2023 6:03 AM EDT [facility] Mean Cell Volume 101.3(H) 82.9 - 93.1 fL 10/17/2023 6:03 AM [facility] Mean Cell Hemoglobin 35.4(H) 27.5 - 32.1 pg 10/17/2023 6:03 AM [facility] Mean Cell Hemoglobin Concentration 35.0 32.0 - 35.7 g/dL 10/17/2023 6:03 AM [facility] Platelet 240 145 - 357 x10(3)/mc L 10/17/2023 6:03 AM [facility] Mean Platelet Volume 8.9 7.6 - 12.9 fL 10/17/2023 6:03 AM [facility] RDW Standard Deviation 45.8(H) 36.0 - 45.0 fL 10/17/2023 6:03 AM [facility] RDW coefficient of variation 12.2 11.4 - 13.8 % 10/17/2023 6:03 AM [facility] NRBC% auto 0.0 % 10/17/2023 6:03 AM [facility] NRBC Absolute 0.00 0.00 - 0.00 x10(3)/mc L 10/17/2023 6:03 AM [facility] Neutrophil % 59.1 % 10/17/2023 6:03 AM [facility] Neutrophil Absolute 2.74 1.70 - 6.10 x10(3)/mc L 10/17/2023 6:03 AM [facility] Lymph % 19.6 % 10/17/2023 6:03 AM [facility] Lymph Absolute 0.91 0.90 - 3.20 x10(3)/mc L 10/17/2023 6:03 AM [facility] Monocyte % 16.6 % 10/17/2023 6:03 AM [facility] Monocyte Absolute 0.77 0.30 - 0.90 x10(3)/mc L 10/17/2023 6:03 AM [facility] Eos % 3.2 % 10/17/2023 6:03 AM EDT [facility] Eos Absolute 0.15 0.00 - 0.40 x10(3)/mc L 10/17/2023 6:03 AM EDT [facility] Basophil % 0.9 % 10/17/2023 6:03 AM EDT [facility] Baso Absolute 0.04 0.00 - 0.10 x10(3)/mc L 10/17/2023 6:03 AM EDT [facility] Immature Gran % 0.6 % 6:03 AM EDT [facility] Immature Gran Absolute 0.03 0.00 - 0.04 x10(3)/mc L 10/17/2023 6:03 AM EDT [facility] Blood VENOUS BLOOD SPECIMEN / Unknown IP Care Team Draw / Unknown 10/17/2023 5:38 AM EDT 10/17/2023 5:52 AM EDT Vanessa Patten MD HEMATOLOGY ORDERABLE S [facility] [place] [address] * Vancomycin Level, Random (10/17/2023 5:38 AM EDT) Vancomycin, Random 11.1 mg/L 2023 6:26 AM EDT [facility] Comment:This level is for de termination of the patient's vancomycin cbur-bbogo-vnp-curve (AUC) value. Contact the inpatient pharmacy for interpretation. Blood VENOUS BLOOD SPECIMEN / Unknown IP Care Team Draw / Unknown 10/17/2023 5:38 AM EDT 10/17/2023 5:52 AM EDT Vanessa Patten MD CHEMISTRY ORDERABLES [facility] [place] [address] * XR Chest PA & Lateral (Generic) (10/16/2023 7:02 PM EDT) WORKSTATION ID [id number] RAD Anatomical Region Laterality Modality Chest N/A [...] who have questions please contact the health personal carer that requested your imaging first. ? Electronically signed by: Jean Carlos Condon MD, [facility] ??([phone]), at 10/16/2023 7:22 PM Narrative 10/16/2023 7:22 [...] patients who have questions please contactthe health personal carer that requested your imaging first. Electronically signed by: Jean Carlos Condon MD, [facility]([phone]), at 10/16/2023 7:22 PM Chester Chatman MINE ADMINISTRATOR SUPERVISOR IMG DX ORDERABLES * XR Foot Min 3 views Right (Generic) (10/16/2023 2:08 PM EDT) WORKSTATION ID [id number] RAD Anatomical Region Laterality Modality Foot Right [...] who have questions please contact the health personal carer that requested your imaging first. ? Electronically signed by: Jean Carlos Condon MD, [facility] ??([phone]), at 10/16/2023 2:19 PM Narrative 10/16/2023 2:19 [...] patients who have questions please contactthe health personal carer that requested your imaging first. Electronically signed by: Jean Carlos Condon MD, [facility]([phone]), at 10/16/2023 2:19 PM Chester Chatman APRN IMG DX ORDERABLES * (ABNORMAL) CRP, acute inflammation (10/16/2023 1:28 PM EDT) [facility] C-Reactive Protein 86.1(H) <=4.9 mg/L 10/16/2023 2:32 PM EDT [facility] Blood VENOUS BLOOD SPECIMEN / Unknown Venipuncture / Unknown 10/16/2023 1:28 PM EDT 10/16/2023 1:51 PM EDT Chester Chatman APRN CHEMISTRY ORDERABLES [facility] [place] [address] * (ABNORMAL) Sedimentation rate (10/16/2023 1:28 PM EDT) Pathologist [facility] Sedimentation Rate Automated 82(H) 3 - 46 mm/hr 10/16/2023 2:33 PM EDT [facility] Blood VENOUS BLOOD SPECIMEN / Unknown Venipuncture / Unknown 10/16/2023 1:28 PM EDT 10/16/2023 1:51 PM EDT Chester Chatman MINE ADMINISTRATOR SUPERVISOR HEMATOLOGY ORDERABLE S [facility] [place] [address] * Basic Metabolic Panel (10/16/2023 1:28 PM EDT) Glucose 84 65 - 199 mg/dL 10/16/2023 2:18 PM EDT [facility] Comment:Glucose Concentratio n >=200 mg/dL plus symptoms is consistent with Diabetes Mellitus. Blood Urea Nitrogen 14 10 - 20 mg/dL 10/16/2023 2:18 PM EDT [facility] Creatinine 0.87 0.80 - 1.50 mg/dL 10/16/2023 2:18 PM EDT [facility] Sodium 139 135 - 145 mMol/L 10/16/2023 2:18 PM EDT [facility] Potassium 3.6 3.5 - 5.0 mMol/L 10/16/2023 2:18 PM EDT [facility] Chloride 102 98 - 107 mMol/L 10/16/2023 2:18 PM EDT [facility] Carbon Dioxide 24 22 - 31 mMol/L 10/16/2023 2:18 PM EDT [facility] Anion Gap 13 5 - 15 mMol/L 10/16/2023 2:18 PM EDT [facility] Calcium 9.5 8.5 - 10.5 mg/dL 10/16/2023 2:18 PM EDT [facility] Est Glomerular Filtration Rate - Male 86 mL/min/1. 73 m?? 10/16/2023 2:18 PM EDT [facility] Comment: This patient's estimated [...] Foundation Blood VENOUS BLOOD SPECIMEN / Unknown Venipuncture / Unknown 10/16/2023 1:28 PM EDT 10/16/2023 1:51 PM EDT Chester Chatman APRN CHEMISTRY ORDERABLES [facility] [place] [address] * (ABNORMAL) CBC (with Diff) (10/16/2023 1:28 PM EDT) White Blood Cell 6.58 4.00 - 9.50 x10(3)/mc L 10/16/2023 2:46 PM EDT [facility] Red Blood Cell 3.86(L) 4.58 - 5.54 x10(6)/mc L 10/16/2023 2:46 PM EDT [facility] Hemoglobin 13.6(L) 13.7 - 16.5 g/dL 10/16/2023 2:46 PM EDT [facility] Hematocrit 39.1(L) 40.5 - 48.5 % 10/16/2023 2:46 PM EDT [facility] Mean Cell Volume 101.3(H) 82.9 - 93.1 fL 10/16/2023 2:46 PM EDT [facility] Mean Cell Hemoglobin 35.2(H) 27.5 - 32.1 pg 10/16/2023 2:46 PM EDT [facility] Mean Cell Hemoglobin Concentration 34.8 32.0 - 35.7 g/dL 10/16/2023 2:46 PM EDT [facility] Platelet 256 145 - 357 x10(3)/mc L 10/16/2023 2:46 PM EDT [facility] Mean Platelet Volume 9.2 7.6 - 12.9 fL 10/16/2023 2:46 PM EDT [facility] RDW Standard Deviation 45.2(H) 36.0 - 45.0 fL 10/16/2023 2:46 PM EDT [facility] RDW coefficient of variation 12.1 11.4 - 13.8 % 10/16/2023 2:46 PM EDT [facility] NRBC% auto 0.0 % 10/16/2023 2:46 PM EDT [facility] NRBC Absolute 0.00 0.00 - 0.00 x10(3)/mc L 10/16/2023 2:46 PM EDT [facility] Neutrophil % 65.9 % 10/16/2023 2:46 PM EDT [facility] Neutrophil Absolute 4.34 1.70 - 6.10 x10(3)/mc L 10/16/2023 2:46 PM EDT [facility] Lymph % 17.2 % 10/16/2023 2:46 PM EDT [facility] Lymph Absolute 1.13 0.90 - 3.20 x10(3)/mc L 10/16/2023 2:46 PM EDT [facility] Monocyte % 13.8 % 10/16/2023 2:46 PM EDT [facility] Monocyte Absolute 0.91(H) 0.30 - 0.90 x10(3)/mc L 10/16/2023 2:46 PM EDT [facility] Eos % 2.1 % 10/16/2023 2:46 PM EDT [facility] Eos Absolute 0.14 0.00 - 0.40 x10(3)/mc L 10/16/2023 2:46 PM EDT [facility] Basophil % 0.5 % 10/16/2023 2:46 PM EDT [facility] Baso Absolute 0.03 0.00 - 0.10 x10(3)/mc L 10/16/2023 2:46 PM EDT [facility] Immature Gran % 0.5 % 2:46 PM EDT [facility] Immature Gran Absolute 0.03 0.00 - 0.04 x10(3)/mc L 10/16/2023 2:46 PM EDT [facility] Blood VENOUS BLOOD SPECIMEN / Unknown Venipuncture / Unknown 10/16/2023 1:28 PM EDT 10/16/2023 1:51 PM EDT Chester Chatman MINE ADMINISTRATOR SUPERVISOR HEMATOLOGY ORDERABLE S [facility] [place] [address] documented in this encounter Visit Diagnoses Diagnosis Cellulitis and abscess of foot- Primary Cellulitis and abscess of foot, except toes Cellulitis of foot, right Cellulitis and abscess of foot, except toes Cellulitis, unspecified cellulitis site QT prolongation Nonspecific abnormal electrocardiogram (ECG) (EKG) documented in this encounter Admitting Diagnoses Diagnosis Cellulitis and abscess of foot Cellulitis and abscess of foot, except toes documented in this encounter Administered Medications Inactive Administered Medications - up to 3 most recent administrations Medication Order MAR Action Action Date Dose Rate Site apixaban (Eliquis) tablet 5 mg 5 mg, Oral, 2 TIMES DAILY, First dose on Wed10/19/23 at 2100, Until Discontinued, Anticoagulant, Routine, apixaban (Eliquis) Indication: Non-Valvular Atrial Fibrillation Given 10/20/2023 8:07 AM EDT 5 mg Given 10/19/2023 8:25 PM EDT 5 mg carvediloL (Coreg) tablet 25 mg 25 mg, Oral, 2 TIMES DAILY WITH MEALS, First dose on Wed10/17/23 at 0800, Until Discontinued, Hold for SBP<90, HR<60, Routine Given 10/20/2023 8:1 1 AM EDT 25 mg Given 10/19/2023 5:54 PM EDT 25 mg Given 10/19/2023 8:44 AM EDT 25 mg enoxaparin (Lovenox) (40 mg/0.4 mL) subcutaneous injection 40 mg 40 mg, Subcutaneous, NIGHTLY, First dose on 10/16/23 at 2130, Until Discontinued, Routine Given 10/18/2023 9:55 PM EDT 40 mg Given 10/17/2023 8:17 PM EDT 40 mg Given 10/16/2023 9:57 PM EDT 40 mg gadoterate meglumine (Dotarem) (0.5 mMol/mL) injection solution 0-100 mL 0-100 mL, Intravenous, ONCE PRN, 1 dose, Starting on 10/17/23 at 1135, Until Wed10/17/23 at 1100, Per Protocol, Radiology Contrast, Routine Given 10/17/2023 11:00 AM EDT 18 mLs levoFLOXacin (Levaquin) tablet 750 mg 750 mg, Oral, DAILY, First dose on Wed10/19/23 at 2200, Until Discontinued, Give this medication 2 hours BEFORE, or 6 hours AFTER products with multivalent cations (e.g. Calcium, Iron, Zinc, Magnesium, Aluminum). Do not coadminister, Routine, Indication for (Active or Suspected): Bone/Joint, Restricted Antibiotic: Please indicate the most appropriate choice: ID Approval by Abby Gray Given 10/19/2023 9:05 PM EDT 750 mg piperacillin-tazobactam (Zosyn) 4.5 g vial attach to sodium chloride 0.9% 100 mL Mini-Bag Plus 4.5 g, Intravenous, ONCE, 1 dose, On 10/16/23 at 1520, Administer over 0.5 Hours, Warning Vesicant/Irritant Medication Per theology professor labeling, do not administer or Y-site with lactated ringers., Indication for (Active or Suspected): Bone/Joint New Bag 10/16/2023 4:40 PM EDT 4.5 g 200 m L/hr piperacillin-tazobactam (Zosyn) 4.5 g vial attach to sodium chloride 0.9% 100 mL Mini-Bag Plus 4.5 g, Intravenous, EVERY 8 HOURS, First dose (after last modification) on 10/16/23 at 2200, Until Discontinued, Administer over 4 Hours, Warning Vesicant/Irritant Medication Per theology professor labeling, do not administer or Y-site with lactated ringers., Indication for (Active or Suspected): Bone/Joint New Bag 10/19/2023 2:14 PM EDT 4.5 g 25 mL/hr New Bag 10/19/2023 6:03 AM EDT 4.5 g 25 mL/hr New 10/18/2023 9:55 PM EDT 4.5 g 25 mL/hr potassium chloride ER (Klor-Con M) crystal tablet 40 mEq 40 mEq, Oral, ONCE, 1 dose, On Wed10/19/23 at 0845, potassium chloride ER particle/crystal tablets (Klor-Con M) may be broken in half and each half swallowed separately. Tablets can be dissolved in ~4 ounces of water; allow ~2 minutes to dissolve, stir well and drink immediately. Do not crush, chew, or suck on tablet., Routine Given 10/19/2023 8:44 AM EDT 40 mEq sulfamethoxazole-trimethoprim DS (Bactrim DS) 800-160 mg per tablet 1 tablet 1 tablet, Oral, EVERY 12 HOURS SCHEDULED (2 times per day), First dose on Wed10/19/23 at 2100, Until Discontinued, Routine, Indication for (Active or Suspected): Bone/Joint Given 10/20/2023 8:07 AM EDT 1 tablet Given 10/19/2023 8:25 PM EDT 1 tablet vancomycin (Vancocin) 1.75 gram in sodium chloride 0.9% 500 mL infusion 1,750 mg, Intravenous, at 250 mL/hr, EVERY 24 HOURS, First dose (after last modification) on Wed10/17/23 at 1000, Until Discontinued, Maximum infusion rate is 1 gram/hour. If flushing of the face, neck, upper body, arms, and/or back occurs decrease infusion rate by 50% to reduce the severity of symptoms. This medication may have an associated drug lab level. Please see MAR for scheduled level. Warning Vesicant/Irritant Medication , Routine New Bag 10/19/2023 11:00 AM EDT 1,750 mg 250 mL/hr New Bag 10/18/2023 12:04 PM EDT 1,750 mg 250 mL/hr New Bag 10/17/2023 1:52 PM EDT 1,750 mg 250 mL/hr vancomycin (Vancocin) 2 gram in sodium chloride 0.9% 500 mL infusion 2 g, Intravenous, at 250 mL/hr, ONCE, 1 dose, On Wed10/16/23 at 1535, Maximum infusion rate is 1 gram/hour. If flushing of the face, neck, upper body, arms, and/or back occurs decrease infusion rate by 50% to reduce the severity of symptoms. This medication may have an associated drug lab level. Please see MAR for scheduled level. Warning Vesicant/Irritant Medication , Routine New Bag 10/16/2023 5:53 PM EDT 2 g 250 mL/hr documented in this encounter Active and Recently Administered Medications Times are shown in EDT. Scheduled Medication Order 10/18/2023 10/19/2023 10/20/2023 apixaban (Eliquis) tablet 5 mg 5 mg, Oral, 2 TIMES DAILY, First dose on Wed10/19/23 at 2100, Until Discontinued, Anticoagulant, Routine, apixaban (Eliquis) Indication: Non-Valvular Atrial Fibrillation 2024 (Given - Provider: Mandy Day RN) 08 (Given - Provider: Roverto Cisse RN) carvediloL (Coreg) tablet 25 mg 25 mg, Oral, 2 TIMES DAILY WITH MEALS, First dose on Wed10/17/23 at 0800, Until Discontinued, Hold for SBP<90, HR<60, Routine 0928 (Given - Provider: Jamie Sims LPN)1653 (Given - Provider: Juliana Garcia RN) 0844 (Given - Provider: Roverto Cisse RN)1754 (Given - Provider: Roverto Cisse RN) 0811 (Given - Provider: Roverto Cisse RN) enoxaparin (Lovenox) (40 mg/0.4 mL) subcutaneous injection 40 mg (CANCELED) 40 mg, Subcutaneous, NIGHTLY, First dose on Wed10/16/23 at 2130, Until Discontinued, Routine 2154 (Given - Provider: Mandy Day RN) levoFLOXacin (Levaquin) tablet 750 mg 750 mg, Oral, DAILY, First dose on Wed10/19/23 at 2200, Until Discontinued, Give this medication 2 hours BEFORE, or 6 hours AFTER products with multivalent cations (e.g. Calcium, Iron, Zinc, Magnesium, Aluminum). Do not coadminister, Routine, Indication for (Active or Suspected): Bone/Joint, Restricted Antibiotic: Please indicate the most appropriate choice: ID Approval by Abby Gray [id number] (Given - Provider: Mandy Day RN) piperacillin-tazobacta m (Zosyn) 4.5 g vial attach to sodium chloride 0.9% 100 mL Mini-Bag Plus (CANCELED) 4.5 g, Intravenous, EVERY 8 HOURS, First dose (after last modification) on Wed10/16/23 at 2200, Until Discontinued, Administer over 4 Hours, Warning Vesicant/Irritant Medication Per theology professor labeling, do not administer or Y-site with lactated ringers., Indication for (Active or Suspected): Bone/Joint 0254 (Stopped - Provider: Mandy Day RN)0625 (New Bag - Provider: Mandy Day RN)1025 (Stopped - Provider: Jamie Sims LPN)1419 (New Bag - Provider: Juliana Garcia RN)1819 (Stopped - Provider: Juliana Garcia RN)2155 (New Bag - Provider: Mandy Day RN) 0155 (Stopped - Provider: Mandy Day RN)0603 (New Bag - Provider: Mandy Day RN)1003 (Stopped - Provider: Roverto Cisse RN)1414 (New Bag - Provider: Roverto Cisse RN)1655 (Stopped - Provider: Roverto Cisse RN - Comment: Time automatically adjusted from order being discontinued) potassium chloride ER (Klor-Con M) crystal tablet 40 mEq (COMPLETED) 40 mEq, Oral, ONCE, 1 dose, On Wed10/19/23 at 0845, potassium chloride ER particle/crystal tablets (Klor-Con M) may be broken in half and each half swallowed separately. Tablets can be dissolved in ~4 ounces of water; allow ~2 minutes to dissolve, stir well and drink immediately. Do not crush, chew, or suck on tablet., Routine 0844 (Given - Provider: Roverto Cisse RN) sulfamethoxazole-trime thoprim DS (Bactrim DS) 800-160 mg per tablet 1 tablet 1 tablet, Oral, EVERY 12 HOURS SCHEDULED (2 times per day), First dose on Wed10/19/23 at 2100, Until Discontinued, Routine, Indication for (Active or Suspected): Bone/Joint 2024 (Given - Provider: Mandy Dya, KUSH) 08 (Given - Provider: Roverto Cisse RN) vancomycin (Vancocin) 1.75 gram in sodium chloride 0.9% 500 mL infusion (CANCELED) 1,750 mg, Intravenous, at 250 mL/hr, EVERY 24 HOURS, First dose (after last modification) on Wed10/17/23 at 1000, Until Discontinued, Maximum infusion rate is 1 gram/hour. If flushing of the face, neck, upper body, arms, and/or back occurs decrease infusion rate by 50% to reduce the severity of symptoms. This medication may have an associated drug lab level. Please see MAR for scheduled level. Warning Vesicant/Irritant Medication , Routine 1204 (New Bag - Provider: Jamie Sims LPN)1404 (Stopped - Provider: Juliana Garcia RN) 1100 (New Bag - Provider: Roverto Cisse RN)1415 (Stopped - Provider: Roverto Cisse RN) PRN Medication Order 10/18/2023 10/19/2023 10/20/2023 acetaminophen (Tylenol) tablet 650 mg 650 mg, Oral, EVERY 6 HOURS PRN, Starting on 10/16/23 at 2107, Until Wed10/20/23 at 1536, Pain, Fever, Administer for pain or temperature greater than or equal to 38.2 degrees Celsius. Maximum daily dose of acetaminophen from all sources not to exceed 4,000 mg. When ordered for pain, acetaminophen should be given even when other ordered pain medications are indicated., Routine melatonin tablet 3 mg 3 mg, Oral, NIGHTLY PRN, Starting on 10/16/23 at 2107, Until Wed10/20/23 at 1536, Sleep, Sleep, Routine documented in this encounter Care Teams Powder Room Attendant Relationship Specialty Start Date End Date Allyson Grijalva MD [address] [id number] PCP - General 10/16/23 documented as of this encounter
--- OUTSIDE RECORDS SUMMARY | 2023-10-27 04:03 | XMS_ITS ---
Author Organization [facility] Address [address] [place] [address] Care Team Providers Care Green Chainer Name Role Phone Allyson Grijalva Primary Care Provider REASON FOR VISIT local visiting nurse agency Encounters Encounter Location Date Provider Diagnosis [facility] [address] [place] [address] 10/19/2023 Allyson Grijalva PLAN OF TREATMENT No Information
--- OUTSIDE RECORDS SUMMARY | 2023-10-27 04:03 | XMS_ITS | Encounter Summary ---
Author Organization [facility] [place] [address] Care Team Providers Care Bleacher [employer] Name Role Phone Frankie Friedman DPM Primary Care Provider [phone] Encounter Details Date Type Department Care Team (Latest Contact Info) Description 09/30/2016 12:30 PM EDT - 09/30/2016 2:23 PM EDT Hospital Encounter [place] [address] Constanza Rondon, SHARATH Foot ulcer, left, with [...] EDT TH Visit (TeleHealth) [place] [address] [place] Murphy APRN [facility] [place] [address] documented as of this encounter Procedures Procedure Name Priority Date/Time Associated Diagnosis Comments MARLEE, LEGS, MULTIPLE LEVELS Routine 09/30/2016 1:04 PM EDT Foot ulcer, left, with unspecified severity documented in this encounter Results * MARLEE, legs, multiple levels (09/30/2016 1:04 PM EDT) VB Text Report Department: Vascular Surgery Lab Patient: [id number] (TIMMY JULES) CPT: 33806 ICD10: L97.529 Referring Physician: EDDIE HOPPER ?? [...] severity documented in this encounter Care Teams Ble[employer] Relationship Specialty Start Date End Date Frankie Friedman DPM [address] [place] [id number] PCP - General Podiatry 09/30/16 10/15/23 documented as of this encounter
--- OUTSIDE RECORDS SUMMARY | 2023-10-27 04:03 | XMS_ITS | Encounter Summary ---
Author Organization [facility] [place] [address] Care Team Providers Care Manager Special Events Name Role Phone Allyson Grijalva MD Primary Care Provider [phone] Encounter Details Date Type Department Care Team (Latest Contact Info) Description 10/16/2023 Travel Social History Tobacco Use Types Packs/Day Years Used Date Smoking Tobacco: Never Smokeless Tobacco: Never Alcohol Use Standard Drinks/Week Comments Yes 6 (1 standard drink = 0.6 oz pur e alcohol) [address] [facility] Inpatient Questions Answer Date Recorded Does Anyone [...] EDT TH Visit (TeleHealth) Infectious Disease at [facility] [place] [address] Florida Murphy APRN [facility] [place] [address] documented as of this encounter Visit Diagnoses Not on filedocumented in this encounter Care Teams Manager Special Events Relationship Specialty Start Date End Date Allyson Grijalva MD [facility] [place] [address] PCP - General 10/16/23 documented as of this encounter
[2023-10-27 15:52] LABS: Abs Immature Grans 0.02 10^3/uL (0.0-0.06); Absolute Basophil Count 0.03 10^3/uL (0.0-0.2); Absolute Lymphocyte Count 1.34 10^3/uL (1.2-3.4); Absolute Monocyte Count 0.84 10^3/uL (0.1-0.8); Absolute Neutrophil Count 4.57 10^3/uL (1.2-6.7); Basophils % 0.4 %; Eosinophils % 1.4 %; HCT 42.1 % (40.0-50.0); HGB 14.4 g/dL (13.5-17.5); Immature Grans % 0.3 %; Lymphocytes % 19.4 %; MCH 35.4 pg (27.0-33.0); MCHC 34.2 % (32.0-36.0); MCV 103 fL (80-95); MPV 8.9 fL (8.0-11.0); Monocytes % 12.2 %; Neutrophils % 66.3 %; Platelet Count 283 10^3/uL (130-400); RBC 4.07 10^6/uL (4.36-5.78); RDW-SD 46.3 fL
[2023-10-27 16:11] LABS: ALT 15 U/L (16-63); AST 19 U/L (15-37); Albumin 3.1 g/dL (3.4-5.0); Alkaline Phosphatase 77 U/L (46-116); Anion Gap 8.8 mmol/L (3-11); BUN 11 mg/dL (7-18); Bilirubin, Total 0.51 mg/dL (0.2-1.0); C-Reactive Protein 0.54 mg/dL (<or=0.5); CO2 27.2 mmol/L (21.0-32.0); CREATININE 1.5 mg/dL (0.70-1.30); Calcium 9.2 mg/dL (8.5-10.1); Chloride 104 mmol/L (98-107); Estimated GFR 46.19 (mL/min/1.73m2); Glucose 106 mg/dL (74-106); Potassium 4.4 mmol/L (3.5-5.1); Sodium 140 mmol/L (136-145); Total Protein 7.6 g/dL (6.4-8.2)
== END 2023-10-27 03:52 | disposition home or self-care (01) ==
LOC: LBO 03:51
DX: M86.9 Osteomyelitis, unspecified (principal)
CPT/HCPCS: 36415; 80053; 85025; 86140